=== PATIENT | male | born 1970 | race Caucasian/White ===

== ENCOUNTER 2017-06-13 09:58 | Emergency (ER) | payer SELFPAY ==
[2017-06-13 09:58] VITALS: BP 142/89; PULSE 92; RESP 16; TEMP 37.8; O2SAT 97; BMI 54.6
[2017-06-13 10:26] VITALS: O2SAT 98
--- NOTE | 2017-06-13 10:27 | EKG12_ITS ---
Test Reason : SOB Blood Pressure : / mmHG Vent. Rate : 086 BPM Atrial Rate : 086 BPM P-R Int : 146 ms QRS Dur : 082 ms QT Int : 364 ms P-R-T Axes : 061 039 047 degrees QTc Int : 435 ms Normal sinus rhythm Normal ECG Confirmed by BOLA SERNA MD ([id number]), content editor HAILE AZAR ([id number]) on 06/15/2017 12:55:18 PM Referred By: SUGEY Confirmed By:BOLA SERNA MD
--- NOTE | 2017-06-13 10:27 | RAD_ITS ---
STUDY: X-RAY CHEST REASON FOR EXAM: Male, 46 years old. Fever and cough. TECHNIQUE: PA and lateral views. COMPARISON: 11/01/2014. FINDINGS: Ill-defined nodular infiltrates in the right upper lobe are worrisome for pneumonia. There is no demonstrated pleural abnormality. Cardiac size may be enlarged but unchanged. Normal mediastinum and nathan. Normal visualized pulmonary arteries. Normal visualized aortic arch and descending thoracic aorta. Normal visualized thoracic spine. Normal visualized ribs, clavicles, and shoulders. There is no demonstrated abnormality of the visualized soft tissue structures of the upper abdomen. RAD/Chest PA and Lateral IMPRESSION: Ill-defined nodular infiltrates in the right upper lobe are suspicious for pneumonia. Electronically Signed: Rufus Malave MD at 12:00 EST , Service support ,
[2017-06-13 11:00] VITALS: BP 136/67; BP 143/66; BP 153/93; PULSE 87; PULSE 92; PULSE 99
--- NOTE | 2017-06-13 12:04 | ED.VISSUMM ---
- ER Visit Summary Date of Service: 06/13/17 Chief Complaint: Shortness of breath History of Present Illness: The patient is a 46 M who has been ill for about 3 days. On the initial day he had a fever of 104. He complains of congestion rhinorrhea shortness of breath and cough. He vomited yesterday morning but not since that time he had diarrhea multiple times yesterday. He has had sick contacts with similar symptoms. He is also complained of some intermittent dizziness. Initially he just attributed this to a cold. However given that he has not improved over the past few days he was concerned and presented here. He is concerned he may need antibiotics. He denies chest pain muscle aches joint aches. Physical Examination: Temperature 100.0 vitals unremarkable sex 97% on room air heart rate 92 Patient resting comfortably in no distress Moist mucous membranes Heart regular rate and rhythm Lungs are clear to auscultation I do not appreciate rales rhonchi or wheezes Abdomen soft nontender Extremities nontender Alert Test Results: EKG shows normal sinus rhythm at a rate of 86. Orthostatic vital signs are negative. Influenza A positive. Two-view chest x-ray shows possible right-sided infiltrate. Emergency Department Course and Treatment: Patient clinically appears well and he has normal vital signs. I do believe he is a good candidate for outpatient treatment. His outside of the timeframe for starting Tamiflu but he will be placed on azithromycin for pneumonia. He was instructed on specific signs and symptoms to monitor for, conditions under which to return to the emergency department. All questions answered at bedside patient agreeable to plan. He was discharged. Treatment Plan: [] Disposition: Discharge Impression: Influenza Community-acquired pneumonia This note was generated with [employer] dictation software. It may contain incorrect words, spelling, and punctuation that were not noted in review of the chart prior to signing ED Disposition - Plan for ED Patient: Chief Complaint: Shortness of Breath Referrals: Care Physician,No Primary [Primary Care Provider] -
--- NOTE | 2017-06-13 12:06 | ED.DEP ---
ED Disposition - Plan for ED Patient: Chief Complaint: Shortness of Breath Instructions: ED Pneumonia Adult, ED Flu Prescriptions: Azithromycin [Zithromax Z-Louis] 250 mg PO UD #1 box Referrals: Care Physician,No Primary [Primary Care Provider] - Amilcar Wilson MD [STAFF PHYSICIAN] -
[2017-06-13 12:15] VITALS: BP 157/82; PULSE 96; RESP 16; O2SAT 97
== END 2017-06-13 12:16 | disposition home or self-care (01) ==
PROVIDERS: Emergency Provider Emergency Medicine
DX: J11.1 Influenza due to unidentified influenza virus with other respiratory manifestations (principal); J18.9 Pneumonia, unspecified organism; G47.33 Obstructive sleep apnea (adult) (pediatric)
CPT/HCPCS: 71046; 87804; 93005; 99283

== ENCOUNTER 2018-04-09 22:45 | Emergency (ER) | payer SELFPAY ==
[2018-04-09 22:46] VITALS: BP 155/80; PULSE 89; RESP 14; TEMP 36.9; O2SAT 97; BMI 49.8
--- NOTE | 2018-04-09 23:01 | ED.DEP ---
ED Disposition - Plan for ED Patient: Chief Complaint: Abscess Instructions: ED Abscess IandD Prescriptions: Clindamycin [Cleocin] 300 mg PO 4X/DAY #80 capsule Referrals: Francisco J Verduzco III, MD [STAFF PHYSICIAN] - Adam Szymanski MD [STAFF PHYSICIAN] -
--- NOTE | 2018-04-09 23:05 | ED.DCSUM_ITS ---
- ER Visit Summary Date of Service: 04/09/18 Chief Complaint: Abscess History of Present Illness: The patient is a 47 M presenting with abscess to groin since . He states his tried to squeeze the abscess and it drained brown pus. He denies fever. He has not had these symptoms in the past. Denies other complaints. Physical Examination: Vitals are stable. Patient is afebrile. Alert no acute distress. HEENT exam is unremarkable. Neck is supple. Lungs are clear and equal bilaterally. Heart is regular rate and rhythm. Abdomen is soft nontender nondistended. : 2 cm fluctuant abscess to the superior left groin, does not tract to the scrotum. Extremities are unremarkable. Skin is warm and dry. Remainder of exam is unremarkable. Emergency Department Course and Treatment: I&D was performed. Anesthetized with lidocaine. Incised with 11 blade. Moderate amount of pus was drained. Probed to break up loculations. Irrigated with saline. Patient tolerated this well. He was given a prescription for clindamycin. Advised signs and symptoms for which to return to ED. He is advised to follow-up with primary care physician. Advised return to ED if worsening complaints. Disposition: Discharge home Impression: Left groin abscess, I&D This note was generated with [employer] dictation software. It may contain incorrect words, spelling, and punctuation that were not noted in review of the chart prior to signing ED Disposition - Plan for ED Patient: Disposition: Home or Assisted Living Chief Complaint: Abscess Instructions: ED Abscess IandD Prescriptions: RX: Clindamycin [Cleocin] 300 mg PO 4X/DAY #80 capsule Referrals: Francisco J Verduzco III, MD [STAFF PHYSICIAN] - Adam Szymanski MD [STAFF PHYSICIAN] -
[2018-04-09] MEDS: Clindamycin HCl 150 MG Capsule 300 MG PO (23:09)
[2018-04-09 23:45] VITALS: RESP 16; O2SAT 98
== END 2018-04-09 23:49 | disposition home or self-care (01) ==
LOC: ED 23:06
PROVIDERS: Emergency Provider Emergency Medicine
DX: L02.214 Cutaneous abscess of groin (principal)
CPT/HCPCS: 10060; 99283

== ENCOUNTER 2019-08-14 18:40 | Emergency (ER) | payer SELFPAY ==
[2019-08-14 18:41] VITALS: BP 159/81; PULSE 68; RESP 18; TEMP 36.6; O2SAT 99
[2019-08-14 18:42] VITALS: BP 159/81; PULSE 68; RESP 18; TEMP 36.6; O2SAT 99; BMI 44.0
--- NOTE | 2019-08-14 19:04 | ED.VISSUMM ---
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 Patient since Wednesday has had a fever of 101+. Runny nose and cough. He states he had a lot of body aches. No chest pain. No hemoptysis. No leg swelling. Physical Examination: Middle-aged male no acute distress. Vital signs stable and afebrile. Pulse ox 99% room air no signs hypoxia. H EENT exam unremarkable. Moist with membranes. Neck nontender. No mid lymphadenopathy. Lungs coarse breath sounds bilaterally. But no rales, rhonchi or wheezing. Equal symmetrical. Heart regular rhythm no murmur. Rate about 70. Abdomen soft nontender normal bowel sounds no peritoneal signs. Patient is moving all 4 extremities. Calves are nontender without edema or cords. Neurologically is awake alert with no focal motor deficits. Test Results: This x-ray portable 1 view read by myself shows no acute abnormality. Normal cardiac silhouette and lung reid. Also read by the radiologist. Influenza test negative. Emergency Department Course and Treatment: History and exam are consistent with a respiratory tract infection viral versus pneumonia. Treatment Plan: Repeat exam at 8:30 PM patient doing well. I went over his test results with him. He will be discharged to home. Fluids and rest. Tylenol Motrin. Follow-up if not improving. Disposition: discharge Impression: Viral URI Rule out coronavirus This note was generated with [employer] dictation software. It may contain incorrect words, spelling, and punctuation that were not noted in review of the chart prior to signing ED Disposition - Plan for ED Patient: Referrals: Care Physician,No Primary [NON-STAFF] -
--- NOTE | 2019-08-14 19:07 | RAD_ITS ---
STUDY: X-RAY CHEST REASON FOR EXAM: Male, 48 years old. sob with fever and body aches TECHNIQUE: Frontal view COMPARISON: November 01, 2014 FINDINGS: The lungs are expanded. Right costophrenic angle blunting may be due to trace effusion. Normal size heart. Normal mediastinum and nathan. Normal visualized pulmonary arteries. Normal visualized aortic arch and descending thoracic aorta. Degenerative changes at thoracic spine. Normal visualized ribs, clavicles, and shoulders. There is no demonstrated abnormality of the visualized soft tissue structures of the upper abdomen. RAD/Chest 1 View (Portable) IMPRESSION: Possible trace right pleural effusion. Electronically Signed: Satish Sarah DO at 19:21 EDT Tel [phone], Service support ,
--- NOTE | 2019-08-14 20:32 | ED.DEP ---
ED Disposition - Plan for ED Patient: Disposition: Home or Assisted Living Instructions: ED Viral Syndrome Referrals: Ric Montoya MD [STAFF PHYSICIAN] - 1 Week if not improving Additional Instructions: Plenty of fluids and rest. Alternate Tylenol and Motrin for fever Follow-up if not improving.
[2019-08-14 20:36] VITALS: BP 148/82; PULSE 70; RESP 15; TEMP 36.9; O2SAT 98; O2SAT 99
== END 2019-08-14 20:55 | disposition home or self-care (01) ==
PROVIDERS: Emergency Provider Emergency Medicine; PCP Family Medicine
DX: J06.9 Acute upper respiratory infection, unspecified (principal); J90 Pleural effusion, not elsewhere classified; E11.9 Type 2 diabetes mellitus without complications; Z79.84 Long term (current) use of oral hypoglycemic drugs
CPT/HCPCS: 71045; 87804; 99282

== ENCOUNTER 2020-01-29 16:04 | Emergency (ER) | payer SELFPAY ==
[2020-01-29 16:05] VITALS: BP 152/81; PULSE 71; RESP 16; TEMP 36.5; O2SAT 97; BMI 45.1
--- NOTE | 2020-01-29 16:30 | RAD_ITS ---
STUDY: X-RAY - LEFT KNEE REASON FOR EXAM: Male, 49 years old. PAIN AND LROM S/P INJURY x3 DAYS AGO TECHNIQUE: 4 view(s) of the knee. COMPARISON: None. FINDINGS: Normal visualized distal femur. Normal visualized proximal tibia. There is a bony lesion at the proximal shaft of the fibula, possibly a osteochondroma. Normal proximal tibiofibular articulation. Normal medial femorotibial compartment. Normal lateral femorotibial compartment. Normal patellofemoral articulation. Degenerative patella spurring. The soft tissue structures are unremarkable. RAD/Knee 4 or More Views IMPRESSION: Proximal fibular bony lesion is noted. No acute bony injury. Degenerative changes with spurring of the patella. Electronically Signed: Satish Sarah DO at 17:28 EDT Tel [phone], Service support ,
--- NOTE | 2020-01-29 16:39 | ED.DCSUM_ITS ---
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 He reports that 3 days ago he lost his footing when he stepped off of the cat walk on his trunk. States that he twisted his left knee awkwardly. He denies any other injuries. No blow to the head or loss of consciousness. Patient reports that he is a sharp, throbbing pain to his knee that is 10 on 10 at worst 9-10 currently. Is worsened by walking or straightening his leg out. Is relieved by ibuprofen. Denies any numbness or weakness. Review of systems: General: No fever, chills, cold sweats. Cardiovascular: No chest pain, palpitations. Respiratory: No cough, shortness of breath, dyspnea on exertion. Gastrointestinal: No abdominal pain, nausea, vomiting, diarrhea, melena, or hematochezia. Genitourinary: No dysuria, frequency, hematuria. Skin: No rash. Neuro: No headache, numbness, weakness. Physical Examination: Vitals: Stable. Afebrile. Neck: No vertebral tenderness. Full ROM without difficulty. Cleared by NEXUS criteria. Back: No vertebral tenderness. General: A&O x 3. NAD. Cardiovascular exam: Regular rate and rhythm, no murmur, rub or gallop. Respiratory exam: Chest nontender. No crepitus. Clear to auscultation bilaterally. No wheezes or stridor. Abdominal exam: Soft, nontender, nondistended, normal bowel sounds. No pain in RUQ or LUQ specifically. No peritoneal signs. Extremity: Moderate tenderness palpation over the medial side of his left knee. Good range of motion with minimal pain. However he does have pain with trying to extend completely. No pain or ligamentous instability with anterior/posterior drawer or medial/lateral stress. Test Results: Clinical Impression(s) from Imaging Studies Knee X-Ray 01/29/20 16:30 IMPRESSION: Proximal fibular bony lesion is noted. No acute bony injury. Degenerative changes with spurring of the patella. Electronically Signed: Satish Sarah DO at 17:28 EDT Tel [phone], Service support , Emergency Department Course and Treatment: Patient was treated with Tylenol. He refused crutches. Treatment Plan: Patient will be discharged instructions follow-up Dr. Ralph Rinaldi in 1 week if not improving. Return to the emergency department for any worsening symptoms. Disposition: To home in improved and stable condition. Impression: 1 1. Left knee pain, acute. This note was generated with [employer] dictation software. It may contain incorrect words, spelling, and punctuation that were not noted in review of the chart prior to signing ED Disposition - Plan for ED Patient: Disposition: Home or Assisted Living Instructions: ED Knee Pain [facility]O Prescriptions: Naproxen [Naprosyn] 500 mg PO BID #14 tab Prescription Printed Referrals: Ralph Rinaldi MD [STAFF PHYSICIAN] - 1 Week if not improving
[2020-01-29] MEDS: Acetaminophen 500 MG Tablet 1000 MG PO (16:43)
--- NOTE | 2020-01-29 16:44 | ED.RN ---
DISCHARGE INSTRUCTIONS GIVEN TO AND REVIEWED WITH PATIENT, PATIENT DENIES QUESTIONS OR CONCERNS AND VOICES UNDERSTANDING OF DISCHARGE INSTRUCTIONS. PT AMBULATES OUT OF ROOM WITHOUT DIFFICULTY.
== END 2020-01-29 16:45 | disposition home or self-care (01) ==
LOC: ED 16:42
PROVIDERS: Emergency Provider Emergency Medicine; PCP Family Medicine
DX: M25.562 Pain in left knee (principal); X50.1XXA Overexertion from prolonged static or awkward postures, initial encounter; Y93.9 Activity, unspecified; Y92.9 Unspecified place or not applicable
CPT/HCPCS: 73564; 99283

== ENCOUNTER 2022-09-23 11:14 | Emergency (ER) | payer MEDICAID, SELFPAY ==
[2022-09-23 11:16] VITALS: BP 156/84; PULSE 81; RESP 16; TEMP 36.6; O2SAT 98; BMI 47.1
--- NOTE | 2022-09-23 11:57 | CT_ITS ---
HISTORY: hematuria. TECHNIQUE: Helically acquired images were obtained of the abdomen and pelvis without oral or IV contrast. A radiation dose optimization technique was used for this scan. 534 images. COMPARISON: None.. FINDINGS: LOWER CHEST: Mild scarring in the right lung base. BOWEL: Bowel including appendix nondilated. Moderate stool in the colon. PERITONEUM: No significant free fluid. LIVER: Fatty infiltration. 22 cm in length. GALLBLADDER/BILIARY TREE: Gallbladder contracted. SPLEEN: 17 cm in length. KIDNEYS AND URETERS: No nephrolithiasis or hydronephrosis. PANCREAS/ADRENAL GLANDS: Nonenlarged. VESSELS: No abdominal aortic aneurysm. PELVIC ORGANS: Unremarkable. 1.5 x 2.4 cm right external iliac lymph node. ABDOMINAL WALL: Fat-containing umbilical and inguinal hernias. BONES: Mild degenerative change. CT/Abdomen/Pelvis without Cont IMPRESSION: Negative examination for renal stone. Hepatosplenomegaly. Hepatic steatosis. Mildly enlarged right external iliac lymph node, nonspecific. Consider follow-up. Electronically Signed: Katina Shaw MD at 12:40 EDT ,
--- NOTE | 2022-09-23 12:09 | ED.RN ---
Addendum entered by Chacha Hobson 09/23/22 12:45: PT STATED THE IV NEED TO GO IN HIS HAND. Original Note: YOUREGOING TO NEED TO PUT THE IV IN MY, THEY USE 18 ON ME.
[2022-09-23 12:11] LABS: Absolute Lymphocyte Count 0.93 X10^3/uL (0.83-4.51); Absolute Neutrophil Count 4.8 X10^3/uL (2.0-7.7); Basophil# 0.05 X10^3/uL; Basophil% 0.7 % (0-1); Eosinophil# 0.01 X10^3/uL; Eosinophils% 0.1 % (0-5); Hematocrit 42.1 % (40-54); Lymphocyte # 0.93 X10^3/ul (0.83-4.51); Lymphocyte % 13.8 % (19-41); Mean Corp Hgb Conc 33.3 g/dL (32-36); Mean Platelet Vol. 8.9 fl (6.2-12.0); Monocyte# 0.73 X10^3/uL; Monocyte% 10.8 % (0-10); NRBC Flagged by Analyzer 0 % (0-5); Neutrophil % 71.2 % (47-70); Platelet Count 196 K/mm3 (150-450); RBC Distribution Width CV 14.3 % (11.6-14.6); RBC Distribution Width SD 38.3 fl (35.1-43.9); Red Blood Count 5.61 M/mm3 (4.6-6.2); White Blood Count 6.8 K/mm3 (4.4-11.0)
[2022-09-23 12:22] LABS: Anion Gap 6 (5-15); BUN 13 mg/dL (7-18); BUN/Creat Ratio 8.8 RATIO (10-20); Calcium,Total 8.9 mg/dL (8.5-10.1); Chloride 99 mmol/L (98-107); Creatinine, Serum 1.48 mg/dL (0.70-1.30); EST Glomerular Filtration Rate 53 mL/min (>60); Est Glom Filt Rate - Afr Amer 65 mL/min (>60); Estimated Creatinine Clearance 59.71 ml/min; Glucose 195 mg/dL (74-106); Potassium 3.5 mmol/L (3.5-5.1); Sodium Level 132 mmol/L (136-145)
--- NOTE | 2022-09-23 12:23 | EDS_ITS ---
HPI History of Present Illness Chief Complaint: Male Pain/Injury Informant: patient Narrative Narrative: Patient states 2 days ago he was at work, he was trying to open the cheung on a his truck trailer, but cement had dried on the cheung and rinsing it off with a h ose did not remove it so he physically bent over to pull the cheung open with force, and ended up doing this on multiple other latches, he states fairly suddenly after the initial 1 he had pain across his lower abdomen and flanks bilaterally that felt like he pulled something. No pain in his low back, but his testicles both do feel sore. No neurologic symptoms in his legs. No bowel or bladder dysfunction. 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 He states since then, he has been urinating mild amount of blood but not as much as that initial time. He still has the pain. No nausea, vomiting, but last night he felt like he subjectively had a fever and felt sweaty, he did not check his temperature, that has not occurred again today. He does still have the pain. [facility] Medical History (Updated 09/23/22 @ 15:[address] Logan Ryan MD) Bronchitis Obesity Pleural effusion Type 2 diabetes mellitus Medical History no medical history Home Medications clindamycin HCl 150 mg capsule 300 mg PO 4X/DAY ##80 04/09/18 [Rx Last Taken Unknown] metformin 500 mg tablet,extended release 24 hr 1,000 mg PO BID 08/14/19 [History Last Taken Unknown] testosterone cypionate 200 mg/mL intramuscular oil 1 injectable IM QWEEK 08/14/19 [History Last Taken Unknown] anastrozole 1 mg tablet 01/29/20 [History Last Taken Unknown] naproxen 500 mg tablet 500 mg PO BID #14 tabs 01/29/20 [Rx Last Taken Unknown] sulfamethoxazole 800 mg-trimethoprim 160 mg tablet 1 tab PO BID #6 TABLETS 09/23/22 [Rx Last Taken Unknown] Allergy/AdvReac Type Severity Reaction Status Date / Time hydrocodone Allergy Other Verified 09/23/22 11:19 Penicillins Allergy Rash Verified 09/23/22 11:19 Social History Smoking Status: Never smoker ROS ROS ED Constitutional Constitutional ED: Reports fever(s), subjective and sweats; Denies chills Eyes Eyes: Denies change in vision or diplopia ENT ENT ED: Denies rhinorrhea or sore throat Cardiovascular Cardiovascular: Denies chest pain or palpitations Respiratory/Chest Respiratory/Chest: Denies cough or dyspnea Gastrointestinal Gastrointestinal: Reports abdominal pain; Denies diarrhea, nausea or vomiting Genitourinary Genitourinary ED: Reports as per HPI, hematuria and scrotal pain; Denies dysuria, scrotal swelling or testicular mass Musculoskeletal Musculoskeletal: Denies back pain or neck pain Integumentary Denies abscess or rash Neurologic Neurologic: Denies headache(s), paresthesias or weakness Psychiatric Psychiatric: Denies anxiety or suicidal thoughts EXAM Physical Exam Const Vital Signs: 09/23/22 11:16 09/23/22 14:53 Temperature 98 F Temperature Source Temporal Pulse Rate 81 81 Respiratory Rate 16 16 Blood Pressure 156/84 H 137/79 H Blood Pressure Mean 108 98 Pulse Ox 98 99 Oxygen Delivery Method Room Air Room Air Positive well nourished, well developed and obese General Appearance ED: well developed and NAD Nutritional Appearance: obese HEENT Reports moist mucous membranes normocephalic and atraumatic Eyes PERRL and EOMs intact bilaterally Neck full ROM and supple Resp normal respiratory effort and clear to auscultation bilaterally Cardio regular rate, regular rhythm and no murmurs Rate: tachycardic GI non-distended GI Narrative: Mild diffuse lower abdominal tenderness or suprapubic no guarding or rebound otherwise benign. Auscultation: normoactive bowel sounds Palpation: soft no CVA tenderness Narrative: Testicles very mildly diffusely tender, normal cremasterics, normal color, no swelling, no rash/skin lesion there. No perineal tenderness, subcutaneous emphysema, erythema, or necrotic tissue. Testes: Negative for testicular mass Back/Spine no CVA tenderness General Back: other FROM Extremity normal to inspection General Extremety ED: Negative for edema, pulses abnormal or tenderness General Extremity: Negative for edema or pulses abnormal Neuro oriented x3, CN's II-XII intact bilaterally and no sensory deficits noted Sensorium / Orientation: awake and alert Motor Exam: strength 5/5 throughout Psych mental status grossly normal Skin no rashes or lesions noted and no wounds MDM MDM MDM Narrative Medical decision making narrative: Patient with what sounds like a muscle strain followed by hematuria. No obvious link to this, so I obtained a CT of his abdomen/pelvis as well as of blood work, his renal function is down a little but not enough to require admission, his urinalysis does not show significant signs of infection, he does have glucose, his serum glucose was 195, and he has protein and blood, however there are no white or red blood cells. His CT is basically unremarkable, I reviewed the imaging and the report which I agree with. Given that, I considered rhabdomyolysis or major muscle injury in the differential and sent a CPK. It returned normal. Given this, and the fact that he had sweats and fevers subjectively last night, I am going to treat him with 3 days of Bactrim, send a urine culture, and have him follow-up. Unknown if this could have been some type of minor muscle injury, he definitely does not have a rectus sheath hematoma or other muscle finding on CT imaging in the area where he is having pain. We will have the patient follow-up as an outpatient. If the hematuria persists he should see urology. Our lab does offer a urine myoglobin test, but it is a send out and will not be performed today. I am adding that on, and he should follow-up for the results. History & Record Review Additional record(s) reviewed:: Prior labs Lab Data Attestation: I reviewed the patient's lab results. Labs: Laboratory Results - last 24 hr 09/23/22 09/23/22 09/23/22 12:03 12:03 12:03 WBC 6.8 RBC 5.61 Hgb 14.0 Hct 42.1 MCV 75.0 L MCH 25.0 L MCHC 33.3 RDW Std Deviation 38.3 RDW Coeff of Elicia 14.3 Plt Count 196 MPV 8.9 Immature Gran % (Auto) 3.400 H Neut % (Auto) 71.2 H Lymph % (Auto) 13.8 L Clayton % (Auto) 10.8 H Eos % (Auto) 0.1 Baso % (Auto) 0.7 Absolute Neuts (auto) 4.8 Absolute Lymphs (auto) 0.93 Nucleated RBC % 0 Sodium 132 L Potassium 3.5 Chloride 99 Carbon Dioxide 27.0 Anion Gap 6 BUN 13 Creatinine 1.48 H Estim Creat Clear Calc 59.71 Est GFR (MDRD) Af Amer 65 Est GFR (MDRD) Non-Af 53 L BUN/Creatinine Ratio 8.8 L Glucose 195 H Calcium 8.9 Total Creatine Kinase 144 Urine Color Urine Clarity Urine pH Ur Specific [place] Urine Protein Urine Glucose (UA) Urine Ketones Urine Occult Blood Urine Nitrite Urine Bilirubin Urine Urobilinogen Ur Leukocyte Esterase Urine RBC Urine WBC Ur Squamous Epith Cells Urine Bacteria Urine Mucus 09/23/22 12:35 WBC RBC Hgb Hct MCV MCH MCHC RDW Std Deviation RDW Coeff of Elicia Plt Count MPV Immature Gran % (Auto) Neut % (Auto) Lymph % (Auto) Clayton % (Auto) Eos % (Auto) Baso % (Auto) Absolute Neuts (auto) Absolute Lymphs (auto) Nucleated RBC % Sodium Potassium Chloride Carbon Dioxide Anion Gap BUN Creatinine Estim Creat Clear Calc Est GFR (MDRD) Af Amer Est GFR (MDRD) Non-Af BUN/Creatinine Ratio Glucose Calcium Total Creatine Kinase Urine Color Yellow Urine Clarity Sl. Cloudy Urine pH 5.0 Ur Specific [place] 1.020 Urine Protein 30 H Urine Glucose (UA) 250 H Urine Ketones 5 H Urine Occult Blood 50 H Urine Nitrite Negative Urine Bilirubin Negative Urine Urobilinogen 4 H Ur Leukocyte Esterase 25 H Urine RBC 0-5 SEEN Urine WBC 0-5 SEEN Ur Squamous Epith Cells 0-5 SEEN Urine Bacteria 1+ Urine Mucus 0 SEEN Radiography Diagnostic Testing: Clinical Impression(s) from Imaging Studies Abdomen/Pelvis CT 09/23/22 11:57 IMPRESSION: Negative examination for renal stone. Hepatosplenomegaly. Hepatic steatosis. Mildly enlarged right external iliac lymph node, nonspecific. Consider follow-up. Electronically Signed: Katina Shaw MD at 12:40 EDT , Discharge Plan Triage Chief Complaint: Male Pain/Injury ED Provider: Logan Ryan Dx/Rx/DC Orders Clinical Impression: Abdominal muscle strain, Hematuria Instructions: Myoglobin (Urine), ED Hematuria, ED Muscle Strain, Abdomen Prescriptions: New sulfamethoxazole-trimethoprim [sulfamethoxazole-trimethoprim] 800-160 mg tablet 1 tab PO BID Qty: 6 0RF No Action clindamycin HCl 150 MG capsule 300 mg PO 4X/DAY Qty: 80 0RF testosterone cypionate 200 MG/ML oil 1 injectable IM QWEEK metformin 500 MG tablet 1,000 mg PO BID naproxen 500 MG tablet 500 mg PO BID Qty: 14 0RF anastrozole 1 mg tablet Label Comments: Take 1 tablet by mouth one time a week. Stand Alone Forms: Work Status Form Primary Care Provider: Keron Ramos Referrals: [facility] [Group of Physicians] - As soon as possible Adam Szymanski MD [Med Staff - Active Staff] - 1 Week if not improving (with regards to urinating blood) Keron Ramos MD [Primary Care Provider] - Activity Restrictions/Additional Instructions: drink plenty of fluids Disposition Disposition: Home, Self Care
[2022-09-23 12:48] LABS: Mucous, Urine 0 SEEN /hpf (<or=2+)
[2022-09-23 13:06] LABS: Color, Urine Yellow (Yellow); Glucose, Dipstick 250 mg/dl (Normal); Ketone-Dipstick 5 mg/dl (Negative); Leukocyte Esterase-Dipstick 25 /ul (Negative); Nitrite-Dipstick Negative (Negative); Occult Blood-Urine 50 /ul (Negative); Protein-Dipstick 30 mg/dl (Negative); Urine Bilirubin Dipstick Negative (Negative); Urine Clarity Sl. Cloudy (Clear); Urine Urobilinogen 4 mg/dl (Normal)
[2022-09-23 13:14] LABS: Bacteria 1+ /hpf (None Seen); Red Blood Cells-Urine 0-5 SEEN /hpf (0-5); Squamous Epithelial Cells - UA 0-5 SEEN /hpf (0-5); White Blood Cells 0-5 SEEN /hpf (0-5)
[2022-09-23 14:50] LABS: CPK Total, Creatine Kinase 144 U/L (39-308)
[2022-09-23 14:53] VITALS: BP 137/79; PULSE 81; RESP 16; O2SAT 99
[2022-09-23] MEDS: Smz/Tmp Ds Tablet 1 TABLET PO (15:05)
[2022-09-23 15:27] VITALS: BP 144/71; PULSE 63; RESP 14; O2SAT 97
[2022-09-29 16:09] LABS: Myoglobin, Urine 5 ng/mL (0-13)
== END 2022-09-23 15:28 | disposition home or self-care (01) ==
PROVIDERS: Emergency Provider Emergency Medicine; PCP Family Medicine; Visit Provider Emergency Medicine
DX: R31.9 Hematuria, unspecified (principal); E11.9 Type 2 diabetes mellitus without complications; S39.011A Strain of muscle, fascia and tendon of abdomen, initial encounter; X50.9XXA Other and unspecified overexertion or strenuous movements or postures, initial encounter; Y99.0 Civilian activity done for income or pay; Y92.69 Other specified industrial and construction area as the place of occurrence of the external cause; Z79.84 Long term (current) use of oral hypoglycemic drugs
CPT/HCPCS: 74176; 80048; 81001; 82550; 83874; 85025; 87086; 87088; 99283; A4216

== ENCOUNTER 2024-09-07 21:17 | Emergency (ER) | payer MEDICAID, SELFPAY ==
[2024-09-07 21:18] VITALS: BP 171/94; PULSE 85; RESP 18; TEMP 36.6; O2SAT 97; BMI 50.6
[2024-09-07] MEDS: Morphine 4 MG/ML Syringe IV (22:38)
[2024-09-07] MEDS: Lidocaine 2% /Epi 1:100 (20ml) 20 ML VIAL INFILT (22:38)
[2024-09-07] MEDS: Ondansetron 4 MG/2 ML Vial IV (22:38)
[2024-09-07 22:53] LABS: Absolute Lymphocyte Count 1.72 X10^3/uL (0.83-4.51); Absolute Neutrophil Count 4.9 X10^3/uL (2.0-7.7); Basophil# 0.09 X10^3/uL; Basophil% 1.2 % (0-1); Eosinophil# 0.19 X10^3/uL; Eosinophils% 2.5 % (0-5); Hematocrit 39.6 % (40-54); Hemoglobin 13.6 g/dL (13.0-16.5); Lymphocyte # 1.72 X10^3/ul (0.83-4.51); Lymphocyte % 22.3 % (19-41); Mean Corp Hgb Conc 34.3 g/dL (32-36); Mean Corpuscular Hgb 26.4 pg (27.0-32.0); Mean Corpuscular Volume 76.7 fL (80-94); Mean Platelet Vol. 9.1 fl (6.2-12.0); Monocyte# 0.52 X10^3/uL; Monocyte% 6.8 % (0-10); NRBC Flagged by Analyzer 0 % (0-5); Neutrophil # 4.91 X10^3/uL (2.7-7.7); Neutrophil % 63.7 % (47-70); Platelet Count 269 K/mm3 (150-450); RBC Distribution Width CV 14.3 % (11.6-14.6); RBC Distribution Width SD 38.5 fl (35.1-43.9); Red Blood Count 5.16 M/mm3 (4.6-6.2); White Blood Count 7.7 K/mm3 (4.4-11.0)
[2024-09-07] MEDS: Clindamycin 900 MG/50 ML BAG 75 MG IV (22:53)
[2024-09-07 23:00] VITALS: BP 144/90; PULSE 88; RESP 15; TEMP 36.6; O2SAT 98
[2024-09-08] VITALS: BP 144/90; PULSE 81; RESP 20; TEMP 37.1; O2SAT 96
[2024-09-08] LABS: Lactic Acid 1.4 mmol/L (0.0-2.0)
[2024-09-08 00:04] LABS: Anion Gap 13 (5-15); BUN 18 mg/dL (4-19); BUN/Creat Ratio 14.8 RATIO (10-20); Calcium,Total 9.1 mg/dL (7.6-11.0); Carbon Dioxide 21.8 mmol/L (21.0-32.0); Chloride 96 mmol/L (98-108); Creatinine, Serum 1.22 mg/dL (0.70-1.20); EST Glomerular Filtration Rate 71 (>60); Estimated Creatinine Clearance 104.84 ml/min (50-250); Glucose 528 mg/dL (70-99); Potassium 4.7 mmol/L (3.3-5.1); Sodium Level 131 mmol/L (133-145)
--- NOTE | 2024-09-08 00:50 | EX.ED.DYSGE1 ---
HPI History of Present Illness Chief Complaint: Abscess Informant: patient Narrative Narrative: Patient is a 53-year-old male with past medical history of anxiety and diabetes. He states over the past week he noticed a small bump along the right upper posterior thigh. He states it felt like a zit. However as the week progressed the area became more red swollen and painful. He states his popped it and it drained a large amount of pus. He states that there was concern there was persistent infection and that he may require antibiotics and therefore comes in for evaluation. [facility] Medical History (Updated 09/08/24 @ 05:[address] Ky Carrillo, DO) Anxiety Type 2 diabetes mellitus Pleural effusion Obesity Bronchitis Home Medications ?Medication ?Instructions ?Recorded ?Last Taken ?Type metformin 500 mg tablet,extended 1,000 mg PO BID 08/14/19 Unknown History release 24 hr glipizide 10 mg tablet, extended 10 mg PO DAILY 09/07/24 Unknown History release 24 hr paroxetine HCl 30 mg tablet 30 mg PO DAILY 09/07/24 Unknown History clindamycin HCl 300 mg capsule 300 mg PO 4X/DAY 10 days #40 caps 09/08/24 Unknown Rx oxycodone-acetaminophen 5 mg-325 1 tab PO Q6H PRN pain 3 days #12 09/08/24 Unknown Rx mg tablet (Percocet) tabs Allergy/AdvReac Type Severity Reaction Status Date / Time hydrocodone Allergy Other Verified 09/07/24 21:20 Penicillins Allergy Rash Verified 09/07/24 21:20 Social History (Updated 09/07/24 @ 21:48 by Adilene Sage) current occupational status: employed Smoking Status: Never smoker ROS ROS ED Constitutional Constitutional ED: Denies chills or fever(s) Eyes Eyes: Denies change in vision ENT ENT ED: Denies sore throat Cardiovascular Cardiovascular: Denies chest pain Respiratory/Chest Respiratory/Chest: Reports cough; Denies dyspnea Gastrointestinal Gastrointestinal: Denies abdominal pain, diarrhea, nausea or vomiting Genitourinary Genitourinary ED: Denies dysuria Musculoskeletal Musculoskeletal: Reports other Details: Positive right leg pain Integumentary Reports abscess; Denies rash Neurologic Neurologic: Denies headache(s) Psychiatric Psychiatric: Reports anxiety Hematologic/Lymphatic Hematologic/Lymphatic: Denies easy bleeding or easy bruising EXAM Physical Exam Const Vital Signs: 09/07/24 21:18 09/07/24 23:00 09/08/24 00:00 Temperature 97.8 F 98 F 98.8 F Temperature Source Oral Oral Oral Pulse Rate 85 88 81 Respiratory Rate 18 15 20 H Blood Pressure 171/94 H 144/90 H 144/90 H Blood Pressure Mean 119 108 108 Pulse Ox 97 98 96 Oxygen Delivery Method Room Air Room Air Room Air 09/08/24 01:00 09/08/24 01:00 09/08/24 01:00 Temperature 98.2 F 98.2 F Temperature Source Oral Pulse Rate 83 83 83 Respiratory Rate 16 16 16 Blood Pressure 138/87 H 138/87 H 138/87 H Blood Pressure Mean 104 104 104 Pulse Ox 97 97 97 Oxygen Delivery Method Positive well nourished, well developed and obese General Appearance ED: well developed Nutritional Appearance: obese HEENT Reports moist mucous membranes HEENT Narrative: No tongue or lip swelling no oral lesions no airway edema or compromise There is cobblestoning in the posterior pharynx consistent with sinus drainage; no secondary findings to suggest infection Eyes PERRL and EOMs intact bilaterally General Eye ED: Negative for pale conjunctiva or scleral icterus Neck supple Neck Narrative: No nuchal rigidity or meningeal signs Resp normal respiratory effort and clear to auscultation bilaterally Cardio regular rate and regular rhythm GI normal to inspection, nondistended, normoactive bowel sounds, non-tender, non-distended and no masses Auscultation: normoactive bowel sounds Palpation: soft Extremity Extremity Narrative: Along the upper midportion of the right thigh there is a 2 x 3 cm area of induration and erythema. There is a 1 cm opening in the center of the area of induration. There is no active drainage noted. No crepitance or free air noted. There is mild surrounding erythema and warmth concerning for developing cellulitis Neuro oriented x3, CN's II-XII intact bilaterally and no sensory deficits noted Sensorium / Orientation: alert Motor Exam: strength 5/5 throughout Psych mental status grossly normal Skin Skin Narrative: Soft tissue changes to the right posterior thigh consistent with abscess and cellulitis as documented above MDM MDM MDM Narrative Medical decision making narrative: Patient arrived to the ER hypertensive otherwise with stable vitals. He reported swelling and pain over the past week and history and exam is consistent with abscess with cellulitis. As he is a diabetic and technically immunosuppressed there is concern for systemic infection/sepsis. Therefore basic labs were obtained. Patient's white count is normal his absolute neutrophil count is normal and lactic acid is normal going against a stomach infection. The patient's blood sugar is elevated at 528 but he states he is not taking his medication today and he ate a candy bar earlier. His serum bicarb is normal as well and therefore my concern for DKA is low. Patient was given IV clindamycin and the abscess was incised and drained as documented below. He was given 15 is a subcu insulin secondary to his hyperglycemia. However as he does not have signs of systemic infection/sepsis and physical exam does not suggest necrotizing fasciitis and I have low concern for DKA based on the normal bicarb and anion gap he is otherwise safe for discharge with outpatient treatment Patient had the right posterior thigh cleaned with chlorhexidine. It was anesthetized with 10 mL of 2% lidocaine with epinephrine in local fashion. A #11 blade was used to make a 1.5 cm incision over top the area of induration. There was expression of blood and purulent material. Loculations were dissected with a needle aguilar. The wound was copiously irrigated with normal saline. The wound was then packed with 1 inch iodoform gauze. Patient tolerated the procedure well without complication. History & Record Review Discussion w/independent historian: Patient and Family Lab Data Attestation: I reviewed the patient's lab results. Labs: Laboratory Results - last 24 hr 09/07/24 22:40 WBC 7.7 RBC 5.16 Hgb 13.6 Hct 39.6 L MCV 76.7 L MCH 26.4 L MCHC 34.3 RDW Std Deviation 38.5 RDW Coeff of Elicia 14.3 Plt Count 269 MPV 9.1 Immature Gran % (Auto) 3.500 H Neut % (Auto) 63.7 Lymph % (Auto) 22.3 [place] % (Auto) 6.8 Eos % (Auto) 2.5 Baso % (Auto) 1.2 H Absolute Neuts (auto) 4.9 Absolute Lymphs (auto) 1.72 Nucleated RBC % 0 Sodium 131 L Potassium 4.7 Chloride 96 L Carbon Dioxide 21.8 Anion Gap 13 BUN 18 Creatinine 1.22 H Estim Creat Clear Calc 104.84 Est GFR (MDRD) Non-Af 71 BUN/Creatinine Ratio 14.8 Glucose 528 H* Lactic Acid 1.4 Calcium 9.1 Discharge Plan Triage Chief Complaint: Abscess ED Provider: Ky Carrillo Dx/Rx/DC Orders Clinical Impression: Abscess, Non-insulin dependent diabetes mellitus, Hyperglycemia, Anxiety Instructions: ED Abscess Incision And Drainage Prescriptions: New oxycodone-acetaminophen [Percocet] 5-325 mg tablet 1 tab PO Q6H PRN (Reason: pain) 3 Days Qty: 12 0RF clindamycin HCl 300 mg capsule 300 mg PO 4X/DAY 10 Days Qty: 40 0RF No Action metformin 500 MG tablet 1,000 mg PO BID glipizide 10 mg tablet extended release 24hr 10 mg PO DAILY paroxetine HCl 30 mg tablet 30 mg PO DAILY Primary Care Provider: Keron Ramos Referrals: Keron Ramos MD [Primary Care Provider] - Activity Restrictions/Additional Instructions: Please take your antibiotic as directed to help resolve any remaining infection. Remove the packing in 2 to 3 days. Return to the ER should you have any further concerns or worsening of symptoms Print Language: Polish Disposition Disposition: Home, Self Care Discharge Date/Time: 09/08/24 01:25
[2024-09-08 01:00] VITALS: BP 138/87; PULSE 83; RESP 16; TEMP 36.8; O2SAT 97
[2024-09-08] MEDS: Insulin Lispro 100 UNIT/ML INSULN.PEN 15 UNIT SC (01:10)
[2024-09-08] MEDS: oxyCODONE 5 MG Tablet 10 MG PO (01:23)
== END 2024-09-08 01:25 | disposition home or self-care (01) ==
PROVIDERS: Emergency Provider Emergency Medicine; PCP Family Medicine; Visit Provider Emergency Medicine
DX: L02.91 Cutaneous abscess, unspecified (principal); E11.65 Type 2 diabetes mellitus with hyperglycemia; F41.9 Anxiety disorder, unspecified; Z79.84 Long term (current) use of oral hypoglycemic drugs; Z79.899 Other long term (current) drug therapy
CPT/HCPCS: 10060; 80048; 83605; 85025; 96365; 96366; 96372; 96375; 99282; A4216; J2405

== ENCOUNTER 2025-02-15 19:45 | Inpatient (IN) | payer SELFPAY ==
[2025-02-15] VITALS (8 sets, daily range): BP systolic 121–156; BP diastolic 61–73; PULSE 85–98; RESP 13–20; TEMP 36.9–37.5; O2SAT 95–98; BMI 46.7
--- NOTE | 2025-02-15 20:22 | CT_ITS ---
PROCEDURE: PELVIS WITH IV CONTRAST 02/15/2025 REASON FOR EXAM: SCROTAL CELLULITIS ? ABSCESS ON PT'S RIGHT SIDE TECHNIQUE: Procedure Code: CTPELW Modality: CT Procedure: PELVIS WITH IV CONTRAST CONTRAST: OMNIPAQUE 350 VOLUME: 100 mL RADIATION DOSE SUMMARY: CTDlvol: 28.21 mGy DLP: 1286 mGycm COMPARISON: None. FINDINGS: Bilateral prominent superficial subcutaneous scrotal edema, more on the right side, probably scrotal cellulitis. No fluid collection or drainable abscess formation. No CT evidence of gas-forming infection. Surgical changes of the anterior abdominal wall. Mildly distended bladder. Mild diffuse spondylosis. Normal small intestine. Normal colon. There is no demonstrated peritoneal fluid. There is no pelvic mass lesion or lymphadenopathy. There is no pelvic fluid. Mild degenerative joint disease. CT/Pelvis WITH IV Contrast IMPRESSION: Bilateral prominent superficial subcutaneous scrotal edema, more on the right s cristal, probably scrotal cellulitis. No fluid collection or drainable abscess formation. No CT evidence of gas-forming infection. Surgical changes of the anterior abdominal wall. Mildly distended bladder. Mild diffuse spondylosis. Reading [facility]
--- NOTE | 2025-02-15 20:23 | EKG12_ITS ---
Test Reason : DYSRHYTHMIA Blood Pressure : */* mmHG Vent. Rate : 91 BPM Atrial Rate : 91 BPM P-R Int : 150 ms QRS Dur : 74 ms QT Int : 342 ms P-R-T Axes : 65 50 51 degrees QTcB Int : 420 ms Normal sinus rhythm Nonspecific T wave abnormality Abnormal ECG Confirmed by BOLA SERNA MD ([id number]), editor map DANAY SCHOFIELD ([id number]) on 02/16/2025 8:33:48 AM Referred By: Confirmed By: BOLA SERNA MD
--- NOTE | 2025-02-15 20:25 | EX.ED.DYSGE1 ---
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 History of noncemented diabetes and chronic kidney disease. He is concerned he either has scrotal cellulitis or scrotal abscess. He had an abscess on the left side which he squeezed and drained. He had now has more swelling and redness on the right side. Recently had infection of his right index finger which a friend of his gave him amoxicillin which improved it. He has not seen a physician for this at all yet. He says been going on for 2+ weeks. Also complaining of diffuse body aches. Prior similar symptoms: No Recent Illness/Hospitalization: No [facility] Medical History Anxiety Type 2 diabetes mellitus Pleural effusion Obesity Bronchitis Home Medications ?Medication ?Instructions ?Recorded ?Last Taken ?Type glipizide 10 mg tablet, extended 10 mg PO DAILY 09/07/24 Unknown History release 24 hr paroxetine HCl 30 mg tablet 30 mg PO DAILY 09/07/24 Unknown History metformin 500 mg tablet 500 mg PO BID 02/15/25 Unknown History Allergy/AdvReac Type Severity Reaction Status Date / Time hydrocodone Allergy Other Verified 02/15/25 19:49 Penicillins Allergy Rash Verified 02/15/25 19:49 Social History current occupational status: employed Smoking Status: Never smoker ROS ROS ED ROS Narrative Body aches. Fever. scrotal cellulitis. Constitutional Constitutional ED: Reports chills and fever(s) Eyes Eyes: Denies blurry vision ENT ENT ED: Denies ear pain Cardiovascular Cardiovascular: Denies chest pain Respiratory/Chest Respiratory/Chest: Denies cough or dyspnea Gastrointestinal Gastrointestinal: Denies abdominal pain, constipation, diarrhea, melena, nausea or vomiting Genitourinary Genitourinary ED: Denies dysuria or hematuria Musculoskeletal Musculoskeletal: Reports myalgias; Denies arthralgias or back pain Integumentary Reports abscess and rash; Denies Abrasions Neurologic Neurologic: Denies headache(s) Psychiatric Psychiatric: Denies anxiety or depression Endocrine Endocrinology: Denies cold intolerance Hematologic/Lymphatic Hematologic/Lymphatic: Reports none Allergic/Immunologic Allergic/Immunologic ED: Denies mouth swelling, tongue swelling or urticaria EXAM Physical Exam Narrative Exam Narrative: 54-year-old male sitting upright in bed. Vital signs are stable with a low-grade temperature nine 9.5. H EENT exam pupils round react light. Moist with membranes. No trauma. Neck nontender no lymphadenopathy. No meningismus. Back nontender. Lungs clear to auscultation bilaterally. Heart regular rhythm rate about 100 no murmur. Chest wall ribs nontender. Abdomen soft nontender nondistended normal bowel sounds without peritoneal signs. External area. Circumcised male. Right hemiscrotum red laterally edematous scrotum with thickened skin consistent with cellulitis. No obvious abscess. No crepitance. No necrotic skin. No obvious foreign years gangrene. Tender to palpation. The left side there is a prior abscess left lateral has been drained. Patient is circumcised. Moving all 4 extremities. Nontender no edema normal strength. Neurologically he is awake alert. Const Vital Signs: 02/15/25 19:45 02/15/25 19:49 02/15/25 21:24 Temperature 99.5 F H 99.5 F H Temperature Source Oral Oral Pulse Rate 98 98 Respiratory Rate 20 H 20 H Blood Pressure 156/73 H 156/73 H Blood Pressure Mean 100 100 Pulse Ox 95 95 98 Oxygen Delivery Method Room Air Room Air 02/15/25 21:25 02/15/25 21:45 02/15/25 22:00 Temperature 99.5 F H 98.5 F Temperature Source Oral Oral Pulse Rate 86 89 85 Respiratory Rate 17 13 20 H Blood Pressure 132/65 H 127/61 H 123/66 H Blood Pressure Mean 87 83 85 Pulse Ox 97 96 97 Oxygen Delivery Method Room Air Room Air Room Air 02/15/25 23:00 02/15/25 23:00 02/15/25 23:16 Temperature 99.5 F H 99.5 F H Temperature Source Oral Pulse Rate 85 85 85 Respiratory Rate 18 16 18 Blood Pressure 121/65 H 121/65 H 121/65 H Blood Pressure Mean 83 83 83 Pulse Ox 97 97 97 Oxygen Delivery Method Room Air Room Air MDM MDM MDM Narrative Medical decision making narrative: 54-year-old male diabetic with scrotal abscess and right sided scrotal cellulitis. Will be treated as possible sepsis. Started on IV clindamycin because he is a true penicillin allergy with a rash. Septic workup. IV fluids. CAT scan of his pelvis and scrotum to determine if this is just cellulitis versus an abscess versus possibly Eduard's gangrene which he does not look like on exam. Repeat exam around 10:10 PM patient is doing better with the pain medication. Awaiting CAT scan. Repeat exam at 11:15 PM no significant change in his pain much improved after the IV pain medication. Scrotum is still erythematous with soft tissue swelling but again no signs of Eduard's gangrene. Awaiting CAT scan report. Plan admit the patient for IV antibiotics for scrotal cellulitis and due to his history of diabetes. History & Record Review Discussion w/independent historian: Patient and Family Additional record(s) reviewed:: Prior inpatient record, Prior outpatient record, Prior ED visit and Prior labs Lab Data Attestation: I reviewed the patient's lab results. Lab results narrative: CBC shows a white count 8.5. H&H 14 and 42. Platelets 251. PT, INR PTT are normal at 14, 1 and 31. Chemistry shows sodium 129. Gap 10. BUN and creatinine of 14 and 1. Glucose elevated 425. Lactic acid less than 1. Liver enzymes unremarkable except total bilirubin 1.4. Labs: Laboratory Results - last 24 hr 02/15/25 02/15/25 21:08 22:55 WBC 8.5 RBC 5.65 Hgb 14.4 Hct 42.7 MCV 75.6 L MCH 25.5 L MCHC 33.7 RDW Std Deviation 37.2 RDW Coeff of Elicia 13.9 Plt Count 251 MPV 9.3 Immature Gran % (Auto) 1.200 H Neut % (Auto) 74.1 H Lymph % (Auto) 14.4 L Power % (Auto) 8.5 Eos % (Auto) 1.2 Baso % (Auto) 0.6 Absolute Neuts (auto) 6.3 Absolute Lymphs (auto) 1.22 Nucleated RBC % 0 PT 14.5 INR 1.1 APTT 31.3 Sodium 129 L Potassium 4.2 Chloride 95 L Carbon Dioxide 24.0 Anion Gap 10 BUN 14 Creatinine 1.07 Estim Creat Clear Calc 112.86 Est GFR (MDRD) Non-Af 83 BUN/Creatinine Ratio 12.6 Glucose 425 H Lactic Acid < 1.0 Calcium 9.0 Total Bilirubin 1.42 H AST 16 ALT 14 Alkaline Phosphatase 112 Total Protein 7.4 Albumin 3.8 Globulin 3.7 Albumin/Globulin Ratio 1.0 Urine Color Yellow Urine Clarity Clear Urine pH 6.0 Ur Specific [place] 1.010 Urine Protein Negative Urine Glucose (UA) 1000 H Urine Ketones 5 H Urine Occult Blood Negative Urine Nitrite Negative Urine Bilirubin Negative Urine Urobilinogen 4 H Ur Leukocyte Esterase Negative Rhythm Strip Rhythm Strip: Sinus Rhythm Rate: 91 Ectopy: None EKG Initial EKG: Attestation: I personally reviewed and interpreted this EKG as follows: Interpretation: Sinus Rhythm and No Acute Injury Pattern Comments: Normal sinus rhythm rate of 91 no acute signs of KS or ischemia. No dysrhythmia. Discharge Plan Dx/Rx/DC Orders Clinical Impression: Cellulitis of scrotum, History of diabetes mellitus, Hyperglycemia due to diabetes mellitus, Acute hyponatremia Disposition Disposition: Acute Care [facility]
--- OUTSIDE RECORDS SUMMARY | 2025-02-15 20:37 | XMS RPT_ITS | CCD ---
Author Organization [facility] Care Team Providers Care Principle Industrial Hygienist Name Role Phone Dale Ramos MD Primary Care Provider PAMELA BLOOM Attending Unavailable HENRRY ROMO Referring Unavailable DALE RAMOS Primary Care Unavailable Dale Ramos MD Primary Care Provider DALE RAMOS Primary Care Unavailable JHON MAYBERRY Attending Unavailable JHON MAYBERRY Admitting Unavailable Dale Ramos MD Primary Care Provider Chase PRIMER POWDER BLENDER WET.Tereza BARKER Unavailable Adebayo PRIMER POWDER BLENDER WET.VENUE ATTENDANT, Jakob Unavailable Dr. Dale Ramos MD Primary Care Provider [phone] Dr. Ky Carrillo DO Emergency Provider [phone] Ky Carrillo Attending Unavailable Dale Ramos Primary Care Unavailable DALE RAMOS Referring Unavailable DALE RAMOS Primary Care Unavailable DALE RAMOS Primary Care Unavailable TEREZA STONE Referring UnavailDALE Xiao Primary Care Unavailable TEREZA STONE Attending Unavailxochitl gorman SELF Referring Unavailable DALE RAMOS Primary Care Unavailable TEREZA STONE Attending UnavailDALE Xiao Referring Unavailable DALE RAMOS Primary Care Unavailable Allergies Allergy Classification Reported Allergen(s) Allergy Type Date of Onset Reaction(s) Facility (20 sources) Acetaminophen / HYDROcodone; Translations: [HYDROCODONE-ACET AMINOPHEN] Drug Allergy 9 Mental Status Change [facility] (20 sources) Penicillin; Translations: [PENICILLIN] Drug Allergy 9 Anaphylaxis [facility] (1 source) HYDROcodone Drug Allergy 5 Other [facility] (1 source) Penicillins Allergy to substance 5 Rash [facility] (1 source) HYDROcodone Drug Allergy 5 [facility] (1 source) Penicillins Drug allergy (disorder) 5 [facility] Medications Current Medications Medication Drug Class(es) Dates Sig (Normalized) Sig (Original) acetaminophen 325 mg / oxyCODONE hydrochloride 5 mg oral tablet (1 source) Opioid Agonist Start: 09-08-2024 take 1 tablet by mouth every six hours as needed for pain Oxycodone-Acetami nophen (Percocet) 5-325 mg tablet Active 1 {tbl} PO EVERY 6 HOURS as needed for pain 12 September 08, 2024 Start: 09-08-2024 take 1 tablet by sherif th every six hours as needed for pain Oxycodone-Acetaminophen (Percocet) 5-325 mg tablet Active 1 {tbl} PO EVERY 6 HOURS as needed for pain 12 September 08, 2024 anastrozole 1 mg oral tablet (20 sources) Aromatase Inhibitor Start: 03-03-2023 End: 03-08-2024 take 1 tablet by mouth two times weekly anastrozole (ARIMIDEX) 1 mg tablet Indications: Hypogonadism in male Take 1 tablet by mouth two times a week. 24 tablet 3 03/08/2024 Active Start: 03-03-2023 take 1 tablet by sherif th two times weekly anastrozole (ARIMIDEX) 1 mg tablet Indications: Hypogonadism in male Take 1 tablet by mouth two times a week. 24 tablet 3 03/03/2023 Active Start: 01-27-2021 End: 02-16-2022 take 1 tablet by mouth every week anastrozole (ARIMIDEX) 1 mg tablet Indications: Hypogonadism in male Take 1 tablet by mouth one time a week. 14 tablet 1 09/19/2021 02/16/2022 Discontinued Start: 01-29-2020 End: 09-07-2024 take 1 tablet by mouth two times weekly anastrozole (ARIMIDEX) 1 mg tablet Indications: Hypogonadism in male Take 1 tablet by mouth two times a week. 24 tablet 3 02/16/2022 02/04/2023 Discontinued Comment on above: Take 1 tablet by sherif th one time a week. Take 1 tablet by sherif th two times a week. azithromycin 250 mg oral tablet (2 sources) Macrolide Antimicrobial Start: 08-09-19 End: 08-14-19 azithromycin (ZITHROMAX Z-MENDEZ) 250 mg tablet Indications: Ear pain, right Take 2 tablets day one, then, 1 tablet daily until gone. 6 tablet 0 08/09/2023 08/14/2023 Active Comment on above: Take 2 tablets day o ne, then, 1 tablet daily until gone. busPIRone hydrochloride 5 mg oral tablet (3 sources) Start: 06-14-19 End: 09-13-19 take 1 tablet by mouth three times daily busPIRone (BUSPAR) 5 mg tablet Indications: Anxiety with depression Take 1 tablet by mouth three times a day. 90 tablet 2 06/14/2024 09/12/2024 Active clindamycin 300 mg oral capsule (2 sources) Lincosamide Antibacterial Start: 09-09-19 take 1 capsule by mouth four times daily Clindamycin Hcl 300 mg capsule Active 300 mg PO 4 TIMES DAILY 40 September 08, 2024 12:00am Start: 04-09-2018 End: 09-07-2024 take 2 capsules by mouth four times daily Clindamycin Hcl 150 MG capsule Discontinued 300 mg PO 4 TIMES DAILY 80 April 09, 2018 1:00am September 07, 2024 9:56pm docosahexaenoic acid/epa (FI SH OIL CONCENTRATE ORAL) (20 sources) docosahexaenoic acid/epa (FISH OIL CONCENTRATE ORAL) Take by mouth. Active docosahexaenoic acid/epa (FISH OIL CONCENTRATE ORAL) Take by mouth. 0 Active Comment on above: Take by mouth. glipiZIDE er 10 mg 24 hr extended release oral tablet (9 sources) Sulfonylurea Start: 06-14-2024 End: 06-14-2025 take 1 tablet by mouth once daily Glipizide 10 mg tablet extended release 24hr Active 10 mg PO DAILY September 07, 2024 12:00am Start: 03-08-2024 End: 06-14-2024 take 1 tablet by mouth once daily glipiZIDE (GLUCOTROL XL) 5 mg 24 hr tablet Indications: Type 2 diabetes mellitus without complication, without long-term current use of insulin (HCC) Take 1 tablet by mouth once daily. 30 tablet 11 03/08/2024 06/14/2024 Discontinued ibuprofen 200 mg oral tablet (20 sources) Nonsteroidal Anti-inflammatory Drug take 2 tablets by mouth every six hours as needed ibuprofen (MOTRIN) 200 mg tablet Take 400 mg by mouth every 6 hours as needed for pain or fever (specify). Active Comment on above: Take 400 mg by mouth every 6 hours as needed for pain or fever (specify). iv contrast (will be provided with radiology test) (20 sources) Start: 10-14-19 iv contrast (will be provided with radiology test) CT Urogram WO/W Inject, intravenously, once for 1 dose.No IV access, insert saline lock prior to the beginning of sedation, infusion, injection of imaging exam. Discontinue saline lock post exam. If Pt. has a central line or IVAD, may access for administration according to line specific nursing protocol. Once exam is complete flush line and de-access according to line specific nursing protocol in the CT contrast administration guidelines link. 1 Each 10/13/2022 Active Start: 10-13-2022 iv contrast (w ill be provided with radiology test) CT Urogram WO/W Inject, intravenously, once for 1 dose.No IV access, insert saline lock prior to the beginning of sedation, infusion, injection of imaging exam. Discontinue saline lock post exam. If Pt. has a central line or IVAD, may access for administration according to line specific nursing protocol. Once exam is complete flush line and de-access according to line specific nursing protocol in the CT contrast administration guidelines link. 1 Each 0 10/13/2022 Active Comment on above: CT Urogram WO/W Inje ct, intravenously, once for 1 dose.No IV access, insert saline lock prior to the beginning of sedation, infusion, injection of imaging exam. Discontinue saline lock post exam. If Pt. has a central line or IVAD, may access for administration according to line specific nursing protocol. Once exam is complete flush line and de-access according to line specific nursing protocol in the CT contrast administration guidelines link. metFORMIN hydrochloride 500 mg oral tablet (20 sources) Biguanide Start: 2 End: 4 take 1 tablet by mouth twice daily metFORMIN (GLUCOPHAGE) 500 mg tablet Indications: Type 2 diabetes mellitus without complication, without long-term current use of insulin (HCC) Take 1 tablet by mouth two times a day. . 180 tablet 3 01/24/2024 Active Start: 08-14-2019 take 2 tablets by mo [facility] twice daily Metformin 500 MG tablet Active 1000 mg PO TWICE A DAY August 14, 2019 12:00am Comment on above: Take 1 tablet by sherif twice daily. . Take 1 tablet by sherif th two times a day. . methocarbamol 500 mg oral tablet (2 sources) Muscle Relaxant Start: 3 End: 3 take 1 tablet by mouth three times daily methocarbamol (ROBAXIN) 500 mg tablet Take 1 tablet by mouth three times daily for 5 days. 15 tablet 0 01/12/2023 01/17/2023 Active Comment on above: Take 1 tablet by sherif three times daily for 5 days. oxyCODONE hydrochloride 5 mg oral tablet (3 sources) Opioid Agonist Start: 3 End: 3 take 1 tablet by mouth every eight hours as needed for pain oxyCODONE IR (ROXICODONE) 5 mg immediate release tablet Indications: Postoperative pain Take 1 tablet by mouth every 8 hours as needed for pain for up to 5 days. 10 tablet 0 01/12/2023 01/17/2023 Active Comment on above: Take 1 tablet by sherif every 8 hours as needed for pain for up to 5 days. PARoxetine hydrochloride 30 mg oral tablet (17 sources) Serotonin Reuptake Inhibitor Start: 5 End: 5 take 1 tablet by mouth once daily Paroxetine Hcl 30 mg tablet Active 30 mg PO DAILY September 07, 2024 12:00am Start: 09-22-2023 End: 06-14-2024 take 1 tablet by mouth once daily PARoxetine (PAXIL) 20 mg tablet Indications: Anxiety with depression Take 1 tablet by mouth once daily. 90 tablet 1 11/03/2023 06/14/2024 Discontinued Start: 09-08-2023 End: 12-07-2023 take 1 tablet by mouth once daily PARoxetine (PAXIL) 10 mg tablet Indications: Anxiety with depression Take 1 tablet by mouth once daily. 30 tablet 2 09/08/2023 09/22/2023 Discontinued 1 ml testosterone cypionate 200 mg/ml injection (20 sources) Androgen Start: 03-03-2023 End: 09-04-2024 inject 1 mL by intramuscular injection two times weekly testosterone cypionate (DEPO-TESTOSTERONE) 200 mg/mL injection Indications: Hypogonadism in male Inject 1 mL intramuscularly two times a week for 180 days. 24 mL 1 03/08/2024 09/04/2024 Active Start: 05-11-2022 End: 02-13-2023 inject 1 mL by intramuscular injection two times weekly testosterone cypionate (DEPO-TESTOSTERONE) 200 mg/mL injection Indications: Hypogonadism in male Inject 1 mL intramuscularly two times a week for 180 days. 24 mL 1 08/17/2022 02/04/2023 Discontinued Start: 04-30-2021 End: 04-15-2022 inject 1 mL by intramuscular injection two times weekly testosterone cypionate (DEPO-TESTOSTERONE) 200 mg/mL injection Indications: Hypogonadism in male Inject 1 mL intramuscularly two times a week for 180 days. 24 mL 1 10/17/2021 04/15/2022 Active Start: 08-14-2019 End: 09-07-2024 Testosterone Cypionate 200 M G/ML oil Discontinued 1 INJECTABLE IM EVERY WEEK August 14, 2019 12:00am September 07, 2024 9:56pm Comment on above: Inject 1 mL intramus cularly two times a week for 180 days. Inject 1 mL intramus cularly two times a week for 180 days. Do not start before March 03, 2023. Completed/Discontinued Medications Medication Drug Class(es) Dates Sig (Normalized) Sig (Original) acetaminophen 500 mg oral tablet (13 sources) Start: 01-06-2023 End: 11-03-2023 take 2 tablets by mouth every six hours as needed acetaminophen (TYLENOL EXTRA STRENGTH) 500 mg tablet Take 2 tablets by mouth every 6 hours as needed for pain. 0 01/06/2023 11/03/2023 Discontinued (Course of therapy completed) Comment on above: Take 2 tablets by [facility] every 6 hours as needed for pain. carbamide peroxide 65 mg/ml otic solution (3 sources) Start: 08-09-2023 End: 09-08-2023 carbamide peroxide (DEBROX) 6.5 % otic solution Indications: Bilateral impacted cerumen Use 5 Drops in both ears two times a day. 15 mL 0 08/09/2023 09/08/2023 Comment on above: Use 5 Drops in both ears two times a day. cyclobenzaprine hydrochloride 10 mg oral tablet (20 sources) Muscle Relaxant Start: 10-02-2022 End: 11-03-2023 take 1 tablet by mouth three times daily cyclobenzaprine (FLEXERIL) 10 mg tablet Indications: Bilateral flank pain , Musculoskeletal pain Take 1 tablet by mouth three times daily. 30 tablet 2 10/02/2022 11/03/2023 Discontinued (Course of therapy completed) Comment on above: Take 1 tablet by [facility] three times daily. 0.5 ml dulaglutide 3 mg/ml auto-injector (9 sources) GLP-1 Receptor Agonist Start: 2020 End: 08-17-2022 dulaglutide (TRULICITY) 1.5 mg/0.5 mL pen injector Indications: Type 2 diabetes mellitus without complication, without long-term current use of insulin ([facility]) Inject 1.5 mg subcutaneously one time a week. Inject once per week. Discard Pen After 4 Each 11 11/18/2021 08/17/2022 Discontinued Comment on above: Inject 1.5 mg subcut aneously one time a week. Inject once per week. Discard Pen After dulaglutide (TRULICITY) 3 mg/0.5 mL pen injector (18 sources) Start: 08-17-2022 End: 08-09-2023 dulaglutide (TRULICITY) 3 mg/0.5 mL pen injector Indications: Type 2 diabetes mellitus without complication, without long-term current use of insulin ([facility]) , Obesity, Class III, BMI 40-49.9 (morbid obesity) (HCC) Inject 3 mg subcutaneously one time a week. 2 mL 3 08/17/2022 08/09/2023 Discontinued Start: 08-17-2022 dulaglutide (T RULICITY) 3 mg/0.5 mL pen injector Indications: Type 2 diabetes mellitus without complication, without long-term current use of insulin ([facility]) , Obesity, Class III, BMI 40-49.9 (morbid obesity) ([facility]) Inject 3 mg subcutaneously one time a week. 2 mL 3 08/17/2022 Active Start: 08-17-2022 End: 09-16-2022 dulaglutide (TRULICITY) 3 mg /0.5 mL pen injector Indications: Type 2 diabetes mellitus without complication, without long-term current use of insulin ([facility]) , Obesity, Class III, BMI 40-49.9 (morbid obesity) ([facility]) Inject 3 mg subcutaneously one time a week. 2 mL 3 08/17/2022 09/16/2022 Active Comment on above: Inject 3 mg subcutan eously one time a week. FLUoxetine 10 mg oral capsule (3 sources) Serotonin Reuptake Inhibitor Start: 08-09-19 End: 11-07-19 take 1 capsule by mouth once daily FLUoxetine (PROZAC) 10 mg capsule Indications: Anxiety with depression Take 1 capsule by mouth once daily. 30 capsule 2 08/09/2023 09/08/2023 Discontinued Comment on above: Take 1 capsule by [facility] once daily. lidocaine hydrochloride 0.02 mg/mg topical gel (1 source) Antiarrhythmic, Amide Local Anesthetic Start: 11-05-19 End: 11-05-19 lidocaine urojet 2 % 6 mL topical gel (GLYDO) Start: 11-04-2022 End: 11-04-2022 lidocaine urojet 2 % 6 mL to pical gel (GLYDO) naproxen 500 mg oral tablet (1 source) Nonsteroidal Anti-inflammatory Drug Start: 01-29-2020 End: 09-07-2024 take 1 tablet by mouth twice daily Naproxen 500 MG tablet Discontinued 500 mg PO TWICE A DAY January 29, 2020 12:00am September 07, 2024 9:56pm semaglutide (OZEMPIC) 0.25 mg or 0.5 mg (2 mg/3 mL) pen (6 sources) Start: 08-09-2023 End: 11-03-2023 semaglutide (OZEMPIC) 0.25 mg or 0.5 mg (2 mg/3 mL) pen Indications: Type 2 diabetes mellitus without complication, without long-term current use of insulin ([facility]) Inject 0.25 mg subcutaneously one time a week. 3 mL 2 08/09/2023 11/03/2023 Discontinued (Cost of medication) Start: 08-09-2023 End: 11-07-2023 semaglutide (OZEMPIC) 0.25 m g or 0.5 mg (2 mg/3 mL) pen Indications: Type 2 diabetes mellitus without complication, without long-term current use of insulin (HCC) Inject 0.25 mg subcutaneously one time a week. 3 mL 2 08/09/2023 11/07/2023 Active Comment on above: Inject 0.25 mg subcu taneously one time a week. 1000 ml sodium chloride 9 mg/ml injection (1 source) Start: 2022 End: 2022 inject 1 dose intravenously once 0.9 % sodium chloride (NACL 0.9%) infusion Inject 150 mL/hr intravenously one time only for 1 dose. Administer at rate defined per CT contrast administration specifications. To be provided with radiology test. 1 Each 0 10/13/2022 10/13/2022 Comment on above: Inject 150 mL/hr int ravenously one time only for 1 dose. Administer at rate defined per CT contrast administration specifications. To be provided with radiology test. sulfamethoxazole 800 mg / trimethoprim 160 mg oral tablet (1 source) Dihydrofolate Reductase Inhibitor Antibacterial, Sulfonamide Antimicrobial Start: 2022 End: 2024 Sulfamethoxazole-Tr imethoprim 800-160 mg tablet Discontinued 1 {tbl} PO TWICE A DAY September 23, 2022 12:00am September 07, 2024 9:56pm Problems Active Problems Problem Classification Problem Date Documented Date Episodic/Chronic Abdominal pain (3 sources) Flank pain; Translations: [Unspecified abdominal pain] Episodic Anxiety disorders (5 sources) Mixed anxiety and depressive disorder; Translations: [Other specified anxiety disorders] 08-09-2023 Chronic Chronic kidney disease (20 sources) Chronic kidney disease; Translations: [Chronic kidney disease, unspecified] Onset: 12-29-2022 12-29-2022 Chronic Chronic obstructive pulmonary disease and bronchiectasis (1 source) Bronchitis; Translations: [Bronchitis, not specified as acute or chronic] 09-23-2022 Episodic Diabetes mellitus without complication (20 sources) Type 2 diabetes mellitus without complication; Translations: [Type 2 diabetes mellitus without complications] Onset: 06-21-2018 06-21-2018 Chronic Disorders of lipid metabolism (3 sources) Hyperlipidemia; Translations: [Hyperlipidemia, unspecified] Onset: 03-06-2024 03-02-2024 Chronic Esophageal disorders (20 sources) Gastroesophageal reflux disease; Translations: [Gastro-esophageal reflux disease without esophagitis] Onset: 12-29-2022 12-29-2022 Chronic Essential hypertension (2 sources) Hypertensive disorder; Translations: [Essential (primary) hypertension] Onset: 03-06-2024 03-02-2024 Chronic Genitourinary symptoms and ill-defined conditions (4 sources) Blood in urine; Translations: [Hematuria, unspecified] Onset: 11-04-2022 Episodic Other aftercare (1 source) Post-discharge follow-up; Translations: [Encounter for follow-up examination after completed treatment for conditions other than malignant neoplasm] Episodic Other connective tissue disease (1 source) Musculoskeletal pain; Translations: [Myalgia, other site] Episodic Other ear and sense organ disorders (1 source) Impacted cerumen of bilateral ears; Translations: [Impacted cerumen, bilateral] 08-09-2023 Episodic Other ear and sense organ disorders (1 source) Otalgia, right ear; Translations: [Otalgia, unspecified] 08-09-2023 Episodic Other endocrine disorders (20 sources) Male hypogonadism; Translations: [Testicular hypofunction] Onset: 03-27-2019 03-27-2019 Chronic Other endocrine disorders (1 source) Testicular hypofunction; Translations: [Hypogonadism in male] Onset: 03-27-2019 Chronic Other nervous system disorders (1 source) Postoperative pain ; Translations: [Other acute postprocedural pain] 01-12-2023 Episodic Other nervous system disorders (1 source) Other acute postprocedural pain; Translations: [Postoperative pain] Onset: 01-06-2023 Episodic Other nutritional; endocrine; and metabolic disorders (20 sources) Body mass index 40+ - severely obese; Translations: [Morbid (severe) obesity due to excess calories] Onset: 06-20-2018 06-20-2018 Chronic Other nutritional; endocrine; and metabolic disorders (1 source) Obesity; Translations: [Obesity, unspecified] 09-23-2022 Chronic Other screening for suspected conditions (not mental disorders or infectious disease) (2 sources) Serum creatinine raised; Translations: [Other specified abnormal findings of blood chemistry] Episodic Pleurisy; pneumothorax; pulmonary collapse (1 source) Pleural effusion; Translations: [Pleural effusion, not elsewhere classified] 09-23-2022 Episodic Residual codes; unclassified (20 sources) Obstructive sleep apnea syndrome; Translations: [Obstructive sleep apnea (adult) (pediatric)] Onset: 06-20-2018 06-20-2018 Chronic Skin and subcutaneous tissue infections (2 sources) Abscess; Translations: [Cutaneous abscess, unspecified] Onset: 10-02-2024 09-08-2024 Episodic Sprains and strains (1 source) Strain of abdominal muscle; Translations: [Strain of muscle, fascia and tendon of abdomen, initial encounter] 10-01-2022 Episodic Past or Other Problems Problem Classification Problem Date Documented Da te Episodic/Chronic Abdominal hernia (20 sources) Irreducible umbilical hernia; Translations: [Umbilical hernia with obstruction, without gangrene] Onset: 01-06-2023 01-06-2023 Episodic Results Test Name Value Interpretation Reference Range Facility Basic Metabolic Profile (BMP )on 09-08-2024 BUN/CRE 14.8 RATIO Normal 10-20 [facility] Comment on above: Performed By: #### L 503.6005, L100.0100, L500.2500 #### [facility] [address] [place], [address] Calcium [Mass/Vol] 9.1 mg/dL Normal 7.6-11.0 [facility] Comment on above: Performed By: #### L 503.6005, L100.0100, L500.2500 #### [facility] [address] [place], [address] Chloride [Moles/Vol] 96 mmol/L Low 98-108 [facility] Comment on above: Performed By: #### L 503.6005, L100.0100, L500.2500 #### [facility] [address] [place], [address] CO2 [Moles/Vol] 21.8 mmol/L Normal 21.0-32.0 [facility] Comment on above: Performed By: #### L 503.6005, L100.0100, L500.2500 #### [facility] [address] [place], [address] Creatinine [Mass/Vol] 1.22 mg/dL High 0.70-1.20 [facility] Comment on above: Performed By: #### L 503.6005, L100.0100, L500.2500 #### [facility] [address] [place], [address] ECRCL 104.84 ml/min Normal 50-250 [facility] Comment on above: Performed By: #### L 503.6005, L100.0100, L500.2500 #### [facility] [address] [place], [address] GAP 13 Normal 5-15 [facility] Comment on above: Performed By: #### L 503.6005, L100.0100, L500.2500 #### [facility] [address] [place], [address] GFR/1.73 sq M.predicted among non-blacks MDRD (S/P/Bld) [Vol rate/Area] 71 mL/min/{1.73_m2} Normal >60 [facility] Comment on above: Result Comment: mL/m in/1.73m2 CKD-EPI Creatinine Equation (2020) Performed By: #### L 503.6005, L100.0100, L500.2500 #### [facility] [address] [place], [address] Glucose [Mass/Vol] 528 mg/dL Invalid Interpretation Code 70-99 [facility] Comment on above: Result Comment: Crit ical Result(s) Called at: 09/08/2024-12:01 by: Gerry Santso to Kary Sparr>??Results read back by same. Performed By: #### L 503.6005, L100.0100, L500.2500 #### [facility] [address] [place], [address] Potassium [Moles/Vol] 4.7 mmol/L Normal 3.3-5.1 [facility] Comment on above: Performed By: #### L 503.6005, L100.0100, L500.2500 #### [facility] [address] [place], [address] Sodium [Moles/Vol] 131 mmol/L Low 133-145 [facility] Comment on above: Performed By: #### L 503.6005, L100.0100, L500.2500 #### [facility] [address] [place], [address] Urea nitrogen [Mass/Vol] 18 mg/dL Normal 4-19 [facility] Comment on above: Performed By: #### L 503.6005, L100.0100, L500.2500 #### [facility] [address] [place], [address] Emergency Department Summary on 09-08-2024 Emergency Department Summary [facility] Medical Records Department [address] [place] [address] Emergency Department Summary 09/08/24 MR#: [id number] Acct: [id number] Name: KUSH SAMAYOA Rep #: [id number] : 1970 53 From: Ky Carrillo DO PCP: Dr. Dale Ramos MD Status:DEP ER Location: ED HPI History of Present Illness Chief Complaint: Abscess Informant: patient Narrative Narrative: Patient is a 53-year-old male with past medical history of anxiety and diabetes. He states over the past week he noticed a small bump along the right upper posterior thigh. He states it felt like a zit. However as the week progressed the area became more red swollen and painful. He states his popped it and it drained a large amount of pus. He states that there was concern there was persistent infection and that he may require antibiotics and therefore comes in for evaluation. [facility] Medical History (Updated 09/08/24 @ 05:[address] Ky Carrillo DO) Anxiety Type 2 diabetes mellitus Pleural effusion Obesity Bronchitis Home Medications ???Medication ???Instructions ???Recorded ???Last Taken ???Type metformin 500 mg tablet,extended 1,000 mg PO BID 04/13/20 Unknown H istory release 24 hr glipizide 10 mg tablet, extended 10 mg PO DAILY 09/07/24 Unknown Hi story release 24 hr paroxetine HCl 30 mg tablet 30 mg PO DAILY 09/07/24 Unknown Hi story clindamycin HCl 300 mg capsule 300 mg PO 4X/DAY 10 days #40 caps 09/08/24 Unknown Rx oxycodone-acetaminop hen 5 mg-325 1 tab PO Q6H PRN pain 3 days #12 0 09/08/24 Unknown Rx mg tablet (Percocet) tabs Allergy/AdvReac Type Severity Reaction Status Date / Time hydrocodone Allergy Other Verified 09/07/24 21:20 Penicillins Allergy Rash Verified 09/07/24 21:20 Social History (Updated 09/07/24 @ 21:48 by Adilene Sage) current occupational status: employed Smoking Status: Never smoker ROS ROS ED Constitutional Constitutional ED: Denies chills or fever(s) Eyes Eyes: Denies change in vision ENT ENT ED: Denies sore throat Cardiovascular Cardiovascular: Denies chest pain Respiratory/Chest Respiratory/Chest: Reports cough; Denies dyspnea Gastrointestinal Gastrointestinal: Denies abdominal pain, diarrhea, nausea or vomiting Genitourinary Genitourinary ED: Denies dysuria Musculoskeletal Musculoskeletal: Reports other Details: Positive right leg pain Integumentary Reports abscess; Denies rash Neurologic Neurologic: Denies headache(s) Psychiatric Psychiatric: Reports anxiety Hematologic/Lymphati c Hematologic/Lymphati c: Denies easy bleeding or easy bruising EXAM Physical Exam Const Vital Signs: 09/07/24 21:18 09/07/24 23:00 09/08/24 00:00 Temperature 97.8 F 98 F 98.8 F Temperature Source Oral Oral Oral Pulse Rate 85 88 81 Respiratory Rate 18 15 20 H Blood Pressure 171/94 H 144/90 H 144/90 H Blood Pressure Mean 119 108 108 Pulse Ox 97 98 96 Oxygen Delivery Method Room Air Room Air Room Air 09/08/24 01:00 09/08/24 01:00 09/08/24 01:00 Temperature 98.2 F 98.2 F Temperature Source Oral Pulse Rate 83 83 83 Respiratory Rate 16 16 16 Blood Pressure 138/87 H 138/87 H 138/87 H Blood Pressure Mean 104 104 104 Pulse Ox 97 97 97 Oxygen Delivery Method Positive well nourished, well developed and obese General Appearance ED: well developed Nutritional Appearance: obese HEENT Reports moist mucous membranes HEENT Narrative: No tongue or lip swelling no oral lesions no airway edema or compromise There is cobblestoning in the posterior pharynx consistent with sinus drainage; no secondary findings to suggest infection Eyes PERRL and EOMs intact bilaterally General Eye ED: Negative for pale conjunctiva or scleral icterus Neck supple Neck Narrative: No nuchal rigidity or meningeal signs Resp normal respiratory effort and clear to auscultation bilaterally Cardio regular rate and regular rhythm GI normal to inspection, nondistended, normoactive bowel sounds, non-tender, non-distended and no masses Auscultation: normoactive bowel sounds Palpation: soft Extremity Extremity Narrative: Along the upper midportion of the right thigh there is a 2 x 3 cm area of induration and erythema. There is a 1 cm opening in the center of the area of induration. There is no active drainage noted. No crepitance or free air noted. There is mild surrounding erythema and warmth concerning for developing cellulitis Neuro oriented x3, CN's II-XII intact bilaterally and no sensory deficits noted Sensorium / Orientation: alert Motor Exam: strength 5/5 throughout Psych mental status grossly normal Skin Skin Narrative: Soft tissue changes to the right posterior thigh consistent with abscess and cellulitis as doc (more content not included)... Normal [facility] Absolute lymphocyte countOrd ered By: Ky Carrillo on 09-07-2024 Lymphocytes Auto (Unsp spec) [#/Vol] 1.72 10*3/uL 0.83-4.51 [facility] Absolute neutrophil countOrd ered By: Ky Carrillo on 09-07-2024 Neutrophils (Bld) [#/Vol] 4.9 10*3/uL 2.0-7.7 [facility] Anion gap in Serum or Plasma Ordered By: Ky Carrillo on 09-07-2024 Anion gap [Moles/Vol] 13 mmol/L 5-15 [facility] Automated lymphocyte count a s percentage of total leukocytesOrdered By: Ky Carrillo on 09-07-2024 Lymphocytes/100 WBC Auto (Unsp spec) 22.3 % 19-41 [facility] BUN/creatinine ratioOrdered By: Ky Carrillo on 09-07-2024 Urea nitrogen/Creatinine [Mass ratio] 14.8 mg/mg 10-20 [facility] Basophil percentageOrdered B y: Ky Carrillo on 09-07-2024 Basophils/100 WBC (Bld) 1.2 % High 0-1 [facility] CBC W/Diff, Automatedon Absolute Lymph 1.72 X10 3/uL Normal 0.83-4.51 [facility] Comment on above: Performed By: #### L 503.6005, L100.0100, L500.2500 #### [facility] [address] [place], [address] Absolute Neut 4.9 X10 3/uL Normal 2.0-7.7 [facility] Comment on above: Performed By: #### L 503.6005, L100.0100, L500.2500 #### [facility] [address] [place], [address] Basophils/100 WBC (Bld) 1.2 % High 0-1 [facility] Comment on above: Performed By: #### L 503.6005, L100.0100, L500.2500 #### [facility] [address] [place], [address] Eosinophils/100 WBC (Bld) 2.5 % Normal 0-5 [facility] Comment on above: Performed By: #### L 503.6005, L100.0100, L500.2500 #### [facility] [address] [place], [address] Erythrocyte distribution width (RBC) [Ratio] 14.3 % Normal 11.6-14.6 [facility] Comment on above: Performed By: #### L 503.6005, L100.0100, L500.2500 #### [facility] [address] [place], [address] Hematocrit (Bld) [Volume fraction] 39.6 % Low 40-54 [facility] Comment on above: Performed By: #### L 503.6005, L100.0100, L500.2500 #### [facility] [address] [place], [address] Hemoglobin (Bld) [Mass/Vol] 13.6 g/dL Normal 13.0-16.5 [facility] Comment on above: Performed By: #### L 503.6005, L100.0100, L500.2500 #### [facility] [address] [place], [address] IG% 3.500 High 0.0-0.9 [facility] Comment on above: Result Comment: IG% - Immature Granulocytes (promyelocytes, myelocytes and metamyelocytes) > 1% indicates that a LEFT SHIFT is Present. Performed By: #### L 503.6005, L100.0100, L500.2500 #### [facility] [address] [place], [address] Lymphocytes/100 WBC (Bld) 22.3 % Normal 19-41 [facility] Comment on above: Performed By: #### L 503.6005, L100.0100, L500.2500 #### [facility] [address] [place], [address] MCH (RBC) [Entitic mass] 26.4 pg Low 27.0-32.0 [facility] Comment on above: Performed By: #### L 503.6005, L100.0100, L500.2500 #### [facility] [address] [place], [address] MCHC (RBC) [Mass/Vol] 34.3 g/dL Normal 32-36 [facility] Comment on above: Performed By: #### L 503.6005, L100.0100, L500.2500 #### [facility] [address] [place], [address] MCV (RBC) [Entitic vol] 76.7 fL Low 80-94 [facility] Comment on above: Performed By: #### L 503.6005, L100.0100, L500.2500 #### [facility] [address] [place], [address] Monocytes/100 WBC (Bld) 6.8 % Normal 0-10 [facility] Comment on above: Performed By: #### L 503.6005, L100.0100, L500.2500 #### [facility] [address] [place], [address] Neutrophils/100 WBC (Bld) 63.7 % Normal 47-70 [facility] Comment on above: Performed By: #### L 503.6005, L100.0100, L500.2500 #### [facility] [address] [place], [address] Nucleated RBC (Bld) [#/Vol] 0 10*3/uL Normal 0-5 [facility] Comment on above: Performed By: #### L 503.6005, L100.0100, L500.2500 #### [facility] [address] [place], [address] Platelet mean volume (Bld) [Entitic vol] 9.1 fL Normal 6.2-12.0 [facility] Comment on above: Performed By: #### L 503.6005, L100.0100, L500.2500 #### [facility] [address] [place], [address] Platelets (Bld) [#/Vol] 269 10*3/uL Normal 150-450 [facility] Comment on above: Performed By: #### L 503.6005, L100.0100, L500.2500 #### [facility] [address] [place], [address] RBC (Bld) [#/Vol] 5.16 10*6/uL Normal 4.6-6.2 [facility] Comment on above: Performed By: #### L 503.6005, L100.0100, L500.2500 #### [facility] [address] [place], [address] RDW SD 38.5 fl Normal 35.1-43.9 [facility] Comment on above: Performed By: #### L 503.6005, L100.0100, L500.2500 #### [facility] [address] [place], [address] WBC (Bld) [#/Vol] 7.7 10*3/uL Normal 4.4-11.0 [facility] Comment on above: Performed By: #### L 503.6005, L100.0100, L500.2500 #### [facility] [address] [place], [address] Carbon dioxide, total [Moles /volume] in Central venous bloodOrdered By: Ky Carrillo on 09-07-2024 CO2 [Moles/Vol] 21.8 mmol/L 21.0-32.0 [facility] Chloride assayOrdered By: Maddie Carrillo on 09-07-2024 Chloride [Moles/Vol] 96 mmol/L Low 98-108 [facility] Eosinophil percentageOrdered By: Ky Carrillo on 09-07-2024 Eosinophils/100 WBC (Bld) 2.5 % 0-5 [facility] Erythrocyte distribution wid th ratioOrdered By: Ky Carrillo on 09-07-2024 Erythrocyte distribution width (RBC) [Ratio] 14.3 % 11.6-14.6 [facility] Erythrocyte distribution wid th standard deviationOrdered By: Ky Carrillo on 09-07-2024 Erythrocyte distribution width (RBC) [Ratio] 38.5 fl 35.1-43.9 [facility] Glomerular filtration rate ( GFR) estimation/1.73 sq m using serum, plasma, or whole bOrdered By: Ky Carrillo on 09-07-2024 GFR/1.73 sq M.predicted among non-blacks MDRD (S/P/Bld) [Vol rate/Area] 71 mL/min/{1.73_m2} >60 [facility] Comment on above: mL/min/1.73m2 CKD-EP I Creatinine Equation (2020) Hematocrit Auto (Bld) [Volum e fraction]Ordered By: Ky Carrillo on 09-07-2024 Hematocrit (Bld) [Volume fraction] 39.6 % Low 40-54 [facility] Hemoglobin measurementOrdere d By: Ky Carrillo on 09-07-2024 Hemoglobin (Bld) [Mass/Vol] 13.6 g/dL 13.0-16.5 [facility] Immature granulocytes/100 WB C Auto (Bld)Ordered By: Ky Carrillo on 09-07-2024 Immature granulocytes/100 WBC (Bld) 3.500 % High 0.0-0.9 [facility] Comment on above: IG% - Immature Granu locytes (promyelocytes, myelocytes and metamyelocytes) > 1% indicates that a LEFT SHIFT is Present. Lactic acid measurementOrder ed By: Ky Carrillo on 09-07-2024 Lactate [Moles/Vol] 1.4 mmol/L Normal 0.0-2.0 [facility] Comment on above: Order Comment: Y Performed By: #### L 503.6005, L100.0100, L500.2500 #### [facility] [address] [place], [address] MCV (mean corpuscular volume ) determinationOrdered By: Ky Carrillo on 09-07-2024 MCV (RBC) [Entitic vol] 76.7 fL Low 80-94 [facility] Mean corpuscular hemoglobin (MCH) determinationOrdered By: Ky Carrillo on 09-07-2024 MCH (RBC) [Entitic mass] 26.4 pg Low 27.0-32.0 [facility] Mean corpuscular hemoglobin concentration (MCHC) determinationOrdered By: Ky Carrillo on 09-07-2024 MCHC (RBC) [Mass/Vol] 34.3 g/dL 32-36 [facility] Mean platelet volume determi nationOrdered By: Ky Carrillo on 09-07-2024 Platelet mean volume (Bld) [Entitic vol] 9.1 fL 6.2-12.0 [facility] Monocyte percentageOrdered B y: Ky Carrillo on 09-07-2024 Monocytes/100 WBC (Bld) 6.8 % 0-10 [facility] Neutrophil percentageOrdered By: Ky Carrillo on 09-07-2024 Neutrophils/100 WBC (Bld) 63.7 % 47-70 [facility] Nucleated red blood cell per centageOrdered By: Ky Carrillo on 09-07-2024 Nucleated RBC/100 WBC (Bld) [Ratio] 0 % 0-5 [facility] Platelet countOrdered By: Maddie Carrillo on 09-07-2024 Platelets (Bld) [#/Vol] 269 10*3/uL 150-450 [facility] Potassium measurement (mass/ volume)Ordered By: Ky Carrillo on 09-07-2024 Potassium (Unsp spec) [Mass/Vol] 4.7 mmol/L 3.3-5.1 [facility] RBC Auto (Bld) [#/Vol]Ordere d By: Ky Carrillo on 09-07-2024 RBC (Bld) [#/Vol] 5.16 10*6/uL 4.6-6.2 [facility] Serum creatinine measurement (mass/volume)Ordered By: Ky Carrillo on 09-07-2024 Creatinine [Mass/Vol] 1.22 mg/dL High 0.70-1.20 [facility] Serum glucose measurement (m ass/volume)Ordered By: Ky Carrillo on 09-07-2024 Glucose [Mass/Vol] 528 mg/dL High 70-99 [facility] Comment on above: Critical Result(s) C alled at: 09/08/2024-12:01 by: Gerry Santos to Kary Rivera> Results read back by same. Serum or plasma calcium clem urement (mass/volume)Ordered By: Ky Carrillo on 09-07-2024 Calcium [Mass/Vol] 9.1 mg/dL 7.6-11.0 [facility] Serum or plasma urea nitroge n measurement (mass/volume)Ordered By: Ky Carrillo on 09-07-2024 Urea nitrogen [Mass/Vol] 18 mg/dL 4-19 [facility] Sodium levelOrdered By: Hermes Carrillo on 09-07-2024 Sodium [Moles/Vol] 131 mmol/L Low 133-145 [facility] White blood cell (WBC) count Ordered By: Ky Carrillo on 09-07-2024 WBC (Bld) [#/Vol] 7.7 10*3/uL 4.4-11.0 [facility] Comprehensive metabolic 2000 panelon 06-28-2024 Albumin [Mass/Vol] 4.2 g/dL Normal 3.9-4.9 [facility] Comment on above: Order Comment: Speci men Type: BLOOD SPECIMEN [facility] Facility[facility] Address: [address] [place] [address] Performed By: #### 2 4323-8 #### [facility] CLIA [id number] [address] [place] [address] [place] ALP [Catalytic activity/Vol] 96 U/L Normal 38-113 [facility] Comment on above: Order Comment: Speci men Type: BLOOD SPECIMEN [facility] Facility[facility] Address: [address] [place] [address] Performed By: #### 2 4323-8 #### [facility] CLIA [id number] [address] [place] [address] [place] ALT [Catalytic activity/Vol] 30 U/L Normal 10-54 [facility] Comment on above: Order Comment: Speci men Type: BLOOD SPECIMEN [facility]ing Facility: [facility] Address: [address] [place] [address] Performed By: #### 2 4323-8 #### [facility] CLIA [id number] [address] [place] [address] [place] Anion gap [Moles/Vol] 11 mmol/L Normal 8-15 [facility] Comment on above: Order Comment: Speci men Type: BLOOD SPECIMEN [facility] Address: [address] [place], [place] [address] Performed By: #### 2 4323-8 #### [facility] CLIA [id number] [address] [place] [address] [place] AST [Catalytic activity/Vol] 18 U/L Normal 14-40 [facility] Comment on above: Order Comment: Speci men Type: BLOOD SPECIMEN [facility] Address: [address] [place] [address] Performed By: #### 2 4323-8 #### [facility] CLIA [id number] [address] [place] [address] [place] Bilirubin [Mass/Vol] 1.3 mg/dL Normal 0.2-1.3 [facility] Comment on above: Order Comment: Speci men Type: BLOOD SPECIMEN [facility] Address: [address] [place] [address] Performed By: #### 2 4323-8 #### [facility] CLIA [id number] [address] [place] [address] [place] Calcium [Mass/Vol] 9.7 mg/dL Normal 8.5-10.2 [facility] Comment on above: Order Comment: Speci men Type: BLOOD SPECIMEN [facility] Address: [address] [place] [address] Performed By: #### 2 4323-8 #### [facility] CLIA [id number] [address] [place] [address] [place] Chloride [Moles/Vol] 100 mmol/L Normal 98-107 [facility] Comment on above: Order Comment: Speci men Type: BLOOD SPECIMEN [facility] Address: [address] [place], [place] [address] Performed By: #### 2 4323-8 #### [facility] CLIA [id number] [address] [place] [address] [place] CO2 [Moles/Vol] 25 mmol/L Normal 22-30 [facility] Comment on above: Order Comment: Ryan puga Type: BLOOD SPECIMEN [facility] Address: [address] [place] [address] Performed By: #### 2 4323-8 #### [facility] CLIA [id number] [address] [place] [address] [place] Creatinine [Mass/Vol] 0.98 mg/dL Normal 0.73-1.22 [facility] Comment on above: Order Comment: Laylai men Type: BLOOD SPECIMEN [facility] Address: [address] [place] [address] Performed By: #### 2 4323-8 #### [id number] [address] [place] [address] [place] Creatinine and Glomerular filtration rate.predicted panel (S/P/Bld) 93 mL/min/1.73m??? Normal >=60 [facility] Comment on above: Order Comment: Ryan puga Type: BLOOD SPECIMEN [facility] Address: [address] [place] [address] Result Comment: Kandis mated Glomerular Filtration Rate (eGFR) is calculated using the 2020 CKD-EPI creatinine equation. This equation utilizes serum creatinine, sex, and age as parameters. The creatinine assay has traceable calibration to isotope dilution-mass spectrometry. Refer to KDIGO guidelines for clinical interpretation. In patients with unstable renal function, e.g. those with acute kidney injury, the eGFR may not accurately reflect actual GFR. Performed By: #### 2 4323-8 #### [facility] [id number] [address] [place] [address] [place] Glucose [Mass/Vol] 198 mg/dL High 74-99 [facility] Comment on above: Order Comment: Laylai edd Type: BLOOD SPECIMEN [facility] Address: [address] [place] [address] Result Comment: The [place] Diabetes Association (ADA) provides guidance for cutoff values for fasting glucose and random glucose. The ADA defines fasting as no caloric intake for at least 8 hours. Fasting plasma glucose results between 100 to 125 mg/dL indicate increased risk for diabetes (prediabetes). Fasting plasma glucose results greater than or equal to 126 mg/dL meet the criteria for diagnosis of diabetes. In the absence of unequivocal hyperglycemia, results should be confirmed by repeat testing. In a patient with classic symptoms of hyperglycemia or hyperglycemic crisis, random plasma glucose results greater than or equal to 200 mg/dL meet the criteria for diagnosis of diabetes. Reference: Standards of Medical Care in Diabetes 2016, [place] Diabetes Association. Diabetes Care. 2016.39(Suppl 1). Performed By: #### 2 4323-8 #### [facility] [id number] [address] [place] [address] [place] Potassium [Moles/Vol] 4.2 mmol/L Normal 3.7-5.1 [facility] Comment on above: Order Comment: Speci men Type: BLOOD SPECIMEN [facility] Address: [address] [place] [address] Performed By: #### 2 4323-8 #### [facility] [id number] [address] [place] [address] [place] Protein [Mass/Vol] 7.4 g/dL Normal 6.3-8.0 [facility] Comment on above: Order Comment: Speci men Type: BLOOD SPECIMEN [facility] Address: [address] [id number] Performed By: #### 2 4323-8 #### [facility] CLIA [id number] [address] [place] [address] [place] Sodium [Moles/Vol] 136 mmol/L Normal 136-144 [facility] Comment on above: Order Comment: Speci men Type: BLOOD SPECIMEN [facility] Address: [address] [place] [address] Performed By: #### 2 4323-8 #### [facility] CLIA [id number] [address] [place] [address] [place] Urea nitrogen [Mass/Vol] 11 mg/dL Normal 9-24 [facility] Comment on above: Order Comment: Speci men Type: BLOOD SPECIMEN [facility] Address: [address] [place] [address] Performed By: #### 2 4323-8 #### [facility] CLIA [id number] [address] [place] [address] [place] HbA1c (Bld)on 06-28-2024 Average glucose Estimated from glycated hemoglobin (Bld) [Mass/Vol] 226 mg/dL Normal [facility] Comment on above: Order Comment: Speci men Type: BLOOD SPECIMEN [facility] Address: [address] [place] [address] Result Comment: eAG: (Estimated average glucose) is a calculated value from HgbA1c and is sales representative [employer] of the average blood glucose level in the last 2-3 month period. Performed By: #### 5 5454-3 #### [facility] CLIA [id number] [address] [place] [address] [place] HbA1c (Bld) [Mass fraction] 9.5 % High 4.3-5.6 [facility] Comment on above: Order Comment: Speci men Type: BLOOD SPECIMEN [facility] Address: [address] [place] [address] Result Comment: [place] Diabetes Association guidelines indicate that patients with HgbA1c in the range 5.7-6.4% are at increased risk for development of diabetes, and intervention by lifestyle modification may be beneficial. HgbA1c greater or equal to 6.5% is considered diagnostic of diabetes. Performed By: #### 5 5454-3 #### [facility] CLIA [id number] [address] [place] [address] [place] TESTOSTERONE, FREE AND TOTAL , BY EQUILIBRIUM ULTRAFILTRATION MASS SPECTROMETRYon 06-28-2024 Testosterone [Mass/Vol] 705.3 ng/dL Normal 264.0-916.0 [facility] Comment on above: Order Comment: Speci men Type: BLOOD SPECIMEN [facility] Address: [address] [place] [address] Result Comment: This [facility] LC/MS-MS method is currently certified by the CDC Hormone Standardization Program (HoSt). Adult male reference interval is based on a population of healthy nonobese males (BMI <30) between 19 and 39 years old. Wei et.al. JCEM 2017,102;3969-1345. PMID: [id number]. Performed By: #### T FTEST #### [facility] CLIA [id number] [address] [place] [address] Testosterone Free [Mass/Vol] 34.35 ng/dL High 5.00-21.00 [facility] Comment on above: Order Comment: Speci men Type: BLOOD SPECIMEN [facility] Address: [address] [place] [address] Performed By: #### T FTEST #### [facility] CLIA [id number] [address] [place] [address] Testosterone Free/Testosterone.total [Mass fraction] 4.87 % High 1.50-4.20 [facility] Comment on above: Order Comment: Speci men Type: BLOOD SPECIMEN [facility] Address: [address] [place] [address] Performed By: #### T FTEST #### [facility] CLIA [id number] [address] [place] [address] CNPJanice 06-26-2024 MJN Telephone (FAMPWS) KUSH SAMAYOA V ([id number]) 1970 M Date Time Provider Department 06/26/24 DALE RAMOS During your visit today, we recorded the following information about you: Carmen Dave LPN 06/26/2024 10:34 AM Signed TC to pt. LM to call office, ask for triage nurse to schedule May follow up appt. and also need to get outstanding labs. NITA Sragent Stephanie 07/06/2024 9:15 AM Signed 1st attempt - left message. When patient calls, please schedule patient for 3 month follow up in August. Cece Cowan 07/06/2024 6:22 PM Addendum 2nd attempt, LVM to schedule 3 mo follow up Labs not due until 10-05 Cece Stout Allergies As of Date: 06/26/2024 Noted Allergy Reaction PENICILLIN 06/20/2018 10 - Anaphylaxis VICODIN (HYDROCODONE-ACETAMI NOPHE*06/20/2018 1 - Mental Status Change Comments: Aggressiveness Date Reviewed: 03/08/2024 Reviewed by: Carmen Dave LPN - Fully Assessed Prescriptions as of 07/06/2024 - busPIRone (BUSPAR) 5 mg tablet Take 1 tablet by mouth three times a day. - glipiZIDE (GLUCOTROL XL) 10mg 24 hr tablet Take 1 tablet by mouth once daily. - PARoxetine (PAXIL) 30 mg tablet Take 1 tablet by mouth once daily. - anastrozole (ARIMIDEX) 1 mg tablet Take 1 tablet by mouth two times a week. - testosterone cypionate (DEPO-TESTOSTERONE) 200 mg/mL injection Inject 1 mL intramuscularly two times a week for 180 days. - metFORMIN (GLUCOPHAGE) 500 mg tablet Take 1 tablet by mouth two times a day. . - docosahexaenoic acid/epa (FISH OIL CONCENTRATE ORAL) Take by mouth. - ibuprofen (MOTRIN) 200 mg tablet Take 400 mg by mouth every 6 hours as needed for pain or fever (specify). - iv contrast (will be provided with radiology test) CT Urogram WO/W Inject, intravenously, once for 1 dose.No IV access, insert saline lock prior to the beginning of sedation, infusion, injection of imaging exam. Discontinue saline lock post exam. If Pt. has a central line or IVAD, may access for administration according to line specific nursing protocol. Once exam is complete flush line and de-access according to line specific nursing protocol in the CT contrast administration guidelines link. Problem List As Of Date 06/26/2024 Noted Resolved CUCO (obstructive sleep apnea) [G47.33] 06/20/2018 Obesity, Class III, BMI 40-49.9 (morbid obesity*06/20/2018 Type 2 diabetes mellitus without complication, *06/21/2018 Hypogonadism in male [E29.1] 03/27/2019 CKD (chronic kidney disease) [N18.9] 12/29/2022 GERD (gastroesophageal reflux disease) [K21.9] 12/29/2022 Irreducible umbilical hernia [K42.0] 01/06/2023 Encounter Status:Closed by CARMEN DAVE on 07/06/24 [facility] 03-29-2024 [facility] Telephone ([facility]) KUSH SAMAYOA V ([id number]) 1970 M Date Time Provider Department 03/29/24 JHON MAYBERRY [facility] During your visit today, we recorded the following information about you: Isis Chamberlain OCCA 03/29/2024 9:55 AM Signed Employer Forms for Patient/Caregiver Time Off of Work Received [employer] [facility] paperwork on 03/29/24. Completed, signed by provider, and returned to below contact. Completed copy scanned in [facility] Date of Surgery: 01/06/23 Estimated RTW date:02/17/23 Employer: [employer] Date sent to employer: 03/29/24 Received fax confirmation: YES Allergies As of Date: 03/29/2024 Noted Allergy Reaction PENICILLIN 06/20/2018 10 - Anaphylaxis VICODIN (HYDROCODONE-ACETAMI NOPHE*06/20/2018 1 - Mental Status Change Comments: Aggressiveness Date Reviewed: 03/08/2024 Reviewed by: Carmen Dave LPN - Fully Assessed Reason for Visit: FMLA Paperwork [8075] Prescriptions as of 03/29/2024 - anastrozole (ARIMIDEX) 1 mg tablet Take 1 tablet by mouth two times a week. - testosterone cypionate (DEPO-TESTOSTERONE) 200 mg/mL injection Inject 1 mL intramuscularly two times a week for 180 days. - glipiZIDE (GLUCOTROL XL) 5 mg 24 hr tablet Take 1 tablet by mouth once daily. - metFORMIN (GLUCOPHAGE) 500 mg tablet Take 1 tablet by mouth two times a day. . - PARoxetine (PAXIL) 20 mg tablet Take 1 tablet by mouth once daily. - docosahexaenoic acid/epa (FISH OIL CONCENTRATE ORAL) Take by mouth. - ibuprofen (MOTRIN) 200 mg tablet Take 400 mg by mouth every 6 hours as needed for pain or fever (specify). - iv contrast (will be provided with radiology test) CT Urogram WO/W Inject, intravenously, once for 1 dose.No IV access, insert saline lock prior to the beginning of sedation, infusion, injection of imaging exam. Discontinue saline lock post exam. If Pt. has a central line or IVAD, may access for administration according to line specific nursing protocol. Once exam is complete flush line and de-access according to line specific nursing protocol in the CT contrast administration guidelines link. Problem List As Of Date 03/29/2024 Noted Resolved CUCO (obstructive sleep apnea) [G47.33] 06/20/2018 Obesity, Class III, BMI 40-49.9 (morbid obesity*06/20/2018 Type 2 diabetes mellitus without complication, *06/21/2018 Hypogonadism in male [E29.1] 03/27/2019 CKD (chronic kidney disease) [N18.9] 12/29/2022 GERD (gastroesophageal reflux disease) [K21.9] 12/29/2022 Irreducible umbilical hernia [K42.0] 01/06/2023 Encounter Status:Closed by ISIS CHAMBERLAIN on 03[facility]29/[facility] KUSH SAMAYOA V ([id number]) 1970 M Date Time Provider Department 03/29/24 JHON MAYBERRY [facility] During your visit today, we recorded the following information about you: Mariam Ruano 03/29/2024 10:01 AM Signed Received FMLA/STD paperwork on 03/28/2024 Pending physician signature and completion. Surgeon: Dr. Mayberry Date of Surgery (if known): 01/06/2023 Allergies As of Date: 03/29/2024 Noted Allergy Reaction PENICILLIN 06/20/2018 10 - Anaphylaxis VICODIN (HYDROCODONE-ACETAMI NOPHE*06/20/2018 1 - Mental Status Change Comments: Aggressiveness Date Reviewed: 03/08/2024 Reviewed by: Carmen Dave LPN - Fully Assessed Reason for Visit: [place] Paperwork [[id number]] Prescriptions as of 04/24/2024 - anastrozole (ARIMIDEX) 1 mg tablet Take 1 tablet by mouth two times a week. - testosterone cypionate (DEPO-TESTOSTERONE) 200 mg/mL injection Inject 1 mL intramuscularly two times a week for 180 days. - glipiZIDE (GLUCOTROL XL) 5 mg 24 hr tablet Take 1 tablet by mouth once daily. - metFORMIN (GLUCOPHAGE) 500 mg tablet Take 1 tablet by mouth two times a day. . - PARoxetine (PAXIL) 20 mg tablet Take 1 tablet by mouth once daily. - docosahexaenoic acid/epa (FISH OIL CONCENTRATE ORAL) Take by mouth. - ibuprofen (MOTRIN) 200 mg tablet Take 400 mg by mouth every 6 hours as needed for pain or fever (specify). - iv contrast (will be provided with radiology test) CT Urogram WO/W Inject, intravenously, once for 1 dose.No IV access, insert saline lock prior to the beginning of sedation, infusion, injection of imaging exam. Discontinue saline lock post exam. If Pt. has a central line or IVAD, may access for administration according to line specific nursing protocol. Once exam is complete flush line and de-access according to line specific nursing protocol in the CT contrast administration guidelines link. Problem List As Of Date 03/29/2024 Noted Resolved CUCO (obstructive sleep apnea) [G47.33] 06/20/2018 Obesity, Class III, BMI 40-49.9 (morbid obesity*06/20/2018 Type 2 diabetes mellitus without complication, *06/21/2018 Hypogonadism in male [E29.1] 03/27/2019 CKD (chronic kidney disease) [N18.9] 12/29/2022 GERD (gastroesophageal reflux disease) [K21.9] 12/29/2022 Irreducible umbilical hernia [K42.0] 01/06/2023 Encounter Status:Closed by MARIAM RUANO on 04/24/24 [facility] 03-08-2024 [facility]OV Office Visit ([facility]) DANITAAVEKUSH V ([id number]) 1970 M Date Time Provider Department 03/08/24 11:20 AM TEREZA STONE During your visit today, we recorded the following information about you: Pulse Respiration Blood pressure Weight 92/minute 16/minute 136/68 144.7 kg Tereza Stone APRN.CNP 03/08/2024 12:59 PM Signed This is a 53 year old male who presents today with: Patient presents with: Follow Up: follow up for labs HISTORY OF PRESENT ILLNESS: Kush Mckeon Danita is a 53 year old male. Patient presents with: Follow Up: follow up for labs Here in the office for follow up Anxiety/Depression: Taking Paxil 20 mg daily. DM: Reports overall feeling well. Medication side effects: No. Home sugar checks: Not checking Hypoglycemic spells: No. Watching diet: No. Unexpected weight loss: No. Polyuria, polydipsia: Yes. Vision Changes: No. Foot lesions or numbness or pain: No. Taking Metformin 500 mg BID. A1C went from 9.9 to 11.6. Traveling for work which makes it difficulty to watch diet at times. Low T: Taking Testosterone 200mg/ml, 1 ML twice weekly. Taking Arimidex 1 mg twice weekly. Lab results pending PAST MEDICAL HISTORY: PAST MEDICAL HISTORY Diagnosis Date Obesity Pleural effusion Type 2 diabetes mellitus (HCC) PAST SURGICAL HISTORY Procedure Laterality Date PAST SURGICAL HISTORY OF 2012 10 lbs tumor removed from back of neck-Dr. Carson REPAIR INCISIONAL HERNIA,REDUCIBLE 01/06/2023 laparoscopic repair w/ mesh ALLERGIES Penicillin and Vicodin [Hydrocodone-Acetami nophen] MEDICATIONS Current Outpatient Medications Medication Sig metFORMIN (GLUCOPHAGE) 500 mg tablet Take 1 tablet by mouth two times a day. . PARoxetine (PAXIL) 20 mg tablet Take 1 tablet by mouth once daily. testosterone cypionate (DEPO-TESTOSTERONE) 200 mg/mL injection Inject 1 mL intramuscularly two times a week for 180 days. anastrozole (ARIMIDEX) 1 mg tablet Take 1 tablet by mouth two times a week. docosahexaenoic acid/epa (FISH OIL CONCENTRATE ORAL) Take by mouth. ibuprofen (MOTRIN) 200 mg tablet Take 400 mg by mouth every 6 hours as needed for pain or fever (specify). iv contrast (will be provided with radiology test) CT Urogram WO/W Inject, intravenously, once for 1 dose.No IV access, insert saline lock prior to the beginning of sedation, infusion, injection of imaging exam. Discontinue saline lock post exam. If Pt. has a central line or IVAD, may access for administration according to line specific nursing protocol. Once exam is complete flush line and de-access according to line specific nursing protocol in the CT contrast administration guidelines link. No current facility-administere d medications for this visit. FAMILY HISTORY Problem Relation Age of Onset No Known Problems Mother Diabetes Father Hypertension Father other (dystonia) Sister Social History Tobacco Use Smoking status: Never Smokeless tobacco: Former Types: Snuff Tobacco comments: Pt states he stopped two weeks ago Vaping Use Vaping status: Never Used Substance Use Topics Alcohol use: Not Currently Drug use: No REVIEW OF SYSTEMS GENERAL: No weight loss, malaise or fevers/chills HEENT: Negative for frequent or significant headaches, No changes in hearing or vision. NECK: Negative for lumps, goiter, pain and significant neck swelling RESPIRATORY: Negative for cough, hemoptysis, wheezing, dyspnea or shortness of breath CARDIOVASCULAR: Negative for chest pain, leg swelling, orthopnea, or palpitations GI: No nausea, vomiting, or diarrhea/constipatio n. No hematochezia/melena. No heartburn or reflux symptoms. : No history of dysuria, frequency or incontinence MUSCULOSKELETAL: Negative for joint pain or swelling. SKIN: Negative for lesions, rash, and itching ENDOCRINE: Negative for cold or heat intolerance, polyuria, polydipsia and goiter NEURO: No history of headaches, syncope, paralysis, seizures or tremors MOOD: Negative for depression, anxiety, or suicidal ideation. EXAM: BP 136/68 Pulse 92 Resp 16 Wt (!) 144.7 kg (319 lb) SpO2 95% BMI 47.11 kg/m? PHYSICAL EXAM: General Appearance: Well appearing, alert, in no acute distress, well-hydrated, well nourished. Skin: Skin color, texture, turgor normal, no suspicious rashes or lesions. Head: Normocephalic, no masses, lesions, tenderness or abnormalities. Eyes: Anicteric sclera. Extraocular movements are intact. Lungs: Lungs clear to auscultation. No wheezing, rhonchi, rales. Heart: RRR without murmur, gallop, or rubs. No ectopy. Extremities: No deformities, edema, skin discoloration, clubbing or cyanosis. Good capillary refill. Peripheral Pulses: Normal, Capillary refill <2secs, strong peripheral pulses, Pulses palpable. Neurologic: Gait normal. Sensation grossly intact. Latest Ref Rng 03/06/2024 Protein, Tot (more content not included)... Normal [facility] Comprehensive metabolic 2000 panelon 03-06-2024 Albumin [Mass/Vol] 4.2 g/dL Normal 3.9-4.9 [facility] Comment on above: Order Comment: Speci men Type: BLOOD SPECIMEN [facility] Facility[facility] Address: [address] [place] [address] Performed By: #### T FTEST #### [facility] CLIA [id number] [address] [place] [address] ALP [Catalytic activity/Vol] 95 U/L Normal 38-113 [facility] Comment on above: Order Comment: Speci men Type: BLOOD SPECIMEN [facility]ing Facility: [facility] Address: [address] [place] [address] Performed By: #### T FTEST #### [facility] CLIA [id number] [address] [place] [address] ALT [Catalytic activity/Vol] 25 U/L Normal 10-54 [facility] Comment on above: Order Comment: Speci men Type: BLOOD SPECIMEN [facility] Facility: [facility] Address: [address] [place] [address] Performed By: #### T FTEST #### [facility] CLIA [id number] [address] [place] [address] Anion gap [Moles/Vol] 12 mmol/L Normal 8-15 [facility] Comment on above: Order Comment: Speci men Type: BLOOD SPECIMEN [facility]: [facility] Address: [address] [place] [address] Performed By: #### T FTEST #### [facility] CLIA [id number] [address] [place] [address] AST [Catalytic activity/Vol] 18 U/L Normal 14-40 [facility] Comment on above: Order Comment: Speci men Type: BLOOD SPECIMEN [facility] Facility[facility] Address: [address] [place] [address] Performed By: #### T FTEST #### [facility] CLIA [id number] [address] [place] [address] Bilirubin [Mass/Vol] 0.9 mg/dL Normal 0.2-1.3 [facility] Comment on above: Order Comment: Speci men Type: BLOOD SPECIMEN [facility] Address: [address] [place] [address] Performed By: #### T FTEST #### [facility] CLIA [id number] [address] [place] [address] Calcium [Mass/Vol] 9.2 mg/dL Normal 8.5-10.2 [facility] Comment on above: Order Comment: Speci men Type: BLOOD SPECIMEN [facility] Address: [address] [place] [address] Performed By: #### T FTEST #### [facility] CLIA [id number] [address] [place] [address] Chloride [Moles/Vol] 99 mmol/L Normal 98-107 [facility] Comment on above: Order Comment: Speci men Type: BLOOD SPECIMEN [facility] Address: [address] [place] [address] Performed By: #### T FTEST #### [facility] CLIA [id number] [address] [place] [address] CO2 [Moles/Vol] 23 mmol/L Normal 22-30 [facility] Comment on above: Order Comment: Speci men Type: BLOOD SPECIMEN [facility] Address: [address] [place] [address] Performed By: #### T FTEST #### [facility] CLIA [id number] [address] [place] [address] Creatinine [Mass/Vol] 0.98 mg/dL Normal 0.73-1.22 [facility] Comment on above: Order Comment: Speci men Type: BLOOD SPECIMEN [facility] Address: [address] [place] [address] Performed By: #### T FTEST #### [facility] CLIA [id number] [address] [place] [address] Creatinine and Glomerular filtration rate.predicted panel (S/P/Bld) 93 mL/min/1.73m??? Normal >=60 [facility] Comment on above: Order Comment: Speci men Type: BLOOD SPECIMEN [facility] Address: [address] [place] [address] Result Comment: Kandis mated Glomerular Filtration Rate (eGFR) is calculated using the 2020 CKD-EPI creatinine equation. This equation utilizes serum creatinine, sex, and age as parameters. The creatinine assay has traceable calibration to isotope dilution-mass spectrometry. Refer to KDIGO guidelines for clinical interpretation. In patients with unstable renal function, e.g. those with acute kidney injury, the eGFR may not accurately reflect actual GFR. Performed By: #### T FTEST #### [facility] CLIA [id number] [address] [place] [address] Glucose [Mass/Vol] 356 mg/dL High 74-99 [facility] Comment on above: Order Comment: Ryan puga Type: BLOOD SPECIMEN [facility] Address: [address] [place] [address] Result Comment: The [place] Diabetes Association (ADA) provides guidance for cutoff values for fasting glucose and random glucose. The ADA defines fasting as no caloric intake for at least 8 hours. Fasting plasma glucose results between 100 to 125 mg/dL indicate increased risk for diabetes (prediabetes). Fasting plasma glucose results greater than or equal to 126 mg/dL meet the criteria for diagnosis of diabetes. In the absence of unequivocal hyperglycemia, results should be confirmed by repeat testing. In a patient with classic symptoms of hyperglycemia or hyperglycemic crisis, random plasma glucose results greater than or equal to 200 mg/dL meet the criteria for diagnosis of diabetes. Reference: Standards of Medical Care in Diabetes 2016, [place] Diabetes Association. Diabetes Care. 2016.39(Suppl 1). Performed By: #### T FTEST #### [facility] CLIA [id number] [address] [place] [address] Potassium [Moles/Vol] 4.3 mmol/L Normal 3.7-5.1 [facility] Comment on above: Order Comment: Ryan puga Type: BLOOD SPECIMEN [facility] Address: [address] [place] [address] Performed By: #### T FTEST #### [facility] CLIA [id number] [address] [place] [address] Protein [Mass/Vol] 7.7 g/dL Normal 6.3-8.0 [facility] Comment on above: Order Comment: Ryan puga Type: BLOOD SPECIMEN [facility] Address: [address] [place] [address] Performed By: #### T FTEST #### [facility] CLIA [id number] [address] [place] [address] Sodium [Moles/Vol] 134 mmol/L Low 136-144 [facility] Comment on above: Order Comment: Ryan puga Type: BLOOD SPECIMEN [facility] Address: [address] [place] [address] Performed By: #### T FTEST #### [facility] CLIA [id number] [address] [place] [address] Urea nitrogen [Mass/Vol] 10 mg/dL Normal 9-24 [facility] Comment on above: Order Comment: Ryan puga Type: BLOOD SPECIMEN [facility] Address: [address] [place] [address] Performed By: #### T FTEST #### [facility] CLIA [id number] [address] [place] [address] HbA1c (Bld)on 03-06-2024 Average glucose Estimated from glycated hemoglobin (Bld) [Mass/Vol] 286 mg/dL Normal [facility] Comment on above: Order Comment: Ryan puga Type: BLOOD SPECIMEN [facility] Address: [address] [place] [address] Result Comment: eAG: (Estimated average glucose) is a calculated value from HgbA1c and is sales representative [employer] of the average blood glucose level in the last 2-3 month period. Performed By: #### T FTEST #### [facility] CLIA [id number] [address] [place] [address] HbA1c (Bld) [Mass fraction] 11.6 % High 4.3-5.6 [facility] Comment on above: Order Comment: Ryan puga Type: BLOOD SPECIMEN [facility] Address: [address] [place] [address] Result Comment: [place] Diabetes Association guidelines indicate that patients with HgbA1c in the range 5.7-6.4% are at increased risk for development of diabetes, and intervention by lifestyle modification may be beneficial. HgbA1c greater or equal to 6.5% is considered diagnostic of diabetes. Performed By: #### T FTEST #### [facility] CLIA [id number] [address] [place] [address] Lipid 1996 panelon 4 Cholesterol [Mass/Vol] 157 mg/dL Normal <200 [facility] Comment on above: Order Comment: Speci men Type: BLOOD SPECIMEN [facility] Address: [address] [place] [address] Result Comment: <200 mg/dL, Desirable 200-239 mg/dL, Borderline high >239 mg/dL, High Performed By: #### T FTEST #### [facility] CLIA [id number] [address] [place] [address] Cholesterol in HDL [Mass/Vol] 27 mg/dL Low >39 [facility] Comment on above: Order Comment: Laylai [facility] Type: BLOOD SPECIMEN [facility] Address: [address] [place] [address] Result Comment: 40-5 9 mg/dL, Acceptable >59 mg/dL, High: Negative risk factor for coronary heart disease <40 mg/dL, Low: Positive risk factor for coronary heart disease Performed By: #### T FTEST #### [facility] CLIA [id number] [address] [place] [address] Cholesterol in LDL [Mass/Vol] 83 mg/dL Normal <100 [facility] Comment on above: Order Comment: Laylai [facility] Type: BLOOD SPECIMEN [facility] Address: [address] [place] [address] Result Comment: <100 mg/dL, Optimal 100-129 mg/dL, Near optimal/above optimal 130-159 mg/dL, Borderline high 160-189 mg/dL, High >189 mg/dL, Very high Secondary prevention optimal LDL Cholesterol levels are recommended to be < 70 mg/dL Performed By: #### T FTEST #### [facility] CLIA [id number] [address] [place] [address] Cholesterol in LDL/Cholesterol in HDL [Mass ratio] 3.07 {ratio} High <2.54 [facility] Comment on above: Order Comment: Ryan puga Type: BLOOD SPECIMEN [facility] Address: [address] [place] [address] Result Comment: Mariana rosen: 1. National Cholesterol Education Program ATP III Guideline At-A-Glance Quick Desk Reference: National Heart, Lung, and Blood [place]. National Institutes of Health. 2001: NIH Publication No. 01-3305. 2. An International Atherosclerosis Society position paper: global recommendations for the management of dyslipidemia: executive summary, Atherosclerosis. 2014: 232(2):410-413. Performed By: #### T FTEST #### [facility] CLIA [id number] [address] [place] [address] Cholesterol in VLDL [Mass/Vol] 47 mg/dL High <30 [facility] Comment on above: Order Comment: Ryan puga Type: BLOOD SPECIMEN [facility] Address: [address] [place] [address] Performed By: #### T FTEST #### [facility] CLIA [id number] [address] [place] [address] Cholesterol non HDL [Mass/Vol] 130 mg/dL High <130 [facility] Comment on above: Order Comment: Ryan puga Type: BLOOD SPECIMEN [facility] Address: [address] [place] [address] Result Comment: <130 mg/dL, Optimal 130-159 mg/dL, Near optimal/above optimal 160-189 mg/dL, Borderline high 190-219 mg/dL, High >219 mg/dL, Very high Secondary prevention optimal non HDL Cholesterol levels are recommended to be <100 mg/dL Performed By: #### T FTEST #### [facility] CLIA [id number] [address] [place] [address] Cholesterol.total/Choles terol in HDL [Mass ratio] 5.81 {ratio} High <5.10 [facility] Comment on above: Order Comment: Ryan puga Type: BLOOD SPECIMEN [facility] Address: [address] [place] [address] Performed By: #### T FTEST #### [facility] CLIA [id number] [address] [place] [address] FASTING TIME 12 hrs Normal [facility] Comment on above: Order Comment: Speci men Type: BLOOD SPECIMEN [facility] Address: [address] [place] [address] Performed By: #### T FTEST #### [facility] CLIA [id number] [address] [place] [address] Triglyceride [Mass/Vol] 233 mg/dL High <150 [facility] Comment on above: Order Comment: Speci men Type: BLOOD SPECIMEN [facility] Address: [address] [place] [address] Result Comment: <150 mg/dL, Normal 150-199 mg/dL, Borderline high 200-499 mg/dL, High >499 mg/dL, Very high Performed By: #### T FTEST #### [facility] CLIA [id number] [address] [place] [address] TESTOSTERONE, FREE AND TOTAL , BY EQUILIBRIUM ULTRAFILTRATION MASS SPECTROMETRYon 03-06-2024 Testosterone [Mass/Vol] 989.3 ng/dL High 264.0-916.0 [facility] Comment on above: Order Comment: Speci men Type: BLOOD SPECIMEN [facility] Address: [address] [place] [address] Result Comment: This [facility] LC/MS-MS method is currently certified by the CDC Hormone Standardization Program (HoSt). Adult male reference interval is based on a population of healthy nonobese males (BMI <30) between 19 and 39 years old. Wei et.al. JCEM 2017,102;4511-4697. PMID: [id number]. Performed By: #### T FTEST #### [facility] CLIA [id number] [address] [place] [address] Testosterone Free [Mass/Vol] 36.60 ng/dL High 5.00-21.00 [facility] Comment on above: Order Comment: Speci men Type: BLOOD SPECIMEN [facility] Address: [address] [place] [address] Performed By: #### T FTEST #### [facility] CLIA [id number] [address] [place] [address] Testosterone Free/Testosterone.total [Mass fraction] 3.70 % Normal 1.50-4.20 [facility] Comment on above: Order Comment: Speci men Type: BLOOD SPECIMEN [facility] Address: [address] [place] [address] Performed By: #### T FTEST #### [facility] CLIA [id number] [address] [place] [address] CNPNon 03-02-2024 CNPN Telephone (4CQ) KUSH SAMAYOA V ([id number]) 1970 M Date Time Provider Department 03/02/24 DALE RAMSO 4CQ During your visit today, we recorded the following information about you: Olga Encarnacion 03/02/2024 12:47 PM Signed Patient asking for blood work prior to appt 03/08 Please advise and call patient if ordered. Thank you Kristen Serna MA 03/02/2024 1:46 PM Signed Pt's labs that were entered have been cancelled due to expiring. Pended labs, please review and file. Update pt once ordered. REJI Cabrera Mark D, MD 03/02/2024 2:13 PM Signed Labs filed MD Jolie Nielsen Barbara, LPN 03/02/2024 2:51 PM Signed Patient notified of lab orders, verbalizes understanding of instructions. Carmen Dave LPN Allergies As of Date: 03/02/2024 Noted Allergy Reaction PENICILLIN 06/20/2018 10 - Anaphylaxis VICODIN (HYDROCODONE-ACETAMI NOPHE*06/20/2018 1 - Mental Status Change Comments: Aggressiveness Date Reviewed: 09/08/2023 Reviewed by: Jill Dang OCCA - Fully Assessed Reason for Visit: Orders [681] Primary Visit Diagnosis:Hyperlipid emia, unspecified hyperlipidemia type [E78.5] Other Visit Diagnoses:Hypertensi on, unspecified type [I10] Type 2 diabetes mellitus without complication, without long-term current use of insulin (HCC) [E11.9] Chronic kidney disease, unspecified CKD stage [N18.9] Hypogonadism in male [E29.1] Order(s):COMPREHENSI VE METABOLIC PANEL [SQCMP] Order #: [id number] FUTURE HEMOGLOBIN A1C [EYLOB1X] Order #: [id number] FUTURE LIPID PANEL BASIC [SQLIPB] Order #: [id number] FUTURE TESTOSTERONE, FREE AND TOTAL, BY EQUILIBRIUM ULTRAFILTRATION MASS SPECTROMETRY [SQTFTEST] Order #: [id number] FUTURE Prescriptions as of 03/02/2024 - metFORMIN (GLUCOPHAGE) 500 mg tablet Take 1 tablet by mouth two times a day. . - PARoxetine (PAXIL) 20 mg tablet Take 1 tablet by mouth once daily. - testosterone cypionate (DEPO-TESTOSTERONE) 200 mg/mL injection Inject 1 mL intramuscularly two times a week for 180 days. - anastrozole (ARIMIDEX) 1 mg tablet Take 1 tablet by mouth two times a week. - docosahexaenoic acid/epa (FISH OIL CONCENTRATE ORAL) Take by mouth. - ibuprofen (MOTRIN) 200 mg tablet Take 400 mg by mouth every 6 hours as needed for pain or fever (specify). - iv contrast (will be provided with radiology test) CT Urogram WO/W Inject, intravenously, once for 1 dose.No IV access, insert saline lock prior to the beginning of sedation, infusion, injection of imaging exam. Discontinue saline lock post exam. If Pt. has a central line or IVAD, may access for administration according to line specific nursing protocol. Once exam is complete flush line and de-access according to line specific nursing protocol in the CT contrast administration guidelines link. Problem List As Of Date 03/02/2024 Noted Resolved CUCO (obstructive sleep apnea) [G47.33] 06/20/2018 Obesity, Class III, BMI 40-49.9 (morbid obesity*06/20/2018 Type 2 diabetes mellitus without complication, *06/21/2018 Hypogonadism in male [E29.1] 03/27/2019 CKD (chronic kidney disease) [N18.9] 12/29/2022 GERD (gastroesophageal reflux disease) [K21.9] 12/29/2022 Irreducible umbilical hernia [K42.0] 01/06/2023 Encounter Status:Closed by CARMEN DAVE on 03/02/24 Normal [facility] Basic metabolic 2000 panelon 01-07-2023 Anion gap [Moles/Vol] 14 mmol/L Normal 9-18 [facility] Comment on above: Order Comment: Speci men Type: BLOOD SPECIMEN [facility] Address: [address] [place] [address] Performed By: #### 2 4321-2 #### [facility] CLIA [id number] [address] [place] [address] [place] Calcium [Mass/Vol] 9.2 mg/dL Normal 8.5-10.2 [facility] Comment on above: Order Comment: Speci men Type: BLOOD SPECIMEN [facility] Address: [address] [address] Performed By: #### 2 4321-2 #### [facility] CLIA [id number] [address] [place] [address] [place] Chloride [Moles/Vol] 104 mmol/L Normal 97-105 [facility] Comment on above: Order Comment: Speci men Type: BLOOD SPECIMEN [facility] Address: [address] [address] Performed By: #### 2 4321-2 #### [facility] CLIA [id number] [address] [place] [address] [place] CO2 [Moles/Vol] 21 mmol/L Low 22-30 [facility] Comment on above: Order Comment: Speci men Type: BLOOD SPECIMEN [facility] Address: [address] [address] Performed By: #### 2 4321-2 #### [facility] CLIA [id number] [address] [place] [address] [place] Creatinine [Mass/Vol] 1.23 mg/dL High 0.73-1.22 [facility] Comment on above: Order Comment: Ryan puga Type: BLOOD SPECIMEN [facility] Address: [address] [place] [address] Performed By: #### 2 4321-2 #### [facility] CLIA [id number] [place] [address] [place] Creatinine and Glomerular filtration rate.predicted panel (S/P/Bld) 71 mL/min/1.73m??? Normal >=60 [facility] Comment on above: Order Comment: Ryan puga Type: BLOOD SPECIMEN [facility] Address: [address] [place] [address] Result Comment: Kandis mated Glomerular Filtration Rate (eGFR) is calculated using the 2020 CKD-EPI creatinine equation. This equation utilizes serum creatinine, sex, and age as parameters. The creatinine assay has traceable calibration to isotope dilution-mass spectrometry. Refer to KDIGO guidelines for clinical interpretation. In patients with unstable renal function, e.g. those with acute kidney injury, the eGFR may not accurately reflect actual GFR. Performed By: #### 2 4321-2 #### [facility] CLIA [id number] [place] [address] [place] Glucose [Mass/Vol] 151 mg/dL High 74-99 [facility] Comment on above: Order Comment: Ryan puga Type: BLOOD SPECIMEN [facility] Address: [address] [place] [address] Result Comment: The [place] Diabetes Association (ADA) provides guidance for cutoff values for fasting glucose and random glucose. The ADA defines fasting as no caloric intake for at least 8 hours. Fasting plasma glucose results between 100 to 125 mg/dL indicate increased risk for diabetes (prediabetes). Fasting plasma glucose results greater than or equal to 126 mg/dL meet the criteria for diagnosis of diabetes. In the absence of unequivocal hyperglycemia, results should be confirmed by repeat testing. In a patient with classic symptoms of hyperglycemia or hyperglycemic crisis, random plasma glucose results greater than or equal to 200 mg/dL meet the criteria for diagnosis of diabetes. Reference: Standards of Medical Care in Diabetes 2016, [place] Diabetes Association. Diabetes Care. 2016.39(Suppl 1). Performed By: #### 2 4321-2 #### [facility] CLIA [id number] [place] [address] [place] Potassium [Moles/Vol] 4.5 mmol/L Normal 3.7-5.1 [facility] Comment on above: Order Comment: Speci men Type: BLOOD SPECIMEN [facility] Address: [address] [address] Performed By: #### 2 4321-2 #### [facility] CLIA [id number] [address] [place] [address] [place] Sodium [Moles/Vol] 139 mmol/L Normal 136-144 [facility] Comment on above: Order Comment: Speci men Type: BLOOD SPECIMEN [facility] Address: [address] [address] Performed By: #### 2 4321-2 #### [facility] CLIA [id number] [address] [place] [address] [place] Urea nitrogen [Mass/Vol] 16 mg/dL Normal 9-24 [facility] Comment on above: Order Comment: Speci men Type: BLOOD SPECIMEN [facility] Address: [address] [address] Performed By: #### 2 4321-2 #### [facility] CLIA [id number] [address] [place] [address] [place] CBC panel Auto (Bld)on 01-07 Erythrocyte distribution width (RBC) [Ratio] 14.4 % Normal 11.5-15.0 [facility] Comment on above: Order Comment: Speci men Type: BLOOD SPECIMENOrdering Facility: [facility] Address: [address] [address] Performed By: #### 5 8410-2 ####[facility] [id number] [address] [place] Hematocrit (Bld) [Volume fraction] 38.9 % Low 39.0-51.0 [facility] Comment on above: Order Comment: Speci men Type: BLOOD SPECIMENOrdering Facility: [facility] Address: [address] [place] [address] Performed By: #### 5 8410-2 ####[facility] [id number] [place] [address] [place] Hemoglobin (Bld) [Mass/Vol] 13.1 g/dL Normal 13.0-17.0 [facility] Comment on above: Order Comment: Speci men Type: BLOOD SPECIMENOrdering Facility: [facility] Address: [address] [place] [address] Performed By: #### 5 8410-2 ####[facility] [id number] [place] [address] [place] MCH (RBC) [Entitic mass] 26.6 pg Normal 26.0-34.0 [facility] Comment on above: Order Comment: Speci men Type: BLOOD SPECIMENOrdering Facility: [facility] Address: [address] [place] [address] Performed By: #### 5 8410-2 ####[facility] [id number] [place] [address] [place] MCHC (RBC) [Mass/Vol] 33.7 g/dL Normal 30.5-36.0 [facility] Comment on above: Order Comment: Speci men Type: BLOOD SPECIMENOrdering Facility: [facility] Address: [address] [place] [address] Performed By: #### 5 8410-2 ####[facility] [id number] [address] [place] MCV (RBC) [Entitic vol] 79.1 fL Low 80.0-100.0 [facility] Comment on above: Order Comment: Speci men Type: BLOOD SPECIMENOrdering Facility: [facility] Address: [address] [place] [address] Performed By: #### 5 8410-2 ####[facility] [id number] [place] [id number] [place] Nucleated RBC (Bld) [#/Vol] 10*3/uL Normal <0.01 [facility] Comment on above: Order Comment: Speci men Type: BLOOD SPECIMENOrdering Facility: [facility] Address: [address] [place] [address] Performed By: #### 5 8410-2 ####[facility] [id number] [place] [address] [place] Platelet mean volume (Bld) [Entitic vol] 9.2 fL Normal 9.0-12.7 [facility] Comment on above: Order Comment: Speci men Type: BLOOD SPECIMENOrdering Facility: [facility] Address: [address] [place] [address] Performed By: #### 5 8410-2 ####[facility] [id number] [place] [address] [place] Platelets (Bld) [#/Vol] 256 10*3/uL Normal 150-400 [facility] Comment on above: Order Comment: Speci men Type: BLOOD SPECIMENOrdering Facility: [facility] Address: [address] [place] [address] Performed By: #### 5 8410-2 ####[facility] [id number] [place] [address] [place] RBC (Bld) [#/Vol] 4.92 10*6/uL Normal 4.20-6.00 [facility] Comment on above: Order Comment: Speci men Type: BLOOD SPECIMENOrdering Facility: [facility] Address: [address] [place] [address] Performed By: #### 5 8410-2 ####[facility] [id number] [place] [address] [place] WBC (Bld) [#/Vol] 11.09 10*3/uL High 3.70-11.00 [facility] Comment on above: Order Comment: Rayn puga Type: BLOOD SPECIMENOrdering Facility: [facility] Address: [place] [address] Performed By: #### 5 8410-2 ####[facility] [id number] [address] CNDSon 01-07-2023 CNDS HNO ID: [id number] Author: Elisabeth Grossman MD Service: General Surgery Author Type: Resident Type: Discharge Summary Filed: 01/07/2023 10:22 AM Note Text: Attestation signed by Jhon Mayberry MD at 01/07/2023 10:36 AM (Updated) Attending Note I evaluated the patient and personally participated in the eisenberg components. I agree with the resident's findings and plan as documented and have discussed the case and management of the patient's care with the resident. Kush is postoperative day 1 from an IPOM plus repair of an incarcerated umbilical hernia. He stayed overnight for pain control. This is improved this morning and he is tolerating a diet and ambulating. He is appropriate for discharge and outpatient follow-up in 2 to 3 weeks. I personally spent 10 minutes evaluating the patient and coordinating his discharge this morning. Signature: Jhon Mayberry MD Date: 01/07/2023 Time: 10:34 AM GENERAL SURGERY DISCHARGE SUMMARY PATIENT NAME: Kush Samayoa ADMISSION DATE: 01/06/2023 DISCHARGE DATE: 01/07/2023 ATTENDING PHYSICIAN: Jhon Mayberry MD Code Status: Not on file Highest Readmission Risk Score: 7 The 30 day readmissions risk score is derived from an internally validated risk model which evaluates patient level characteristics, utilization history, medication orders and lab results up until the day of discharge. Patients with a score of 40 or above are considered highest risk for readmission. Specific patient level drivers will be listed at the bottom of the summary. REASON FOR HOSPITALIZATION: Principal Problem: Irreducible umbilical hernia (POA: Yes) Resolved Problems: * No resolved hospital problems. * Labs and Procedures Pending at Discharge: No pending results. Patient Condition at Discharge: Stable Discharge Disposition: Home with Self Care OPERATIONS DURING HOSPITALIZATION: Procedure(s) (LRB): LAPAROSCOPIC HERNIORRHAPHY FOR REDUCIBLE UMBILICAL HERNIA 3cm-10cm (N/A) PROCEDURES DURING HOSPITALIZATION: Intubation HOSPITAL COURSE: The patient was admitted to the hospital with a previous known diagnosis of umbilical hernia. The patient was transferred to the OR and the above listed surgery was performed. Patient tolerated the procedure well and was admitted to the regular nursing floor for pain control. During the post op course no complications were encountered. Daily labs were ordered and reviewed to follow up progress of patients medical condition. Heparin was ordered for prophylaxis of deep vein thrombosis. Diet was gradually advanced. After toleration of a full diet and adequate pain control, patient was discharged in a stable condition. Active Hospital Problems Diagnosis Date Noted Irreducible umbilical hernia 01/06/2023 Resolved Hospital Problems No resolved problems to display. Transitions of Care Critical Issues: SPECIALIST FOLLOW-UP: Surgery follow within 2 weeks of procedure LABS AND PROCEDURES PENDING AT DISCHARGE: No pending results. CONSULTING TEAMS DURING HOSPITALIZATION: None Treatment Team: Attending Provider: Jhon Mayberry MD PATIENT CONDITION AT DISCHARGE: Stable Discharge Physical Exam: VITAL SIGNS: BP 143/63 Pulse 82 Temp 37 ?C (98.6 ?F) (Axillary) Resp 17 Ht 175.3 cm (5' 9) Wt (!) 154.9 kg (341 lb 7.9 oz) SpO2 95% BMI 50.43 kg/m? GENERAL: Alert, no distress, cooperative LUNGS: Breathing comfortably on room air, chest wall movement symmetrical, no respiratory distress appreciated CARDIAC: Normal S1 and S2; no rubs, murmurs, or gallops ABDOMEN: Abdomen soft, distended appropriately for body habitus, incision clear, dry, and intact, no erythema around surgical site, appropriately tender to palpation around wound DISCHARGE DISPOSITION: Home with Self Care INFORMATION PROVIDED TO PATIENT: Patient given copy of discharge instructions DIET: Resume pre-hospital diet Low carb diet: 3-5 carbs/meal, <200 mg cholesterol, low saturated fat ACTIVITY: Resume pre-hospital activity Lifting is restricted to: 10 lbs for 6 weeks No driving while on narcotics May use stairs May shower No bathing or swimming for 4 weeks WOUND/SURGICAL SITE CARE: - Keep the surgical site clean and dry. - You may shower tomorrow. Use soap and warm water. Allow the water to run over the incisions. Gently pat the area dry. Do not rub the area. - Do not submerge the surgical site in water for 1-2 weeks. (No bathtubs or swimming). - Your incision is closed with sterile medical glue that will fall off on its own. - Watch for any signs of excessive bleeding or infection including increased swelling, pain, redness, thick drainage, or fever. If you notice any of these symptoms, please call and speak with a doctor or nurse. - Your wound will examined at you (more content not included)... Normal [facility] ANES POSTPROC EVALon 023 ANES POSTPROC EVAL HNO ID: [id number] Author: Cruz Eduardo MD Service: Anesthesiology Author Type: Anesthesiologist Type: Anesthesia Postprocedure Evaluation Filed: 01/06/2023 6:51 PM Note Text: POST ANESTHESIA EVALUATION NOTE : 1970 Procedure Summary Date: 01/06/23 Room / Location: OR12 / OR Anesthesia Start: 1152 Anesthesia Stop: 1529 Procedure: LAPAROSCOPIC HERNIORRHAPHY FOR REDUCIBLE UMBILICAL HERNIA 3cm-10cm (Abdomen) Diagnosis: Umbilical hernia without obstruction and without gangrene (Umbilical hernia without obstruction and without gangrene [K42.9]) Surgeons: Jhon Mayberry MD Responsible Provider: Pamela Aranda DO Anesthesia Type: general ASA Status: 3 Anesthesia Type: general Airway Type: ETT Last Vitals Vitals Value Taken Time BP 117/82 01/06/23 1800 Temp 36.7 ?C (98.1 ?F) 01/06/23 1530 Pulse 78 01/06/23 1851 Resp 12 01/06/23 1851 SpO2 97 % 01/06/23 1851 Vitals shown include unvalidated device data. Post Anesthesia Patient Status Patient Evaluation: PACU. PACU/ICU Patient Condition: stable. Anticipated Disposition: inpatient floor planned admission. Neurological Status: aware and responsive. Pulmonary Status: breathing comfortably on room air Airway Control: returned to baseline unsupported. Cardiovascular Status: stable. Pain Management: clinically adequate Postoperative Hydration: acceptable. Intraoperative Events: no significant anesthesia events Recommendation: continue current plan of care. Anesthesia Observations No Documentation SIGNATURE: Cruz Eduardo MD PATIENT NAME: Kush Samayoa DATE: January 06, 2023 TIME: 6:51 PM CSN: [id number] [facility] ANES PRE-OPon 01-06-2023 ANES PRE-OP HNO ID: [id number] Author: Dex Roa MD Service: Anesthesiology Author Type: Anesthesiologist Type: Anesthesia Preprocedure Evaluation Filed: 01/06/2023 11:28 AM Note Text: ANESTHESIOLOGY DAY OF SURGERY NOTE : 1970 Procedure Information Date/Time: 01/06/23 1045 Procedure: LAPAROSCOPIC HERNIORRHAPHY FOR REDUCIBLE UMBILICAL HERNIA 3cm-10cm (Abdomen) - with mesh Location: [facility]12 / [facility] Surgeons: Jhon Mayberry MD Estimated body mass index is 49.03 kg/m? as calculated from the following: Height as of 12/23/22: 175.3 cm (5' 9). Weight as of 12/23/22: 150.6 kg (332 lb). Most recent hematocrit and potassium results: Hematocrit 39.7 12/23/2022 Potassium 3.9 12/23/2022 Relevant Problems ANESTHESIA (+) CUCO (obstructive sleep apnea) ENDO (+) Type 2 diabetes mellitus without complication, without long-term current use of insulin (HCC) GI (+) GERD (gastroesophageal reflux disease) -RENAL (+) CKD (chronic kidney disease) PULMONARY (+) CUCO (obstructive sleep apnea) I - PHYSICAL EVALUATION AIRWAY Patient intubated: No. Tracheostomy tube not present Mallampati: III. TM distance: >3 FB. Neck ROM: full ROM without neurological symptoms. Mouth opening: adequate. Short neck: yes. Thick neck: yes DENTAL Dental findings: teeth intact. II - ANESTHESIA PLAN ASA Score: 3 Anesthetic Plan: general Airway type: ETT The patient is not a current smoker. NPO Status: adequate Beta Saturnino Monitoring Plan Monitoring plan: standard ASA. Post Procedure Analgesic Plan Postoperative analgesic plan: multimodal analgesia. Informed Consent Anesthetic risks, benefits, alternatives, personnel and consent discussed: yes. Patient / Responsible [employer] agrees to proceed: yes Patient / Surrogate agrees to blood products: Yes DNR status not reviewed with patient and/or family prior to surgery. Significant changes in the patient condition since the History and Physical, not otherwise documented in primary service progress note: no. Potential Anesthesia issues that may suggest increased risk of complications or contraindication to planned procedure: none. Vitals Value Taken Time BP 141/75 01/06/23950 Pulse 64 01/06/23950 Resp 13 01/06/23950 Temp 36.2 ?C (97.2 ?F) 01/06/23950 SpO2 97 % 01/06/23950 Facility-Administere d Medications as of 01/06/2023 Medication Dose Route Frequency - lidocaine (PF) 10 mg/mL (1 %) 1-2 mg injection (XYLOCAINE) 0.1-0.2 mL INTRADERMAL PRN - lactated ringers iv infusion 5-30 mL/hr INTRAVENOUS CONTINUOUS - NaCl 0.9% iv flush bag 20 mL INTRAVENOUS PRN - heparin 5,000 Units injection 5,000 Units SUBCUTANEOUS ONCE - vancomycin 1.5 g in NaCl 0.9% 250 mL (VANCOCIN) 1.5 g INTRAVENOUS Pre-Op Once Outpatient Medications as of 01/06/2023 Medication Sig - metFORMIN (GLUCOPHAGE) 500 mg tablet Take 1 tablet by mouth twice daily. . - ibuprofen (MOTRIN) 200 mg tablet Take 400 mg by mouth every 6 hours as needed for pain or fever (specify). - iv contrast (will be provided with radiology test) CT Urogram WO/W Inject, intravenously, once for 1 dose.No IV access, insert saline lock prior to the beginning of sedation, infusion, injection of imaging exam. Discontinue saline lock post exam. If Pt. has a central line or IVAD, may access for administration according to line specific nursing protocol. Once exam is complete flush line and de-access according to line specific nursing protocol in the CT contrast administration guidelines link. - cyclobenzaprine (FLEXERIL) 10 mg tablet Take 1 tablet by mouth three times daily. - dulaglutide (TRULICITY) 3 mg/0.5 mL pen injector Inject 3 mg subcutaneously one time a week. - testosterone cypionate (DEPO-TESTOSTERONE) 200 mg/mL injection Inject 1 mL intramuscularly two times a week for 180 days. - anastrozole (ARIMIDEX) 1 mg tablet Take 1 tablet by mouth two times a week. - syringe with needle, safety 3 mL 23 gauge x 1 1/2 syrg 1 Each every 2 weeks. I have interviewed and examined the patient. I have reviewed the medical record and/or the pre-anesthesia evaluation, pertinent labs, and test results. This contains updated information obtained within 48 hours of Surgery/Procedure. SIGNATURE: Dex Roa MD PATIENT NAME: Kush Samayoa DATE: January 06, 2023 TIME: 11:27 AM CSN: [id number] [facility] BRIEF OP NOTon 01-06-2023 BRIEF OP NOT HNO ID: [id number] Author: Matilde Razo MD Service: General Surgery Author Type: Resident Type: Brief Op Note Filed: 01/06/2023 3:20 PM Note Text: GENERAL SURGERY BRIEF OP NOTE Patient Name: Kush Samayoa Log ID: [id number] Surgery/Procedure Date: 01/06/2023 Incision/Procedure Start Time: 12:26 PM Incision Close/Procedure End Time: 2:53 PM Surgeon(s) and Operations Research Analyst(s): Surgeon(s) and Role: * Jhon Mayberry MD - Primary * Matilde Razo MD - Resident - Assisting No Additional Staff Anesthesia: general Procedures: 1. Laparoscopic umbilical hernia repair with IntraPeritoneal Onlay Mesh 2. Bilateral TAP blocks (APMS) Findings: 3.5 cm x 3 cm umbilical defect with omentum incarceration. 15 cm round Parietene mesh placed against the abdominal wall and secured with tacks Complications: no immediate complications Fluids IVF: 1.2 L EBL: minimal UOP: n/a Wound Classification: Clean Counts: Correct Specimens: none Drains/Devices/Prost hetics: none * No implants in log * Preoperative Diagnosis: incarcerated umbilical hernia Postop Diagnosis: same Postop Plan of Care: PACU then Home [facility] NURSING PROGon 01-06-2023 NURSING PROG HNO ID: [id number] Author: Zohra Camejo RN Service: Pain Management Author Type: Registered Nurse Type: Nursing Progress Note Filed: 01/06/2023 3:20 PM Note Text: BILATERAL rectus sheath single shot nerve blocks in OR setting. Dr. Stevens and Dr. Rodríguez [facility] NURSING PROG HNO ID: [id number] Author: Linda Paul, RN Service: Nursing Author Type: Registered Nurse Type: Nursing Progress Note Filed: 01/06/2023 9:04 AM Note Text: PATIENT EDUCATION TOPIC: PROCEDURE / SURGERY: Pre-op Teaching: Surgical Safety Principles READINESS TO LEARN COGNITIVE ABILITY: Alert and oriented MOTIVATION TO LEARN: Interested FAMILY SUPPORT: Unable to assess - Family not present INSTRUCTION PROVIDED TO: Patient PATIENT LEARNS BEST BY: Individual Instruction FACTORS AFFECTING LEARNING: None PHYSICAL LIMITATIONS AFFECTING LEARNING: None LEARNING RESPONSE DIAGNOSIS: ADULT: Well Adult PATIENT/FAMILY RESPONSE: Information received as demonstrated by interest and questions METHOD OF INSTRUCTION: Individual instruction FOLLOW-UP PLAN: Complete - No need for follow-up INSTRUCTIONAL AIDS USED: NA SUPPLEMENTAL MATERIAL PROVIDED TO PATIENT: None REFERRAL (RECOMMENDATION): None Electronically Signed By: Linda Paul [facility] OPERATIVE NOon 01-06-2023 OPERATIVE NO HNO ID: [id number] Author: Jhon Mayberry MD Service: General Surgery Author Type: Physician Type: Operative Report Filed: 01/06/2023 3:04 PM Note Text: LOG ID: [id number] Surgery/Procedure Date: 01/06/2023 Incision/Procedure Start Time: 12:26 PM Incision Close/Procedure End Time: 2:53 PM Surgeon(s)/Procedura list(s) and Operations Research Analyst(s): Surgeon(s) and Role: * Jhon Mayberry MD - Primary * Matilde Razo MD - Resident - Assisting No Additional Staff Procedure(s): Laparoscopic ventral incisional hernia repair with mesh Anesthesia: General Procedure Details: A preoperative huddle was performed with the patient, surgeon, anesthesia, and OR teams present and in agreement about the operation. Following induction of general endotracheal anesthesia, the patient was placed in supine position, flexed at the hip, and their arms were appropriately padded and tucked at their side. All pressure points were padded appropriately. The patient was prepped with chloraprep and draped in a sterile fashion. An audible time out was performed including confirmation of the planned procedure, preoperative antibiotic administration, preoperative heparin administration, and placement of SCDs. A left subcostal stab incision was made using an 11-blade. Access to the abdomen was achieved using an optical trocar and 5mm, 0 degree scope. Once the abdomen was entered, the abdomen was insufflated with carbon dioxide to 12 mmHg. The LUQ was inspected to insure no inadvertent injury on entry. Next, a left lateral mid abdominal 12 mm trocar was placed under direct visualization after infiltration of local into the skin and muscle. After placement, this was removed and a 0-Vicryl figure of eight transfascial closure was performed with a Avi Francis suture passer. The 12 mm trocar was then replaced. Finally, a LLQ 5 mm trocar was placed under direct visualization after infiltration of local into the skin and muscle. The defect had incarcerated omentum. We worked the circumferential attachments with sharp scissors and limited electrocautery. With a combination of internal pulling and external pushing, the omentum was reduced. The omentum appeared hemostatic. The groins were inspected and no hernia defects were identified. There were some adhesions to the anterior abdominal wall between a sigmoid epiploic appendage that were taken down and then a single band between the sigmoid and anterior abdominal wall. This was divided with monopolar scissors. Unfortunately, there was rapid thermal spread along the band that came close to the sigmoid colon. While it didn't appear to have reached the sigmoid, in order to be safe, this area was imbricated with two 3-0 Vicryl Lembert sutures and an adjacent epiploic appendage was tacked down over the area to bolster it. Satisfied, we turned our attention to the hernia defect. The defect measured 3 cm wide by 3.5 cm long. In order to repair this, we decided to proceed with an IPOM+ repair. I began by mobilizing the fat and peritoneal folds below the umbilicus off of the anterior abdominal wall so that the mesh would be in direct contact with the posterior sheath. Next, I mobilized the falciform and preperitoneal fat off of the anterior abdominal wall cephalad to the defect, again to clear off the fascia. Next, I closed the midline defect with a running slowly absorbable #1 Stratafix suture. I then selected a 15 cm round Parietene DS mesh, removed the attached prolene sutures, and placed a single Vicryl sutures through the middle of the mesh. I scrolled the mesh and then introduced it through our 12 mm trocar. The mesh was unfurled with the barrier coating against the bowel and exposed polypropylene towards the anterior abdominal wall. A [employer] suture passer was used to grasp the Vicryl suture through the center of the defect and the Vicryl suture was pulled taught to suspend the mesh. Next, the mesh was secured circumferentially with permanent tacks in a double crown fashion. In order to facilitate tack placement along the left abdominal wall, a single 5 mm port was placed in the right lateral abdomen. Once secured, the mesh lay flat against the anterior wall and centered over the hernia defect. Satisfied, the 5 mm trocars were removed under direct visualization without any evidence of bleeding from the anterior abdominal wall. The scope was removed and the abdomen was desufflated. Once desufflated, the 12 mm trocar was removed and the fascia was closed with the previously placed 0-Vicryl figure of eight suture. The skin was closed with interrupted 4-0 Monocryl subcuticular sutures and skin glue was applied to all four incisions as well as the stab incision. All sponge and needle counts were correct at the conclusion of the case. I was present and scrubbed for the entirety of the case and was involved in all of the critical aspects of the case. Pre-Op (more content not included)... Normal [facility] CBC W Auto Differential pane l (Bld)on 12-23-2022 Basophils (Bld) [#/Vol] 0.06 10*3/uL <0.11 k/uL [facility] Basophils/100 WBC (Bld) 0.8 % C [facility] Differential cell count method Nom (Bld) Auto [facility] Eosinophils (Bld) [#/Vol] 0.16 10*3/uL <0.46 k/uL [facility] Eosinophils/100 WBC (Bld) 2.2 % [facility] Erythrocyte distribution width (RBC) [Ratio] 14.9 % 11.5 - 15.0 % [facility] Hematocrit (Bld) [Volume fraction] 39.7 % 39.0 - 51.0 % [facility] Hemoglobin (Bld) [Mass/Vol] 13.7 g/dL 13.0 - 17.0 g/dL [facility] Immature granulocytes (Bld) [#/Vol] 0.14 10*3/uL High <0.10 k/uL [facility] Immature granulocytes/100 WBC (Bld) 1.9 % [facility] Lymphocytes (Bld) [#/Vol] 2.13 10*3/uL 1.00 - 4.00 k/uL [facility] Lymphocytes/100 WBC (Bld) 29.1 % [facility] MCH (RBC) [Entitic mass] 26.0 pg 26. 0 - 34.0 pg [facility] MCHC (RBC) [Mass/Vol] 34.5 g/dL 30.5 - 36.0 g/dL [facility] MCV (RBC) [Entitic vol] 75.5 fL Low 80.0 - 100.0 fL [facility] Monocytes (Bld) [#/Vol] 0.57 10*3/uL <0.87 k/uL [facility] Monocytes/100 WBC (Bld) 7.8 % C [facility] Neutrophils (Bld) [#/Vol] 4.26 10*3/uL 1.45 - 7.50 k/uL [facility] Neutrophils/100 WBC (Bld) 58.2 % [facility] Nucleated RBC (Bld) [#/Vol] <0.01 k/uL [facility] Nucleated RBC/100 WBC (Bld) [Ratio] 0.0 /100 WBC [facility] Platelet mean volume (Bld) [Entitic vol] 8.6 fL Low 9.0 - 12.7 fL [facility] Platelets (Bld) [#/Vol] 226 10*3/uL 150 - 400 k/uL [facility] RBC (Bld) [#/Vol] 5.26 10*6/uL 4.20 - 6.0 0 m/uL [facility] WBC (Bld) [#/Vol] 7.32 10*3/uL 3.70 - 11. 00 k/uL [facility] Comprehensive metabolic 2000 panelon 12-23-2022 Albumin [Mass/Vol] 4.3 g/dL 3.9 - 4.9 g/dL [facility] ALP [Catalytic activity/Vol] 87 U/L 38 - 113 U/L [facility] ALT [Catalytic activity/Vol] 28 U/L 10 - 54 U/L [facility] Anion gap [Moles/Vol] 11 mmol/L 9 - 18 mmol/L [facility] AST [Catalytic activity/Vol] 17 U/L 14 - 40 U/L [facility] Bilirubin [Mass/Vol] 1.1 mg/dL 0.2 - 1 .3 mg/dL [facility] Calcium [Mass/Vol] 10.1 mg/dL 8.5 - 10. 2 mg/dL [facility] Chloride [Moles/Vol] 101 mmol/L 97 - 10 5 mmol/L [facility] CO2 [Moles/Vol] 24 mmol/L 22 - 30 mmol/L [facility] Creatinine [Mass/Vol] 1.24 mg/dL High 0.73 - 1.22 mg/dL [facility] Estimated Glomerular Filtration Rate 70 mL/min/1.73m >=60 mL/min/1.73m [facility] Glucose [Mass/Vol] 177 mg/dL High 74 - 99 mg/dL [facility] Potassium [Moles/Vol] 3.9 mmol/L 3.7 - 5.1 mmol/L [facility] Protein [Mass/Vol] 7.7 g/dL 6.3 - 8.0 g/dL [facility] Sodium [Moles/Vol] 136 mmol/L 136 - 144 mmol/L [facility] Urea nitrogen [Mass/Vol] 14 mg/dL 9 - 24 mg/d L [facility] HbA1c (Bld)on 12-23-2022 Average glucose Estimated from glycated hemoglobin (Bld) [Mass/Vol] 140 mg/dL [facility] HbA1c (Bld) [Mass fraction] 6.5 % High 4.3 - 5.6 % [facility] CNOVon 11-04-2022 CNOV Office Visit (UROLAE) KUSH SAMAYOA V ([id number]) 1970 M Date Time Provider Department 11/04/22 10:30 AM PAMELA BLOOM During your visit today, we recorded the following information about you: Pulse Blood pressure 70/minute 134/86 Pamela Bloom MD 11/04/2022 10:54 AM Signed CYSTOSCOPY PROCEDURE NOTE : Kush Samayoa is a 52 year old male who presents with Hematuria gross for cystoscopy. PRE-OP/PRE-PROCEDURE DIAGNOSIS: Gross hematuria POST-OP/POST-PROCEDU RE DIAGNOSIS: Gross hematuria SURGERY/PROCEDURE(S) : Cystoscopy Pt ID verified with patient: Yes Procedure verified with patient: Yes Procedure confirmed with physician and geophysical support specialist: Yes UNIVERSAL PROTOCOL / SAFETY CHECKLIST Procedure to be Performed: Cystoscopy Sign In: A Moment of CARE was completed. Personnel directly involved with the procedure wore the appropriate PPE (Personal Protective Equipment). Patient/Surrogate Stated/Verified: PATIENT VERIFIED(optional for EMERGENT procedures): Patient name, Date of , Relevant allergies, and The intended procedure Time Out Communication: Intended patient and procedure match the source documents. Consent documented and matches the intended procedure. Sign Out: SIGN OUT (optional for EMERGENT procedures): No specimen collected. Pamela Bloom MD A urinalysis was performed revealing no evidence of infection. The benefits, risks, alternatives of the cystoscopy procedure and personnel were discussed with the patient. The verbal consent was obtained and the patient agrees to proceed. Procedure: The patient was placed on the procedure table in the supine position and prepped and draped in the usual sterile fashion. 2% Lidocaine Jelly was placed per urethra as an anesthetic in the standard fashion. Once adequate local anesthesia was achieved, the tip of the flexible cystoscope was carefully placed into the urethra under direct visual guidance. The scope was negotiated through the pendulous urethra to the level of the bulbar urethra with no evidence of stricture. 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 The bladder was entered and careful moreland endoscopy was carried out. The posterior, superior and lateral doyle and dome of the bladder were all well visualized and the scope was retroflexed upon itself. The findings were consistent with no evidence of bladder mucosal pathology. The findings were consistent with smooth, not trabeculated bladder. At the conclusion of the procedure, the flexible cystoscope was removed atraumatically. The patient tolerated the procedure without complications. Patient was given standard post-procedure instructions, and was directed to complete the course of oral antibiotics and increase oral fluid intake as directed. IMPRESSION: PLAN: Gross hematuria Complete work-up is negative Follow-up with me as needed Pamela Bloom MD Electronically Signed: Pamela Bloom MD November 04, 2022 10:51 AM This note was partially created using voice recognition software and is inherently subject to errors including those of syntax and sound-alike substitutions which may escape proofreading. In such instances, original meaning may be extrapolated by contextual derivation. Referring Provider: HENRRY ROMO [[id number]] Allergies As of Date: 11/04/2022 Noted Allergy Reaction PENICILLIN 06/20/2018 10 - Anaphylaxis VICODIN (HYDROCODONE-ACETAMI NOPHE*06/20/2018 1 - Mental Status Change Comments: Aggressiveness Date Reviewed: 11/04/2022 Reviewed by: Shirley Person Radio Repair Teacher - Fully Assessed Reason for Visit: Cystoscopy-1 [303] Primary Visit Diagnosis:Gross hematuria [R31.0] Order(s):[] lidocaine urojet 2 % 6 mL topical gel (GLYDO)Disp: Rfl: UA DIP, URINE (POC) [[id number]] Order #: [id number] #:[id number] Prescriptions as of 11/04/2022 - iv contrast (will be provided with radiology test) CT Urogram WO/W Inject, intravenously, once for 1 dose.No IV access, insert saline lock prior to the beginning of sedation, infusion, injection of imaging exam. Discontinue saline lock post exam. If Pt. has a central line or IVAD, may access for administration according to line specific nursing protocol. Once exam is complete flush line and de-access according to line specific nursing protocol in the CT contrast administration guidelines link. - cyclobenzaprine (FLEXERIL) 10 mg tablet Take 1 tablet by mouth three times daily. - dulaglutide (TRULICITY) 3 mg/0.5 mL pen injector Inject 3 mg subcutaneously one time a week. - testosterone cypionate (DEPO-TESTOSTERONE) 200 mg/mL injection Inject 1 mL intramuscularly two times a week for 180 days. - metFORMIN (GLUCOPHAGE) 500 mg tablet Take 1 tablet by mouth twice daily. . - anastrozole (A (more content not included)... Normal [facility] UA DIP, URINE (POC)on 2022 BILIRUBIN UA (POCT) Negative Negative [facility] CLARITY UA (POCT) Clear [facility] COLOR UA (POCT) Yellow [facility] GLUCOSE UA (POCT) Negative Negative mg/dL [facility] HEMOGLOBIN/BLOOD UA (POCT) Negative Negative [facility] KETONE UA (POCT) Negative Negative mg/dL [facility] LEUKOCYTES UA (POCT) Negative Negative [facility] NITRITE UA (POCT) Negative Negative [facility] PH UA (POCT) 7.0 4.5 - 8.0 [facility] Protein Ql (U) Negative Negative mg/dL [facility] SPECIFIC GRAVITY UA (POCT) 1.020 1.005 - 1.030 [facility] UROBILINOGEN UA (POCT) 1.0 E.U./dL Lindsay l E.U./dL [facility] CNPJanice 10-13-2022 MJN Telephone (AKURFL) KUSH SAMAYOA V ([id number]) 1970 M Date Time Provider Department 10/13/22 HENRRY ROMO During your visit today, we recorded the following information about you: La Nena Laureano Phillips 10/13/2022 2:48 PM Signed Left vm pt needs scheduled for cysto with any provider. He has gross hematuria and being ref by Fiordaliza Romo. His CT scheduled for 10/26/22. Aubree Phillips 10/13/2022 3:03 PM Signed Pt confirmed cysto with Dr. Bloom @ [facility] 11/04/22 @ 10:15am. Aubree Allergies As of Date: 10/13/2022 Noted Allergy Reaction PENICILLIN 06/20/2018 10 - Anaphylaxis VICODIN (HYDROCODONE-ACETAMI NOPHE*06/20/2018 1 - Mental Status Change Comments: Aggressiveness Date Reviewed: 10/13/2022 Reviewed by: Melania Prince - Fully Assessed Reason for Visit: Appointment [186] Prescriptions as of 10/13/2022 - iv contrast (will be provided with radiology test) CT Urogram WO/W Inject, intravenously, once for 1 dose.No IV access, insert saline lock prior to the beginning of sedation, infusion, injection of imaging exam. Discontinue saline lock post exam. If Pt. has a central line or IVAD, may access for administration according to line specific nursing protocol. Once exam is complete flush line and de-access according to line specific nursing protocol in the CT contrast administration guidelines link. - 0.9 % sodium chloride (NACL 0.9%) infusion Inject 150 mL/hr intravenously one time only for 1 dose. Administer at rate defined per CT contrast administration specifications. To be provided with radiology test. - cyclobenzaprine (FLEXERIL) 10 mg tablet Take 1 tablet by mouth three times daily. - dulaglutide (TRULICITY) 3 mg/0.5 mL pen injector Inject 3 mg subcutaneously one time a week. - testosterone cypionate (DEPO-TESTOSTERONE) 200 mg/mL injection Inject 1 mL intramuscularly two times a week for 180 days. - metFORMIN (GLUCOPHAGE) 500 mg tablet Take 1 tablet by mouth twice daily. . - anastrozole (ARIMIDEX) 1 mg tablet Take 1 tablet by mouth two times a week. - syringe with needle, safety 3 mL 23 gauge x 1 1/2 syrg 1 Each every 2 weeks. Problem List As Of Date 10/13/2022 Noted Resolved CUCO (obstructive sleep apnea) [G47.33] 06/20/2018 Obesity, Class III, BMI 40-49.9 (morbid obesity*06/20/2018 Type 2 diabetes mellitus without complication, *06/21/2018 Hypogonadism in male [E29.1] 03/27/2019 Encounter Status:Closed by LA NENA DELGADO on 10/13/22 [facility] Vital Signs Date Time Vital Sign Value Performing Clinician Faci lity 09-08-2024 01:00-0400 Body temperature 98.2 [degF] Dr. Dale Ramos MD Work Phone: [phone] [place] [address] 09-08-2024 01:00-0400 Diastolic blood pressure 87 mm[Hg] Dr. Dale Ramos MD Work Phone: 7(868)226-863072 [place] [address] 09-08-2024 01:00-0400 Heart rate 83 /min Dr. Dale Ramos MD Work Phone: 9(138)087-124472 [place] [address] 09-08-2024 01:00-0400 Respiratory rate 16 /min Dr. Dale Ramos MD Work Phone: 5(991)964-379372 [place] [address] 09-08-2024 01:00-0400 SaO2% (BldA) [Mass fraction] 97 % Dr. Dale Ramos MD Work Phone: [phone])561-854072 [place] [address] 09-08-2024 01:00-0400 Systolic blood pressure 138 mm[Hg] Dr. Dale Ramos MD Work Phone: 0(053)214-399772 [place] [address] 09-07-2024 21:18-0400 Body height 175.[address] Dale Ramos MD Work Phone: 7(244)810-151372 [place] [address] 09-07-2024 21:18-0400 Body mass index (BMI) [Ratio] 50.6 kg/m2 Dr. Dale Ramos MD Work Phone: 7(635)715-475472 [place] [address] 09-07-2024 21:18-0400 Body weight 155.[address] Dale Ramos MD Work Phone: 9([phone])491-548772 [place] [address] 03-08-2024 11:18-0500 Body mass index (BMI) [Ratio] 47.11 kg/m2 Tereza Stone APRN.VENUE ATTENDANT Work Phone: [facility] 03-08-2024 11:18-0500 Body weight 144.7 kg Tereza Stone APRN.VENUE ATTENDANT Work Phone: [facility] 03-08-2024 11:18-0500 Diastolic blood pressure 68 mm[Hg] Tereza Stone APRN.VENUE ATTENDANT Work Phone: [facility] 03-08-2024 11:18-0500 Heart rate 92 /min Tereza Tannhof PRIMER POWDER BLENDER WET.VENUE ATTENDANT Work Phone: [facility] 03-08-2024 11:18-0500 Respiratory rate 16 /min Tereza Tannhof PRIMER POWDER BLENDER WET.VENUE ATTENDANT Work Phone: [facility] 03-08-2024 11:18-0500 SaO2% (BldA) [Mass fraction] 95 % Tereza Tannhof PRIMER POWDER BLENDER WET.VENUE ATTENDANT Work Phone: [facility] 03-08-2024 11:18-0500 Systolic blood pressure 136 mm[Hg] Tereza Tannhof PRIMER POWDER BLENDER WET.VENUE ATTENDANT Work Phone: [facility] 08-09-2023 08:56-0400 Body weight 150.59 kg Tereza Tannhof PRIMER POWDER BL[employer]ER WET.VENUE ATTENDANT Work Phone: [facility] 08-09-2023 08:56-0400 Diastolic blood pressure 80 mm[Hg] Tereza Tannhof PRIMER POWDER BL[employer]ER WET.VENUE ATTENDANT Work Phone: [facility] 08-09-2023 08:56-0400 Heart rate 71 /min Tereza Tannhof [employer]IMER POWDER [employer] W[employer].VENUE ATTENDANT Work Phone: [facility] 08-09-2023 08:56-0400 Respiratory rate 16 /min Tereza Tannhof [employer]IMER POWDER [employer] WET.VENUE ATTENDANT Work Phone: [facility] 08-09-2023 08:56-0400 SaO2% (BldA) [Mass fraction] 96 % Tereza Tannhof [employer]IM[employer] POWDER [employer] WET.VENUE ATTENDANT Work Phone: [facility] 08-09-2023 08:56-0400 Systolic blood pressure 130 mm[Hg] Tereza Tannhof PRIMER POWDER BL[employer]ER WET.VENUE ATTENDANT Work Phone: [facility] 02-04-2023 09:44-0400 Body weight 151.5 kg Tereza Tannhof PRIMER POWDER [employer]ER W[employer].VENUE ATTENDANT Work Phone: [facility] 02-04-2023 09:44-0400 Diastolic blood pressure 80 mm[Hg] Tereza Tannhof PRIMER POWDER BL[employer]ER WET.VENUE ATTENDANT Work Phone: [facility] 02-04-2023 09:44-0400 Heart rate 81 /min Tereza Márquezhof PRIMER POWDER BL[employer]ER WET.VENUE ATTENDANT Work Phone: [facility] 02-04-2023 09:44-0400 Respiratory rate 16 /min Tereza Márquezhof PRIMER POWDER BLENDER WET.VENUE ATTENDANT Work Phone: [facility] 02-04-2023 09:44-0400 SaO2% (BldA) [Mass fraction] 98 % Tereza Márquezhof PRIMER POWDER BLENDER WET.VENUE ATTENDANT Work Phone: [facility] 02-04-2023 09:44-0400 Systolic blood pressure 128 mm[Hg] Tereza Márquezhof PRIMER POWDER BL[employer]ER WET.VENUE ATTENDANT Work Phone: [facility] 01-28-2023 11:43-0400 Body height 175.3 cm Jhon Mayberry MD Work Phone: [facility] 01-28-2023 11:43-0400 Body temperature 97.7 [degF] Jhon Mayberry MD Work Phone: [facility] 01-28-2023 11:43-0400 Body weight 154.68 kg Jhon Mayberry MD Work Phone: [facility] 01-28-2023 11:43-0400 Diastolic blood pressure 64 mm[Hg] Jhon Mayberry MD Work Phone: [facility] 01-28-2023 11:43-0400 Heart rate 72 /min Jhon Mayberry MD Work Phone: [facility] 01-28-2023 11:43-0400 SaO2% (BldA) [Mass fraction] 98 % Jhon Mayberry MD Work Phone: [facility] 01-28-2023 11:43-0400 Systolic blood pressure 140 mm[Hg] Jhon Mayberry MD Work Phone: [facility] 12-23-2022 09:21-0400 Body height 175.3 cm [facility] 1 Work Phone: [facility] 12-23-2022 09:21-0400 Body temperature 98.2 [degF] Pacc 1 Work Phone: [facility] 12-23-2022 09:21-0400 Body weight 150.59 kg Pacc 1 Work Phone: [facility] 12-23-2022 09:21-0400 Diastolic blood pressure 76 mm[Hg] Pacc 1 Work Phone: [facility] 12-23-2022 09:21-0400 Heart rate 75 /min Pacc 1 Work Phone: [facility] 12-23-2022 09:21-0400 Respiratory rate 18 /min Pacc 1 Work Phone: [facility] 12-23-2022 09:21-0400 SaO2% (BldA) [Mass fraction] 97 % Pacc 1 Work Phone: [facility] 12-23-2022 09:21-0400 Systolic blood pressure 144 mm[Hg] Pacc 1 Work Phone: [facility] 11-04-2022 10:39-0400 Diastolic blood pressure 86 mm[Hg] Pamela Bloom MD Work Phone: [facility] 11-04-2022 10:39-0400 Heart rate 70 /min Pamela Bloom MD Work Phone: [facility] 11-04-2022 10:39-0400 SaO2% (BldA) [Mass fraction] 96 % Pamela Bloom MD Work Phone: [facility] 11-04-2022 10:39-0400 Systolic blood pressure 134 mm[Hg] Pamela Bloom MD Work Phone: [facility] 10-02-2022 14:35-0400 Body weight 145.97 kg Dale Ramos MD Work Phone: [facility] 10-02-2022 14:35-0400 Diastolic blood pressure 70 mm[Hg] Dale Ramos MD Work Phone: [facility] 10-02-2022 14:35-0400 Heart rate 80 /min Dale Ramos MD Work Phone: [facility] 10-02-2022 14:35-0400 Respiratory rate 16 /min Dale Ramos MD Work Phone: [facility] 10-02-2022 14:35-0400 Systolic blood pressure 134 mm[Hg] Dale Ramos MD Work Phone: [facility] 08-17-2022 10:00-0400 Body weight 148.33 kg Tereza Stone PRIMER POWDER BLENDER WET.VENUE ATTENDANT Work Phone: [facility] 08-17-2022 10:00-0400 Diastolic blood pressure 78 mm[Hg] Tereza Stone PRIMER POWDER BLENDER WET.VENUE ATTENDANT Work Phone: [facility] 08-17-2022 10:00-0400 Heart rate 73 /min Tereza Stone PRIMER POWDER BLENDER WET.VENUE ATTENDANT Work Phone: [facility] 08-17-2022 10:00-0400 Respiratory rate 16 /min Tereza Stone PRIMER POWDER BLENDER WET.VENUE ATTENDANT Work Phone: [facility] 08-17-2022 10:00-0400 SaO2% (BldA) [Mass fraction] 95 % Tereza Stone PRIMER POWDER BLENDER WET.VENUE ATTENDANT Work Phone: [facility] 08-17-2022 10:00-0400 Systolic blood pressure 126 mm[Hg] Tereza Stone PRIMER POWDER BLENDER WET.VENUE ATTENDANT Work Phone: [facility] Encounters Encounter Date Encounter Type Care Provider Facility Start: 01-25-2025 End: 01-25-2025 ambulatory DALE RAMOS Facility:[facility] [place] Start: 09-07-2024 End: 09-08-2024 Emergency department patient visit Dr. Dale Ramos MD Work Phone: -Emergency Department Work Phone: Start: 07-05-2024 End: 07-10-2024 Follow-up encounter Tereza Stone APRN.VENUE ATTENDANT Work Phone: [facility] [place] Comment on above: Type 2 diabetes milady itus without complication, without long- term current use of insulin ([facility]) (Primary Dx); Hyperlipidemia, mixed Start: 06-28-2024 End: 06-28-2024 ambulatory [facility] Facility:[facility] [place] Start: 06-26-2024 End: 07-06-2024 Telephone encounter Dale Ramos MD Work Phone: [facility] [place] Start: 06-14-2024 End: 06-14-2024 ambulatory [facility] Facility:[facility] [place] Start: 06-14-2024 End: 06-14-2024 Office outpatient visit 25 minutes Tereza Stone PRIMER POWDER BLENDER WET.VENUE ATTENDANT Work Phone: [facility] [place] Comment on above: Type 2 diabetes milady itus without complication, without long- term current use of insulin (HCC) (Primary Dx); Anxiety with depression; Hypogonadism in male Start: 06-13-2024 End: 06-14-2024 Refill Tereza Stone PRIMER POWDER BLENDER WET.VENUE ATTENDANT Work Phone: [facility] Comment on above: Refill Request Start: 03-29-2024 End: 04-24-2024 Telephone encounter Jhon Mayberry MD Work Phone: General Surgery Comment on above: FMLA Paperwork Start: 03-08-2024 End: 03-08-2024 Patient encounter procedure Tereza Stone PRIMER POWDER BLENDER WET.VENUE ATTENDANT Work Phone: [facility] [place] Comment on above: Type 2 diabetes milady itus without complication, without long- term current use of insulin (HCC) (Primary Dx); Hypogonadism in male Start: 03-08-2024 End: 03-08-2024 ambulatory [facility] Facility:[facility] Start: 03-06-2024 End: 03-06-2024 ambulatory DALE RAMOS Facility:[facility] Start: 03-02-2024 End: 03-02-2024 Telephone encounter Dale Ramos MD Work Phone: [address] [place] [address] Comment on above: Orders Start: 01-24-2024 End: 01-24-2024 Refill Dale Ramos MD Work Phone: [facility] Comment on above: Refill Request Start: 11-03-2023 End: 11-03-2023 ambulatory Tereza Willihof PRIMER POWDER BLENDER WET.VENUE ATTENDANT Work Phone: [facility] Comment on above: Anxiety with depress ion (Primary Dx) Start: 11-03-2023 End: 11-03-2023 Telemedicine consultation with patient Tereza Márquezhof PRIMER POWDER BLENDER WET.VENUE ATTENDANT Work Phone: [facility] [place] Start: 10-06-2023 Telephone encounter Tereza Salgado nhof PRIMER POWDER BLENDER WET.VENUE ATTENDANT Work Phone: [facility] [place] Start: 09-21-2023 Telephone encounter Tereza Salgado nhof PRIMER POWDER BLENDER WET.VENUE ATTENDANT Work Phone: [facility] Comment on above: Medication Problem Start: 09-08-2023 End: 09-08-2023 ambulatory Tereza Willihof PRIMER POWDER BLENDER WET.VENUE ATTENDANT Work Phone: [facility] Comment on above: Anxiety with depress ion (Primary Dx) Start: 09-08-2023 End: 09-08-2023 Telemedicine consultation with patient Tereza Stone PRIMER POWDER BLENDER WET.VENUE ATTENDANT Work Phone: [facility] [place] Start: 08-09-2023 Telephone encounter Dale shetty MD Work Phone: Internal Medicine [place] Comment on above: Insurance Authorizat ion Start: 08-09-2023 End: 08-09-2023 Patient encounter procedure Tereza Márquezhof PRIMER POWDER BLENDER WET.VENUE ATTENDANT Work Phone: [facility] Comment on above: Type 2 diabetes milady itus without complication, without long- term current use of insulin (HCC) (Primary Dx); Hypogonadism in male; Anxiety with depression; Bilateral impacted cerumen; Ear pain, right Start: 03-06-2023 Orders Only Tereza Tannhof PRIMER POWDER BLENDER WET.VENUE ATTENDANT Work Phone: [facility] [place] Start: 03-03-2023 Orders Only Tereza Tannhof PRIMER POWDER BLENDER WET.VENUE ATTENDANT Work Phone: [facility] [place] Start: 02-04-2023 End: 02-04-2023 Patient encounter procedure Tereza Tannhof PRIMER POWDER BLENDER WET.VENUE ATTENDANT Work Phone: [facility] [place] Comment on above: Type 2 diabetes milady itus without complication, without long- term current use of insulin (HCC) (Primary Dx); Hypogonadism in male; Screening cholesterol level Start: 01-28-2023 Telephone encounter Jhon sahu MD Work Phone: General Surgery Comment on above: FMLA Paperwork Start: 01-28-2023 End: 01-28-2023 Patient encounter procedure Jhon Mayberry MD Work Phone: General Surgery Comment on above: Incarcerated umbilic al hernia (Primary Dx) Start: 01-14-2023 Telephone encounter Jhon sahu MD Work Phone: General Surgery Comment on above: Post Op Start: 01-12-2023 Telephone encounter Jhon sahu MD Work Phone: General Surgery Comment on above: Post Op Start: 01-06-2023 End: 01-07-2023 ambulatory [facility] Facility:[facility] Start: 12-23-2022 End: 12-23-2022 Admission to establishment Pacc [place] 1 Work Phone: [facility] [place] Start: 12-23-2022 End: 12-23-2022 ambulatory Pac [place] 1 Work Phone: Pre Anesthesia Comment on above: Pre-operative examin ation (Primary Dx); CUCO (obstructive sleep apnea); Type 2 diabetes mellitus without complication, without long-term current use of insulin (HCC); Chronic kidney disease, unspecified CKD stage; Gastroesophageal reflux disease, unspecified whether esophagitis present Start: 12-23-2022 End: 12-23-2022 Preprocedural examination done Pac [place] 1 Work Phone: [facility] Work Phone: Start: 12-07-2022 Telephone encounter Jhon sahu MD Work Phone: General Surgery Comment on above: FMLA Paperwork Opened In Error Start: 12-04-2022 Telephone encounter Jhon sahu MD Work Phone: General Surgery Comment on above: Schedule Surgery Start: 11-11-2022 Telephone encounter Henrry jones PA-C Work Phone: Urology Comment on above: Results Start: 11-05-2022 ambulatory Dale barrera MD Work Phone: [facility] [place] Comment on above: Test results Start: 11-04-2022 End: 11-04-2022 ambulatory PAMELA BLOOM Facility:[facility] Start: 11-04-2022 End: 11-04-2022 Patient encounter procedure aPmela Bloom MD Work Phone: Urology Comment on above: Gross hematuria (Annalee alexx Dx) Start: 10-15-2022 Telephone encounter Henrry jones PA-C Work Phone: Urology Comment on above: Results Start: 10-13-2022 Telephone encounter Henrry jones PA-C Work Phone: [facility] Comment on above: Appointment Start: 10-02-2022 End: 10-02-2022 Patient encounter procedure Dale Ramos MD Work Phone: [facility] [place] Comment on above: Hematuria, unspecifi ed type (Primary Dx); Hospital discharge follow-up; Bilateral flank pain; Musculoskeletal pain; Lower abdominal pain; Elevated serum creatinine Start: 08-17-2022 End: 08-17-2022 Patient encounter procedure Tereza Stone APRN.CNP Work Phone: [facility] [place] Comment on above: Type 2 diabetes milady itus without complication, without long- term current use of insulin (HCC) (Primary Dx); Hypogonadism in male; Obesity, Class III, BMI 40-49.9 (morbid obesity) (HCC) Start: 02-16-2022 End: 02-16-2022 ambulatory Dale Ramos MD Work Phone: [facility] [place] Comment on above: Type 2 diabetes milady itus without complication, without long- term current use of insulin (HCC); Hypogonadism in male Start: 02-16-2022 End: 02-16-2022 Telemedicine consultation with patient Dale Ramos MD Work Phone: [facility] [place] Start: 02-05-2022 Telephone encounter Dale shetty MD Work Phone: [facility] [place] Comment on above: requesting apt type change (Changing office apt to phone apt/) Start: 11-18-2021 Refill Dale barrera MD Work Phone: [facility] [place] Comment on above: Refill Request Start: 2021 Refill Dale barrera MD Work Phone: [facility] [place] Comment on above: Refill Request Start: 09-19-2021 Refill Dale barrera MD Work Phone: [facility] [place] Comment on above: Refill Request Start: 08-04-2021 Telephone encounter Dale shetty MD Work Phone: [facility] [place] Comment on above: Insurance Authorizat ion Start: 07-29-2021 Telephone encounter Dale shetty MD Work Phone: [facility] [place] Comment on above: Results Start: 10-15-2020 Telephone encounter Dale shetty MD Work Phone: [facility] [place] Comment on above: Patient Update Procedures Date Procedure Procedure Detail Performing Clinician Start: 09-07-[address] Dale Ramos MD Work Phone: Start: 11-03-2023 Adult depression screening assessment Tereza Stone APRN.VENUE ATTENDANT Work Phone: Start: 12-23-2022 Ecg routine ecg w/le ast 12 lds i&r only [facility] Provider Start: 11-04-2022 Urnls dip stick/tabl et rgnt auto w/o microscopy Pamela Bloom MD Work Phone: Start: 2020 Adult depression screening assessment Dale Ramos MD Work Phone: Plan of Treatment Date Care Activity Detail Author Start: 06-28-2025 Creatinine measurement Serum Creatin ine [facility] Start: 06-20-2025 Urine microalbumin profile [facility] Start: 06-14-2025 Annual PCP Team [employer] radha Disease Visit Annual PCP Team Chronic Disease Visit [facility] Start: 03-08-2025 Annual PCP Team [employer] radha Disease Visit Annual PCP Team Chronic Disease Visit [facility] Start: 03-06-2025 Creatinine measurement Serum Creatin ine [facility] Start: 03-06-2025 Hepatitis B surface antibody level LDL Cholesterol [facility] Start: 11-02-2024 Annual PCP Team [employer] radha Disease Visit Annual PCP Team Chronic Disease Visit [facility] Start: 11-02-2024 Anxiety Screening Anxiety Screening [facility] Start: 11-02-2024 Depression Screening Depression Scre ening [facility] Start: 10-06-2024 End: 10-06-2024 ambulatory 10/06/2024 7:40 AM EDT [facility] [place] [address] [place], [place] [id number] Jakob Fiore APRN.VENUE ATTENDANT [address] [place], [place] [id number] 3 month f/u [facility] [place] Comment on above: 3 month f/u Start: 10-05-2024 End: 01-04-2025 Comprehensive metabolic 2000 panel - Serum or Plasma COMPREHENSIVE METABOLIC PANEL Lab Routine Hyperlipidemia, mixed Expected: 10/05/2024, Expires: 01/04/[address] [facility] Work Phone: Comment on above: Expected: 10/05/2024 , Expires: 01/04/2025 Start: 10-05-2024 End: 01-04-2025 Hemoglobin A1c in Blood HEMOGLOBIN A1C Lab Routine Type 2 diabetes mellitus without complication, without long-term current use of insulin (HCC) Expected: 10/05/2024, Expires: 01/04/2025 [facility] Comment on above: Expected: 10/05/2024 , Expires: 01/04/2025 Start: 10-05-2024 End: 01-04-2025 Lipid 1996 panel - Serum or Plasma LIPID PANEL BASIC Lab Routine Hyperlipidemia, mixed Expected: 10/05/2024, Expires: 01/04/2025 [facility] Comment on above: Expected: 10/05/2024 , Expires: 01/04/2025 Start: 09-25-2024 Hemoglobin A1c measurement HbA1C [facility] Start: 09-08-2024 [facility] Start: 09-07-2024 Annual PCP Team [employer] radha Disease Visit Annual PCP Team Chronic Disease Visit [facility] Start: 08-08-2024 Annual PCP Team [employer] radha Disease Visit Annual PCP Team Chronic Disease Visit [facility] Start: 08-06-2024 Creatinine measurement Serum Creatin ine [facility] Start: 08-06-2024 Hepatitis B surface antibody level LDL Cholesterol [facility] Start: 06-14-2024 End: 06-14-2024 Follow-up encounter 06/14/2024 6:00 PM [facility] [place] [address] [place], [place] [id number] Tereza Stone APRN.VENUE ATTENDANT [address] [facility] [place] [address] 3 month follow up Family [facility] [place] Comment on above: 3 month follow up Start: 06-14-2024 End: 09-13-2024 TESTOSTERONE, FREE AND TOTAL, BY EQUILIBRIUM ULTRAFILTRATION MASS SPECTROMETRY TESTOSTERONE, FREE AND TOTAL, BY EQUILIBRIUM ULTRAFILTRATION MASS SPECTROMETRY Lab Routine Hypogonadism in male Expected: 06/14/2024, Expires: 09/13/[address] [facility] Work Phone: Comment on above: Expected: 06/14/2024 , Expires: 09/13/2024 Start: 06-08-2024 End: 09-07-2024 Comprehensive metabolic 2000 panel - Serum or Plasma COMPREHENSIVE METABOLIC PANEL Lab Routine Type 2 diabetes mellitus without complication, without long-term current use of insulin (HCC) Expected: 06/08/2024, Expires: 09/07/2024 [facility] Comment on above: Expected: 06/08/2024 , Expires: 09/07/2024 Start: 06-08-2024 End: 09-07-2024 Hemoglobin A1c in Blood HEMOGLOBIN A1C Lab Routine Type 2 diabetes mellitus without complication, without long-term current use of insulin (HCC) Expected: 06/08/2024, Expires: 09/07/[address] [facility] Work Phone: Comment on above: Expected: 06/08/2024 , Expires: 09/07/2024 Start: 06-06-2024 Hemoglobin A1c measurement HbA1C [facility] Start: 03-08-2024 End: 03-08-2024 Patient encounter procedure 03/08/2024 11:20 AM EST Office Visit [facility] [address] [place] [address] Tereza Stone APRN.VENUE ATTENDANT [address] [place] [address] follow up with labs [facility] [place] Comment on above: follow up with labs Start: 03-02-2024 End: 06-01-2024 Comprehensive metabolic 2000 panel - Serum or Plasma COMPREHENSIVE METABOLIC PANEL Lab Routine Hyperlipidemia, unspecified hyperlipidemia type Hypertension, unspecified type Type 2 diabetes mellitus without complication, without long-term current use of insulin (HCC) Chronic kidney disease, unspecified CKD stage Expected: 03/02/2024, Expires: 06/01/[address] [facility] Work Phone: Comment on above: Expected: 03/02/2024 , Expires: 06/01/2024 Start: 03-02-2024 End: 06-01-2024 Hemoglobin A1c in Blood HEMOGLOBIN A1C Lab Routine Type 2 diabetes mellitus without complication, without long-term current use of insulin (HCC) Expected: 03/02/2024, Expires: 06/01/2024 [facility] Comment on above: Expected: 03/02/2024 , Expires: 06/01/2024 Start: 03-02-2024 End: 06-01-2024 Lipid 1996 panel - Serum or Plasma LIPID PANEL BASIC Lab Routine Hyperlipidemia, unspecified hyperlipidemia type Hypertension, unspecified type Type 2 diabetes mellitus without complication, without long-term current use of insulin (HCC) Expected: 03/02/2024, Expires: 06/01/2024 [facility] Comment on above: Expected: 03/02/2024 , Expires: 06/01/2024 Start: 03-02-2024 End: 06-01-2024 TESTOSTERONE, FREE AND TOTAL, BY EQUILIBRIUM ULTRAFILTRATION MASS SPECTROMETRY TESTOSTERONE, FREE AND TOTAL, BY EQUILIBRIUM ULTRAFILTRATION MASS SPECTROMETRY Lab Routine Hypogonadism in male Expected: 03/02/2024, Expires: 06/01/2024 [facility] Comment on above: Expected: 03/02/2024 , Expires: 06/01/2024 Start: 02-05-2024 Annual PCP Team [employer] radha Disease Visit Annual PCP Team Chronic Disease Visit [facility] Start: 01-08-2024 Serum Creatinine Serum Creatinine Cl [facility] Start: 01-02-2024 Covid-19 Vaccine ( season) Covid-19 Vaccine () [facility] Start: 01-02-2024 Influenza vaccination [facility] Start: 12-24-2023 SERUM CREATININE SERUM CREATININE Cl [facility] Start: 11-22-2023 End: 11-22-2023 Patient encounter procedure 11/22/2023 9:00 AM EDT Office Visit Family [facility] [place] [address] [facility] [place] [address] Tereza Stone APRN.VENUE ATTENDANT [address] [place] [address] 3 month follow up with labs [facility] [place] Comment on above: 3 month follow up [facility] Start: 11-09-2023 End: 11-09-2023 Patient encounter procedure 11/09/2023 11:20 AM EDT Office [place] [address] Cost [employer] [facility] Comment on above: Cost Start: 11-08-2023 End: 02-07-2024 Comprehensive metabolic 2000 panel - Serum or Plasma COMP METABOLIC PANEL Lab Routine Type 2 diabetes mellitus without complication, without long-term current use of insulin (HCC) Expected: 11/08/2023, Expires: 02/07/[address] [facility] Work Phone: Comment on above: Expected: 11/08/2023 , Expires: 02/07/2024 Start: 11-08-2023 End: 02-07-2024 Hemoglobin A1c in Blood HGB A1C Lab Routine Type 2 diabetes mellitus without complication, without long-term current use of insulin (HCC) Expected: 11/08/2023, Expires: 02/07/[address] [facility] Work Phone: Comment on above: Expected: 11/08/2023 , Expires: 02/07/2024 Start: 11-06-2023 Hemoglobin A1c measurement HbA1C [facility] Start: 10-13-2023 End: 10-13-2023 Follow-up encounter 10/13/2023 5:20 PM EDT [facility] [place] [address] [place] [address] Tereza Stone APRN.VENUE ATTENDANT [address] [place] [address] follow up [facility] [place] Comment on above: follow up Start: 10-03-2023 ANNUAL PCP TEAM VISUAL MERCHANDISING SPECIALIST RADHA DISEASE VISIT ANNUAL PCP TEAM CHRONIC DISEASE VISIT [facility] Start: 08-18-2023 ANNUAL PCP TEAM VISUAL MERCHANDISING SPECIALIST RADHA DISEASE VISIT ANNUAL PCP TEAM CHRONIC DISEASE VISIT [facility] Start: 08-18-2023 COLORECTAL CANCER SCREENING COLORECTAL CANCER SCREENING [facility] Comment on above: Postponed from 10/27 (Declined at this time) Start: 08-18-2023 COVID-19 VACCINE (#1) COVID-19 VACCI NE (#1) [facility] Comment on above: Postponed from 04/28 (Declined at this time) Start: 08-18-2023 HEPATITIS B (1 of 3 - 3-dose series) HEPATITIS B (1 of 3 - 3-dose series) [facility] Comment on above: Postponed from 10/27 (Declined at this time) Start: 08-18-2023 Hepatitis B Vaccine (1 of 3 - 19+ 3-dose series) Hepatitis B Vaccine (1 of 3 - 19+ 3-dose series) [facility] Comment on above: Postponed from 10/27 (Declined at this time) Start: 08-18-2023 Hepatitis B Vaccine (1 of 3 - 3-dose series) Hepatitis B Vaccine (1 of 3 - 3-dose series) [facility] Comment on above: Postponed from 10/27 (Declined at this time) Start: 08-18-2023 HEPATITIS C SCREENING HEPATITIS C [facility] Comment on above: Postponed from 10/27 (Declined at this time) Start: 08-18-2023 Hepatitis C screening Hepatitis C [facility] Comment on above: Postponed from 10/27 (Declined at this time) Start: 08-18-[address] HIV [address] HIV [address] [facility] Comment on above: Postponed from 10/27 (Declined at this time) Start: 08-18-2023 HIV screening HIV Screening [facility] Comment on above: Postponed from 10/27 (Declined at this time) Start: 08-18-2023 PNEUMOCOCCAL (1 - PCV) PNEUMOCOCCAL (1 - PCV) [facility] Comment on above: Postponed from 10/27 (Declined at this time) Start: 08-18-2023 Pneumococcal vaccination [facility] Comment on above: Postponed from 10/27 (Declined at this time) Start: 08-18-2023 Screening for malign ant neoplasm of colon Colorectal Cancer Screening [facility] Comment on above: Postponed from 10/27 (Declined at this time) Start: 08-18-2023 SHINGRIX VACCINE (1 of 2) LITTLEJOHN GRIX VACCINE (1 of 2) [facility] Comment on above: Postponed from 10/27 (Declined at this time) Start: 08-09-2023 Hepatitis B surface antibody level LDL CHOLESTEROL [facility] Start: 08-06-2023 End: 10-06-2023 Comprehensive metabolic 2000 panel - Serum or Plasma COMP METABOLIC PANEL Lab Routine Type 2 diabetes mellitus without complication, without long-term current use of insulin (HCC) Expected: 08/06/2023, Expires: 10/06/[address] [facility] Work Phone: Comment on above: Expected: 08/06/2023 , Expires: 10/06/2023 Start: 08-06-2023 End: 10-06-2023 ESTROGEN FRACTION BL ESTROGEN FRACTION BL Lab Routine Hypogonadism in male Expected: 08/06/2023, Expires: 10/06/[address] [facility] Work Phone: Comment on above: Expected: 08/06/2023 , Expires: 10/06/2023 Start: 08-06-2023 End: 10-06-2023 Hemoglobin A1c in Blood HGB A1C Lab Routine Type 2 diabetes mellitus without complication, without long-term current use of insulin (HCC) Expected: 08/06/2023, Expires: 10/06/[address] [facility] Work Phone: Comment on above: Expected: 08/06/2023 , Expires: 10/06/2023 Start: 08-06-2023 End: 10-06-2023 Lipid 1996 panel - Serum or Plasma LIPID PANEL BASIC Lab Routine Screening cholesterol level Expected: 08/06/2023, Expires: 10/06/[address] [facility] Work Phone: Comment on above: Expected: 08/06/2023 , Expires: 10/06/2023 Start: 08-06-2023 End: 10-06-2023 TESTOSTERONE, FREE AND TOTAL TESTOSTERONE, FREE AND TOTAL Lab Routine Hypogonadism in male Expected: 08/06/2023, Expires: 10/06/[address] [facility] Work Phone: Comment on above: Expected: 08/06/2023 , Expires: 10/06/2023 Start: 06-25-2023 Hemoglobin A1c/Hemoglobin.total in Blood HBA1C [facility] Start: 05-03-2023 Behavioral Health Screening Behavioral Health Screening [facility] Start: 02-16-2023 ANNUAL PCP TEAM VISUAL MERCHANDISING SPECIALIST RADHA DISEASE VISIT ANNUAL PCP TEAM CHRONIC DISEASE VISIT [facility] Start: 02-09-2023 Hepatitis B screening URINE AL BUMIN:CREATININE RATIO [facility] Start: 02-07-2023 Hemoglobin A1c/Hemoglobin.total in Blood HBA1C [facility] Start: 01-01-2023 Covid-19 Vaccine () Covid-19 Vaccine () [facility] Start: 01-01-2023 Influenza vaccination C [facility] Start: 12-09-2022 Glaucoma screening Dilated Retinal E xam [facility] Start: 12-09-2022 Hepatitis C antibody , confirmatory test DILATED RETINAL EXAM [facility] Start: 08-17-2022 End: 10-17-2022 Comprehensive metabolic 2000 panel - Serum or Plasma COMP METABOLIC PANEL Lab Routine Type 2 diabetes mellitus without complication, without long-term current use of insulin (HCC) Expected: 08/17/2022 (Approximate), Expires: 10/17/[address] [facility] Work Phone: Comment on above: Expected: 08/17/2022 (Approximate), Expires: 10/17/2022 Start: 08-17-2022 End: 10-17-2022 ESTROGEN FRACTION BL ESTROGEN FRACTION BL Lab Routine Hypogonadism in male Expected: 08/17/2022 (Approximate), Expires: 10/17/[address] [facility] Work Phone: Comment on above: Expected: 08/17/2022 (Approximate), Expires: 10/17/2022 Start: 08-17-2022 End: 10-17-2022 Hemoglobin A1c in Blood HGB A1C Lab Routine Type 2 diabetes mellitus without complication, without long-term current use of insulin (HCC) Expected: 08/17/2022 (Approximate), Expires: 10/17/[address] [facility] Work Phone: Comment on above: Expected: 08/17/2022 (Approximate), Expires: 10/17/2022 Start: 08-17-2022 End: 10-17-2022 Lipid 1996 panel - Serum or Plasma LIPID PANEL BASIC Lab Routine Type 2 diabetes mellitus without complication, without long-term current use of insulin (HCC) Expected: 08/17/2022 (Approximate), Expires: 10/17/[address] [facility] Work Phone: Comment on above: Expected: 08/17/2022 (Approximate), Expires: 10/17/2022 Start: 08-17-2022 End: 10-17-2022 TESTOSTERONE, FREE AND TOTAL [facility] Work Phone: Comment on above: Expected: 08/17/2022 (Approximate), Expires: 10/17/2022 Expected: 08/17/2022 , Expires: 10/17/2022 Start: 08-10-2022 Hemoglobin A1c/Hemoglobin.total in Blood HBA1C [facility] Start: 07-28-2022 ANNUAL PCP TEAM VISUAL MERCHANDISING SPECIALIST RADHA DISEASE VISIT ANNUAL PCP TEAM CHRONIC DISEASE VISIT [facility] Start: 07-28-2022 HEPATITIS C SCREENING HEPATITIS C [facility] Comment on above: Postponed from 10/27 (Declined at this time) Start: 07-19-2022 Hepatitis B surface antibody level LDL CHOLESTEROL [facility] Start: 05-03-2022 DEPRESSION ASSESSMENT DEPRESSION ASS ESSMENT [facility] Start: 01-27-2022 COLORECTAL CANCER SCREENING COLORECTAL CANCER SCREENING [facility] Start: 01-27-2022 FECAL OCCULT BLOOD FECAL OCCULT BLOO D [facility] Start: 01-27-2022 ONE PNEUMOVAX PRIOR TO AGE 65 ONE PNEUMOVAX PRIOR TO AGE 66 [facility] Comment on above: Postponed from 10/27 (Declined at this time) Start: 01-27-2022 PNEUMOCOCCAL (1 - PCV) PNEUMOCOCCAL (1 - PCV) [facility] Comment on above: Postponed from 10/27 (Declined at this time) Start: 01-27-2022 Screening for malign ant neoplasm of colon [facility] Start: 01-19-2022 Hemoglobin A1c/Hemoglobin.total in Blood HBA1C [facility] Start: 01-01-2022 Influenza vaccination C [facility] Start: 10-30-2021 Influenza vaccination INFLUENZA (#1) [facility] Comment on above: Postponed from 01/01 (Declined at this time) Start: 2021 Adult depression screening assessment DEPRESSION SCREENING [facility] Start: 2021 COVID-19 VACCINE (#1) COVID-19 VACCI NE (#1) [facility] Comment on above: Postponed from 10/27 (Declined at this time) Start: 2021 COVID-19 VACCINE (1) COVID-19 VACCIN E (1) [facility] Comment on above: Postponed from 10/27 (Declined at this time) Start: 2021 HIV S[address]EN[address] HIV S[address] [facility] Comment on above: Postponed from 10/27 (Declined at this time) Start: 10-27-2021 SHINGRIX VACCINE (1 of 2) LITTLEJOHN GRIX VACCINE (1 of 2) [facility] Start: 05-03-2021 DEPRESSION ASSESSMENT DEPRESSION ASS ESSMENT [facility] Start: 09-27-2020 Hepatitis B screening URINE AL BUMIN:CREATININE RATIO [facility] Start: 09-06-2019 3 comp foot exam completed DIABETIC FOOT EXAM [facility] Start: 09-06-2019 Diabetic foot examination Diabetic F oot Exam [facility] Start: 07-24-2019 Hepatitis C antibody , confirmatory test DILATED RETINAL EXAM [facility] Start: 10-27-2016 COLOGUARD (FIT-DNA) COLOGUARD (FIT-D NA) [facility] Start: 10-27-2016 Colonoscopy COLONOSCOPY [facility] Start: 10-27-[address] COLONOGRAPHY [facility] Start: 10-27-2016 Screening for malign ant neoplasm of colon [facility] Start: 10-27-[address] [facility] Start: 10-27-1990 HEPATITIS B (1 of 3 - Risk 3-dose series) HEPATITIS B (1 of 3 - Risk 3-dose series) [facility] Start: 10-27-1990 Hepatitis B Vaccine (1 of 3 - 19+ 3-dose series) Hepatitis B Vaccine (1 of 3 - 19+ 3-dose series) [facility] Start: 10-27-1990 Pneumococcal Vaccine : 50+ (1 of 2 - PCV) Pneumococcal Vaccine: 50+ (1 of 2 - PCV) [facility] Start: 10-27-1990 SHINGRIX VACCINE (1 of 2) LITTLEJOHN GRIX VACCINE (1 of 2) [facility] Start: 10-27-1989 Anxiety Screening Anxiety Screening [facility] Start: 10-27-1989 Depression Screening Depression Scre ening [facility] Start: 10-27-1989 Hepatitis C screening Hepatitis C Sc reening [facility] Start: 10-27-1989 HIV SCREENING HIV SCRE[address]ING [facility] Start: 10-27-1989 HIV screening HIV Screening [facility] Start: 10-27-1977 PNEUMOCOCCAL (1 - PCV) PNEUMOCOCCAL (1 - PCV) [facility] Start: 10-27-1977 Pneumococcal vaccination Pneum ococcal Vaccine (1 of 2 - PCV) [facility] Start: 10-27-1976 COVID-19 VACCINE (#1) COVID-19 VACCI NE (#1) [facility] Start: 04-28-1972 COVID-19 VACCINE (#1) COVID-19 VACCI NE (#1) [facility] Start: 1971 HEPATITIS B (1 of 3 - 3-dose series) HEPATITIS B (1 of 3 - 3-dose series) [facility] End: 12-24-2023 ECG COMPLETE ECG COMPLETE ECG Routine Pre-operative examination 1 Occurrences starting 12/23/2022 until 12/24/[address] [facility] Work Phone: Comment on above: 1 Occurrences starti ng 12/23/2022 until 12/24/2023 ECG COMPLETE ECG COMPLETE ECG 12/23/2022 10:02 AM EDT [facility] Patient Education ED Abscess Inc ision And Drainage [facility] Work Phone: Patient referral [facility] Immunizations Immunization Date Immunization Notes Care Provider Fa cility 06-20-2018 influenza virus vaccine, unspecified formulation Jhon Mayberry MD Work Phone: [facility] 06-20-2015 tetanus toxoid, redu ramon diphtheria toxoid, and acellular pertussis vaccine, adsorbed Dale Ramos MD Work Phone: [facility] Payers Date Payer Category Payer Self-pay [id number] 2022 Unknown [id number] 2022 Government (not [facility] or Medicaid) [facility] Member Subscriber Plan / Payer (Effective 2022-Present) Name: Kush Samayoa V Relation to Subscriber: Self Name: Kush Samayoa Linda Payer ID: Not on file Group ID: Not on file Type: [facility] Address: [facility] [address] [place] [id number] 2022 Unknown [id number] 2022 Unknown [id number] 2020 Medicaid [facility] MEDICAID [facility] MEDICAID [id number] 2020-Present [phone] [address] [place] [address] Medicaid [id number] 2020 Medicaid [id number] Unknown [facility] COMMUNITY PLAN [id number] Unknown [id number] Social History Date Type Detail Facility Start: 06-20-2018 End: 09-07-2024 Tobacco smoking status NHIS Never smoked tobacco [facility] Start: 06-20-2018 End: 10-02-2022 Tobacco use and exposure User of smokeless tobacco [facility] History of tobacco use Snuff User [facility] Start: 07-28-2021 End: 10-02-2022 Alcohol intake Current non-drinker of alcohol (finding) [facility] Start: 1970 Sex Assigned At Not on file C [facility] Start: 07-18-2021 End: 02-16-2022 Exposure to SARS-CoV-2 (event) Not sure [facility] Start: 10-02-2022 Tobacco Comment Pt states he s topped two weeks ago [facility] Start: 10-13-2022 Tobacco use and exposure Former smokeless tobacco user [facility] Work Phone: Start: 10-13-2022 End: 01-12-2023 Alcohol intake Current drinker of alcohol (finding) [facility] Start: 10-13-2022 Alcohol Comment occasional may be once a year [facility] Start: 10-02-2022 End: 11-10-2022 History of Social function [facility] Work Phone: Start: 10-02-2022 End: 11-10-2022 Tobacco use panel [facility] Work Phone: Adult Depression Screening Assessment 0 [facility] Work Phone: Start: 12-03-2022 Alcohol Comment recently 12 pa ck beer in a week [facility] Start: 12-23-2022 Alcohol Comment 12 pack every couple days [facility] Start: 01-28-2023 End: 08-09-2023 Alcohol intake Ex-drinker (finding) [facility] Has the Rentlord, [employer], or water [employer] threatened to shut off services in your home in past 12Mo Yes [facility] Are you now , , , , never or living with a partner? [facility] How often to you hav e a drink containing alcohol? Monthly or less [facility] How many standard drinks containing alcohol do you have on a typical day? 5 or 6 [facility] How often do you hav e 6 or more drinks on 1 occasion? Monthly [facility] How hard is it for y ou to pay for the very basics like food, housing, medical care, and heating Very hard [facility] Do you feel stress - tense, restless, nervous, or anxious, or unable to sleep at night because your mind is troubled all the time - these days [OSQ] Very much [facility] (I/We) worried cecile er (my/our) food would run out before (I/we) got money to buy more. Sometimes true [facility] The food that (I/we) bought just didn't last, and (I/we) didn't have money to get more. Often true [facility] At any time in the p ast 12 months, were you homeless or living in fci [including now]? No [facility] How often do you hav e 6 or more drinks on 1 occasion? Less than monthly [facility] How hard is it for y ou to pay for the very basics like food, housing, medical care, and heating Somewhat hard [facility] Do you feel stress - tense, restless, nervous, or anxious, or unable to sleep at night because your mind is troubled all the time - these days [OSQ] Rather much [facility] Start: 11-01-2014 Alcohol Alcohol [facility] Start: 11-01-2014 Drugs Drugs [facility] Start: 11-01-2014 Lives Lives [facility] Start: 01-29-2020 Tobacco Use Tobacco Use [facility] Start: 1970 Sex Assigned At Male W [facility] Medical Equipment Procedure Code Equipment Code Equipment Origin al Text Equipment Identifier Dates 1 Each every 2 weeks. [id number] Start: 06-26-2020 End: 11-03-2023 Comment on above: 1 Each every 2 weeks . Mesh Alena D s Round 15cm X1 - [id number] Start: 01-06-2023 Functional Status Date Assessment Result Facility 01-07-2023 Are you deaf, or do you have serious difficulty hearing No 01/07/2023 2:57 PM EDT Torrie Mccormick RN No [facility] 01-07-2023 Are you blind, or do you have serious difficulty seeing, even when wearing glasses No 01/07/2023 2:57 PM EDT Torrie Mccormick RN No [facility] 01-07-2023 Do you have serious difficulty walking or climbing stairs No 01/07/2023 2:57 PM EDT Torrie Mccormick RN No [facility] 01-07-2023 Do you have difficul ty dressing or bathing No 01/07/2023 2:57 PM EDT Torrie Mccormick RN No [facility] 01-07-2023 Because of a physica l, mental, or emotional condition, do you have difficulty doing errands alone such as visiting a physician's office or shopping No 01/07/2023 2:57 PM EDT Torrie Mccormick RN No [facility] Mental Status Date Assessment Result Facility 01-07-2023 Because of a physica l, mental, or emotional condition, do you have serious difficulty concentrating, remembering, or making decisions No 01/07/2023 2:57 PM EDT Torrie Mccormick RN No [facility] Clinical Notes 07-30-2021 to 09-07-2024 Telephone Encounter - Shirley Weaver RN - 07/10/2024 12:48 PM EDTTelephone Encounter - Shirley Weaver RN - 07/10/2024 12:48 PM EDTTelephone Encounter - Shirley Kellogg - 07/06/2024 9:14 AM EST Note Date & Type Note Facility 09-07-2024 Hospital Discharg e instructions Additional Instructions Please take your antibiotic as directed to help resolve any remaining infection. Remove the packing in 2 to 3 days. Return to the ER should you have any further concerns or worsening of symptoms [facility] Work Phone: 07-10-2024 Telephone encounter Note Patient notified of results and provider's instructions. Patient verbalizes understanding. Shirley Weaver RN [facility] 07-10-2024 Miscellaneous Notes Patient notified of results and provider's instructions. Patient verbalizes understanding. Shirley Weaver RN Called and left message on patients voicemail to return call to the office and ask to speak with a FM triage nurse. Kristen Serna MA TC to pt. LM to call office, ask for triage nurse to get results. Carmen Dave LPN Can you please call the patient and let him know I reviewed his lab results. Testosterone was normal. A1c went from 11.6 to 9.5. I would like him to continue with current medication. Continue to work on eating a low-carb diet. I would like to get repeat fasting labs in 3 months with office visit. This can also be a virtual visit due to his traveling for work. Please let me know if he has any additional questions. Thank you. Tereza Stone APRN.VENUE ATTENDANT documented in this encounter [facility] 07-10-2024 Progress note Formatting of t his note might be different from the original. Called and left message on patients voicemail to return call to the office and ask to speak with a FM triage nurse. Kristen Serna MA [facility] 07-06-2024 Telephone encounter Note TC to pt. LM to call office, ask for triage nurse to get results. Carmen Dave LPN [facility] 07-06-2024 Telephone encounter Note 1st attempt - left message. When patient calls, please schedule patient for 3 month follow up in August. Shirley Kellogg [facility] 07-06-2024 Miscellaneous Notes 1st attempt - left message. When patient calls, please schedule patient for 3 month follow up in August. Shirley Kellogg TC to pt. LM to call office, ask for triage nurse to schedule May follow up appt. and also need to get outstanding labs. Carmen Dave LPN documented in this encounter [facility] 07-05-2024 Telephone encounter Note Can you please call the patient and let him know I reviewed his lab results. Testosterone was normal. A1c went from 11.6 to 9.5. I would like him to continue with current medication. Continue to work on eating a low-carb diet. I would like to get repeat fasting labs in 3 months with office visit. This can also be a virtual visit due to his traveling for work. Please let me know if he has any additional questions. Thank you. Tereza Stone APRN.VENUE ATTENDANT [facility] 06-26-2024 Telephone encounter Note TC to pt. LM to call office, ask for triage nurse to schedule May follow up appt. and also need to get outstanding labs. Carmen Dave LPN [facility] 06-14-2024 Instructions Tereza Stone APRN.MJ - 06/14/2024 6:31 PM EST Increase Paxil 30 mg daily. BuSpar 5 mg 3 times daily for increased anxiety. Increase glipizide 10 mg daily for diabetes. Continue to work on eating a low-carb diet. Increase lean protein, vegetables, get some form of exercise. Get labs completed once or Follow-up in 3 months or sooner pending test results. documented in this encounter [facility] 06-14-2024 History of Presen t illness Narrative Chief Complaint Patient presents with: F/U 3 Month This Team Access Model encounter involved medical decision making outside of a scheduled office visit. Patient was offered a virtual/telemedicine appointment in lieu of an office visit due to recommendations to reduce patient exposure to COVID-19. Video was used for evaluation of this patient. Patient agrees to the visit: Yes Patient Location: [place] I have communicated my name and active licensure. The patient's identity and physical location were verified at the time of this visit. 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 HPI Kush Samayoa is a 53 year old male who is contacted today for a virtual visit This is an established patient of Dr. Dale Ramos MD Reports: 3 month follow up, due for labs, currently out of town. Anxiety/Depression: Taking Paxil 20 mg daily. Ran out of medication, 1/2 tablet left. Increased anxiety and sadness. Going through Marital issues. No panic attacks. No SI/HI. DM: Reports overall feeling well. Medication side effects: No. Home sugar checks: Fasting 160-170's Hypoglycemic spells: No. Watching diet: No. Unexpected weight loss: No. Polyuria, polydipsia: Yes. Vision Changes: No. Foot lesions or numbness or pain: No. Taking Metformin 500 mg BID. Last A1C was 11.6. Due for labs. At last OV added on glipizide 5 mg daily. Traveling for work which makes it difficulty to watch diet at times. Has to eat out most of his meals. 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 No access to a kitchen. Working midnights. Low T: Taking Testosterone 200mg/ml, 1 ML twice weekly. Taking Arimidex 1 mg twice weekly. Lab results normal. Worried that medication may be too high, no symptoms but would like labs repeated. Past medical history, appointments, medications, allergies reviewed 06/12/2024 Previous Medical History PAST MEDICAL HISTORY Diagnosis Date Obesity Pleural effusion Type 2 diabetes mellitus (HCC) Previous Surgical History PAST SURGICAL HISTORY Procedure Laterality Date PAST SURGICAL HISTORY OF 2012 10 lbs tumor removed from back of neck-Dr. Carson REPAIR INCISIONAL HERNIA,REDUCIBLE 01/06/2023 laparoscopic repair w/ mesh Family History FAMILY HISTORY Problem Relation Age of Onset No Known Problems Mother Diabetes Father Hypertension Father other (dystonia) Sister Patient Allergies ALLERGIES Allergen Reactions Penicillin Anaphylaxis Vicodin [Hydrocodon* Mental Status Change Aggressiveness Current Medications Current Outpatient Medications on File Prior to Visit Medication Sig anastrozole (ARIMIDEX) 1 mg tablet Take 1 tablet by mouth two times a week. testosterone cypionate (DEPO-TESTOSTERONE) 200 mg/mL injection Inject 1 mL intramuscularly two times a week for 180 days. glipiZIDE (GLUCOTROL XL) 5 mg 24 hr tablet Take 1 tablet by mouth once daily. metFORMIN (GLUCOPHAGE) 500 mg tablet Take 1 tablet by mouth two times a day. . PARoxetine (PAXIL) 20 mg tablet Take 1 tablet by mouth once daily. docosahexaenoic acid/epa (FISH OIL CONCENTRATE ORAL) Take by mouth. ibuprofen (MOTRIN) 200 mg tablet Take 400 mg by mouth every 6 hours as needed for pain or fever (specify). iv contrast (will be provided with radiology test) CT Urogram WO/W Inject, intravenously, once for 1 dose.No IV access, insert saline lock prior to the beginning of sedation, infusion, injection of imaging exam. Discontinue saline lock post exam. If Pt. has a central line or IVAD, may access for administration according to line specific nursing protocol. Once exam is complete flush line and de-access according to line specific nursing protocol in the CT contrast administration guidelines link. No current facility-administered medications on file prior to visit. Social History Social History Tobacco Use Smoking status: Never Smokeless tobacco: Former Types: Snuff Tobacco comments: Pt states he stopped two weeks ago Vaping Use Vaping status: Never Used Substance Use Topics Alcohol use: Not Currently Drug use: No Review of Symptoms GENERAL: No malaise or fatigue. No fevers. HEENT: Negative for headaches No eye discharge or redness No earaches No sore throat Nose POS/NEG for congestion and nasal discharge NECK: Negative for pain or swelling. No lumps RESPIRATORY: No wheezing, SOB, Difficulty breathing. No cough CARDIOVASCULAR: Negative for chest pain GI: No nausea, vomiting, or diarrhea MUSCULOSKELETAL: Negative for bodyaches SKIN: Negative for rash or itching Neuro: No lightheadedness or dizziness Mood: + Sadness, anxiety EXAM: There were no vitals taken for this visit. Limited exam as visit was completed over the virtual platform. Virtual visit completed using video, limited exam completed. Patient sounds or appears ill: No General Appearance: Well appearing, alert, in no acute distress, well-hydrated, well nourished. Skin: Skin color normal Head: Normocephalic. No facial swelling or redness. EENT: Eyes nonreddened. No discharge. External ears nonreddened and no swelling. Neck: No mass or lesions. No swelling. FROM Patient is not able to speak in complete sentences: N/A Patient has labored breathing: No. Patient is audibly coughing: No Psych: Attitude - cooperative, easily engaged in conversation Affect - Euthymic, normal mood Mental status: Alert. Speech is clear and fluent with good repetition, comprehension Appearance - Normal hygiene and grooming appropriate Coordination: No abnormal or extraneous movements. Gait/Stance: Posture is normal. Health Maintenance List Hepatitis C Screening Never done HIV Screening Never done Hepatitis B Vaccine(1 of 3 - 19+ 3-dose series) Never done Pneumococcal Vaccine: 50+(1 of 2 - PCV) Never done Diabetic Foot Exam due on 09/06/2019 Shingrix Vaccine(1 of 2) Never done Colorectal Cancer Screening due on 01/27/2022 Dilated Retinal Exam due on 12/09/2022 Urine Albumin:Creatinine Ratio due on 02/09/2023 Influenza Vaccine(1) due on 01/02/2024 Covid-19 Vaccine( - season) Never done HbA1C due on 06/06/2024 Depression Screening due on 11/02/2024 Anxiety Screening due on 11/02/2024 LDL Cholesterol due on 03/06/2025 Serum Creatinine due on 03/06/2025 Annual PCP Team Chronic Disease Visit due on 03/08/2025 DTaP,Tdap,Td Vaccine(2 - Td or Tdap) due on 06/20/2025 Data reviewed Last 5 Encounter BP Readings: Date: BP: 03/08/2024 136/68 08/09/2023 130/80 02/04/2023 128/80 01/28/2023 140/64 01/06/2023 154/94 BMI Readings from Last 5 Encounters: 03/08/24 : 47.11 kg/m 08/09/23 : 49.03 kg/m 02/04/23 : 49.32 kg/m 01/28/23 : 50.36 kg/m 01/06/23 : 50.43 kg/m Last 5 Encounter Wt Readings: Date: Wt: 03/08/2024 144.7 kg (319 lb) 08/09/2023 150.6 kg (332 lb) 02/04/2023 151.5 kg (334 lb) 01/28/2023 154.7 kg (341 lb) 12/23/2022 150.6 kg (332 lb) Medication and allergy list reviewed, reconciled and updated 06/12/2024 ASSESSMENT/PLAN: 1. Type 2 diabetes mellitus without complication, without long-term current use of insulin (HCC) - ICD9: 250.00, ICD10: E11.9 (primary diagnosis) - Control undetermined, due for labs - Continue current medications - Increase glipizide 10 mg daily - Counseled on healthy diet and regular exercise - Discussed need for and benefit of weight loss. No weight on file for this encounter. - Get labs completed - GLIPIZIDE ER 10 MG TABLET, EXTENDED RELEASE 24 HR 2. Anxiety with depression - ICD9: 300.4, ICD10: F41.8 - Increase Paxil 30 mg daily - Add on Buspar 5 mg TID - Follow up in 1 month if no improvement - PAROXETINE 30 MG TABLET - BUSPIRONE 5 MG TABLET 3. Hypogonadism in male - ICD9: 257.2, ICD10: E29.1 - TESTOSTERONE, FREE AND TOTAL, BY EQUILIBRIUM ULTRAFILTRATION MASS SPECTROMETRY Follow up in 3 months or sooner pending test results. Discussed treatment plan and patient voices understanding. Patient's questions answered appropriately. Medications and potential side effects were discussed and patient voices understanding. Tereza Stone APRN.CNP Total appointment time on virtual with patient = 30 minutes This note was partially generated using [employer] voice recognition system. Note was reviewed for accuracy. There may be minor misspellings or grammar miscues with [employer] voice recognition. documented in this encounter [facility] 06-14-2024 Note HNO ID: [id number] Author: TEREZA STONE APRN.CNP Service: ? Author Type: Nurse Practitioner Type: Progress Notes Filed: 06/14/2024 18:32 Note Text: Chief Complaint Patient presents with: F/U 3 Month This Team Access Model encounter involved medical decision making outside of a scheduled office visit. Patient was offered a virtual/telemedicine appointment in lieu of an office visit due to recommendations to reduce patient exposure to COVID-19. Video was used for evaluation of this patient. Patient agrees to the visit: Yes Patient Location: [place] I have communicated my name and active licensure. The patient's identity and physical location were verified at the time of this visit. 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 MAGDA Samayoa is a 53 year old male who is contacted today for a virtual visit This is an established patient of Dr. Dale Ramos MD Reports: 3 month follow up, due for labs, currently out of town. Anxiety/Depression: Taking Paxil 20 mg daily. Ran out of medication, 1/2 tablet left. Increased anxiety and sadness. Going through Marital issues. No panic attacks. No SI/HI. DM: Reports overall feeling well. Medication side effects: No. Home sugar checks: Fasting 160-170's Hypoglycemic spells: No. Watching diet: No. Unexpected weight loss: No. Polyuria, polydipsia: Yes. Vision Changes: No. Foot lesions or numbness or pain: No. Taking Metformin 500 mg BID. Last A1C was 11.6. Due for labs. At last OV added on glipizide 5 mg daily. Traveling for work which makes it difficulty to watch diet at times. Has to eat out most of his meals. 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 No access to a kitchen. Working midnights. Low T: Taking Testosterone 200mg/ml, 1 ML twice weekly. Taking Arimidex 1 mg twice weekly. Lab results normal. Worried that medication may be too high, no symptoms but would like labs repeated. Past medical history, appointments, medications, allergies reviewed 06/12/2024 Previous Medical History PAST MEDICAL HISTORY Diagnosis Date Obesity Pleural effusion Type 2 diabetes mellitus (HCC) Previous Surgical History PAST SURGICAL HISTORY Procedure Laterality Date PAST SURGICAL HISTORY OF 2012 10 lbs tumor removed from back of neck-Dr. Carson REPAIR INCISIONAL HERNIA,REDUCIBLE 01/06/2023 laparoscopic repair w/ mesh Family History FAMILY HISTORY Problem Relation Age of Onset No Known Problems Mother Diabetes Father Hypertension Father other (dystonia) Sister Patient Allergies ALLERGIES Allergen Reactions Penicillin Anaphylaxis Vicodin [Hydrocodon* Mental Status Change Aggressiveness Current Medications Current Outpatient Medications on File Prior to Visit Medication Sig anastrozole (ARIMIDEX) 1 mg tablet Take 1 tablet by mouth two times a week. testosterone cypionate (DEPO-TESTOSTERONE) 200 mg/mL injection Inject 1 mL intramuscularly two times a week for 180 days. glipiZIDE (GLUCOTROL XL) 5 mg 24 hr tablet Take 1 tablet by mouth once daily. metFORMIN (GLUCOPHAGE) 500 mg tablet Take 1 tablet by mouth two times a day. . PARoxetine (PAXIL) 20 mg tablet Take 1 tablet by mouth once daily. docosahexaenoic acid/epa (FISH OIL CONCENTRATE ORAL) Take by mouth. ibuprofen (MOTRIN) 200 mg tablet Take 400 mg by mouth every 6 hours as needed for pain or fever (specify). iv contrast (will be provided with radiology test) CT Urogram WO/W Inject, intravenously, once for 1 dose.No IV access, insert saline lock prior to the beginning of sedation, infusion, injection of imaging exam. Discontinue saline lock post exam. If Pt. has a central line or IVAD, may access for administration according to line specific nursing protocol. Once exam is complete flush line and de-access according to line specific nursing protocol in the CT contrast administration guidelines link. No current facility-administered medications on file prior to visit. Social History Social History Tobacco Use Smoking status: Never Smokeless tobacco: Former Types: Snuff Tobacco comments: Pt states he stopped two weeks ago Vaping Use Vaping status: Never Used Substance Use Topics Alcohol use: Not Currently Drug use: No Review of Symptoms GENERAL: No malaise or fatigue. No fevers. HEENT: Negative for headaches No eye discharge or redness No earaches No sore throat Nose POS/NEG for congestion and nasal discharge NECK: Negative for pain or swelling. No lumps RESPIRATORY: No wheezing, SOB, Difficulty breathing. No cough CARDIOVASCULAR: Negative for chest pain GI: No nausea, vomiting, or diarrhea MUSCULOSKELETAL: Negative for bodyaches SKIN: Negative for rash or itching Neuro: No lightheadedness or dizziness Mood: + Sadness, anxiety EXAM: Ther (more content not included)... [facility] 06-14-2024 Telephone encounter Note Prescription Refill Information The patient has been identified by name and date of : Yes Caregiver verified no other encounters exist for this prescription request: Yes Caregiver confirmed with patient/requestor that no other refills are due, in the near future, with this provider at this time: Yes The last office visit in the department: 03/08/24 Does the patient have a future office visit with this provider/department: Yes 06/14/24 Requested Prescriptions Pending Prescriptions Disp Refills PARoxetine (PAXIL) 20 mg tablet 90 tablet 1 Sig: Take 1 tablet by mouth once daily. Patient comment: I think i need to raise it to 25 plz Carmen Dave LPN June 14, 2024 3:16 PM [facility] 06-14-2024 Miscellaneous Notes Prescription Refill Information The patient has been identified by name and date of : Yes Caregiver verified no other encounters exist for this prescription request: Yes Caregiver confirmed with patient/requestor that no other refills are due, in the near future, with this provider at this time: Yes The last office visit in the department: 03/08/24 Does the patient have a future office visit with this provider/department: Yes 06/14/24 Requested Prescriptions Pending Prescriptions Disp Refills PARoxetine (PAXIL) 20 mg tablet 90 tablet 1 Sig: Take 1 tablet by mouth once daily. Patient comment: I think i need to raise it to 25 plz Carmen Dave LPN June 14, 2024 3:16 PM documented in this encounter [facility] 03-29-2024 Telephone encounter Note Received FMLA/STD paperwork on 03/28/2024 Pending physician signature and completion. Surgeon: Dr. Mayberry Date of Surgery (if known): 01/06/2023 [facility] 03-29-2024 Miscellaneous Notes Received FMLA/STD paperwork on 03/28/2024 Pending physician signature and completion. Surgeon: Dr. Mayberry Date of Surgery (if known): 01/06/2023 documented in this encounter [facility] 03-29-2024 Telephone encounter Note Employer Forms for Patient/Caregiver Time Off of Work Received [employer] paperwork on 03/29/24. Completed, signed by provider, and returned to below contact. Completed copy scanned in [facility] Date of Surgery: 01/06/23 Estimated RTW date:02/17/23 Employer: [employer] Date sent to employer: 03/29/24 Received fax confirmation: YES [facility] 03-29-2024 Miscellaneous Notes Employer Forms for Patient/Caregiver Time Off of Work Received [employer] paperwork on 03/29/24. Completed, signed by provider, and returned to below contact. Completed copy scanned in Epic Date of Surgery: 01/06/23 Estimated RTW date:02/17/23 Employer: [employer] Date sent to employer: 03/29/24 Received fax confirmation: YES documented in this encounter [facility] 03-08-2024 Instructions Tereza Stone APRN.MJ - 03/08/2024 11:32 AM EST Start Glipizide XL 5 mg daily ( may use the [employer] coupon[facility]) Continue with Metformin Check fasting sugars and message the office in 2 weeks with readings. Work on eating a low carb diet, increase lean protein, veggies, and get some form of exercise. Get repeat labs in 3 months prior to next visit Quest Bars: Protein Bars documented in this encounter [facility] 03-08-2024 History of Presen t illness Narrative This is a 53 year old male who presents today with: Patient presents with: Follow Up: follow up for labs HISTORY OF PRESENT ILLNESS: Kush Samayoa is a 53 year old male. Patient presents with: Follow Up: follow up for labs Here in the office for follow up Anxiety/Depression: Taking Paxil 20 mg daily. DM: Reports overall feeling well. Medication side effects: No. Home sugar checks: Not checking Hypoglycemic spells: No. Watching diet: No. Unexpected weight loss: No. Polyuria, polydipsia: Yes. Vision Changes: No. Foot lesions or numbness or pain: No. Taking Metformin 500 mg BID. A1C went from 9.9 to 11.6. Traveling for work which makes it difficulty to watch diet at times. Low T: Taking Testosterone 200mg/ml, 1 ML twice weekly. Taking Arimidex 1 mg twice weekly. Lab results pending PAST MEDICAL HISTORY: PAST MEDICAL HISTORY Diagnosis Date Obesity Pleural effusion Type 2 diabetes mellitus (HCC) PAST SURGICAL HISTORY Procedure Laterality Date PAST SURGICAL HISTORY OF 2012 10 lbs tumor removed from back of neck-Dr. Carson REPAIR INCISIONAL HERNIA,REDUCIBLE 01/06/2023 laparoscopic repair w/ mesh ALLERGIES Penicillin and Vicodin [Hydrocodone-Acetaminophen] MEDICATIONS Current Outpatient Medications Medication Sig metFORMIN (GLUCOPHAGE) 500 mg tablet Take 1 tablet by mouth two times a day. . PARoxetine (PAXIL) 20 mg tablet Take 1 tablet by mouth once daily. testosterone cypionate (DEPO-TESTOSTERONE) 200 mg/mL injection Inject 1 mL intramuscularly two times a week for 180 days. anastrozole (ARIMIDEX) 1 mg tablet Take 1 tablet by mouth two times a week. docosahexaenoic acid/epa (FISH OIL CONCENTRATE ORAL) Take by mouth. ibuprofen (MOTRIN) 200 mg tablet Take 400 mg by mouth every 6 hours as needed for pain or fever (specify). iv contrast (will be provided with radiology test) CT Urogram WO/W Inject, intravenously, once for 1 dose.No IV access, insert saline lock prior to the beginning of sedation, infusion, injection of imaging exam. Discontinue saline lock post exam. If Pt. has a central line or IVAD, may access for administration according to line specific nursing protocol. Once exam is complete flush line and de-access according to line specific nursing protocol in the CT contrast administration guidelines link. No current facility-administered medications for this visit. FAMILY HISTORY Problem Relation Age of Onset No Known Problems Mother Diabetes Father Hypertension Father other (dystonia) Sister Social History Tobacco Use Smoking status: Never Smokeless tobacco: Former Types: Snuff Tobacco comments: Pt states he stopped two weeks ago Vaping Use Vaping status: Never Used Substance Use Topics Alcohol use: Not Currently Drug use: No REVIEW OF SYSTEMS GENERAL: No weight loss, malaise or fevers/chills HEENT: Negative for frequent or significant headaches, No changes in hearing or vision. NECK: Negative for lumps, goiter, pain and significant neck swelling RESPIRATORY: Negative for cough, hemoptysis, wheezing, dyspnea or shortness of breath CARDIOVASCULAR: Negative for chest pain, leg swelling, orthopnea, or palpitations GI: No nausea, vomiting, or diarrhea/constipation. No hematochezia/melena. No heartburn or reflux symptoms. : No history of dysuria, frequency or incontinence MUSCULOSKELETAL: Negative for joint pain or swelling. SKIN: Negative for lesions, rash, and itching ENDOCRINE: Negative for cold or heat intolerance, polyuria, polydipsia and goiter NEURO: No history of headaches, syncope, paralysis, seizures or tremors MOOD: Negative for depression, anxiety, or suicidal ideation. EXAM: BP 136/68 Pulse 92 Resp 16 Wt (!) 144.7 kg (319 lb) SpO2 95% BMI 47.11 kg/m PHYSICAL EXAM: General Appearance: Well appearing, alert, in no acute distress, well-hydrated, well nourished. Skin: Skin color, texture, turgor normal, no suspicious rashes or lesions. Head: Normocephalic, no masses, lesions, tenderness or abnormalities. Eyes: Anicteric sclera. Extraocular movements are intact. Lungs: Lungs clear to auscultation. No wheezing, rhonchi, rales. Heart: RRR without murmur, gallop, or rubs. No ectopy. Extremities: No deformities, edema, skin discoloration, clubbing or cyanosis. Good capillary refill. Peripheral Pulses: Normal, Capillary refill <2secs, strong peripheral pulses, Pulses palpable. Neurologic: Gait normal. Sensation grossly intact. Latest Ref Rng 03/06/2024 Protein, Total 6.3 - 8.0 g/dL 7.7 Albumin 3.9 - 4.9 g/dL 4.2 Calcium 8.5 - 10.2 mg/dL 9.2 Bilirubin, Total 0.2 - 1.3 mg/dL 0.9 Alkaline Phosphatase 38 - 113 U/L 95 AST 14 - 40 U/L 18 ALT 10 - 54 U/L 25 Glucose 74 - 99 mg/dL 356 (H) BUN 9 - 24 mg/dL 10 Creatinine 0.73 - 1.22 mg/dL 0.98 Sodium 136 - 144 mmol/L 134 (L) Potassium 3.7 - 5.1 mmol/L 4.3 Chloride 98 - 107 mmol/L 99 CO2 22 - 30 mmol/L 23 Anion Gap 8 - 15 mmol/L 12 eGFR >=60 mL/min/1.73m 93 Cholesterol, Total <200 mg/dL 157 Triglyceride <150 mg/dL 233 (H) HDL Cholesterol >39 mg/dL 27 (L) Non HDL Cholesterol <130 mg/dL 130 (H) Fasting Time hrs 12 VLDL Cholesterol <30 mg/dL 47 (H) TC:HDL Ratio <5.10 5.81 (H) LDL Cholesterol <100 mg/dL 83 LDL:HDL Ratio <2.54 3.07 (H) Hemoglobin A1C 4.3 - 5.6 % 11.6 (H) Estimated Average Glucose mg/dL 286 Legend: (H) High (L) Low ASSESSMENT/PLAN: 1. Type 2 diabetes mellitus without complication, without long-term current use of insulin (HCC) - ICD9: 250.00, ICD10: E11.9 (primary diagnosis) - Worsening control - Continue current medications - Start glipizide - Counseled on healthy diet and regular exercise - Discussed need for and benefit of weight loss. BMI 47.11 kg/(m^2) - Instructed to keep track of fasting sugars at home, message the office with readings in the next 2 weeks. Discussed adding on a GLP-1 in the future - Get repeat labs in 3 months prior to next office visit. - HEMOGLOBIN A1C - COMPREHENSIVE METABOLIC PANEL - GLIPIZIDE ER 5 MG TABLET, EXTENDED RELEASE 24 HR 2. Hypogonadism in male - ICD9: 257.2, ICD10: E29.1 - Stable, refill provided. - ANASTROZOLE 1 MG TABLET - TESTOSTERONE CYPIONATE 200 MG/ML INTRAMUSCULAR OIL Follow-up in 3 months or sooner as needed. Discussed treatment plan and patient voices understanding. Patient's questions answered appropriately. Medications and potential side effects were discussed and patient voices understanding. Tereza Stone APRN.MJ This note was partially generated using [employer] voice recognition system. Note was reviewed for accuracy. There may be minor misspellings or grammar miscues with [employer] voice recognition. PDMP website checked and validated. All prescriptions have been APPROPRIATELY filled. No suspicious activity was identified. 03/08/2024 by Tereza Stone APRN.MJ documented in this encounter [facility] 03-08-2024 Note HNO ID: [id number] Author: TEREZA STONE APRN.CNP Service: ? Author Type: Nurse Practitioner Type: Progress Notes Filed: 03/08/2024 12:59 Note Text: This is a 53 year old male who presents today with: Patient presents with: Follow Up: follow up for labs HISTORY OF PRESENT ILLNESS: Kush Samayoa is a 53 year old male. Patient presents with: Follow Up: follow up for labs Here in the office for follow up Anxiety/Depression: Taking Paxil 20 mg daily. DM: Reports overall feeling well. Medication side effects: No. Home sugar checks: Not checking Hypoglycemic spells: No. Watching diet: No. Unexpected weight loss: No. Polyuria, polydipsia: Yes. Vision Changes: No. Foot lesions or numbness or pain: No. Taking Metformin 500 mg BID. A1C went from 9.9 to 11.6. Traveling for work which makes it difficulty to watch diet at times. Low T: Taking Testosterone 200mg/ml, 1 ML twice weekly. Taking Arimidex 1 mg twice weekly. Lab results pending PAST MEDICAL HISTORY: PAST MEDICAL HISTORY Diagnosis Date Obesity Pleural effusion Type 2 diabetes mellitus (HCC) PAST SURGICAL HISTORY Procedure Laterality Date PAST SURGICAL HISTORY OF 2012 10 lbs tumor removed from back of neck-Dr. Carson REPAIR INCISIONAL HERNIA,REDUCIBLE 01/06/2023 laparoscopic repair w/ mesh ALLERGIES Penicillin and Vicodin [Hydrocodone-Acetaminophen] MEDICATIONS Current Outpatient Medications Medication Sig metFORMIN (GLUCOPHAGE) 500 mg tablet Take 1 tablet by mouth two times a day. . PARoxetine (PAXIL) 20 mg tablet Take 1 tablet by mouth once daily. testosterone cypionate (DEPO-TESTOSTERONE) 200 mg/mL injection Inject 1 mL intramuscularly two times a week for 180 days. anastrozole (ARIMIDEX) 1 mg tablet Take 1 tablet by mouth two times a week. docosahexaenoic acid/epa (FISH OIL CONCENTRATE ORAL) Take by mouth. ibuprofen (MOTRIN) 200 mg tablet Take 400 mg by mouth every 6 hours as needed for pain or fever (specify). iv contrast (will be provided with radiology test) CT Urogram WO/W Inject, intravenously, once for 1 dose.No IV access, insert saline lock prior to the beginning of sedation, infusion, injection of imaging exam. Discontinue saline lock post exam. If Pt. has a central line or IVAD, may access for administration according to line specific nursing protocol. Once exam is complete flush line and de-access according to line specific nursing protocol in the CT contrast administration guidelines link. No current facility-administered medications for this visit. FAMILY HISTORY Problem Relation Age of Onset No Known Problems Mother Diabetes Father Hypertension Father other (dystonia) Sister Social History Tobacco Use Smoking status: Never Smokeless tobacco: Former Types: Snuff Tobacco comments: Pt states he stopped two weeks ago Vaping Use Vaping status: Never Used Substance Use Topics Alcohol use: Not Currently Drug use: No REVIEW OF SYSTEMS GENERAL: No weight loss, malaise or fevers/chills HEENT: Negative for frequent or significant headaches, No changes in hearing or vision. NECK: Negative for lumps, goiter, pain and significant neck swelling RESPIRATORY: Negative for cough, hemoptysis, wheezing, dyspnea or shortness of breath CARDIOVASCULAR: Negative for chest pain, leg swelling, orthopnea, or palpitations GI: No nausea, vomiting, or diarrhea/constipation. No hematochezia/melena. No heartburn or reflux symptoms. : No history of dysuria, frequency or incontinence MUSCULOSKELETAL: Negative for joint pain or swelling. SKIN: Negative for lesions, rash, and itching ENDOCRINE: Negative for cold or heat intolerance, polyuria, polydipsia and goiter NEURO: No history of headaches, syncope, paralysis, seizures or tremors MOOD: Negative for depression, anxiety, or suicidal ideation. EXAM: BP 136/68 Pulse 92 Resp 16 Wt (!) 144.7 kg (319 lb) SpO2 95% BMI 47.11 kg/m? PHYSICAL EXAM: General Appearance: Well appearing, alert, in no acute distress, well-hydrated, well nourished. Skin: Skin color, texture, turgor normal, no suspicious rashes or lesions. Head: Normocephalic, no masses, lesions, tenderness or abnormalities. Eyes: Anicteric sclera. Extraocular movements are intact. Lungs: Lungs clear to auscultation. No wheezing, rhonchi, rales. Heart: RRR without murmur, gallop, or rubs. No ectopy. Extremities: No deformities, edema, skin discoloration, clubbing or cyanosis. Good capillary refill. Peripheral Pulses: Normal, Capillary refill <2secs, strong peripheral pulses, Pulses palpable. Neurologic: Gait normal. Sensation grossly intact. Latest Ref Rng 03/06/2024 Protein, Total 6.3 - 8.0 g/dL 7.7 Albumin 3.9 - 4.9 g/dL 4.2 Calcium 8.5 - 10.2 mg/dL 9.2 Bilirubin, Total 0.2 - 1.3 mg/dL 0.9 Alkaline Phosphatase 38 - 113 U/L 95 AST 14 - 40 U/L 18 ALT 10 - 54 U/L 25 Glucose 74 - 99 mg/dL 356 (H) BUN 9 - 24 mg/dL 10 Creatini (more content not included)... [facility] 03-02-2024 Telephone encounter Note Patient notified of lab orders, verbalizes understanding of instructions. Carmen Dave LPN [facility] 03-02-2024 Miscellaneous Notes Patient notified of lab orders, verbalizes understanding of instructions. Carmen Dave LPN Labs filed Dale Ramos MD Pt's labs that were entered have been cancelled due to expiring. Pended labs, please review and file. Update pt once ordered. Kristen Serna MA Patient asking for blood work prior to appt 03/08 Please advise and call patient if ordered. Thank you documented in this encounter [facility] 03-02-2024 Telephone encounter Note Labs filed Dale Ramos MD [facility] 03-02-2024 Telephone encounter Note Pt's labs that were entered have been cancelled due to expiring. Pended labs, please review and file. Update pt once ordered. Kristen Serna MA [facility] 03-02-2024 Telephone encounter Note Patient asking for blood work prior to appt 03/08 Please advise and call patient if ordered. Thank you [facility] 01-24-2024 Telephone encounter Note The following approved medication requests have been transmitted electronically. Requested Prescriptions Pending Prescriptions Disp Refills metFORMIN (GLUCOPHAGE) 500 mg tablet 180 tablet 3 Sig: Take 1 tablet by mouth two times a day. . Tereza Stone APRN.CNP [facility] 01-24-2024 Miscellaneous Notes The following approved medication requests have been transmitted electronically. Requested Prescriptions Pending Prescriptions Disp Refills metFORMIN (GLUCOPHAGE) 500 mg tablet 180 tablet 3 Sig: Take 1 tablet by mouth two times a day. . Tereza Stone APRN.CNP Patient will be leaving for work in [facility] within the months and needs his script sent it now. Prescription Refill Information The patient has been identified by name and date of : Yes Caregiver verified no other encounters exist for this prescription request: Yes Caregiver confirmed with patient/requestor that no other refills are due, in the near future, with this provider at this time: Yes The last office visit in the department: 11-03-23 Does the patient have a future office visit with this provider/department: No Requested Prescriptions Pending Prescriptions Disp Refills metFORMIN (GLUCOPHAGE) 500 mg tablet 180 tablet 3 Sig: Take 1 tablet by mouth two times a day. . Amina Zimmerman January 24, 2024 2:28 PM documented in this encounter [facility] 01-24-2024 Telephone encounter Note Patient will be leaving for work in [facility] within the months and needs his script sent it now. [facility] 01-24-2024 Telephone encounter Note Prescription Refill Information The patient has been identified by name and date of : Yes Caregiver verified no other encounters exist for this prescription request: Yes Caregiver confirmed with patient/requestor that no other refills are due, in the near future, with this provider at this time: Yes The last office visit in the department: 11-03-23 Does the patient have a future office visit with this provider/department: No Requested Prescriptions Pending Prescriptions Disp Refills metFORMIN (GLUCOPHAGE) 500 mg tablet 180 tablet 3 Sig: Take 1 tablet by mouth two times a day. . Amina Zimmerman January 24, 2024 2:28 PM [facility] 11-03-2023 History of Presen t illness Narrative Chief Complaint Patient presents with: Medication Follow-up This Team Access Model encounter involved medical decision making outside of a scheduled office visit. Patient was offered a virtual/telemedicine appointment in lieu of an office visit due to recommendations to reduce patient exposure to COVID-19. Video was used for evaluation of this patient. Patient agrees to the visit: Yes Patient Location: [place] I have communicated my name and active licensure. The patient's identity and physical location were verified at the time of this visit. 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 MAGDA Samayoa is a 53 year old male who is contacted today for a virtual visit This is an established patient of Dr. Dale Ramos MD Reports: Medication follow up. Was started on Paxil 10 mg daily, increased to 20 mg which has been effective. Medication has been helpful with anxiety. Sleeping well. No SI/HI. Past medical history, appointments, medications, allergies reviewed 11/02/2023 Previous Medical History PAST MEDICAL HISTORY Diagnosis Date Obesity Pleural effusion Type 2 diabetes mellitus (HCC) Previous Surgical History PAST SURGICAL HISTORY Procedure Laterality Date PAST SURGICAL HISTORY OF 2012 10 lbs tumor removed from back of neck-Dr. Carson REPAIR INCISIONAL HERNIA,REDUCIBLE 01/06/2023 laparoscopic repair w/ mesh Family History FAMILY HISTORY Problem Relation Age of Onset No Known Problems Mother Diabetes Father Hypertension Father other (dystonia) Sister Patient Allergies ALLERGIES Allergen Reactions Penicillin Anaphylaxis Vicodin [Hydrocodon* Mental Status Change Aggressiveness Current Medications Current Outpatient Medications on File Prior to Visit Medication Sig PARoxetine (PAXIL) 20 mg tablet Take 1 tablet by mouth once daily. testosterone cypionate (DEPO-TESTOSTERONE) 200 mg/mL injection Inject 1 mL intramuscularly two times a week for 180 days. semaglutide (OZEMPIC) 0.25 mg or 0.5 mg (2 mg/3 mL) pen Inject 0.25 mg subcutaneously one time a week. (Patient not taking: Reported on 09/08/2023) metFORMIN (GLUCOPHAGE) 500 mg tablet Take 1 tablet by mouth two times a day. . anastrozole (ARIMIDEX) 1 mg tablet Take 1 tablet by mouth two times a week. docosahexaenoic acid/epa (FISH OIL CONCENTRATE ORAL) Take by mouth. acetaminophen (TYLENOL EXTRA STRENGTH) 500 mg tablet Take 2 tablets by mouth every 6 hours as needed for pain. (Patient not taking: Reported on 09/08/2023) ibuprofen (MOTRIN) 200 mg tablet Take 400 mg by mouth every 6 hours as needed for pain or fever (specify). iv contrast (will be provided with radiology test) CT Urogram WO/W Inject, intravenously, once for 1 dose.No IV access, insert saline lock prior to the beginning of sedation, infusion, injection of imaging exam. Discontinue saline lock post exam. If Pt. has a central line or IVAD, may access for administration according to line specific nursing protocol. Once exam is complete flush line and de-access according to line specific nursing protocol in the CT contrast administration guidelines link. cyclobenzaprine (FLEXERIL) 10 mg tablet Take 1 tablet by mouth three times daily. (Patient not taking: Reported on 02/04/2023) syringe with needle, safety 3 mL 23 gauge x 1 1/2 syrg 1 Each every 2 weeks. (Patient not taking: Reported on 09/08/2023) No current facility-administered medications on file prior to visit. Social History Social History Tobacco Use Smoking status: Never Smokeless tobacco: Former Types: Snuff Tobacco comments: Pt states he stopped two weeks ago Vaping Use Vaping Use: Never used Substance Use Topics Alcohol use: Not Currently Drug use: No Review of Symptoms GENERAL: No malaise or fatigue. No fevers. HEENT: Negative for headaches No eye discharge or redness No earaches No sore throat Nose POS/NEG for congestion and nasal discharge NECK: Negative for pain or swelling. No lumps RESPIRATORY: No wheezing, SOB, Difficulty breathing. No cough CARDIOVASCULAR: Negative for chest pain GI: No nausea, vomiting, or diarrhea MUSCULOSKELETAL: Negative for bodyaches SKIN: Negative for rash or itching Neuro: No lightheadedness or dizziness EXAM: There were no vitals taken for this visit. Limited exam as visit was completed over the virtual platform. Virtual visit completed using video, limited exam completed. Patient sounds or appears ill: No General Appearance: Well appearing, alert, in no acute distress, well-hydrated, well nourished. Skin: Skin color normal Head: Normocephalic. No facial swelling or redness. EENT: Eyes nonreddened. No discharge. External ears nonreddened and no swelling. Neck: No mass or lesions. No swelling. FROM Patient is not able to speak in complete sentences: N/A Patient has labored breathing: No. Patient is audibly coughing: No Psych: Attitude - cooperative, easily engaged in conversation Affect - Euthymic, normal mood Mental status: Alert. Speech is clear and fluent with good repetition, comprehension Appearance - Normal hygiene and grooming appropriate Coordination: No abnormal or extraneous movements. Gait/Stance: Posture is normal. Behavioral Health Screening ALANNA-7 Score: 0. Recommendation: continuing current treatment plan Health Maintenance List Pneumococcal Vaccine(1 of 2 - PCV) Never done Hepatitis C Screening Never done HIV Screening Never done Hepatitis B Vaccine(1 of 3 - 19+ 3-dose series) Never done Diabetic Foot Exam due on 09/06/2019 Shingrix Vaccine(1 of 2) Never done Colorectal Cancer Screening due on 01/27/2022 Dilated Retinal Exam due on 12/09/2022 Covid-19 Vaccine( - season) Never done Urine Albumin:Creatinine Ratio due on 02/09/2023 Behavioral Health Screening Never done HbA1C due on 11/06/2023 Influenza Vaccine(1) due on 01/02/2024 LDL Cholesterol due on 08/06/2024 Serum Creatinine due on 08/06/2024 Annual PCP Team Chronic Disease Visit due on 09/07/2024 DTaP,Tdap,Td Vaccine(2 - Td or Tdap) due on 06/20/2025 Data reviewed Last 5 Encounter BP Readings: Date: BP: 08/09/2023 130/80 02/04/2023 128/80 01/28/2023 140/64 01/06/2023 154/94 12/23/2022 144/76 BMI Readings from Last 5 Encounters: 08/09/23 : 49.03 kg/m 02/04/23 : 49.32 kg/m 01/28/23 : 50.36 kg/m 01/06/23 : 50.43 kg/m 12/23/22 : 49.03 kg/m Last 5 Encounter Wt Readings: Date: Wt: 08/09/2023 150.6 kg (332 lb) 02/04/2023 151.5 kg (334 lb) 01/28/2023 154.7 kg (341 lb) 12/23/2022 150.6 kg (332 lb) 12/07/2022 154.9 kg (341 lb 7.9 oz) Medication and allergy list reviewed, reconciled and updated 11/02/2023 ASSESSMENT/PLAN: 1. Anxiety with depression - ICD9: 300.4, ICD10: F41.8 - Stable, refill provided. - PAROXETINE 20 MG TABLET Follow-up as scheduled or sooner as needed. Discussed treatment plan and patient voices understanding. Patient's questions answered appropriately. Medications and potential side effects were discussed and patient voices understanding. Tereza Stone APRN.CNP Total appointment time on virtual with patient = 21-30 minutes This note was partially generated using [employer] voice recognition system. Note was reviewed for accuracy. There may be minor misspellings or grammar miscues with [employer] voice recognition. documented in this encounter [facility] 11-03-2023 Instructions Tereza Stone APRN.CNP - 11/03/2023 5:40 PM EDT Continue to take medication as prescribed. Follow up as scheduled documented in this encounter [facility] 09-22-2023 Telephone encounter Note The following approved medication requests have been transmitted electronically. Requested Prescriptions Signed Prescriptions Disp Refills PARoxetine (PAXIL) 20 mg tablet 30 tablet 2 Sig: Take 1 tablet by mouth once daily. Authorizing Provider: TEREZA STONE APRN.CNP [facility] 09-22-2023 Miscellaneous Notes The following approved medication requests have been transmitted electronically. Requested Prescriptions Signed Prescriptions Disp Refills PARoxetine (PAXIL) 20 mg tablet 30 tablet 2 Sig: Take 1 tablet by mouth once daily. Authorizing Provider: TEREZA STONE APRN.CNP Last appt: 09/08/23 Pt reports he was prescribed Paxil 10 mg daily. Pt reports he was advised to call provider and give update on how he is doing on medication. Pt reports he feels medication needs to be increased and that the provider advised this could happen. Pt reports he is leaving Wednesday for work and will be gone for 28 days. Pt is asking this be sent before then. Call pt when rx has been sent to pharmacy. Requested Prescriptions Pending Prescriptions Disp Refills PARoxetine (PAXIL) 20 mg tablet 30 tablet 2 Sig: Take 1 tablet by mouth once daily. Sivan Munoz LPN documented in this encounter [facility] 09-21-2023 Telephone encounter Note Last appt: 09/08/23 Pt reports he was prescribed Paxil 10 mg daily. Pt reports he was advised to call provider and give update on how he is doing on medication. Pt reports he feels medication needs to be increased and that the provider advised this could happen. Pt reports he is leaving Wednesday for work and will be gone for 28 days. Pt is asking this be sent before then. Call pt when rx has been sent to pharmacy. Requested Prescriptions Pending Prescriptions Disp Refills PARoxetine (PAXIL) 20 mg tablet 30 tablet 2 Sig: Take 1 tablet by mouth once daily. Sivan Munoz LPN [facility] 09-08-2023 Instructions Tereza Stone APRN.VENUE ATTENDANT - 09/08/2023 5:19 PM EDT Stop Prozac, start Paxil 10 mg daily. Monitor symptoms at home, any worsening symptoms contact the office. Follow-up in 1 month or sooner as needed. May be virtual or telephone. documented in this encounter [facility] 09-08-2023 History of Presen t illness Narrative Chief Complaint Patient presents with: Follow Up: 1 month follow up This Team Access Model encounter involved medical decision making outside of a scheduled office visit. Patient was offered a virtual/telemedicine appointment in lieu of an office visit due to recommendations to reduce patient exposure to COVID-19. Telephone was used for evaluation of this patient. Patient agrees to the visit: Yes Patient Location: [place] I have communicated my name and active licensure. The patient's identity and physical location were verified at the time of this visit. 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 HPI Kush Samayoa is a 52 year old male who is contacted today for a phone visit This is an established patient of Dr. Dale Ramos MD Reports: 1 month medication follow up. Last month started on Prozac 10 mg daily for anxiety/depression. Has noticed increased anxiety since starting medication. Refers he was taking during the day and switched to night. Increased anger but refers he has noticed some episodes of calmness. No Si.Hi. Past medical history, appointments, medications, allergies reviewed 09/08/2023 Previous Medical History PAST MEDICAL HISTORY Diagnosis Date Obesity Pleural effusion Type 2 diabetes mellitus (HCC) Previous Surgical History PAST SURGICAL HISTORY Procedure Laterality Date PAST SURGICAL HISTORY OF 2012 10 lbs tumor removed from back of neck-Dr. Carson REPAIR INCISIONAL HERNIA,REDUCIBLE 01/06/2023 laparoscopic repair w/ mesh Family History FAMILY HISTORY Problem Relation Age of Onset No Known Problems Mother Diabetes Father Hypertension Father other (dystonia) Sister Patient Allergies ALLERGIES Allergen Reactions Penicillin Anaphylaxis Vicodin [Hydrocodon* Mental Status Change Aggressiveness Current Medications Current Outpatient Medications on File Prior to Visit Medication Sig testosterone cypionate (DEPO-TESTOSTERONE) 200 mg/mL injection Inject 1 mL intramuscularly two times a week for 180 days. FLUoxetine (PROZAC) 10 mg capsule Take 1 capsule by mouth once daily. metFORMIN (GLUCOPHAGE) 500 mg tablet Take 1 tablet by mouth two times a day. . anastrozole (ARIMIDEX) 1 mg tablet Take 1 tablet by mouth two times a week. docosahexaenoic acid/epa (FISH OIL CONCENTRATE ORAL) Take by mouth. ibuprofen (MOTRIN) 200 mg tablet Take 400 mg by mouth every 6 hours as needed for pain or fever (specify). semaglutide (OZEMPIC) 0.25 mg or 0.5 mg (2 mg/3 mL) pen Inject 0.25 mg subcutaneously one time a week. (Patient not taking: Reported on 09/08/2023) carbamide peroxide (DEBROX) 6.5 % otic solution Use 5 Drops in both ears two times a day. (Patient not taking: Reported on 09/08/2023) acetaminophen (TYLENOL EXTRA STRENGTH) 500 mg tablet Take 2 tablets by mouth every 6 hours as needed for pain. (Patient not taking: Reported on 09/08/2023) iv contrast (will be provided with radiology test) CT Urogram WO/W Inject, intravenously, once for 1 dose.No IV access, insert saline lock prior to the beginning of sedation, infusion, injection of imaging exam. Discontinue saline lock post exam. If Pt. has a central line or IVAD, may access for administration according to line specific nursing protocol. Once exam is complete flush line and de-access according to line specific nursing protocol in the CT contrast administration guidelines link. cyclobenzaprine (FLEXERIL) 10 mg tablet Take 1 tablet by mouth three times daily. (Patient not taking: Reported on 02/04/2023) syringe with needle, safety 3 mL 23 gauge x 1 1/2 syrg 1 Each every 2 weeks. (Patient not taking: Reported on 09/08/2023) No current facility-administered medications on file prior to visit. Social History Social History Tobacco Use Smoking status: Never Smokeless tobacco: Former Types: Snuff Tobacco comments: Pt states he stopped two weeks ago Vaping Use Vaping Use: Never used Substance Use Topics Alcohol use: Not Currently Drug use: No Review of Symptoms GENERAL: No malaise or fatigue. No fevers. HEENT: Negative for headaches No eye discharge or redness No earaches No sore throat Nose POS/NEG for congestion and nasal discharge NECK: Negative for pain or swelling. No lumps RESPIRATORY: No wheezing, SOB, Difficulty breathing. No cough CARDIOVASCULAR: Negative for chest pain GI: No nausea, vomiting, or diarrhea MUSCULOSKELETAL: Negative for bodyaches SKIN: Negative for rash or itching Neuro: No lightheadedness or dizziness Mood: Anxiety/Anger EXAM: There were no vitals taken for this visit. Limited exam as visit was completed over the phone platform. Virtual visit completed using video, limited exam completed. Patient sounds or appears ill: No General Appearance: Well appearing, alert, in no acute distress, well-hydrated, well nourished. Skin: Skin color normal Head: Normocephalic. No facial swelling or redness. EENT: Eyes nonreddened. No discharge. External ears nonreddened and no swelling. Neck: No mass or lesions. No swelling. FROM Patient is not able to speak in complete sentences: N/A Patient has labored breathing: No. Patient is audibly coughing: No Psych: Attitude - cooperative, easily engaged in conversation Affect - Euthymic, normal mood Mental status: Alert. Speech is clear and fluent with good repetition, comprehension Appearance - Normal hygiene and grooming appropriate Coordination: No abnormal or extraneous movements. Gait/Stance: Posture is normal. Health Maintenance List Pneumococcal Vaccine(1 of 2 - PCV) Never done Hepatitis C Screening Never done HIV Screening Never done Hepatitis B Vaccine(1 of 3 - 19+ 3-dose series) Never done Diabetic Foot Exam due on 09/06/2019 Shingrix Vaccine(1 of 2) Never done Colorectal Cancer Screening due on 01/27/2022 Dilated Retinal Exam due on 12/09/2022 Covid-19 Vaccine( season) Never done Urine Albumin:Creatinine Ratio due on 02/09/2023 Behavioral Health Screening Never done HbA1C due on 11/06/2023 Influenza Vaccine(Season Ended) due on 01/02/2024 LDL Cholesterol due on 08/06/2024 Serum Creatinine due on 08/06/2024 Annual PCP Team Chronic Disease Visit due on 08/08/2024 DTaP,Tdap,Td Vaccine(2 - Td or Tdap) due on 06/20/2025 Data reviewed Last 5 Encounter BP Readings: Date: BP: 08/09/2023 130/80 02/04/2023 128/80 01/28/2023 140/64 01/06/2023 154/94 12/23/2022 144/76 BMI Readings from Last 5 Encounters: 08/09/23 : 49.03 kg/m 02/04/23 : 49.32 kg/m 01/28/23 : 50.36 kg/m 01/06/23 : 50.43 kg/m 12/23/22 : 49.03 kg/m Last 5 Encounter Wt Readings: Date: Wt: 08/09/2023 150.6 kg (332 lb) 02/04/2023 151.5 kg (334 lb) 01/28/2023 154.7 kg (341 lb) 12/23/2022 150.6 kg (332 lb) 12/07/2022 154.9 kg (341 lb 7.9 oz) Medication and allergy list reviewed, reconciled and updated 09/08/2023 ASSESSMENT/PLAN: 1. Anxiety with depression - ICD9: 300.4, ICD10: F41.8 - Stop Prozac and switch to Paxil 10 mg daily. - Follow-up in 1 month. - PAROXETINE 10 MG TABLET Follow-up in 1 month or sooner as needed. Discussed treatment plan and patient voices understanding. Patient's questions answered appropriately. Medications and potential side effects were discussed and patient voices understanding. Tereza Stone APRN.CNP Total appointment time on phone with patient = 21-30 minutes This note was partially generated using [employer] voice recognition system. Note was reviewed for accuracy. There may be minor misspellings or grammar miscues with [employer] voice recognition. documented in this encounter [facility] 08-09-2023 Miscellaneous Notes Images from the original note were not included. Prior authorization approved Payer: [employer] [phone] CaseId:[id number];Status:Approved; Review Type:Prior Auth;Coverage Start Date:08/02/2023;Coverage End Date:08/08/2024; Approval Details Authorized from August 02, 2023 to August 08, 2024 Electronic appeal: Not supported Prior auth initiated by: [id number] [place] [address] - 1954 [id number] View History Notes Time User Attachment [employer] (BIN# [id number] PCN# COPAY) - 75: Prior Authorization Required. See Third Green Party Information. 08/09/2023 11:30 AM , [facility] Incoming [facility] From [facility] Medication Being Authorized testosterone cypionate (DEPO-TESTOSTERONE) 200 mg/mL injection Inject 1 mL intramuscularly two times a week for 180 days. Dispense: 24 mL Refills: 1 Start: 08/09/2023 End: 02/05/2024 Class: Normal Diagnoses: Hypogonadism in male Images from the original note were not included. Both approved. Prior authorization approved Payer: [employer] [phone] CaseId:[id number];Status:Approved; Review Type:Prior Auth;Coverage Start Date:08/02/2023;Coverage End Date:08/08/2024; Approval Details Authorized from August 02, 2023 to August 08, 2024 Electronic appeal: Not supported Prior auth initiated by: [facility] [id number] [place] [address] - 1954 [facility] [phone] [id number] View History Medication Being Authorized semaglutide (OZEMPIC) 0.25 mg or 0.5 mg (2 mg/3 mL) pen Inject 0.25 mg subcutaneously one time a week. Dispense: 3 mL Refills: 2 Start: 08/09/2023 End: 11/07/2023 Class: Normal Diagnoses: Type 2 diabetes mellitus without complication, without long-term current use of insulin (HCC) This order has been released to its destination. To be filled at: [id number] - [place] [address] - 1954 [facility] [phone] [id number] Electronic PA rec'd and completed for testosterone cypionate and ozempic. documented in this encounter [facility] 08-09-2023 Instructions Tereza Stone APRN.VENUE ATTENDANT - 08/09/2023 9:18 AM EDT Start Prozac 10 mg daily. Start Ozempic 0.25 mg weekly. Start Zpack for ear pain, recommend follow up with ENT. May use Debrox ear drops, twice daily for 5-7 days to soften ear wax. Continue to take all medication as prescribed. Work on eating a low carb diet, increase lean protein, veggies, and get some form of exercise. Recommend tracking food, [facility] phone [place]. Get repeat labs in 3 months with office visit. Follow up in 1 month, may be a telephone or virtual visit. (PROZAC) SSRI: We discussed starting medication during today s visit for your anxiety and/or depression. This medication will take 4-6 weeks to start feeling better. The most common side effects of this medication are nausea and dry mouth. If you experience any side effects from this medication (mood changes, insomnia, etc), please contact your healthcare provider for further instructions. Do not stop taking this medication abruptly. documented in this encounter [facility] 08-09-2023 History of Presen t illness Narrative This is a 52 year old male who presents today with: Patient presents with: 6 Month Exam HISTORY OF PRESENT ILLNESS: Kush Samayoa is a 52 year old male. Patient presents with: 6 Month Exam Here in the office for 6 month follow up DM: Reports overall feeling well. Medication side effects: No. Home sugar checks: Not checking currently Hypoglycemic spells: No. Watching diet: No with stress. Unexpected weight loss: No. Polyuria, polydipsia: No. Vision Changes: No. Foot lesions or numbness or pain: No. Taking metformin 500 mg twice daily and Trulicity 3 mg weekly. Stopped the trulicity due to costs. A1c went up from 6.5 to 9.9. Due to increased stress and surgery in the fall has not been working on lifestyle changes. Right Ear pain and fullness. Started Last Wednesday. No Fever or chills. Increased sadness, refers he is having difficulty getting back into gym routine. has Stage 4 ovarian/cervical cancer. Increased stress at home and work. Lack of motivation. Difficulty sleeping, brain is racing. Increased worry. No Si/Hi. Hypergonadism: Taking testosterone 200 mg per mill, injecting 1 mL 2 times weekly as well as taking Arimidex. Labs pending. Had Umbilical Repair Surgery in January. PAST MEDICAL HISTORY: PAST MEDICAL HISTORY Diagnosis Date Obesity Pleural effusion Type 2 diabetes mellitus (HCC) PAST SURGICAL HISTORY Procedure Laterality Date PAST SURGICAL HISTORY OF 2012 10 lbs tumor removed from back of neck-Dr. Carson REPAIR INCISIONAL HERNIA,REDUCIBLE 01/06/2023 laparoscopic repair w/ mesh ALLERGIES Penicillin and Vicodin [Hydrocodone-Acetaminophen] MEDICATIONS Current Outpatient Medications Medication Sig metFORMIN (GLUCOPHAGE) 500 mg tablet Take 1 tablet by mouth two times a day. . anastrozole (ARIMIDEX) 1 mg tablet Take 1 tablet by mouth two times a week. testosterone cypionate (DEPO-TESTOSTERONE) 200 mg/mL injection Inject 1 mL intramuscularly two times a week for 180 days. Do not start before March 03, 2023. docosahexaenoic acid/epa (FISH OIL CONCENTRATE ORAL) Take by mouth. acetaminophen (TYLENOL EXTRA STRENGTH) 500 mg tablet Take 2 tablets by mouth every 6 hours as needed for pain. ibuprofen (MOTRIN) 200 mg tablet Take 400 mg by mouth every 6 hours as needed for pain or fever (specify). iv contrast (will be provided with radiology test) CT Urogram WO/W Inject, intravenously, once for 1 dose.No IV access, insert saline lock prior to the beginning of sedation, infusion, injection of imaging exam. Discontinue saline lock post exam. If Pt. has a central line or IVAD, may access for administration according to line specific nursing protocol. Once exam is complete flush line and de-access according to line specific nursing protocol in the CT contrast administration guidelines link. cyclobenzaprine (FLEXERIL) 10 mg tablet Take 1 tablet by mouth three times daily. (Patient not taking: Reported on 02/04/2023) dulaglutide (TRULICITY) 3 mg/0.5 mL pen injector Inject 3 mg subcutaneously one time a week. syringe with needle, safety 3 mL 23 gauge x 1 1/2 syrg 1 Each every 2 weeks. No current facility-administered medications for this visit. FAMILY HISTORY Problem Relation Age of Onset No Known Problems Mother Diabetes Father Hypertension Father other (dystonia) Sister Social History Tobacco Use Smoking status: Never Smokeless tobacco: Former Types: Snuff Tobacco comments: Pt states he stopped two weeks ago Vaping Use Vaping Use: Never used Substance Use Topics Alcohol use: Not Currently Drug use: No REVIEW OF SYSTEMS GENERAL: No weight loss, malaise or fevers/chills HEENT: + Right ear pain NECK: Negative for lumps, goiter, pain and significant neck swelling RESPIRATORY: Negative for cough, hemoptysis, wheezing, dyspnea or shortness of breath CARDIOVASCULAR: Negative for chest pain, leg swelling, orthopnea, or palpitations GI: No nausea, vomiting, or diarrhea/constipation. No hematochezia/melena. No heartburn or reflux symptoms. : No history of dysuria, frequency or incontinence MUSCULOSKELETAL: Negative for joint pain or swelling. SKIN: Negative for lesions, rash, and itching ENDOCRINE: Negative for cold or heat intolerance, polyuria, polydipsia and goiter NEURO: No history of headaches, syncope, paralysis, seizures or tremors MOOD: + Sadness, lack of motivation EXAM: BP 130/80 Pulse 71 Resp 16 Wt (!) 150.6 kg (332 lb) SpO2 96% BMI 49.03 kg/m PHYSICAL EXAM: General Appearance: Well appearing, alert, in no acute distress, well-hydrated, well nourished. Skin: Skin color, texture, turgor normal, no suspicious rashes or lesions. Head: Normocephalic, no masses, lesions, tenderness or abnormalities. Eyes: Anicteric sclera. Pupils are equally round and reactive to light. Extraocular movements are intact. Ears: External ears normal, canals clear, + bilateral cerumen impaction, attempted removal with curette and lavage without success. Right ear very tender. Neck: Supple, no adenopathy; thyroid symmetric, normal size, no bruits. Lungs: Lungs clear to auscultation. No wheezing, rhonchi, rales.. Heart: RRR without murmur, gallop, or rubs. No ectopy. Extremities: No deformities, edema, skin discoloration, clubbing or cyanosis. Good capillary refill. . Peripheral Pulses: Normal, Capillary refill <2secs, strong peripheral pulses, Pulses palpable. Neurologic: Gait normal. Sensation grossly intact. Mood: Pleasant, engaged, good eye contact. Latest Ref [facility] 08/07/2023 Protein, Total 6.3 - 8.0 g/dL 7.4 Albumin 3.9 - 4.9 g/dL 4.1 Calcium 8.5 - 10.2 mg/dL 9.4 Bilirubin, Total 0.2 - 1.3 mg/dL 0.9 Alkaline Phosphatase 38 - 113 U/L 87 AST 14 - 40 U/L 16 ALT 10 - 54 U/L 17 Glucose 74 - 99 mg/dL 263 (H) BUN 9 - 24 mg/dL 11 Creatinine 0.73 - 1.22 mg/dL 1.04 Sodium 136 - 144 mmol/L 137 Potassium 3.7 - 5.1 mmol/L 4.5 Chloride 97 - 105 mmol/L 102 CO2 22 - 30 mmol/L 21 (L) Anion Gap 9 - 18 mmol/L 14 eGFR >=60 mL/min/1.73m 87 Cholesterol, Total <200 mg/dL 149 Triglyceride <150 mg/dL 182 (H) HDL Cholesterol >39 mg/dL 27 (L) Non HDL Cholesterol <130 mg/dL 122 Fasting Time hrs 12 VLDL Cholesterol <30 mg/dL 36 (H) TC:HDL Ratio <5.10 5.52 (H) LDL Cholesterol <100 mg/dL 86 LDL:HDL Ratio <2.54 3.19 (H) Hemoglobin A1C 4.3 - 5.6 % 9.9 (H) Estimated Average Glucose mg/dL 237 Legend: (H) High (L) Low ASSESSMENT/PLAN: 1. Type 2 diabetes mellitus without complication, without long-term current use of insulin (HCC) - ICD9: 250.00, ICD10: E11.9 (primary diagnosis) - Worsening control - Continue current medications - Start semaglutide (Ozempic) - Counseled on healthy diet and regular exercise - Discussed need for and benefit of weight loss. BMI 49.03 kg/(m^2) - Get repeat labs in 3 months with OV. - SEMAGLUTIDE 0.25 MG OR 0.5 MG (2 MG/3 ML) SUBCUTANEOUS PEN INJECTOR - HGB A1C - COMP METABOLIC PANEL 2. Hypogonadism in male - ICD9: 257.2, ICD10: E29.1 - Labs pending - Refill provided. - TESTOSTERONE CYPIONATE 200 MG/ML INTRAMUSCULAR OIL 3. Anxiety with depression - ICD9: 300.4, ICD10: F41.8 - Start Prozac 10 mg - Follow up in 1 month - FLUOXETINE 10 MG CAPSULE 4. Bilateral impacted cerumen - ICD9: 380.4, ICD10: H61.23 - Recommend using debrox ear drops and follow up with ENT. - CARBAMIDE PEROXIDE 6.5 % EAR DROPS - CONSULT TO ENT 5. Ear pain, right - ICD9: 388.70, ICD10: H92.01 - Cannot rule out otitis media, will treat with azithromycin. - AZITHROMYCIN 250 MG TABLET Follow-up in 1 month or sooner as needed. Discussed treatment plan and patient voices understanding. Patient's questions answered appropriately. Medications and potential side effects were discussed and patient voices understanding. Tereza Stone APRN.VENUE ATTENDANT This note was partially generated using [employer] recognition system. Note was reviewed for accuracy. There may be minor misspellings or grammar miscues with [employer] voice recognition. documented in this encounter [facility] 02-13-2023 Note HNO ID: [id number] Author: Note, Interface Service: ? Author Type: ? Type: Progress Notes Filed: 02/13/2023 3:31 AM Note Text: Epic Scheduled Downtime: 02/13/2023 1:00:00 AM to 02/13/2023 1:28:00 AM [facility] 02-04-2023 Instructions Tereza Stone APRN.CNP - 02/04/2023 10:00 AM EDT Repeat fasting labs in 6 months prior to next office visit. Continue to take all medication as prescribed. Work on eating low carb diet, slowly increase exercise per surgeon's guidance. Monitor glucose at home. Follow up in 6 months or sooner as needed. documented in this encounter [facility] 02-04-2023 History of Presen t illness Narrative This is a 52 year old male who presents today with: Patient presents with: Follow Up HISTORY OF PRESENT ILLNESS: Kush Samayoa is a 52 year old male. Patient presents with: Follow Up DM: Reports overall feeling well. Medication side effects: No. Home sugar checks: Not checking currently Hypoglycemic spells: No. Watching diet: Yes. Unexpected weight loss: No. Polyuria, polydipsia: No. Vision Changes: No. Foot lesions or numbness or pain: No. Taking metformin 500 mg twice daily and Trulicity 3 mg weekly. Refers that he stopped the trulicity last month due to costs. A1c 6.5. Refers he has been off work and unable exercise due to hernia repair. Will be starting to work on diet and slowly get more active. Hypergonadism: Taking testosterone 200 mg per mill, injecting 1 mL 2 times weekly as well as taking Arimidex. Had Umbilical Repair Surgery in January. Healing well. PAST MEDICAL HISTORY: PAST MEDICAL HISTORY Diagnosis Date Obesity Pleural effusion Type 2 diabetes mellitus (HCC) PAST SURGICAL HISTORY Procedure Laterality Date PAST SURGICAL HISTORY OF 2012 10 lbs tumor removed from back of neck-Dr. Carson REPAIR INCISIONAL HERNIA,REDUCIBLE 01/06/2023 laparoscopic repair w/ mesh ALLERGIES Penicillin and Vicodin [Hydrocodone-Acetaminophen] MEDICATIONS Current Outpatient Medications Medication Sig docosahexaenoic acid/epa (FISH OIL CONCENTRATE ORAL) Take by mouth. acetaminophen (TYLENOL EXTRA STRENGTH) 500 mg tablet Take 2 tablets by mouth every 6 hours as needed for pain. ibuprofen (MOTRIN) 200 mg tablet Take 400 mg by mouth every 6 hours as needed for pain or fever (specify). iv contrast (will be provided with radiology test) CT Urogram WO/W Inject, intravenously, once for 1 dose.No IV access, insert saline lock prior to the beginning of sedation, infusion, injection of imaging exam. Discontinue saline lock post exam. If Pt. has a central line or IVAD, may access for administration according to line specific nursing protocol. Once exam is complete flush line and de-access according to line specific nursing protocol in the CT contrast administration guidelines link. cyclobenzaprine (FLEXERIL) 10 mg tablet Take 1 tablet by mouth three times daily. dulaglutide (TRULICITY) 3 mg/0.5 mL pen injector Inject 3 mg subcutaneously one time a week. testosterone cypionate (DEPO-TESTOSTERONE) 200 mg/mL injection Inject 1 mL intramuscularly two times a week for 180 days. metFORMIN (GLUCOPHAGE) 500 mg tablet Take 1 tablet by mouth twice daily. . anastrozole (ARIMIDEX) 1 mg tablet Take 1 tablet by mouth two times a week. syringe with needle, safety 3 mL 23 gauge x 1 1/2 syrg 1 Each every 2 weeks. No current facility-administered medications for this visit. FAMILY HISTORY Problem Relation Age of Onset No Known Problems Mother Diabetes Father Hypertension Father other (dystonia) Sister Social History Tobacco Use Smoking status: Never Smokeless tobacco: Former Types: Snuff Tobacco comments: Pt states he stopped two weeks ago Vaping Use Vaping Use: Never used Substance Use Topics Alcohol use: Not Currently Drug use: No REVIEW OF SYSTEMS GENERAL: No weight loss, malaise or fevers/chills HEENT: Negative for frequent or significant headaches, No changes in hearing or vision. NECK: Negative for lumps, goiter, pain and significant neck swelling RESPIRATORY: Negative for cough, hemoptysis, wheezing, dyspnea or shortness of breath CARDIOVASCULAR: Negative for chest pain, leg swelling, orthopnea, or palpitations GI: No nausea, vomiting, or diarrhea/constipation. No hematochezia/melena. No heartburn or reflux symptoms. : No history of dysuria, frequency or incontinence MUSCULOSKELETAL: Negative for joint pain or swelling. SKIN: Negative for lesions, rash, and itching ENDOCRINE: Negative for cold or heat intolerance, polyuria, polydipsia and goiter NEURO: No history of headaches, syncope, paralysis, seizures or tremors MOOD: Negative for depression, anxiety, or suicidal ideation. EXAM: BP 128/80 Pulse 81 Resp 16 Wt (!) 151.5 kg (334 lb) SpO2 98% BMI 49.32 kg/m PHYSICAL EXAM: General Appearance: Well appearing, alert, in no acute distress, well-hydrated, well nourished. Skin: Skin color, texture, turgor normal, no suspicious rashes or lesions. Head: Normocephalic, no masses, lesions, tenderness or abnormalities. Eyes: Anicteric sclera.Extraocular movements are intact. Lungs: Lungs clear to auscultation. No wheezing, rhonchi, rales. Heart: RRR without murmur, gallop, or rubs. No ectopy. Extremities: No deformities, edema, skin discoloration, clubbing or cyanosis. Good capillary refill. Peripheral Pulses: Normal, Capillary refill <2secs, strong peripheral pulses, Pulses palpable. Neurologic: Gait normal.Sensation grossly intact. Component Latest Ref Rng & Units 12/23/2022 WBC 3.70 - 11.00 k/uL 7.32 RBC 4.20 - 6.00 m/uL 5.26 Hemoglobin 13.0 - 17.0 g/dL 13.7 Hematocrit 39.0 - 51.0 % 39.7 MCV 80.0 - 100.0 fL 75.5 (L) MCH 26.0 - 34.0 pg 26.0 MCHC 30.5 - 36.0 g/dL 34.5 RDW-CV 11.5 - 15.0 % 14.9 Platelet Count 150 - 400 k/uL 226 MPV 9.0 - 12.7 fL 8.6 (L) Neut% % 58.2 Abs Neut (ANC) 1.45 - 7.50 k/uL 4.26 Lymph% % 29.1 Abs Lymph 1.00 - 4.00 k/uL 2.13 [place]% % 7.8 Abs [place] <0.87 k/uL 0.57 Eosin% % 2.2 Abs Eosin <0.46 k/uL 0.16 Baso% % 0.8 Abs Baso <0.11 k/uL 0.06 Immature Gran % % 1.9 IMMATURE GRANS (ABS) <0.10 k/uL 0.14 (H) NRBC /100 WBC 0.0 Absolute nRBC <0.01 k/uL <0.01 DTYPE Auto Protein, Total 6.3 - 8.0 g/dL 7.7 Albumin 3.9 - 4.9 g/dL 4.3 Calcium 8.5 - 10.2 mg/dL 10.1 Bilirubin, Total 0.2 - 1.3 mg/dL 1.1 Alkaline Phosphatase 38 - 113 U/L 87 AST 14 - 40 U/L 17 ALT 10 - 54 U/L 28 Glucose 74 - 99 mg/dL 177 (H) BUN 9 - 24 mg/dL 14 Creatinine 0.73 - 1.22 mg/dL 1.24 (H) Sodium 136 - 144 mmol/L 136 Potassium 3.7 - 5.1 mmol/L 3.9 Chloride 97 - 105 mmol/L 101 CO2 22 - 30 mmol/L 24 Anion Gap 9 - 18 mmol/L 11 eGFR >=60 mL/min/1.73m 70 Testosterone Free 4.06 - 15.6 ng/dL 3.29 (L) Testosterone 240 - 950 ng/dL 84 (L) Hemoglobin A1C 4.3 - 5.6 % 6.5 (H) Estimated Average Glucose mg/dL 140 Glucose, Point of Care 74 - 99 mg/dL ASSESSMENT/PLAN: 1. Type 2 diabetes mellitus without complication, without long-term current use of insulin (HCC) - ICD9: 250.00, ICD10: E11.9 (primary diagnosis) - Worsening control - Continue current medications - Counseled on healthy diet and regular exercise - Discussed need for and benefit of weight loss. BMI 49.32 kg/(m^2) - Get repeat labs in 6 months prior to next OV. - METFORMIN 500 MG TABLET - HGB A1C - COMP METABOLIC PANEL 2. Hypogonadism in male - ICD9: 257.2, ICD10: E29.1 - Continue current medication. - ANASTROZOLE 1 MG TABLET - TESTOSTERONE CYPIONATE 200 MG/ML INTRAMUSCULAR OIL - TESTOSTERONE, FREE AND TOTAL - ESTROGEN FRACTION BL 3. Screening cholesterol level - ICD9: V77.91, ICD10: Z13.220 - LIPID PANEL BASIC Follow up in 6 months or sooner as needed. Discussed treatment plan and patient voices understanding. Patient's questions answered appropriately. Medications and potential side effects were discussed and patient voices understanding. Tereza Stone APRN.MJ This note was partially generated using [employer] voice recognition system. Note was reviewed for accuracy. There may be minor misspellings or grammar miscues with [employer] voice recognition. documented in this encounter [facility] 01-28-2023 Miscellaneous Notes Employer Forms for Patient/Caregiver Time Off of Work FMLA completed, signed by provider, and returned to below contact. Completed copy scanned in [facility] Date of Surgery: 01/06/23 Return to work date: 02/17/23 Employer: [employer] Phone Number: Date sent to employer: 01/28/23 Received fax confirmation: YES Isis Chamberlain M.A. documented in this encounter [facility] 01-28-2023 Nurse Note What is the reason for your visit today? Post op f/u Who is your referring physician? Are you having poor oral intake? NO Have you had unintentional weight loss of 15 lbs/7 Kg in the last 3-6 months? NO Bowels: regular Wound: no issues Temperature: No Drains: No documented in this encounter [facility] 01-28-2023 History of Presen t illness Narrative [facility] - Follow Up Visit Assessment/Plan: Kush Samayoa is a 52 year old male s/p laparoscopic ventral incisional hernia repair with 15 cm round Parietene DS mesh on 01/06/23 for an incarcerated umbilical hernia. They present today, 20 days postoperatively and are doing well. They have no issues with PO intake, their wounds are healing well, and they are recovering appropriately. Kush still has a moderate amount of pain and did require a refill of his pain meds but this has been slowly improving. - Follow up as needed Subjective: Kush reports that he is feeling well. He still reports moderate amount of pain at his umbilicus as well as in the left lower quadrant. This has been slowly improving since surgery. No concerns about his wounds. No issues with p.o. intake or bowel function. Overall, he is very pleased with his experience. Objective: AAOx3, NAD Non-labored respirations on RA Abdomen soft, non-distended, and mildly tender around the patient's lap sites and umbo. Skin glue flaking off. No erythema or induration. Jhon Mayberry MD 02/11/23, 1:06 PM General Surgery [facility] Medical Decision Making: Problems: Minimal: Self-limited or minor problem Risk: Minimal: Minimal risk from testing/treatment Medical Decision Making Level: 2 - Straightforward documented in this encounter [facility] 01-14-2023 Miscellaneous Notes Returned call and spoke with patient. He called to provide information to fax his short disability paperwork. Claim #:[id number] Fax #: [phone] Attn: Elsie Mcguireostieta Patient reports his pain has improved since our last conversation and he is overall feeling better. Patient called and left message regarding post operative 01/06 laparoscopic umbilical hernia repair return call to [phone] documented in this encounter [facility] 01-12-[address] Mayberry is agreeable with refilling the oxy and Robaxin for the patient one more time. Called and spoke with patient's , Cynthia. Discussed again staggering the motrin and tylenol and using the oxy and robaxin for break through pain. She states her understanding and is agreeable with this plan. Returned call and spoke with patient. S/p laparoscopic ventral incisional hernia repair with mesh 01/06 Cc: pain -pt reports he continues to have a lot of pain to his abdomen -he states he ran out of the oxy and robaxin -took motrin this morning but nothing since -not using an ice pack -tolerating PO intake; denies any nausea or vomiting -reports that he is voiding but states his urine is bloody -had a BM this morning -ambulating to the bathroom and back to the couch Discussed staggering Motrin and Tylenol or better pain control as well as trying an ice pack and support pillow when changing positions. Will update Dr. Mayberry and get back in touch with his recommendations. He states his understanding and is agreeable with this plan. Patient's called and left message regarding post operative 01/06 laparoscopic umbilical hernia repair and concerns of pain and would like a refill on pain medication return call to [phone] documented in this encounter [facility] 01-07-2023 Note HNO ID: [id number] Author: Vinay Hussein MD Service: General Surgery Author Type: Resident Type: Progress Notes Filed: 01/07/2023 6:40 AM Note Text: GENERAL SURGERY SERVICES PROGRESS NOTE Kush Samayoa [id number] Subjective No acute events Pain is well controlled on current regimen. Tolerated regular diet with no n/v Intake/Output Summary (Last 24 hours) at 01/07/2023 0532 Last data filed at 01/06/2023 2352 Gross per 24 hour Intake 3000 ml Output 1035 ml Net 1965 ml Current Facility-Administered Medications Medication Dose Route Frequency heparin 7,500 Units injection 7,500 Units SUBCUTANEOUS q 8 H dextrose 40 % 15 g 15 g ORAL PRN Or glucagon 1 mg injection 1 mg INTRAMUSCULAR PRN Or dextrose 10% iv bolus 12.5 g INTRAVENOUS PRN NaCl 0.9% iv flush bag 20 mL INTRAVENOUS PRN acetaminophen 1,000 mg tab(s) (TYLENOL) 1,000 mg ORAL q 6 H oxyCODONE IR 5-10 mg tab(s) (ROXICODONE) 5-10 mg ORAL q 3 H PRN cyclobenzaprine 10 mg tab(s) (FLEXERIL) 10 mg ORAL TID PRN ondansetron (PF) 4 mg injection (ZOFRAN) 4 mg INTRAVENOUS q 6 H PRN lidocaine 4 % 1 Patch (SALONPAS) 1 Patch TRANSDERMAL DAILY AT 9 PM And lidocaine patch - REMOVE OTHER DAILY And lidocaine - VERIFY PATCH OTHER q 8 H insulin lispro injection (rapid acting) (HumaLOG) SUBCUTANEOUS w MEALS AND HS Objective PHYSICAL EXAM: BP 143/63 Pulse 82 Temp (Src) 98.6 (Axillary) Resp 17 Ht 5' 9 (1.75m) Wt 341 lb 7.9 oz (154.9kg) SpO2 95% BMI 50.41 kg/(m2). O2 Therapy: Room Air Gen: Alert and awake. Lungs: Breathing comfortably on rest Abdomen: incision c/d/i, no surrounding erythema, appropriately TTP around wound, remaining abdomen soft, distended appropriately to habitus DATA: Diagnostic tests reviewed for today's visit: CBC, Coags, BMP, Mg, Phos Recent Labs 01/07/23 0452 WBC 11.09* HB 13.1 HCT 38.9* PLT 256 Liver Function, Amylase, AND Lipase Assessment/Plan This is a 52 year old year old male who is s/p laparoscopic umbilical hernia repair with IntraPeritoneal Onlay Mesh and bilateral TAP blocks on 01/06. - Neuro: Pain control: multimodal analgesia - Cardiac: Hemodinamycally stable, will continue to monitor - Respiratory: Incentive spirometry. Minimize use of supplemental O2. - GI: regular diabetic diet - FEN: Replete lytes as needed - Renal: Appropriate urinary output - ID: afebrile over last 24 hours - Heme: Hb stable. No current need for transfusion - Endo: SSI 2, resume Metformin at home - Wound: c/d/I - MSK: OOB and ambulate as able - Lines/Drains: PIV - Prophylaxis: SQ Heparin Q8H - Dispo: d/c today - Will discuss with the staff Dr. Yony Hussein MD General Surgery Resident, PGY-1 01/07/23 5:32 AM For team paging 6AM-6PM during weekdays: [facility] (Trauma, General Surgery): [facility] (Bariatrics, HPB) : [phone] [facility]: [facility]: [facility]: [id number] For team paging after 6PM or on weekend / holidays: [facility] 01-07-2023 Note HNO ID: [id number] Author: Chante Pyle RN Service: Nursing Author Type: Registered Nurse Type: Nursing Progress Note Filed: 01/07/2023 3:58 AM Note Text: Abdominal binder changed to larger size. [facility] 01-07-2023 Note HNO ID: [id number] Author: Liz Crawford MD Service: General Surgery Author Type: Resident Type: Plan of Care Filed: 01/07/2023 1:35 AM Note Text: GENERAL SURGERY POST OPERATIVE CHECK Patient Name: Kush Samayoa Date: January 07, 2023 Procedure: Laparoscopic umbilical hernia repair with IntraPeritoneal Onlay Mesh, Bilateral TAP blocks (APMS) Findings: 3.5 cm x 3 cm umbilical defect with omentum incarceration. 15 cm round Parietene mesh placed against the abdominal wall and secured with tacks EBL: Minimal Interval: - No acute postoperative events - Arrived to [facility] without complications - Reports mild pain around incisions, well-controlled with medications - Tolerating diet without nausea or vomiting - Adequate postoperative UOP, voiding spontaneously - Denies chest pain, shortness of breath PHYSICAL EXAMINATION: BP 141/99 Pulse 72 Temp (Src) 97.9 (Oral) Resp 17 Ht 5' 9 (1.75m) Wt 341 lb 7.9 oz (154.9kg) SpO2 94% BMI 50.41 kg/(m2). O2 Therapy: Room Air, Liters: 2 General: Resting in bed. No acute distress. HEENT: Normocephalic. Atraumatic. Heart: Regular rate and rhythm. Lungs: Unlabored respirations on room air. Symmetric chest rise. Abdomen: Soft, nondistended, appropriately tender to palpation around incisions. No rebound, guarding, or rigidity. Incisions: Laparoscopic incisions well-approximated with sutures and skin glue. Extremities: Warm and well-perfused. No gross deformity. Neuro: Alert and oriented. Moves all extremities. ASSESSMENT AND PLAN This is a 52 year old year old male who is POD 0 s/p laparoscopic umbilical hernia repair with IntraPeritoneal Onlay Mesh and bilateral TAP blocks (APMS). There were no intraoperative complications, and the patient is found to be afebrile and hemodynamically stable with pain well-controlled. Currently recovering on RNF. Patient is doing well post-operatively Continue multimodal pain control Monitor UOP, IANDOs Carbohydrate controlled diet Encourage IS and pulmonary toilet Liz Crawford MD General Surgery Resident, PGY-1 01/07/2023 1:27 AM [facility] 01-06-2023 Note HNO ID: [id number] Author: Jeramie Stevens DO Service: Anesthesiology Author Type: Anesthesiologist Type: Anesthesia Procedure Notes Filed: 01/06/2023 3:16 PM Note Text: ANESTHESIOLOGY PROCEDURE NOTE Peripheral Nerve Block General Information Procedure Start Time/Medication Administration: 01/06/2023 3:01 PM Procedure End time: 01/06/2023 3:10 PM Patient location during procedure: OR Timeout Performed Pre-procedure: timeout performed Consent Obtained: Yes Patient identity confirmed: arm band, care steam finisher and patient Reason for block: post-op pain management/at surgeon's request Staffing Anesthesiologist: Jeramie Stevens DO Resident: Monique Rodríguez DO Preparation Sterility Preparation: hand hygiene performed prior to procedure, sterile gloves, drapes, and procedure tray, surgical cap used, mask used, sterile drape used during line insertion, skin prep agent completely dried prior to procedure Sterility Technique Not Completely Performed Due to Extreme Emergency: No Site Prep: Chloraprep Pre-Procedure Neuro Exam Location: ABDOMEN Sensory: intact Motor: intact Procedure Details Patient Position: supine Monitoring: Pulse OX, EKG and NIBP Block Type Trunk: rectus sheath block Approach: anterior Laterality: bilateral Injection Technique: single-shot Ultrasound Guided: Yes Image in Chart: yes Local Infiltration: Yes Needle Needle Type: stimulating Needle Gauge: 21 G Needle Length: 100 mm Needle Localization: anatomical landmarks and ultrasound Assessment Injection assessment: negative aspiration and incremental injection Post-Procedure Neuro Exam Expected Regional Anesthesia: Yes Medications Administered Bupivacaine (PF) 0.25 % (2.5 mg/mL) injection (SENSORCAINE MPF), 60 mL bupivacaine liposome (PF) 1.3 % (13.3 mg/mL) injection (EXPAREL), 266 mg SIGNATURE: Jeramie Stevens DO PATIENT NAME: Kush Samayoa DATE: January 06, 2023 TIME: 3:15 PM CSN: [id number] [facility] 01-06-2023 Note HNO ID: [id number] Author: Chadwick Estrada APRN.CRNA Service: Anesthesiology Author Type: Nurse Gas Or Water Meter Installer Type: Anesthesia Procedure Notes Filed: 01/06/2023 12:33 PM Note Text: ANESTHESIOLOGY PROCEDURE NOTE Gastric Tube General Information Procedure Start Time/Medication Administration: 01/06/2023 12:10 PM Patient location during procedure: OR Patient identity confirmed: care steam finisher and arm band Indication: gastric decompression Staffing Anesthesiologist: Dex Roa MD SWEEPER DRIVER: Chadwick Estrada APRN.SWEEPER DRIVER Performed by: JACINTO Procedure Details Type: Orogastric tube Size: 18 Fr cm Distance Advanced: 60 cm Successful Placement: yes Post-Procedure Details Patient tolerated the procedure well with no immediate complications SIGNATURE: Chadwick Estrada APRN.CRNA PATIENT NAME: Kush Samayoa DATE: January 06, 2023 TIME: 12:33 PM CSN: [id number] [facility] 01-06-2023 Note HNO ID: [id number] Author: Chadwick Estrada APRN.CRNA Service: Anesthesiology Author Type: Nurse Gas Or Water Meter Installer Type: Anesthesia Procedure Notes Filed: 01/06/2023 12:31 PM Note Text: ANESTHESIOLOGY PROCEDURE NOTE Airway General Information Procedure Start Time/Medication Administration: 01/06/2023 12:04 PM Patient location during procedure: OR Patient identity confirmed: arm band, care steam finisher and patient Staffing Anesthesiologist: Dex Roa MD SWEEPER DRIVER: Chadwick Estrada APRN.SWEEPER DRIVER Performed by: SWEEPER DRIVER Indications and Patient Condition Indications for airway management: anesthesia Preoxygenated: yes anesthesia circuit Patient position: sniffing and ramp Method: asleep Difficult Mask: No Airway Accessory: oral airway (100 mm) Final Airway Details Final airway type: endotracheal airway Final Endotracheal Airway: ETT Cuffed: yes Successful intubation technique: direct laryngoscopy Devices used: Glidescope and intubating stylet Endotracheal tube insertion site: oral Blade: Dayna Blade size: #4 ETT size (mm): 7.5 Measured from: lips Measurement (cm): 21 Placement verified by: capnometry Cormack-Lehane Classification: grade I - full view of glottis Number of attempts at approach: 1 Airway not difficult Comments Elective two person mask ventilation. Elective Glidescope use. Teeth and lips intact post intubation. SIGNATURE: Chadwick Estrada APRN.SWEEPER DRIVER PATIENT NAME: Kush Samayoa DATE: January 06, 2023 TIME: 12:30 PM CSN: [id number] [facility] 12-23-2022 Instructions Jessica Vidal APRN.VENUE ATTENDANT - 12/23/2022 9:33 AM EDT PATIENT PREOPERATIVE INSTRUCTIONS Jhon Mayberry MD has scheduled you for your procedure at this surgery center: [facility]: [phone] --[phone] [address]. Please check in on the 1st floor at registration desk 6. Please read below carefully for your personalized instructions. Dietary Restrictions: - No solid food after midnight. - You may have 12 ounces of clear liquids (water, clear juices such as apple juice or gatorade, carbonated beverages, clear tea, black coffee, jello) until 2 hours before scheduled arrival at facility. No red/purple coloring and no creamer/sugar Medications: Unless instructed differently below, stay on all of your medications until your surgery. Approved medications to take the morning of surgery with a sip of water: NONE Do not take any diabetic meds or injectables the morning and/or evening prior surgery If you take any medications for erectile dysfunction-Cialis (Tadalafil), Levitra, Staxyn (Vardenafil) Viagra (Sildenenafil please do not take these for 48 hours before surgery. If you start any new medications after today's visit, please contact the surgeon's office. Blood Thinning Medications: - Stop NSAIDS (Ibuprofen, Advil, Aleve, Motrin, Celebrex, Mobic, etc.) 7 days before surgery, as directed by your surgeon. - Stop Aspirin 7 days before surgery, as directed by your surgeon. - Stop Vitamin E, ALL multi-vitamins, herbals and dietary supplements 7 days before surgery. - You may take Tylenol (Acetaminophen) or any of your pain medications that do not contain aspirin or NSAIDS as needed. Important Reminders: - Candy, mints, and tobacco products are NOT permitted the morning of surgery. - Hearing aids, dentures and glasses may be worn the morning of surgery. - NO jewelry, body piercings, makeup, hairpins or contacts are to be worn the day of surgery. If you develop symptoms such as a fever, cold, or flu, or have other changes to your health within TWO DAYS of scheduled surgery or the morning of surgery, please contact the surgery center above. Personal Belongings: -Please have photo ID and insurance cards. -If you do not have a copy of advance directives on file with us, please bring a copy with you on the day of surgery. - Leave ALL valuables and money at home or with family members. For Outpatient Procedures: - YOU MUST HAVE A RESPONSIBLE SEXUAL ABUSE COUNSELLOR TAKE YOU HOME. A TELEPHONE STERILIZER OR GUM SCORING MACHINE OPERATOR CANNOT BE MADE A RESPONSIBLE SEXUAL ABUSE COUNSELLOR. - We recommend that a responsible person stays with you overnight to take care of you. - You cannot stay in a hotel alone after outpatient surgery. You will not be permitted to have your surgery, if you do not have someone to take care of you. Arrival Time for Surgery: - The Surgery Center or hospital where you are having surgery will call the afternoon before surgery (or Wednesday for Wednesday surgery) with a scheduled arrival time. - If you have not heard by 4 pm, please contact the surgery center above. Please be aware that emergency situations arise, which may delay or change your surgical time. If this happens, we will notify you as soon as possible and regret any inconvenience. If you already have an Advance Directive, please fax a copy to [phone] or email to for it to be added to your chart. If you do not have an Advance Directive, you can find the appropriate form and more information at [email or web address]. We recommend that you complete the Advance Directive form found on the website and bring it with you the day of your surgery. It can be witnessed and scanned into your chart that day. Jessica Vidal APRN.CNP documented in this encounter [facility] 12-23-2022 History and physical note HISTORY AND PHYSICAL EXAMINATION SERVICE DATE: 12/23/2022 SERVICE TIME: 8:25 AM PRIMARY CARE PHYSICIAN: Dale Ramos MD This is a virtual visit using FreeAgent video visit. It required patient-provider interaction for the medical decision making as documented below. REASON FOR VISIT: Kush Samayoa is a 52 year old male who is scheduled for Procedure(s) with comments: LAPAROSCOPIC HERNIORRHAPHY FOR REDUCIBLE UMBILICAL HERNIA 3cm-10cm (N/A) - with mesh at the request of Dr. Jhon Mayberry for consultation. My final recommendation will be communicated back to the requesting physician by way of shared medical record or letter. Subjective The patient has the following: ACTIVE PROBLEM LIST Cuco (Obstructive Sleep Apnea) Obesity, Class Iii, Bmi 40-49.9 (Morbid Obesity) (Hcc) Type 2 Diabetes Mellitus Without Complication, Without Long-Term Current Use of Insulin (Hcc) Hypogonadism in Male Ckd (Chronic Kidney Disease) Gerd (Gastroesophageal Reflux Disease) COVID-19 Immunization Status Postponed - COVID-19 VACCINE (1) Postponed until 08/18/2023 08/17/2022 Postponed until 08/18/2023 by Tereza Stone APRN.CNP (Declined at this time) 2020 Postponed until 2021 by Kristen Serna MA (Declined at this time) CHIEF COMPLAINT: Pre-op exam HPI: Kush Samayoa is a 52 year old seen for PAC due to scheduled above surgery because of an umbilical hernia. 12/03/2022, Dr. Samayoa HPI: Kush Samayoa is a 52 year old male with a history of obesity, DM2 who presents for evaluation of an umbilical hernia and bilateral groin pain. He was evaluated by Dr. Read on 11/10 with complaints of abdominal pain at his umbilicus and groin, L>R, and was noted to have an umbilical hernia. Examination of the groin was limited by his habitus. Given his BMI 48, he was referred to me. Has noticed abulge at his umbilicus for a few years. Started to develop pain ~1 month ago. 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 Most pain at umbo, sharp, radiates down. Has pain above bilateral groins as well, only occasional radiates down to testicle. No groin bulge on either side. No change in bowel movements or obstructive symptoms. He has a 3.6 cm umbilical defect containing omentum. Relevant previous operations include: None No history of Psychiatric Disorders or Opioid Use Independent Heavy or very physical labor Unknown Diabetes Mellitus N/A REVIEW OF SYSTEMS: General: No weight loss, malaise or fevers. Neurological: No history of TIA's, stroke, ONCOLOGY PHARMACIST tumor, impaired sensorium, hemiplegia, paraplegia or quadraplegia. No neurological symptoms or problems. Respiratory: No history of current cough or dyspnea, or pneumonia in the past 6 weeks. No history of respiratory/pulmonary symptoms or problems. Cardiovascular: No history of HTN requiring medication, no history of angina, CHF, AR, cardiac surgery or stents. Denies rest pain, gangrene or revascularization/amputation for PVD. No history of cardiovascular symptoms or problems. GI: See HPI. Positive for: GERD and ETOH >2 drinks/day (beer) Negative for: abdominal pain, dysphagia, hepatitis, irritable bowel syndrome, inflammatory bowel disease, liver disease, nausea, pancreatitis and vomiting. : Positive for: renal failure. Patient's renal failure is chronic. Negative for: urinary incontinence, nephrolithiasis and urinary tract infection. Endocrine: Positive for: diabetes mellitus. Patient's diabetes mellitus is controlled by oral agents and weekly injectable. Negative for: hypothyroidism. Hematology: No history of bleeding or clotting disorder. Patient is not taking anti-coagulation or platelet medications. No history of hematological symptoms or problems. Oncology: No history of CA metastasis, chemo within 30 days, or radiotherapy within 90 days. No history of oncological symptoms or problems. Psych: No history of psychiatric symptoms or problems. Musculoskeletal: Negative for joint pain or swelling, back pain or muscle pain. Skin: Negative for lesions, rash and itching. PAST MEDICAL HISTORY Diagnosis Date Obesity Pleural effusion Type 2 diabetes mellitus (HCC) PAST SURGICAL HISTORY Procedure Laterality Date PAST SURGICAL HISTORY OF 2012 10 lbs tumor removed from back of neck-Dr. Carson FAMILY HISTORY Problem Relation Age of Onset No Known Problems Mother Diabetes Father Hypertension Father other (dystonia) Sister Social History Tobacco Use Smoking status: Never Smokeless tobacco: Former Types: Snuff Tobacco comments: Pt states he stopped two weeks ago Vaping Use Vaping Use: Never used Substance Use Topics Alcohol use: Yes Comment: 12 pack every couple days Drug use: No Prior to Admission medications as of 12/23/22 0935 Medication Sig Last Dose Taking ibuprofen (MOTRIN) 200 mg tablet Take 400 mg by mouth every 6 hours as needed for pain or fever (specify). Taking Yes cyclobenzaprine (FLEXERIL) 10 mg tablet Take 1 tablet by mouth three times daily. Taking Yes dulaglutide (TRULICITY) 3 mg/0.5 mL pen injector Inject 3 mg subcutaneously one time a week. Yes testosterone cypionate (DEPO-TESTOSTERONE) 200 mg/mL injection Inject 1 mL intramuscularly two times a week for 180 days. Taking Yes metFORMIN (GLUCOPHAGE) 500 mg tablet Take 1 tablet by mouth twice daily. . Taking Yes anastrozole (ARIMIDEX) 1 mg tablet Take 1 tablet by mouth two times a week. Taking Yes iv contrast (will be provided with radiology test) CT Urogram WO/W Inject, intravenously, once for 1 dose.No IV access, insert saline lock prior to the beginning of sedation, infusion, injection of imaging exam. Discontinue saline lock post exam. If Pt. has a central line or IVAD, may access for administration according to line specific nursing protocol. Once exam is complete flush line and de-access according to line specific nursing protocol in the CT contrast administration guidelines link. syringe with needle, safety 3 mL 23 gauge x 1 1/2 syrg 1 Each every 2 weeks. No medication comments found. ALLERGIES Allergen Reactions Penicillin Anaphylaxis Vicodin [Hydrocodon* Mental Status Change Aggressiveness Objective PHYSICAL EXAM: (if completed, exam performed via video enabled technology) General: alert and oriented (x3), healthy appearance and morbidly obese. Skin: normal color, no rash or lesions. HEENT: EOM intact and pupils equal round. Cardiovascular: Self palpated radial pulse regular. Respiratory: Non-labored breathing. Abdomen: soft. Pertinent negatives noted - not tender. Extremities: no deformity, no edema or tenderness, no joint swelling or clubbing. Neurological: normal cognition and motor skills. Gait normal. No weakness or sensory deficit. PAIN ASSESSMENT: Pain Pain Level: 9 Pain Location: Abdomen Description: Sore Duration Amount of Time: 2 Duration Units: Months Frequency: Continuous Intervention/Comfort measure: Medication VITALS: BP 144/76 Pulse 75 Temp (Src) 98.2 (Temporal) Resp 18 Ht 5' 9 (1.75m) Wt 332 lb (150.6kg) SpO2 97% BMI 49.01 kg/(m^2). Diagnostic tests reviewed for today's visit: Lab Value Units Date High Low HB 13.7 g/dL 12/23/2022 17.0 13.0 HCT 39.7 % 12/23/2022 51.0 39.0 WBC 7.32 k/uL 12/23/2022 11.00 3.70 PLT 226 k/uL 12/23/2022 400 150 NA 136 mmol/L 12/23/2022 144 136 K 3.9 mmol/L 12/23/2022 5.1 3.7 GLUC 177 mg/dL 12/23/2022 99 74 BUN 14 mg/dL 12/23/2022 24 9 CREAT 1.24 mg/dL 12/23/2022 1.22 0.73 PTSEC No results within date range. INR No results within date range. APTT No results within date range. ALT 28 U/L 12/23/2022 54 10 AST 17 U/L 12/23/2022 40 14 TBILI 1.1 mg/dL 12/23/2022 1.3 0.2 TSH No results within date range. Lab Value Units Date High Low HCGQT No results within date range. UHCG No results within date range. HCG, BODY* No results within date range. Lab Value Units Date High Low ABORHD No results within date range. ABSCREEN No results within date range. Hemoglobin A1C (%) Date Value 12/23/2022 6.5 08/08/2022 6.2 02/09/2022 6.1 07/19/2021 6.0 01/23/2021 6.0 10/21/2020 6.2 07/20/2020 6.5 06/22/2020 7.1 03/30/2020 6.7 Recent Results (from the past 8760 hour(s)) ECG COMPLETE Collection Time: 12/23/22 10:02 AM Result Value Ventricular Rate 74 Atrial Rate 74 P-R Interval 148 QRS Duration 80 QT Interval 402 QTC Calculation (Bazett) 446 Calculated P Hedrick 15 Calculated R Hedrick 39 Calculated T Hedrick 36 Impression NORMAL SINUS RHYTHM NORMAL ECG No results found for this or any previous visit (from the past 64697 hour(s)). Assessment Patient has the following medical conditions which may affect edvin-operative course: CUCO (obstructive sleep apnea) Assessment: non-compliant with CPAP Type 2 diabetes mellitus without complication, without long-term current use of insulin (HCC) Assessment: controlled on oral agent and weekly injectable Hemoglobin A1C (%) Date Value 12/23/2022 6.5 01/23/2021 6.0 CKD (chronic kidney disease) Assessment: Creatinine Date Value Ref Range Status 12/23/2022 1.24 (H) 0.73 - 1.22 mg/dL Final 10/13/2022 1.27 (H) 0.73 - 1.22 mg/dL Final 08/08/2022 1.38 (H) 0.73 - 1.22 mg/dL Final 02/09/2022 1.22 0.73 - 1.22 mg/dL Final GERD (gastroesophageal reflux disease) Assessment: controlled on rx Jhaveri Activity Status Index: METS: Climb a flight of stairs or walk up a hill (5.50 METs) DASI Score: 5.5 Patient denies any chest pain or undue shortness of breath with the above physical activity. Clinical Frailty Scale: 3. Well, with treated comorbid disease STOP-Bang Score: Snores loudly Often feels tired, fatigued, or sleepy during the daytime Has been observed to stop breathing or choking/gasping during sleep Has or is being treated for high blood pressure BMI greater than 35 kg/m^2 Patient over 50 years old Has a large neck Male patient STOP-Bang Score: 8 [id number] Score: Age: <65 Sex: male CHF history: No Hypertension history: No Stroke/TIA/thromboembolism history: No Vascular disease history: No Diabetes history: Yes [id number] Score: 1 ARISCAT Score: Age: 51-80 Preoperative SpO2: >=96% Respiratory infection in the last month: No Preoperative anemia: No Surgical incision: peripheral Duration of surgery: 2-3 hrs Emergency procedure: No ARISCAT Score: 19 ANESTHESIA FINDINGS: Intubation History: No history of difficult intubation Significant Anesthesia Considerations: none Airway History: No history of difficult airway I - PHYSICAL EVALUATION AIRWAY Patient intubated: No. Tracheostomy tube not present Mallampati: IV. TM distance: >3 FB. Neck ROM: full ROM without neurological symptoms. Mouth opening: adequate. Short neck: no. Thick neck: yes Herron present: yes Lip Bite Test: II Microretrognathia/Micronagthia/R ecessed Chin: No DENTAL Dental findings: teeth intact. II - ANESTHESIA PLAN Anesthetic Plan: other Anesthetic plan additional comments: *PACC/TCI - anesthesia choice. Beta Saturnino Monitoring Plan Post Procedure Analgesic Plan Informed Consent Anesthetic risks, benefits, alternatives, personnel and consent discussed: yes. Patient / Responsible Green Party agrees to proceed: yes Patient / Surrogate agrees to blood products: blood products not planned Discussed the possibility of lip / dental damage: yes Prepared for Surgery: optimally prepared for surgery, pending [see comment]. Labs, EKG CONSULTS: Patient does not require consults for optimization at this time Planned Anesthetic: other anesthesia choice The Following Tests/Procedures Have Been Initiated: Orders Placed This Encounter >CBC + AUTO DIFF Standing Status: Future Number of Occurrences: 1 Standing Expiration Date: 02/22/2023 >CMP Standing Status: Future Number of Occurrences: 1 Standing Expiration Date: 02/22/2023 >HGB A1c Standing Status: Future Number of Occurrences: 1 Standing Expiration Date: 02/22/2023 ECG COMPLETE Standing Status: Future Number of Occurrences: 1 Standing Expiration Date: 12/24/2023 ECG COMPLETE Order Comments: Ordered by an unspecified provider Instructions Given to Patient: Instructions located in the after visit summary. Patient given verbal and written preop instructions and voices comprehension and compliance. SIGNATURE: Jessica Vidal APRN.CNP PATIENT NAME: Kush Samayoa DATE: December 23, 2022 TIME: 9:31 AM PAGER/CONTACT #: documented in this encounter [facility] 12-07-2022 Miscellaneous Notes Employer Forms for Patient/Caregiver Time Off of Work FMLA/STD completed, signed by provider, and returned to below contact. Completed copy scanned in [employer] Date of Surgery: 01/06/23 Estimated RTW date: 02/17/23 Employer: [employer] Date sent to employer: 12/07/22 Received fax confirmation: YES Liliana Yu MA documented in this encounter [facility] 12-07-2022 Miscellaneous Notes Pt states his surgery got documented in this encounter [facility] 12-04-2022 Miscellaneous Notes Called patient 12/03, 12/04 to schedule Umbilical hernia repair with Dr. Mayberry. No answer and mailbox is full. Could not leave a message. documented in this encounter [facility] 11-11-2022 Miscellaneous Notes Left message on personal VM with results. Advised that he call the office with any further questions or concerns. ----- Message from Henrry Romo PA-C sent at 11/11/2022 1:04 PM EDT ----- CT Urogram - Normal , MILADY Garcia, MT, PA-C documented in this encounter [facility] 11-05-2022 Miscellaneous Notes Patient active MyChart. Patient notified via [employer] message. Taina Lovett MA OK to refer to Surg as requested Dale Ramos MD documented in this encounter [facility] 11-04-2022 Note HNO ID: [id number] Author: Pamela Bloom MD Service: ? Author Type: Physician Type: Procedures Filed: 11/04/2022 10:54 AM Note Text: CYSTOSCOPY PROCEDURE NOTE : Kush Samayoa is a 52 year old male who presents with Hematuria gross for cystoscopy. PRE-OP/PRE-PROCEDURE DIAGNOSIS: Gross hematuria POST-OP/POST-PROCEDURE DIAGNOSIS: Gross hematuria SURGERY/PROCEDURE(S): Cystoscopy Pt ID verified with patient: Yes Procedure verified with patient: Yes Procedure confirmed with physician and geophysical support specialist: Yes UNIVERSAL PROTOCOL / SAFETY CHECKLIST Procedure to be Performed: Cystoscopy Sign In: A Moment of CARE was completed. Personnel directly involved with the procedure wore the appropriate PPE (Personal Protective Equipment). Patient/Surrogate Stated/Verified: PATIENT VERIFIED(optional for EMERGENT procedures): Patient name, Date of , Relevant allergies, and The intended procedure Time Out Communication: Intended patient and procedure match the source documents. Consent documented and matches the intended procedure. Sign Out: SIGN OUT (optional for EMERGENT procedures): No specimen collected. Pamela Bloom MD A urinalysis was performed revealing no evidence of infection. The benefits, risks, alternatives of the cystoscopy procedure and personnel were discussed with the patient. The verbal consent was obtained and the patient agrees to proceed. Procedure: The patient was placed on the procedure table in the supine position and prepped and draped in the usual sterile fashion. 2% Lidocaine Jelly was placed per urethra as an anesthetic in the standard fashion. Once adequate local anesthesia was achieved, the tip of the flexible cystoscope was carefully placed into the urethra under direct visual guidance. The scope was negotiated through the pendulous urethra to the level of the bulbar urethra with no evidence of stricture. 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 The bladder was entered and careful moreland endoscopy was carried out. The posterior, superior and lateral doyle and dome of the bladder were all well visualized and the scope was retroflexed upon itself. The findings were consistent with no evidence of bladder mucosal pathology. The findings were consistent with smooth, not trabeculated bladder. At the conclusion of the procedure, the flexible cystoscope was removed atraumatically. The patient tolerated the procedure without complications. Patient was given standard post-procedure instructions, and was directed to complete the course of oral antibiotics and increase oral fluid intake as directed. IMPRESSION: PLAN: Gross hematuria Complete work-up is negative Follow-up with me as needed Pamela Bloom MD Electronically Signed: Pamela Bloom MD November 04, 2022 10:51 AM This note was partially created using voice recognition software and is inherently subject to errors including those of syntax and sound-alike substitutions which may escape proofreading. In such instances, original meaning may be extrapolated by contextual derivation. [facility] 11-04-2022 Procedure note CYSTOSCOPY PROCEDURE NOTE : Kush Samayoa is a 52 year old male who presents with Hematuria gross for cystoscopy. PRE-OP/PRE-PROCEDURE DIAGNOSIS: Gross hematuria POST-OP/POST-PROCEDURE DIAGNOSIS: Gross hematuria SURGERY/PROCEDURE(S): Cystoscopy Pt ID verified with patient: Yes Procedure verified with patient: Yes Procedure confirmed with physician and geophysical support specialist: Yes UNIVERSAL PROTOCOL / SAFETY CHECKLIST Procedure to be Performed: Cystoscopy Sign In: A Moment of CARE was completed. Personnel directly involved with the procedure wore the appropriate PPE (Personal Protective Equipment). Patient/Surrogate Stated/Verified: PATIENT VERIFIED(optional for EMERGENT procedures): Patient name, Date of , Relevant allergies, and The intended procedure Time Out Communication: Intended patient and procedure match the source documents. Consent documented and matches the intended procedure. Sign Out: SIGN OUT (optional for EMERGENT procedures): No specimen collected. Pamela Bloom MD A urinalysis was performed revealing no evidence of infection. The benefits, risks, alternatives of the cystoscopy procedure and personnel were discussed with the patient. The verbal consent was obtained and the patient agrees to proceed. Procedure: The patient was placed on the procedure table in the supine position and prepped and draped in the usual sterile fashion. 2% Lidocaine Jelly was placed per urethra as an anesthetic in the standard fashion. Once adequate local anesthesia was achieved, the tip of the flexible cystoscope was carefully placed into the urethra under direct visual guidance. The scope was negotiated through the pendulous urethra to the level of the bulbar urethra with no evidence of stricture. 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 The bladder was entered and careful moreland endoscopy was carried out. The posterior, superior and lateral doyle and dome of the bladder were all well visualized and the scope was retroflexed upon itself. The findings were consistent with no evidence of bladder mucosal pathology. The findings were consistent with smooth, not trabeculated bladder. At the conclusion of the procedure, the flexible cystoscope was removed atraumatically. The patient tolerated the procedure without complications. Patient was given standard post-procedure instructions, and was directed to complete the course of oral antibiotics and increase oral fluid intake as directed. IMPRESSION: PLAN: Gross hematuria Complete work-up is negative Follow-up with me as needed Pamela Bloom MD Electronically Signed: Pamela Bloom MD November 04, 2022 10:51 AM This note was partially created using voice recognition software and is inherently subject to errors including those of syntax and sound-alike substitutions which may escape proofreading. In such instances, original meaning may be extrapolated by contextual derivation. documented in this encounter [facility] 10-15-2022 Miscellaneous Notes Left detailed message to inform of normal results. Pt to keep future appts as scheduled. Melania Prince ----- Message from Henrry Romo PA-C sent at 10/14/2022 5:47 PM EDT ----- No infection in the urine No cancer cells in urine, please continue the rest of the testing MILADY Garcia, [place], JOEL documented in this encounter [facility] 10-13-2022 Miscellaneous Notes Pt confirmed cysto with Dr. Bloom @ [facility] 11/04/22 @ 10:15am. Aubree Left vm pt needs scheduled for cysto with any provider. He has gross hematuria and being ref by Fiordaliza Romo. His CT scheduled for 10/26/22. Aubree documented in this encounter [facility] 10-02-2022 History of Presen t illness Narrative Chief Complaint Patient presents with: Hospital Follow Up HPI Kush Samayoa is a 51 year old male who presents here today for ER Follow Up. Pt was in [facility] ER on 09/23/22 for lower abdominal pain and flank pain, felt he pulled something as pain started after he was pulling on a cheung forcefully. A few hours later, he went to the bathroom and had pure blood in his urine. ER evaluation included CT that was unremarkable. He was felt to have possible UTI. He was discharged home with Sulfa 800-160 mg BID for ED hematuria. Went to [facility] for his WC through [facility]; they felt his symptoms were not related to his work injury. Pt at this time has completed the abx, he is no longer peeing blood. He continues to have pain in his b/l sides and mid lower abdomen. Pain in his side is described as a stabbing, jabbing type pain that makes him feel sob. Feels like he's getting punched in the kidneys. Having a really hard time sleeping and doesn't understand what's causing this. Admits to drinking Pepsi/Coke zero, unsure if this could cause this. The ED felt like he needed to get this worked up. Doesn't feel like he's gotten any better pain rodríguez. Pain in his lower abdomen really flared up this morning, wasn't having any issues. Pain rated a 9.5/10. Currently taking 1,000 mg of Ibuprofen but it's hurting his stomach. DM - With the increase of Trulicity to 3 mg weekly he can only take the Metformin 500 mg once daily, generally in the evening. If he takes it twice daily his sugar gets too low. Pt injured himself at work, but has since been cleared of this through [employer]. 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 He's currently off work at present time. Doesn't really feel with the pain he's having he could tolerating bouncing around in a truck. Below copied from Care Everywhere: HPI History of Present Illness Chief Complaint: Male Pain/Injury Informant: patient Narrative Narrative: Patient states 2 days ago he was at work, he was trying to open the cheung on a his truck trailer, but cement had dried on the cheung and rinsing it off with a hose did not remove it so he physically bent over to pull the cheung open with force, and ended up doing this on multiple other latches, he states fairly suddenly after the initial 1 he had pain across his lower abdomen and flanks bilaterally that felt like he pulled something. No pain in his low back, but his testicles both do feel sore. No neurologic symptoms in his legs. No bowel or bladder dysfunction. 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 He states since then, he has been urinating mild amount of blood but not as much as that initialtime. He still has the pain. No nausea, vomiting, but last night he felt like he subjectively had a fever and felt sweaty, he did not check his temperature, that has not occurred again today. He does still have the pain. Medical decision making narrative: Patient with what sounds like a muscle strain followed by hematuria. No obviouslink to this, so I obtained a CT of his abdomen/pelvis as well as of blood work,his renal function is down a little but not enough to require admission, his urinalysis does not show significant signs of infection, he does have glucose, his serum glucose was 195, and he has protein and blood, however there are no white or red blood cells. His CT is basically unremarkable, I reviewed the imaging and the report which I agree with. Given that, I considered rhabdomyolysis or major muscle injury in the differential and sent a CPK. It returned normal. Given this, and the fact that he had sweats and fevers subjectively last night, I am going to treat him with 3 days of Bactrim, send a urine culture, and have him follow-up. Unknown if this could have been some type of minor muscle injury, he definitely does not have a rectus sheath hematoma or other muscle finding on CT imaging in the area where he is having pain. We will have the patient follow-up as an outpatient. If the hematuria persists he should see urology. Our lab does offer a urine myoglobin test, but it is a send out and will not be performed today. I am adding that on, and he should follow-up for the results. CT Abd/pelvis: FINDINGS: LOWER CHEST: Mild scarring in the right lung base. BOWEL: Bowel including appendix nondilated. Moderate stool in the colon. PERITONEUM: No significant free fluid. LIVER: Fatty infiltration. 22 cm in length. GALLBLADDER/BILIARY TREE: Gallbladder contracted. SPLEEN: 17 cm in length. KIDNEYS AND URETERS: No nephrolithiasis or hydronephrosis. PANCREAS/ADRENAL GLANDS: Nonenlarged. VESSELS: No abdominal aortic aneurysm. PELVIC ORGANS: Unremarkable. 1.5 x 2.4 cm right external iliac lymph node. ABDOMINAL WALL: Fat-containing umbilical and inguinal hernias. BONES: Mild degenerative change. CT/Abdomen/Pelvis without Cont IMPRESSION: Negative examination for renal stone. Hepatosplenomegaly. Hepatic steatosis. Mildly enlarged right external iliac lymph node, nonspecific. Consider follow-up. Past medical history, appointments, medications, allergies reviewed. Previous Medical History No past medical history on file. Previous Surgical History PAST SURGICAL HISTORY Procedure Laterality Date PAST SURGICAL HISTORY OF 2012 10 lbs tumor removed from back of neck-Dr. Carson Family History FAMILY HISTORY Problem Relation Age of Onset No Known Problems Mother Diabetes Father Hypertension Father other (dystonia) Sister Patient Allergies ALLERGIES Allergen Reactions Penicillin Anaphylaxis Vicodin [Hydrocodon* Mental Status Change Aggressiveness Current Medications Current Outpatient Medications on File Prior to Visit Medication Sig dulaglutide (TRULICITY) 3 mg/0.5 mL pen injector Inject 3 mg subcutaneously one time a week. testosterone cypionate (DEPO-TESTOSTERONE) 200 mg/mL injection Inject 1 mL intramuscularly two times a week for 180 days. metFORMIN (GLUCOPHAGE) 500 mg tablet Take 1 tablet by mouth twice daily. . anastrozole (ARIMIDEX) 1 mg tablet Take 1 tablet by mouth two times a week. syringe with needle, safety 3 mL 23 gauge x 1 1/2 syrg 1 Each every 2 weeks. No current facility-administered medications on file prior to visit. Social History Social History Tobacco Use Smoking status: Never Smokeless tobacco: Current Types: Snuff Vaping Use Vaping Use: Never used Substance Use Topics Alcohol use: No Drug use: No EXAM: BP 134/70 (BP Site: Left Arm, BP Position: Sitting, BP Cuff Size: Large Adult) Pulse 80 Resp 16 Wt (!) 146 kg (321 lb 12.8 oz) BMI 47.52 kg/m General Appearance: Well appearing, alert, in no acute distress, well-hydrated, well nourished. and Morbidly obese. Back: Tender to palpate sides to back area Lungs: Lungs clear to auscultation. No wheezing, rhonchi, rales.. Heart: RRR without murmur, gallop, or rubs. No ectopy. Abdomen: soft,mild lower tenderness, no masses. Health Maintenance List DIABETIC FOOT EXAM due on 09/06/2019 DEPRESSION ASSESSMENT due on 05/03/2022 HEPATITIS B(1 of 3 - 3-dose series) due on 08/18/2023 COLORECTAL CANCER SCREENING due on 08/18/2023 HEPATITIS C SCREENING due on 08/18/2023 HIV SCREENING due on 08/18/2023 SHINGRIX VACCINE(1 of 2) due on 08/18/2023 COVID-19 VACCINE(1) due on 08/18/2023 PNEUMOCOCCAL(1 - PCV) due on 08/18/2023 DILATED RETINAL EXAM due on 12/09/2022 INFLUENZA(Season Ended) due on 01/01/2023 HBA1C due on 02/07/2023 URINE ALBUMIN:CREATININE RATIO due on 02/09/2023 LDL CHOLESTEROL due on 08/09/2023 ANNUAL PCP TEAM CHRONIC DISEASE VISIT due on 08/18/2023 DTAP,TDAP,TD(2 - Td or Tdap) due on 06/20/2025 Data reviewed [facility] ER report ASSESSMENT/PLAN: 1. Hospital discharge follow-up - ICD9: V67.59, ICD10: Z09 (primary diagnosis) 2. Bilateral flank pain - ICD9: 789.09, ICD10: R10.9 - Use Flexeril and Tylenol 3. Musculoskeletal pain - ICD9: 729.1, ICD10: M79.18 - Start Flexeril - Use Tylenol 4. Lower abdominal pain - ICD9: 789.09, ICD10: R10.30 - Stop Ibuprofen, use Tylenol - Start Flexeril. 5. Hematuria, unspecified type - ICD9: 599.70, ICD10: R31.9 - Consult Urology 6. Elevated serum creatinine - ICD9: 790.99, ICD10: R79.89 - Will follow with routine labs Follow up with Urology I agree with the Chief Complaint, ROS, and Past Histories independently gathered by the clinical geophysical support specialist and the remaining scribed note accurately describes my personal service to the patient. Medical Decision Making: Problems: Moderate: New problem with uncertain prognosis Risk: Moderate: Drug management Medical Decision Making Level: 4 - Moderate Dale Ramos MD The documentation for this note was completed by Kristen Serna Ma acting as scribe for Dale Ramos MD. October 02, 2022 2:54 PM. Kristen Serna Ma documented in this encounter [facility] 08-17-2022 Instructions Tereza Stone APRN.MJ - 08/17/2022 10:21 AM EDT Get Testosterone level checked today Increase Trulicity 3 mg weekly, monitor sugars at home. Recommend tracking food, myfitnesspal phone estevan. Try to inncrease protein, veggie, and get exercise. Watch carbs in the diet. Continue to take medication as prescribed. Follow up in 3 months or sooner as needed. documented in this encounter [facility] 08-17-2022 History of Presen t illness Narrative This is a 51 year old male who presents today with: Patient presents with: Follow Up: follow up on DM, testosterone HISTORY OF PRESENT ILLNESS: Ksuh Samayoa is a 51 year old male. Patient presents with: Follow Up: follow up on DM, testosterone Here in the office for diabetes and testosterone 6 month follow-up DM: Reports overall feeling well. Medication side effects: No. Home sugar checks: Not checking currently Hypoglycemic spells: No. Watching diet: Yes. Unexpected weight loss: No. Polyuria, polydipsia: No. Vision Changes: No. Foot lesions or numbness or pain: No. Taking metformin 500 mg twice daily and Trulicity 1.5 mg weekly. A1c 6.2. Has been working on diet and exercise. Lifting weights 3 times per week. Trying work on diet, tracking macros. Would like to try an increased dose of Trulicity to help with weight loss. Hypergonadism: Taking testosterone 200 mg per mill, injecting 1 mL 2 times weekly as well as taking Arimidex. Due for testosterone labs at this time PAST MEDICAL HISTORY: No past medical history on file. PAST SURGICAL HISTORY Procedure Laterality Date PAST SURGICAL HISTORY OF 2012 10 lbs tumor removed from back of neck-Dr. Carson ALLERGIES Penicillin and Vicodin [Hydrocodone-Acetaminophen] MEDICATIONS Current Outpatient Medications Medication Sig testosterone cypionate (DEPO-TESTOSTERONE) 200 mg/mL injection Inject 1 mL intramuscularly two times a week for 180 days. metFORMIN (GLUCOPHAGE) 500 mg tablet Take 1 tablet by mouth twice daily. . anastrozole (ARIMIDEX) 1 mg tablet Take 1 tablet by mouth two times a week. dulaglutide (TRULICITY) 1.5 mg/0.5 mL pen injector Inject 1.5 mg subcutaneously one time a week. Inject once per week. Discard Pen After syringe with needle, safety 3 mL 23 gauge x 1 1/2 syrg 1 Each every 2 weeks. No current facility-administered medications for this visit. FAMILY HISTORY Problem Relation Age of Onset No Known Problems Mother Diabetes Father Hypertension Father other (dystonia) Sister Social History Tobacco Use Smoking status: Never Smokeless tobacco: Current Types: Snuff Vaping Use Vaping Use: Never used Substance Use Topics Alcohol use: No Drug use: No REVIEW OF SYSTEMS GENERAL: No weight loss, malaise or fevers/chills HEENT: Negative for frequent or significant headaches, No changes in hearing or vision. NECK: Negative for lumps, goiter, pain and significant neck swelling RESPIRATORY: Negative for cough, hemoptysis, wheezing, dyspnea or shortness of breath CARDIOVASCULAR: Negative for chest pain, leg swelling, orthopnea, or palpitations GI: No nausea, vomiting, or diarrhea/constipation. No hematochezia/melena. No heartburn or reflux symptoms. : No history of dysuria, frequency or incontinence MUSCULOSKELETAL: Negative for joint pain or swelling. SKIN: Negative for lesions, rash, and itching ENDOCRINE: Negative for cold or heat intolerance, polyuria, polydipsia and goiter NEURO: No history of headaches, syncope, paralysis, seizures or tremors MOOD: Negative for depression, anxiety, or suicidal ideation. Component Latest Ref Rng & Units 08/08/2022 Protein, Total 6.3 - 8.0 g/dL 7.8 Albumin 3.9 - 4.9 g/dL 4.4 Calcium 8.5 - 10.2 mg/dL 9.4 Bilirubin, Total 0.2 - 1.3 mg/dL 0.8 Alkaline Phosphatase 38 - 113 U/L 68 AST 14 - 40 U/L 21 ALT 10 - 54 U/L 17 Glucose 74 - 99 mg/dL 108 (H) BUN 9 - 24 mg/dL 11 Creatinine 0.73 - 1.22 mg/dL 1.38 (H) Sodium 136 - 144 mmol/L 139 Potassium 3.7 - 5.1 mmol/L 4.5 Chloride 97 - 105 mmol/L 104 CO2 22 - 30 mmol/L 26 Anion Gap 9 - 18 mmol/L 9 eGFR >=60 mL/min/1.73m 62 Cholesterol, Total <200 mg/dL 124 Triglyceride <150 mg/dL 95 HDL Cholesterol >39 mg/dL 33 (L) Non HDL Cholesterol <130 mg/dL 91 Fasting Time hrs 12 VLDL Cholesterol <30 mg/dL 19 TC:HDL Ratio <5.10 3.76 LDL Cholesterol <100 mg/dL 72 LDL:HDL Ratio <2.54 2.18 Estradiol 10.0 - 42.0 pg/mL 26.5 Estrone 9.0 - 36.0 pg/mL 39.1 (H) Estrogens Total 19.0 - 69.0 pg/mL 65.6 Hemoglobin A1C 4.3 - 5.6 % 6.2 (H) Estimated Average Glucose mg/dL 131 EXAM: BP 126/78 Pulse 73 Resp 16 Wt (!) 148.3 kg (327 lb) SpO2 95% BMI 48.29 kg/m PHYSICAL EXAM: General Appearance: Well appearing, alert, in no acute distress, well-hydrated, well nourished. Skin: Skin color, texture, turgor normal, no suspicious rashes or lesions. Head: Normocephalic, no masses, lesions, tenderness or abnormalities. Eyes: Anicteric sclera. Extraocular movements are intact. Lungs: Lungs clear to auscultation. No wheezing, rhonchi, rales. Heart: RRR without murmur, gallop, or rubs. No ectopy. Extremities: No deformities, edema, skin discoloration, clubbing or cyanosis. Good capillary refill. Musculoskeletal: No joint swelling, deformity, or tenderness. Peripheral Pulses: Normal, Capillary refill <2secs, strong peripheral pulses, Pulses palpable. Neurologic: Gait normal. Sensation grossly intact. ASSESSMENT/PLAN: 1. Type 2 diabetes mellitus without complication, without long-term current use of insulin ([facility]) - ICD9: 250.00, ICD10: E11.9 (primary diagnosis) - Controlled - Continue current medications - Increase dulaglutide (Trulicity) 3 mg weekly - Counseled on healthy diet and regular exercise - Recommend tracking food - Discussed need for and benefit of weight loss. BMI 48.29 kg/(m^2) - DULAGLUTIDE 3 MG/0.5 ML SUBCUTANEOUS PEN INJECTOR 2. Hypogonadism in male - ICD9: 257.2, ICD10: E29.1 - Get labs completed, refill provided. - TESTOSTERONE CYPIONATE 200 MG/ML INTRAMUSCULAR OIL - TESTOSTERONE, FREE AND TOTAL 3. Obesity, Class III, BMI 40-49.9 (morbid obesity) ([facility]) - ICD9: 278.01, ICD10: E66.01 Weight increasing - Behavioral intervention - Recommend working on lifestyle changes at home. - DULAGLUTIDE 3 MG/0.5 ML SUBCUTANEOUS PEN INJECTOR Follow-up in 3 months or sooner pending test results. Discussed treatment plan and patient voices understanding. Patient's questions answered appropriately. Medications and potential side effects were discussed and patient voices understanding. Tereza Stone APRN.CNP This note was partially generated using [employer] voice recognition system. Note was reviewed for accuracy. There may be minor misspellings or grammar miscues with Dragon voice recognition. documented in this encounter [facility] 02-16-2022 History of Presen t illness Narrative Chief Complaint Patient presents with: 6 Month Exam HPI:This Team Access Model visit is a phone encounter. It required patient-provider interaction for the medical decision making as documented below. Patient was offered a virtual/telemedicine appointment in lieu of an office visit due to recommendations to reduce patient exposure to COVID-19. Patient is aware of limitations of performing the visit without a face to face visit in the office setting and agrees. Pt completing a tele-health visit today for a 6 month follow up. Pt was unable to make his visit into the office today due to work. Still chewing tobacco. No chest pains, dizziness, or SOB. No bowel, Gi, or urinary issues. DM: Denies checking sugars often, only when he feels they are high. Denies any low blood sugars or neuropathy symptoms. On current regimen of Trulicity 1.5 mg weekly and Metformin 500 mg bid. Tries to watch sugar intake. Eye exams done at [facility]. He states he can tell when the BS is high, he gets headache or vision blurry, dry mouth. Hypogonadism: Receives Testosterone injection 1 mL two times per week in addition to taking Arimidex 1 mg weekly. Feels he's doing well on this dosage. Past medical history, appointments, medications, allergies reviewed. Previous Medical History No past medical history on file. Previous Surgical History PAST SURGICAL HISTORY Procedure Laterality Date PAST SURGICAL HISTORY OF 2012 10 lbs tumor removed from back of neck-Dr. Carson Family History FAMILY HISTORY Problem Relation Age of Onset No Known Problems Mother Diabetes Father Hypertension Father other (dystonia) Sister Patient Allergies ALLERGIES Allergen Reactions Penicillin Anaphylaxis Vicodin [Hydrocodon* Mental Status Change Aggressiveness Current Medications Current Outpatient Medications on File Prior to Visit Medication Sig dulaglutide (TRULICITY) 1.5 mg/0.5 mL pen injector Inject 1.5 mg subcutaneously one time a week. Inject once per week. Discard Pen After metFORMIN (GLUCOPHAGE) 500 mg tablet Take 1 tablet by mouth twice daily. . testosterone cypionate (DEPO-TESTOSTERONE) 200 mg/mL injection Inject 1 mL intramuscularly two times a week for 180 days. anastrozole (ARIMIDEX) 1 mg tablet Take 1 tablet by mouth one time a week. syringe with needle, safety 3 mL 23 gauge x 1 1/2 syrg 1 Each every 2 weeks. No current facility-administered medications on file prior to visit. Social History Social History Tobacco Use Smoking status: Never Smokeless tobacco: Current Types: Snuff Vaping Use Vaping Use: Never used Substance Use Topics Alcohol use: No Drug use: No EXAM: There were no vitals taken for this visit. Phone visit Health Maintenance List HEPATITIS B(1 of 3 - 3-dose series) Never done COVID-19 VACCINE(1) Never done PNEUMOCOCCAL(1 - PCV) Never done HIV SCREENING Never done DILATED RETINAL EXAM due on 07/24/2019 DIABETIC FOOT EXAM due on 09/06/2019 DEPRESSION ASSESSMENT Never done SHINGRIX VACCINE(1 of 2) Never done INFLUENZA(1) due on 01/01/2022 COLORECTAL CANCER SCREENING due on 01/27/2022 HEPATITIS C SCREENING due on 07/28/2022 LDL CHOLESTEROL due on 07/19/2022 ANNUAL PCP TEAM CHRONIC DISEASE VISIT due on 07/28/2022 HBA1C due on 08/10/2022 URINE ALBUMIN:CREATININE RATIO due on 02/09/2023 DTAP,TDAP,TD(2 - Td or Tdap) due on 06/20/2025 Data reviewed Appointment on 02/09/2022 Component Date Value Estradiol 02/09/2022 36.0 Estrone 02/09/2022 44.8 (A) Estrogens Total 02/09/2022 80.8 (A) Hemoglobin A1C 02/09/2022 6.1 (A) Estimated Average Glucose 02/09/2022 128 Protein, Total 02/09/2022 7.4 Albumin 02/09/2022 4.3 Calcium, Total 02/09/2022 9.7 Bilirubin, Total 02/09/2022 0.8 Alkaline Phosphatase 02/09/2022 74 AST 02/09/2022 29 ALT 02/09/2022 35 Glucose 02/09/2022 116 (A) BUN 02/09/2022 15 Creatinine 02/09/2022 1.22 Sodium 02/09/2022 138 Potassium 02/09/2022 4.4 Chloride 02/09/2022 102 CO2 02/09/2022 26 Anion Gap 02/09/2022 10 Estimated Glomerular Deon* 02/09/2022 72 Creatinine, Ur Random (U* 02/09/2022 126.0 Albumin, Urine Random 02/09/2022 <12.0 Albumin/Creat Ratio 02/09/2022 <10 ASSESSMENT/PLAN: 1. Type 2 diabetes mellitus without complication, without long-term current use of insulin ([facility]) - ICD9: 250.00, ICD10: E11.9 Controlled. - Continue current medications - METFORMIN 500 MG TABLET - COMP METABOLIC PANEL - HGB A1C - LIPID PANEL BASIC 2. Hypogonadism in male - ICD9: 257.2, ICD10: E29.1 Increase Arimidex to twice weekly - ANASTROZOLE 1 MG TABLET - TESTOSTERONE, FREE AND TOTAL - ESTROGEN FRACTION BL Follow up in 6 months 11-20 minutes of time spent on phone call Dale Ramos MD documented in this encounter [facility] 02-05-2022 Miscellaneous Notes Pt called and states he has a 6 month follow up in the office. 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 Requesting a phone apt. Checked with nurse and Dr. Ramos and the doctor okayed this. Nurse will change apt in the computer. Pt notified back with above. Melania Corona LPN documented in this encounter [facility] 11-18-2021 Miscellaneous Notes The following approved medication requests have been transmitted electronically. Pending Prescriptions Disp Refills TRULICITY 1.5 MG/0.5 ML SUBCUTANEOUS PEN INJECTOR 4 Each 11 Sig: Inject 1.5 mg subcutaneously one time a week. Inject once per week. Discard Pen After KINA: No Jakob Fiore APRN.VENUE ATTENDANT Last office visit: 07/28/21 F/u scheduled: 02/16/22 Risa Rosales Ma Patient has been identified by name and date of : Yes Pending Prescriptions Disp Refills TRULICITY 1.5 MG/0.5 ML SUBCUTANEOUS PEN INJECTOR 4 Each 11 Sig: Inject 1.5 mg subcutaneously one time a week. Inject once per week. Discard Pen After KINA: No RX INSTRUCTIONS: Patient aware RX will be sent to pharmacy. No need to notify patient. 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 Please re-send met[facility]in to [facility] verified in Epic Patient has been identified by name and date of : Yes Patient aware RX will be sent to pharmacy. No need to notify patient. Patient phones for refill(s): Pending Prescriptions Disp Refills METFORMIN 500 MG TABLET 180 tablet 3 Sig: Take 1 tablet by mouth twice daily. . KINA: No TESTOSTERONE CYPIONATE 200 MG/ML INTRAMUSCULAR OIL 24 mL 1 Sig: Inject 1 mL intramuscularly two times a week for 180 days. MCKAY Class: C-III KINA: No Date of last office visit : 07/28/2021 Date of next office visit : 02/16/2022 Last 2 Encounter Wt Readings: Date: Wt: 07/28/2021 141.3 kg (311 lb 6.4 oz) 01/27/2021 138.5 kg (305 lb 6.4 oz) Please advise. Amina James Pss documented in [facility] [facility] Miscellaneous Notes The following approved medication requests have been transmitted electronically. Pending Prescriptions Disp Refills ANASTROZOLE 1 MG TABLET 14 tablet 1 Sig: Take 1 tablet by mouth one time a week. KINA: No Jakob Fiore APRN.MJ JONATHON 07/28/21 NOV 02/16/22 Patient has been identified by name and date of : Yes Pending Prescriptions Disp Refills ANASTROZOLE 1 MG TABLET 14 tablet 1 Sig: Take 1 tablet by mouth one time a week. KINA: No RX INSTRUCTIONS: Patient aware RX will be sent to pharmacy. No need to notify patient. Carmela Cordon Pss documented in this encounter [facility] 08-07-2021 Miscellaneous Notes Patient calling in to state for provider to disregard the prior message/request. He states he is able to get prescription filled and will pay the amount needed. Ania Dickerson RN Pt called in asking about his medication, let Pt know PA was denied. Waiting on provider to see if medication can be updated. Please call and advise. PA denied- stating that the dose is not within the dosing guidelines. Plan covers 0.15ml per day (0.52 twice a week). Please advise. Roxy Adams LPN Prior Authorization has been completed online at [employer] for Testosterone, will await response. [employer]- [id number] Please keep encounter open until final decision has been received and documented from insurance company. Roxy Adams LPN Patient calling to state his insurance is not approving his current testosterone dosing without additional information from provider. Informed patient that this nurse would contact his pharmacy to get further details. [facility] contacted by this nurse and pharmacist states a PA is needed for the testosterone cypionate and has faxed over the PA request to Dr. Ramos's office today. Will send for a PA request to PA Dept. Ania Dickerson RN documented in this encounter [facility] 07-30-2021 Miscellaneous Notes Patient notified and verbalized understanding Astrid Georges Ma Please notify patient that his testosterone level is normal I would suggest he try changing the Arimedex to taking 1/2 pill twice a week, rather than one pill weekly, and we will check his estrogen level with the next blood work Dale Ramos MD documented in this encounter [facility] Evaluation note Diagnosis Hypogonadism in male [facility] Diagnosis Type 2 diabetes mellitus without complication, without long-term current use of insulin (HCC) [facility]ogonadism in [facility] Type 2 diabetes mellitus without complication, without long-term current use of insulin (HCC) [facility] Diagnosis Type 2 diabetes mellitus without complication, without long-term current use of insulin (HCC) Hypogonadism in male [facility] Diagnosis Type 2 diabetes mellitus without complication, without long-term current use of insulin (HCC)- Primary Hypogonadism in male Obesity, Class III, BMI 40-49.9 (morbid obesity) (HCC) Morbid obesity [facility] Diagnosis Hematuria, unspecified type- Primary Hospital discharge follow-up Other follow-up examination Bilateral flank pain Abdominal pain, unspecified site Musculoskeletal pain Mylagia and myositis, unspecified Lower abdominal pain Abdominal pain, other specified site Elevated serum creatinine Other nonspecific findings on examination of blood [facility] Diagnosis Gross hematuria- Primary [facility] Diagnosis Left lower quadrant abdominal pain- Primary [facility] Diagnosis Pre-operative examination- Primary Preoperative examination, unspecified CUCO (obstructive sleep apnea) Obstructive sleep apnea (adult) (pediatric) Type 2 diabetes mellitus without complication, without long-term current use of insulin (HCC) Chronic kidney disease, unspecified CKD stage Gastroesophageal reflux disease, unspecified whether esophagitis present Umbilical hernia without obstruction and without gangrene [facility] Diagnosis Postoperative pain Other acute postoperative pain [facility] Diagnosis Type 2 diabetes mellitus without complication, without long-term current use of insulin (HCC)- Primary Hypogonadism in male Screening cholesterol level Screening for lipoid disorders [facility] Diagnosis Incarcerated umbilical hernia- Primary Umbilical hernia with obstruction [facility]* Diagnosis Type 2 diabetes mellitus without complication, without long-term current use of insulin (HCC)- Primary Hypogonadism in male Anxiety with depression Bilateral impacted cerumen Impacted cerumen Ear pain, right Otalgia, unspecified [facility] Diagnosis Anxiety with depression- Primary [facility] Diagnosis Anxiety with depression- Primary [facility] Diagnosis Pre-operative examination- Primary Preoperative examination, unspecified CUCO (obstructive sleep apnea) Obstructive sleep apnea (adult) (pediatric) Type 2 diabetes mellitus without complication, without long-term current use of insulin (HCC) Chronic kidney disease, unspecified CKD stage Gastroesophageal reflux disease, unspecified whether esophagitis present Type 2 diabetes mellitus without complication, without long-term current use of insulin ([facility]) documented in this encounter [facility] note* Diagnosis Pre-operative examination- Primary Preoperative examination, unspecified CUCO (obstructive sleep apnea) Obstructive sleep apnea (adult) (pediatric) Type 2 diabetes mellitus without complication, without long-term current use of insulin (HCC) Chronic kidney disease, unspecified CKD stage Gastroesophageal reflux disease, unspecified whether esophagitis present Hyperlipidemia, unspecified hyperlipidemia type- Primary Hypertension, unspecified type Type 2 diabetes mellitus without complication, without long-term current use of insulin ([facility]) Chronic kidney disease, unspecified CKD stage Hypogonadism in male documented in this encounter [facility] note* Diagnosis Pre-operative examination- Primary Preoperative examination, unspecified CUCO (obstructive sleep apnea) Obstructive sleep apnea (adult) (pediatric) Type 2 diabetes mellitus without complication, without long-term current use of insulin ([facility]) Chronic kidney disease, unspecified CKD stage Gastroesophageal reflux disease, unspecified whether esophagitis present Type 2 diabetes mellitus without complication, without long-term current use of insulin ([facility])- Primary Hypogonadism in male documented in this encounter [facility] note* Diagnosis Pre-operative examination- Primary Preoperative examination, unspecified CUCO (obstructive sleep apnea) Obstructive sleep apnea (adult) (pediatric) Type 2 diabetes mellitus without complication, without long-term current use of insulin ([facility]) Chronic kidney disease, unspecified CKD stage Gastroesophageal reflux disease, unspecified whether esophagitis present Anxiety with depression documented in this encounter [facility] note* Diagnosis Pre-operative examination- Primary Preoperative examination, unspecified CUCO (obstructive sleep apnea) Obstructive sleep apnea (adult) (pediatric) Type 2 diabetes mellitus without complication, without long-term current use of insulin ([facility]) Chronic kidney disease, unspecified CKD stage Gastroesophageal reflux disease, unspecified whether esophagitis present Type 2 diabetes mellitus without complication, without long-term current use of insulin ([facility])- Primary Anxiety with depression Hypogonadism in male documented in this encounter [facility] note* Diagnosis Pre-operative examination- Primary Preoperative examination, unspecified CUCO (obstructive sleep apnea) Obstructive sleep apnea (adult) (pediatric) Type 2 diabetes mellitus without complication, without long-term current use of insulin ([facility]) Chronic kidney disease, unspecified CKD stage Gastroesophageal reflux disease, unspecified whether esophagitis present Type 2 diabetes mellitus without complication, without long-term current use of insulin (HCC)- Primary Hyperlipidemia, mixed Mixed hyperlipidemia [facility] noteNo assessment information availableWAultman Alliance [facility] Work Phone: Reason for referral (narrative)* Outpatient Procedure (Routine) - Closed Specialty Diagnoses / Procedures Referred By Contac t Referred To [facility] Diagnoses Pre-operative examination Procedures ECG COMPLETE ECG ROUTINE ECG W/LEAST 12 LDS W/I&R Jessica Vidal APRN.VENUE ATTENDANT [address] [place] [address] [facility] [address] [place] [address] Referral ID Status Reason Start Date Expiration Date V isits Requested Visits Authorized [id number] Closed Auto-Generate d Referral 12/23/2022 12/23/2023 1 1 [facility]No reason for referral information availableWAultman Alliance Community Hospital Work Phone: Reason for Referral Specialty Diagnoses / Procedures Referred By Contac t Referred To Contact Urology Diagnoses Bilateral flank pain Hematuria, unspecified type Elevated serum creatinine Procedures CONSULT TO UROLOGY OFFICE/OUTPATIENT [facility] MDM 60-74 MINUTES Dale Ramos MD [address] [place] [address] Referral ID Status Reason Start Date Expiration Date Visits Requested Visits Authorized [id number] Authorized PCP Requested Referral 10/02/2022 10/02/2023 1 1 Specialty Diagnoses / Procedures Referred By Contac t Referred To Contact General Surgery Diagnoses Left lower quadrant abdominal pain Procedures CONSULT TO GENERAL SURGERY OFFICE/[facility]PAT[facility] MDM 60-74 MINUTES Dale Ramos MD [address] [place] [address] Referral ID Status Reason Start Date Expiration Date Visits Requested Visits Authorized [id number] Authorized PCP Requested Referral 11/05/2022 11/05/2023 1 1 Specialty Diagnoses / Procedures Referred By Contac t Referred To Contact Ent - Otolaryngology Diagnoses Bilateral impacted cerumen Procedures CONSULT TO ENT OFFICE/OUTPATIENT NEW [facility] MDM 60 MINUTES Tereza Stone APRN.VENUE ATTENDANT [address] [place] [address] Referral ID Status Reason Start Date Expiration Date Visits Requested Visits Authorized [id number] Authorized PCP Requested Referral 08/09/2023 08/08/2024 1 1 Specialty Diagnoses / Procedures Referred By Contac t Referred To Contact Diagnoses Type 2 diabetes mellitus without complication, without long-term current use of insulin (HCC) Tereza Stone APRN.VENUE ATTENDANT [address] [place] [address] Referral ID Status Reason Start Date Expiration Date V isits Requested Visits Authorized [id number] Authorized 08/02/2023 08/08/2024 1 1 Specialty Diagnoses / Procedures Referred By Yaz t Referred To Contact Diagnoses Hypogonadism in male Tereza Stone APRN.VENUE ATTENDANT [address] [place] [address] Referral ID Status Reason Start Date Expiration Date V isits Requested Visits Authorized [id number] Authorized 08/02/2023 08/08/2024 1 1 Summary Purpose Family History No Family History Records Found Relationship Condition Age at Onset Recorded Date/T jorge luis Unknown Family History?Diabe van, Heart Disease, - Unknown November 01, 2014 3:26pm Family History?Diabe van, Heart Disease, - Unknown November 01, 2014 3:26pm Advance Directives No Advanced Directives Records Found Advance Directive Response Recorded Date/ Time Do you have a Healthcare Power of Pipe Coverer Helper? No September 07, 2024 9:48pm Advance Directives No October 31 8:02pm Medications Administered Section Inactive Administered Medications - up to 3 most recent administrations Medication Order MAR Action Action Date Dose Rate Site lidocaine urojet 2 % 6 mL topical gel (GLYDO) 6 mL, URETHRAL, ONCE (UP TO 30 DAYS AMB), 1 dose, On Wed11/04/22 at 1100, Prior to Procedure Given by LIP 11/04/2022 10:45 AM EDT 6 mL Chief Complaint and Reason for Visit Chief Complaint Admit Date ABSCESS September 07, 2024 9:17pm Additional Source Comments Source Comments (unrecognize d section and content) In the event this informatio n is protected by the Federal Confidentiality of Alcohol and Drug Abuse Patient Records regulations: The Federal rules restrict any use of the information to criminally investigate or prosecute any alcohol or drug abuse patient.[facility] the event this information is protected by the Federal Confidentiality of Alcohol and Drug Abuse Patient Records regulations: The Federal rules restrict any use of the information to criminally investigate or prosecute any alcohol or drug abuse patient.[facility] HospitalIn the event this information is protected by the Federal Confidentiality of Alcohol and Drug Abuse Patient Records regulations: The Federal rules restrict any use of the information to criminally investigate or prosecute any alcohol or drug abuse patient.[facility] HospitalIn the event this information is protected by the Federal Confidentiality of Alcohol and Drug Abuse Patient Records regulations: The Federal rules restrict any use of the information to criminally investigate or prosecute any alcohol or drug abuse patient.[facility] HospitalIn the event this information is protected by the Federal Confidentiality of Alcohol and Drug Abuse Patient Records regulations: The Federal rules restrict any use of the information to criminally investigate or prosecute any alcohol or drug abuse patient.[facility] HospitalIn the event this information is protected by the Federal Confidentiality of Alcohol and Drug Abuse Patient Records regulations: The Federal rules restrict any use of the information to criminally investigate or prosecute any alcohol or drug abuse patient.[facility] HospitalIn the event this information is protected by the Federal Confidentiality of Alcohol and Drug Abuse Patient Records regulations: The Federal rules restrict any use of the information to criminally investigate or prosecute any alcohol or drug abuse patient.[facility] HospitalIn the event this information is protected by the Federal Confidentiality of Alcohol and Drug Abuse Patient Records regulations: The Federal rules restrict any use of the information to criminally investigate or prosecute any alcohol or drug abuse patient.[facility] HospitalIn the event this information is protected by the Federal Confidentiality of Alcohol and Drug Abuse Patient Records regulations: The Federal rules restrict any use of the information to criminally investigate or prosecute any alcohol or drug abuse patient.[facility] HospitalIn the event this information is protected by the Federal Confidentiality of Alcohol and Drug Abuse Patient Records regulations: The Federal rules restrict any use of the information to criminally investigate or prosecute any alcohol or drug abuse patient.[facility] HospitalIn the event this information is protected by the Federal Confidentiality of Alcohol and Drug Abuse Patient Records regulations: The Federal rules restrict any use of the information to criminally investigate or prosecute any alcohol or drug abuse patient.[facility] HospitalIn the event this information is protected by the Federal Confidentiality of Alcohol and Drug Abuse Patient Records regulations: The Federal rules restrict any use of the information to criminally investigate or prosecute any alcohol or drug abuse patient.[facility] HospitalIn the event this information is protected by the Federal Confidentiality of Alcohol and Drug Abuse Patient Records regulations: The Federal rules restrict any use of the information to criminally investigate or prosecute any alcohol or drug abuse patient.[facility] HospitalIn the event this information is protected by the Federal Confidentiality of Alcohol and Drug Abuse Patient Records regulations: The Federal rules restrict any use of the information to criminally investigate or prosecute any alcohol or drug abuse patient.[facility] HospitalIn the event this information is protected by the Federal Confidentiality of Alcohol and Drug Abuse Patient Records regulations: The Federal rules restrict any use of the information to criminally investigate or prosecute any alcohol or drug abuse patient.[facility] HospitalIn the event this information is protected by the Federal Confidentiality of Alcohol and Drug Abuse Patient Records regulations: The Federal rules restrict any use of the information to criminally investigate or prosecute any alcohol or drug abuse patient.[facility] HospitalIn the event this information is protected by the Federal Confidentiality of Alcohol and Drug Abuse Patient Records regulations: The Federal rules restrict any use of the information to criminally investigate or prosecute any alcohol or drug abuse patient.[facility] HospitalIn the event this information is protected by the Federal Confidentiality of Alcohol and Drug Abuse Patient Records regulations: The Federal rules restrict any use of the information to criminally investigate or prosecute any alcohol or drug abuse patient.[facility] HospitalIn the event this information is protected by the Federal Confidentiality of Alcohol and Drug Abuse Patient Records regulations: The Federal rules restrict any use of the information to criminally investigate or prosecute any alcohol or drug abuse patient.[facility] HospitalIn the event this information is protected by the Federal Confidentiality of Alcohol and Drug Abuse Patient Records regulations: The Federal rules restrict any use of the information to criminally investigate or prosecute any alcohol or drug abuse patient.[facility] HospitalIn the event this information is protected by the Federal Confidentiality of Alcohol and Drug Abuse Patient Records regulations: The Federal rules restrict any use of the information to criminally investigate or prosecute any alcohol or drug abuse patient.[facility] HospitalIn the event this information is protected by the Federal Confidentiality of Alcohol and Drug Abuse Patient Records regulations: The Federal rules restrict any use of the information to criminally investigate or prosecute any alcohol or drug abuse patient.[facility] HospitalIn the event this information is protected by the Federal Confidentiality of Alcohol and Drug Abuse Patient Records regulations: The Federal rules restrict any use of the information to criminally investigate or prosecute any alcohol or drug abuse patient.[facility] HospitalIn the event this information is protected by the Federal Confidentiality of Alcohol and Drug Abuse Patient Records regulations: The Federal rules restrict any use of the information to criminally investigate or prosecute any alcohol or drug abuse patient.[facility] HospitalIn the event this information is protected by the Federal Confidentiality of Alcohol and Drug Abuse Patient Records regulations: The Federal rules restrict any use of the information to criminally investigate or prosecute any alcohol or drug abuse patient.[facility] HospitalIn the event this information is protected by the Federal Confidentiality of Alcohol and Drug Abuse Patient Records regulations: The Federal rules restrict any use of the information to criminally investigate or prosecute any alcohol or drug abuse patient.[facility] HospitalIn the event this information is protected by the Federal Confidentiality of Alcohol and Drug Abuse Patient Records regulations: The Federal rules restrict any use of the information to criminally investigate or prosecute any alcohol or drug abuse patient.[facility] HospitalIn the event this information is protected by the Federal Confidentiality of Alcohol and Drug Abuse Patient Records regulations: The Federal rules restrict any use of the information to criminally investigate or prosecute any alcohol or drug abuse patient.[facility] HospitalIn the event this information is protected by the Federal Confidentiality of Alcohol and Drug Abuse Patient Records regulations: The Federal rules restrict any use of the information to criminally investigate or prosecute any alcohol or drug abuse patient.[facility] HospitalIn the event this information is protected by the Federal Confidentiality of Alcohol and Drug Abuse Patient Records regulations: The Federal rules restrict any use of the information to criminally investigate or prosecute any alcohol or drug abuse patient.[facility] HospitalIn the event this information is protected by the Federal Confidentiality of Alcohol and Drug Abuse Patient Records regulations: The Federal rules restrict any use of the information to criminally investigate or prosecute any alcohol or drug abuse patient.[facility] HospitalIn the event this information is protected by the Federal Confidentiality of Alcohol and Drug Abuse Patient Records regulations: The Federal rules restrict any use of the information to criminally investigate or prosecute any alcohol or drug abuse patient.[facility] HospitalIn the event this information is protected by the Federal Confidentiality of Alcohol and Drug Abuse Patient Records regulations: The Federal rules restrict any use of the information to criminally investigate or prosecute any alcohol or drug abuse patient.[facility] HospitalIn the event this information is protected by the Federal Confidentiality of Alcohol and Drug Abuse Patient Records regulations: The Federal rules restrict any use of the information to criminally investigate or prosecute any alcohol or drug abuse patient.[facility] HospitalIn the event this information is protected by the Federal Confidentiality of Alcohol and Drug Abuse Patient Records regulations: The Federal rules restrict any use of the information to criminally investigate or prosecute any alcohol or drug abuse patient.[facility] HospitalIn the event this information is protected by the Federal Confidentiality of Alcohol and Drug Abuse Patient Records regulations: The Federal rules restrict any use of the information to criminally investigate or prosecute any alcohol or drug abuse patient.[facility] HospitalIn the event this information is protected by the Federal Confidentiality of Alcohol and Drug Abuse Patient Records regulations: The Federal rules restrict any use of the information to criminally investigate or prosecute any alcohol or drug abuse patient.[facility] HospitalIn the event this information is protected by the Federal Confidentiality of Alcohol and Drug Abuse Patient Records regulations: The Federal rules restrict any use of the information to criminally investigate or prosecute any alcohol or drug abuse patient.[facility] HospitalIn the event this information is protected by the Federal Confidentiality of Alcohol and Drug Abuse Patient Records regulations: The Federal rules restrict any use of the information to criminally investigate or prosecute any alcohol or drug abuse patient.[facility] the event this information is protected by the Federal Confidentiality of Alcohol and Drug Abuse Patient Records regulations: The Federal rules restrict any use of the information to criminally investigate or prosecute any alcohol or drug abuse patient.[facility] the event this information is protected by the Federal Confidentiality of Alcohol and Drug Abuse Patient Records regulations: The Federal rules restrict any use of the information to criminally investigate or prosecute any alcohol or drug abuse patient.[facility] Reason for Visit (unrecogniz ed section and content) Reason Comments Results Reason Comments Insurance Authorization Reason Onset Date Comments Refill Request 09/19/2021 Reason Comments Patient Update Reason Onset Date Comments Refill Request 2021 Reason Comments Refill Request Reason Comments requesting apt type change Changing offi ce apt to phone apt Reason Comments 6 Month Exam Reason Comments Follow Up follow up on DM, van tosterone Reason Comments Hospital Follow Up Reason Comments Appointment Reason Comments Cystoscopy-1 Reason Comments Schedule Surgery Reason Comments FMLA Paperwork Reason Comments Opened In Error Reason Comments Consult Reason Comments Post Op Reason Comments Follow Up Reason Comments Established Patient Follow-Up Reason Comments 6 Month Exam Reason Comments Follow Up 1 month follow up Reason Comments Medication Problem Reason Comments Medication Follow-up Specialty Diagnoses / Procedures [facility] Family Medicine / FAMILY MEDICINE Diagnoses follow up Procedures PROVIDER PHONE CALL Tereza Stone APRN.VENUE ATTENDANT [address] [place] [address] Tereza Stone APRN.VENUE ATTENDANT [address] [place] [address] Referral ID Status Reason Start Date Expiration Date V isits Requested Visits Authorized [id number] Denied Clearance Not Met - Admin/Chairm an/Director Advise to Postpone/Res chedule or Not Proceed 10/13/2023 01/11/2024 1 0 Reason Onset Date Comments Refill Request 01/24/2024 Reason Comments Orders Reason Comments Follow Up follow up for labs Specialty Diagnoses / Procedures [facility] To [facility] FAMILY MEDICINE Diagnoses office Procedures OFFICE VISIT, NEW PT., LEVEL 5 TC Dale Ramos MD [address] [place] [address] [facility] [address] [place] [address] Referral ID Status Reason Start Date Expiration Date Visits Requested Visits Authorized [id number] Authorized Financial Clearance Required - Self Pay Patient Cleared - Qualified HCAP/501/FA 01/27/2024 04/26/2024 99 99 Reason Onset Date Comments Refill Request 06/13/2024 Reason Comments F/U 3 Month Specialty Diagnoses / Procedures Referred By [facility] Referred To Contact Family Medicine / FAMILY MEDICINE Diagnoses 3 month follow up Procedures VIDEO PRIMARY EST Self Tereza Stone APRN.VENUE ATTENDANT [address] [place] [address] Phone: tel: fax: Referral ID Status Reason Start Date Expiration Date V isits Requested Visits Authorized [id number] Denied Financial Clearance Required - Self Pay Clearance Not Met - Admin/Histology Technologist /Director Advise to Postpone/Alexander edule or Not Proceed 06/12/2024 09/10/2024 1 0 Reason Onset Date Comments Results 07/05/2024 Care Teams (unrecognized sec tion and content) Principle Industrial Hygienist Relationship Specialty Start Date End Date Dale Ramos MD [address] [facility] [place] [address] PCP - General Family Practice 09/05/18 Principle Industrial Hygienist Relationship Specialty Start Date End Date Dale Ramos MD [address] [place] [address] PCP - General Family Practice 09/05/18 Principle Industrial Hygienist Relationship Specialty Start Date End Date Dale Ramos MD [address] [place] [address] PCP - General Family Practice 09/05/18 Principle Industrial Hygienist Relationship Specialty Start Date End Date Dale Ramos MD [address] [place] [address] PCP - General Family Practice 09/05/18 Principle Industrial Hygienist Relationship Specialty Start Date End Date Dale Ramos MD [address] [place] [address] PCP - General Family Medicine 09/05/18 Principle Industrial Hygienist Relationship Specialty Start Date End Date Dlae Ramos MD [address] [place] [address] PCP - General Family Medicine 09/05/18 Principle Industrial Hygienist Relationship Specialty Start Date End Date Dale Ramos MD [address] [place] [address] PCP - General Family Medicine 09/05/18 Principle Industrial Hygienist Relationship Specialty Start Date End Date Dale Ramos MD [address] [place] [address] PCP - General Family Medicine 09/05/18 Principle Industrial Hygienist Relationship Specialty Start Date End Date Dale Ramos MD [address] [place] [address] PCP - General Family Medicine 09/05/18 Principle Industrial Hygienist Relationship Specialty Start Date End Date Dale Ramos MD [address] [place] [address] PCP - General Family Medicine 09/05/18 Principle Industrial Hygienist Relationship Specialty Start Date End Date Dale Ramos MD [address] [place] [address] PCP - General Family Medicine 09/05/18 Principle Industrial Hygienist Relationship Specialty Start Date End Date Dale Ramos MD [address] [place] [address] PCP - General Family Medicine 09/05/18 Principle Industrial Hygienist Relationship Specialty Start Date End Date Dale Ramos MD [address] [place] [address] PCP - General Family Medicine 09/05/18 Principle Industrial Hygienist Relationship Specialty Start Date End Date Dale Ramos MD [address] [place] [address] PCP - General Family Medicine 09/05/18 Principle Industrial Hygienist Relationship Specialty Start Date End Date Dale Ramos MD [address] [place] [address] PCP - General Family Medicine 09/05/18 Principle Industrial Hygienist Relationship Specialty Start Date End Date Dale Ramos MD [address] [place] [address] PCP - General Family Medicine 09/05/18 Principle Industrial Hygienist Relationship Specialty Start Date End Date Dale Ramos MD [address] [place] [address] PCP - General Family Medicine 09/05/18 Principle Industrial Hygienist Relationship Specialty Start Date End Date Dale Ramos MD [address] [place] [address] PCP - General Family Medicine 09/05/18 Principle Industrial Hygienist Relationship Specialty Start Date End Date Dale Ramos MD [address] [place] [address] PCP - General Family Medicine 09/05/18 Principle Industrial Hygienist Relationship Specialty Start Date End Date Dale Ramos MD [address] [place] [address] PCP - General Family Medicine 09/05/18 Principle Industrial Hygienist Relationship Specialty Start Date End Date Dale Ramos MD [address] [place] [address] PCP - General Family Medicine 09/05/18 Principle Industrial Hygienist Relationship Specialty Start Date End Date Dale Ramos MD [address] [place] [address] PCP - General Family Medicine 09/05/18 Principle Industrial Hygienist Relationship Specialty Start Date End Date Dale Ramos MD [address] [place] [address] PCP - General Family Medicine 09/05/18 Principle Industrial Hygienist Relationship Specialty Start Date End Date Dale Ramos MD [address] [place] [address] PCP - General Family Medicine 09/05/18 Principle Industrial Hygienist Relationship Specialty Start Date End Date Dale Ramos MD [address] [place] [address] PCP - General Family Medicine 09/05/18 Principle Industrial Hygienist Relationship Specialty Start Date End Date Dale Ramos MD [address] [place] [address] PCP - General Family Medicine 09/05/18 Principle Industrial Hygienist Relationship Specialty Start Date End Date Dale Ramos MD [address] [place] [address] PCP - General Family Medicine 09/05/18 Principle Industrial Hygienist Relationship Specialty Start Date End Date Dale Ramos MD [address] [place] [address] PCP - General Family Medicine 09/05/18 Principle Industrial Hygienist Relationship Specialty Start Date End Date Dale Ramos MD [address] [place] [address] PCP - General Family Medicine 09/05/18 Tereza Stone, PRIMER POWDER BLENDER WET.VENUE ATTENDANT [address] [place] [address] Hot Roll Inspector Family Medicine 04/09/24 Jakob Fiore, PRIMER POWDER BLENDER WET.VENUE ATTENDANT [address] [facility] [place] [address] Hot Roll Inspector Family Medicine 04/18/24 Principle Industrial Hygienist Relationship Specialty Start Date End Date Dale Ramos MD [address] [place] [address] PCP - General Family Medicine 09/05/18 Tereza Stone, PRIMER POWDER BLENDER WET.VENUE ATTENDANT [address] [place] [address] Hot Roll Inspector Family Medicine 04/09/24 Jakob Fiore APRN.VENUE ATTENDANT [address] [place] [address] Hot Roll Inspector Family Medicine 04/18/24 Principle Industrial Hygienist Relationship Specialty Start Date End Date Dale Ramos MD [address] [place] [address] PCP - General Family Medicine 09/05/18 Tereza Stone APRN.VENUE ATTENDANT [address] [place] [address] Hot Roll Inspector Family Medicine 04/09/24 Jakob Fiore APRN.VENUE ATTENDANT [address] [place] [address] Hot Roll Inspector Family Medicine 04/18/24 Principle Industrial Hygienist Relationship Specialty Start Date End Date Dale Ramos MD [address] [place] [address] PCP - General Family Medicine 09/05/18 Tereza Stone APRN.VENUE ATTENDANT [address] [place] [address] Hot Roll Inspector Family Medicine 04/09/24 Jakob Fiore APRN.VENUE ATTENDANT [address] [place] [address] Hot Roll Inspector Family Medicine 04/18/24 Principle Industrial Hygienist Relationship Specialty Start Date End Date Dale Ramos MD [address] [place] [address] PCP - General Family Medicine 09/05/18 Tereza Stone, JADA.VENUE ATTENDANT [address] [place] [id number] Hot Roll Inspector [facility] 04/09/24 Jakob Fiore APRN.VENUE ATTENDANT [address] [place] [address] Hot Roll Inspector [facility] 04/18/24 Team Status: Active Member Role Status Dates Dr. Dale Ramos MD Primary Care Provider Active Team Status: Inactive Member Role Status Dates Dr. Dale Ramos MD Primary Care Provider Active Start: September 07, 2024 End: September 08, 2024 Dr. Ky Carrillo DO Emergency Provider Active Start: September 07, 2024 End: September 08, 2024 (unrecognized sect ion and content) No Status Records FoundNo Status Records FoundNo Status Records FoundNo Status Records Found INFORMATION SOURCE (unrecogn ized section and content) DATE CREATED AUTHOR 11/04/2022 [facility] DATE CREATED AUTHOR AUTHOR'S ORGANIZ ATION 02/14/2023 [facility] DATE CREATED AUTHOR AUTHOR'S ORGANIZ ATION 10/03/2024 [facility] DATE CREATED AUTHOR AUTHOR'S ORGANIZ ATION 02/02/2025 [facility] Goals (unrecognized section and content) Goals may be documented in a n alternate section FOR RECORDS PERTAINING TO PATIENTS WHO ARE OR HAVE BEEN ENROLLED IN A CHEMICAL DEPENDENCY/SUBSTANCEABUSE PROGRAM, SOME INFORMATION MAY BE OMITTED. This clinical summary was aggregated from multiple sources. Caution should be exercised in using it in the provision of clinical care. This summary normalizes information from multiple sources, and as a consequence, information in this document may materially change the coding, format and clinical context of patient data. In addition, data may be omitted in some cases. CLINICAL DECISIONS SHOULD BE BASED ON THE PRIMARY CLINICAL RECORDS. [employer] [facility] provides no warranty or guarantee of the accuracy or completeness of information in this document.
[2025-02-15] MEDS: 0.9% Normal Saline (1000mL) 1,000 ML 999 ML IV (21:15)
[2025-02-15] MEDS: Clindamycin 900 MG/50 ML BAG 75 MG IV (21:15)
[2025-02-15 21:26] LABS: Hematocrit 42.7 % (40-54); Hemoglobin 14.4 g/dL (13.0-16.5); Immature Granulocytes Count 0.100 X10^3/uL (0.0-0.0); Mean Corp Hgb Conc 33.7 g/dL (32-36); Mean Corpuscular Volume 75.6 fL (80-94); Mean Platelet Vol. 9.3 fl (6.2-12.0); NRBC Flagged by Analyzer 0 % (0-5); Platelet Count 251 K/mm3 (150-450); RBC Distribution Width CV 13.9 % (11.6-14.6); RBC Distribution Width SD 37.2 fl (35.1-43.9); Red Blood Count 5.65 M/mm3 (4.6-6.2); White Blood Count 8.5 K/mm3 (4.4-11.0)
[2025-02-15 21:36] LABS: Prothrombin Time (Protime)PT. 14.5 SECONDS (11.7-14.9)
[2025-02-15 21:37] LABS: Partial Thromboplast Time 31.3 Seconds (24.1-36.2)
[2025-02-15 22:14] LABS: AST(SGOT) 16 U/L (<=37); Alanine Aminotransfer ALT/SGPT 14 U/L (<=46); Albumin, Serum 3.8 g/dL (3.5-5.0); Alkaline Phosphatase 112 U/L (40-129); Anion Gap 10 (5-15); BUN 14 mg/dL (4-19); BUN/Creat Ratio 12.6 RATIO (10-20); Calcium,Total 9.0 mg/dL (7.6-11.0); Carbon Dioxide 24.0 mmol/L (21.0-32.0); Chloride 95 mmol/L (98-108); Estimated Creatinine Clearance 112.86 ml/min (50-250); Globulin 3.7 g/dL (2.2-4.2); Glucose 425 mg/dL (70-99); Potassium 4.2 mmol/L (3.3-5.1)
[2025-02-15 23:03] LABS: Mucous, Urine 0 SEEN /hpf (<or=2+)
[2025-02-15 23:06] LABS: Color, Urine Yellow (Yellow); Glucose, Dipstick 1000 mg/dl (Normal); Ketone-Dipstick 5 mg/dl (Negative); Leukocyte Esterase-Dipstick Negative /ul (Negative); Nitrite-Dipstick Negative (Negative); Occult Blood-Urine Negative /ul (Negative); Protein-Dipstick Negative (Negative); Specific Gravity, Urine 1.010 (1.002-1.030); Urine Bilirubin Dipstick Negative (Negative)
--- NOTE | 2025-02-15 23:24 | PCM.HP.STD ---
HPI - General General Date of Admission: 02/15/25 Date of Service: 02/15/25 Chief Complaint: scrotal abscess HPI Narrative GLADYS DANIELLE, is a 54 M with a PMh as outlined who presents via the ED on 02/15/2025 with a complaitn of scrotal swelling and abscess. 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 He had an abscess on the left scrotum which he squeezed and drained. He subsequently developed a swelling and redness of the right scrotum. He had associated fever and chills and generalised malaise. He said he recently had a right index finger infection and a friend gave him amoxicillin which was helpful. He had no other complaints and review of systems otherwise negative. He has not seen a physician in all of this. Vitals in the ED were blood pressure 121/65, pulse rate of 85, respirate rate of 18 and temperature of 99.5 Fahrenheit. He was saturating at 97% on room air. CBC showed hemoglobin of 14.4 with WBC of 8.5 and platelets of 251. INR was 1.1. Chemistry showed sodium of 129 with potassium of 4.2 and bicarb of 24. Anion gap was 10 and creatinine is 1.07. Glucose was 425. Total bilirubin was 1.42. Urinalysis does not show any evidence of UTI. He has been admitted to be managed for scrotal cellulitis. CT of the pelvis was done and read was pending at time of my review. [facility] Medical History Anxiety Type 2 diabetes mellitus Pleural effusion Obesity Bronchitis Home Medications ?Medication ?Instructions ?Recorded ?Last Taken ?Type glipizide 10 mg tablet, extended 10 mg PO DAILY 09/07/24 Unknown History release 24 hr paroxetine HCl 30 mg tablet 30 mg PO DAILY 09/07/24 Unknown History buspirone 5 mg tablet 5 mg PO TID 02/15/25 Unknown History levocarnitine 500 mg capsule 3,000 mg PO DAILY 02/15/25 Unknown History (L-Carnitine) metformin 500 mg tablet 500 mg PO BID 02/15/25 Unknown History testosterone cypionate 200 mg/mL 400 mg IM .COMPLEX 02/15/25 Unknown History intramuscular oil Allergy/AdvReac Type Severity Reaction Status Date / Time hydrocodone Allergy Other Verified 02/15/25 19:49 Penicillins Allergy Rash Verified 02/15/25 19:49 Social History current occupational status: employed Smoking Status: Never smoker ROS Constitutional Constitutional: Reports chills, fatigue, fever(s), malaise and weakness; Denies anorexia Eyes Eyes: Denies change in vision ENT HEENT: Denies dysphagia, headache(s) or sore throat Cardiovascular Cardiovascular: Denies chest pain, dyspnea on exertion, lightheadedness, orthopnea, palpitations, rapid heart rate or syncope Respiratory/Chest Respiratory/Chest: Denies cough, dyspnea, productive cough, shortness of breath at rest or shortness of breath with exertion Gastrointestinal Gastrointestinal: Denies constipation, nausea or vomiting Genitourinary Genitourinary: Denies burning urination, dysuria, urinary hesitancy, urinary incontinence or urinary urgency Musculoskeletal Musculoskeletal: Reports other Details: scrotal redness and swelling ; Denies arthralgias, back pain or joint pain Neurologic Neurologic: Denies confusion, dizziness, focal weakness, headache(s), numbness, seizures or syncope Psychiatric Psychiatric: Denies anxiety or depression Endocrine Endocrinology: Denies change in body appearance Vital Signs Vital Signs Vital Signs: 02/15/25 19:45 02/15/25 19:49 02/15/25 21:24 Temperature 99.5 F H 99.5 F H Temperature Source Oral Oral Pulse Rate 98 98 Respiratory Rate 20 H 20 H Blood Pressure 156/73 H 156/73 H Blood Pressure Mean 100 100 Pulse Ox 95 95 98 Oxygen Delivery Method Room Air Room Air 02/15/25 21:25 02/15/25 21:45 02/15/25 22:00 Temperature 99.5 F H 98.5 F Temperature Source Oral Oral Pulse Rate 86 89 85 Respiratory Rate 17 13 20 H Blood Pressure 132/65 H 127/61 H 123/66 H Blood Pressure Mean 87 83 85 Pulse Ox 97 96 97 Oxygen Delivery Method Room Air Room Air Room Air 02/15/25 23:00 02/15/25 23:00 02/15/25 23:16 Temperature 99.5 F H 99.5 F H Temperature Source Oral Pulse Rate 85 85 85 Respiratory Rate 18 16 18 Blood Pressure 121/65 H 121/65 H 121/65 H Blood Pressure Mean 83 83 83 Pulse Ox 97 97 97 Oxygen Delivery Method Room Air Room Air Weight Weight: 317 lb 0.395 oz Body Mass Index (BMI) 46.7 Physical Exam Const alert, oriented x3 and no apparent distress Constitutional Narrative: class III obesity General Appearance: cooperative HEENT normocephalic, head/scalp atraumatic, hearing grossly normal bilaterally and moist oral mucous membranes Mouth: oral and palatal mucosa normal Eyes EOMs intact bilaterally and conjunctivae normal Neck supple and no JVD Resp normal respiratory effort, no retractions, no use of accessory muscles and clear to auscultation bilaterally Cardio regular rate, regular rhythm, S1 normal heart sound, S2 normal heart sound and no murmurs GI normal to inspection, nondistended, normoactive bowel sounds, soft to palpation, non-tender and non-distended Extremity normal to inspection, full ROM and no clubbing, cyanosis or edema Skin Skin Narrative: scrotum mildly edematous and erythematous, no fluctuant areas. Firm, indurated areas on both sides of the scrotum. It is larger on the right side at ~ 5cm x 3 cm in diameter, and ~ 1cm in diameter on hte left. NO fluctuant reas or NO tenderness to palpation Neuro oriented x3 and moves all extremities Sensorium / Orientation: awake and alert Motor Exam: strength 5/5 throughout Psych affect normal Results Lab / Micro Data 02/16/25 05:29 02/16/25 05:29 Labs: Laboratory Results - last 24 hr 02/15/25 21:08: WBC 8.5, RBC 5.65, Hgb 14.4, Hct 42.7, MCV 75.6 L, MCH 25.5 L, MCHC 33.7, RDW Std Deviation 37.2, RDW Coeff of Elicia 13.9, Plt Count 251, MPV 9.3, Immature Gran % (Auto) 1.200 H, Neut % (Auto) 74.1 H, Lymph % (Auto) 14.4 L, Bland % (Auto) 8.5, Eos % (Auto) 1.2, Baso % (Auto) 0.6, Absolute Neuts (auto) 6.3, Absolute Lymphs (auto) 1.22, Nucleated RBC % 0, PT 14.5, INR 1.1, APTT 31.3, Sodium 129 L, Potassium 4.2, Chloride 95 L, Carbon Dioxide 24.0, Anion Gap 10, BUN 14, Creatinine 1.07, Estim Creat Clear Calc 112.86, Est GFR (MDRD) Non-Af 83, BUN/Creatinine Ratio 12.6, Glucose 425 H, Lactic Acid < 1.0, Calcium 9.0, Total Bilirubin 1.42 H, AST 16, ALT 14, Alkaline Phosphatase 112, Total Protein 7.4, Albumin 3.8, Globulin 3.7, Albumin/Globulin Ratio 1.0 02/15/25 22:55: Urine Color Yellow, Urine Clarity Clear, Urine pH 6.0, Ur Specific [place] 1.010, Urine Protein Negative, Urine Glucose (UA) 1000 H, Urine Ketones 5 H, Urine Occult Blood Negative, Urine Nitrite Negative, Urine Bilirubin Negative, Urine Urobilinogen 4 H, Ur Leukocyte Esterase Negative Rhythm Strip Rhythm Strip: Sinus Rhythm Rate: 91 Ectopy: None Assessment & Plan Assessment/Plan (1) Cellulitis of scrotum: PLAN: Plan #Scrotal cellulitis 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 Initially noticed that he had an abscess on the left side of his scrotum which he squeezed and drained. He subsequently noticed swelling and redness on the right side of his scrotum. He has had associated fever and chills. He still does have some firm indurated swelling in the groin on both sides. Pelvic CT showed bilateral prominent superficial subcutaneous scrotal edema more on the right side probably scrotal cellulitis with no evidence of fluid collection or drainable abscess formation and no gas-forming infection and mildly distended bladder. WBC is 8.5. Hemoglobin is 14.4 and platelets are 251. Pelvic CT done and read still pending. Admit to [facility] Started on IV clindamycin. Will continue as he has allergy to penicillins. Will get wound culture. Also obtain blood culture. Await read of pelvic CT. P.o. Tylenol, p.o. oxycodone and IV morphine as needed for pain #Type 2 diabetes mellitus: Check A1c. On metformin and glipizide. High-dose insulin sliding scale. Accu-Cheks ACHS. He says he currently does not have insurance and so has not been able to get a refill of his meds as he has to pay out of pocket to be seen by his doctors. case management to help patient to see if he can get some help with his diabetes meds supplies. #DVT prophylaxis: Lovenox CODE STATUS:full code Patient counseled extensively about different types of CODE STATUS including full code, DNR CCA and DNR CCA. Patient elects to be full code. Total [id number] time 16 minutes. Charges/Coding Visit Charges Inpatient E&M: 15568 Init Hosp L3 Procedures Hospitalists Procedures: 83838 Advncd Care Plan 30 Min
[2025-02-15 23:37] LABS: Red Blood Cells-Urine 0-5 SEEN /hpf (0-5); Squamous Epithelial Cells - UA 0-5 SEEN /hpf (0-5)
--- OUTSIDE RECORDS SUMMARY | 2025-02-15 23:55 | XMS RPT_ITS | CCD ---
Author Organization [facility] Care Team Providers Care Clearing Hand Name Role Phone Dale Ramos MD Primary Care Provider PAMELA BLOOM Attending Unavailable HENRRY ROMO Referring Unavailable DALE RAMOS Primary Care Unavailable Dale Ramos MD Primary Care Provider DALE RAMOS Primary Care Unavailable JHON MAYBERRY Attending Unavailable JHON MAYBERRY Admitting Unavailable Dale Ramos MD Primary Care Provider Chase ENGINEERING TECHNICAL SPECIALIST.Tereza BARKER Unavailable Adebayo ENGINEERING TECHNICAL SPECIALIST.BRAKE REPAIRER [employer]ILROAD, Jakob Unavailable Dr. Dale Ramos MD Primary Care Provider [phone] Dr. Ky Carrillo DO Emergency Provider [phone] Ky Carrillo Attending Unavailable Dale Ramos Primary [...] AMINOPHEN] Drug Allergy 9 Mental Status Change [facility] (20 sources) Penicillin; Translations: [PENICILLIN] Drug Allergy 9 Anaphylaxis [facility] (1 source) HYDROcodone Drug Allergy 5 Other [facility] (1 source) Penicillins Allergy to substance 5 Rash [facility] (1 source) HYDROcodone Drug Allergy 5 [facility] (1 source) Penicillins Drug allergy (disorder) 5 [facility] Medications Current Medications Medication Drug [...] Start: 08-14-2019 take 2 tablets by mo [facility] twice daily Metformin 500 MG tablet Active [...] Comment on above: Take 2 tablets by [facility] every 6 hours as needed for pain. [...] Comment on above: Take 1 tablet by [facility] three times daily. 0.5 ml dulaglutide 3 [...] Comment on above: Take 1 capsule by [facility] once daily. lidocaine hydrochloride 0.02 mg/mg topical [...] )on 09-08-2024 BUN/CRE 14.8 RATIO Normal 10-20 [facility] Comment on above: Performed By: #### L 503.6005, L100.0100, L500.2500 #### [facility] [address] [place], [address] Calcium [Mass/Vol] 9.1 mg/dL Normal 7.6-11.0 [facility] Comment on above: Performed By: #### L 503.6005, L100.0100, L500.2500 #### [facility] [address] [place], [address] Chloride [Moles/Vol] 96 mmol/L Low 98-108 [facility] Comment on above: Performed By: #### L 503.6005, L100.0100, L500.2500 #### [facility] [address] [place], [address] CO2 [Moles/Vol] 21.8 mmol/L Normal 21.0-32.0 [facility] Comment on above: Performed By: #### L 503.6005, L100.0100, L500.2500 #### [facility] [address] [place], [address] Creatinine [Mass/Vol] 1.22 mg/dL High 0.70-1.20 [facility] Comment on above: Performed By: #### L 503.6005, L100.0100, L500.2500 #### [facility] [address] [place], [address] ECRCL 104.84 ml/min Normal 50-250 [facility] Comment on above: Performed By: #### L 503.6005, L100.0100, L500.2500 #### [facility] [address] [place], [address] GAP 13 Normal 5-15 [facility] Comment on above: Performed By: #### L 503.6005, L100.0100, L500.2500 #### [facility] [address] [place], [address] GFR/1.73 sq M.predicted among non-blacks MDRD (S/P/Bld) [Vol rate/Area] 71 mL/min/{1.73_m2} Normal >60 [facility] Comment on above: Result Comment: mL/m in/1.73m2 CKD-EPI Creatinine Equation (2020) Performed By: #### L 503.6005, L100.0100, L500.2500 #### [facility] [address] [place], [address] Glucose [Mass/Vol] 528 mg/dL Invalid Interpretation Code 70-99 [facility] Comment on above: Result Comment: Crit ical Result(s) Called at: 09/08/2024-12:01 by: Gerry Santos to Kary Sparr>??Results read back by same. Performed By: #### L 503.6005, L100.0100, L500.2500 #### [facility] [address] [place], [address] Potassium [Moles/Vol] 4.7 mmol/L Normal 3.3-5.1 [facility] Comment on above: Performed By: #### L 503.6005, L100.0100, L500.2500 #### [facility] [address] [place], [address] Sodium [Moles/Vol] 131 mmol/L Low 133-145 [facility] Comment on above: Performed By: #### L 503.6005, L100.0100, L500.2500 #### [facility] [address] [place], [address] Urea nitrogen [Mass/Vol] 18 mg/dL Normal 4-19 [facility] Comment on above: Performed By: #### L 503.6005, L100.0100, L500.2500 #### [facility] [address] [place], [address] Emergency Department Summary on 09-08-2024 Emergency Department Summary [facility] Medical Records Department [address] [place] [address] Emergency Department Summary 09/08/24 MR#: [id number] Acct: [id number] Name: KUSH SAMAYOA Rep #: [id number] : 1970 53 From: Ky Carrillo DO [...] antibiotics and therefore comes in for evaluation. [facility] Medical History (Updated 09/08/24 @ 05:28 by [...] as doc (more content not included)... Normal [facility] Absolute lymphocyte countOrd ered By: Ky Carrillo on 09-07-2024 Lymphocytes Auto (Unsp spec) [#/Vol] 1.72 10*3/uL 0.83-4.51 [facility] Absolute neutrophil countOrd ered By: Ky Carrillo on 09-07-2024 Neutrophils (Bld) [#/Vol] 4.9 10*3/uL 2.0-7.7 [facility] Anion gap in Serum or Plasma Ordered By: Ky Carrillo on 09-07-2024 Anion gap [Moles/Vol] 13 mmol/L 5-15 [facility] Automated lymphocyte count a s percentage of total leukocytesOrdered By: Ky Carrillo on 09-07-2024 Lymphocytes/100 WBC Auto (Unsp spec) 22.3 % 19-41 [facility] BUN/creatinine ratioOrdered By: Ky Carrillo on 09-07-2024 Urea nitrogen/Creatinine [Mass ratio] 14.8 mg/mg 10-20 [facility] Basophil percentageOrdered B y: Ky Carrillo on 09-07-2024 Basophils/100 WBC (Bld) 1.2 % High 0-1 [facility] CBC W/Diff, Automatedon Absolute Lymph 1.72 X10 3/uL Normal 0.83-4.51 [facility] Comment on above: Performed By: #### L 503.6005, L100.0100, L500.2500 #### [facility] [address] [place], [address] Absolute Neut 4.9 X10 3/uL Normal 2.0-7.7 [facility] Comment on above: Performed By: #### L 503.6005, L100.0100, L500.2500 #### [facility] [address] [place], [address] Basophils/100 WBC (Bld) 1.2 % High 0-1 [facility] Comment on above: Performed By: #### L 503.6005, L100.0100, L500.2500 #### [facility] [address] [place], [address] Eosinophils/100 WBC (Bld) 2.5 % Normal 0-5 [facility] Comment on above: Performed By: #### L 503.6005, L100.0100, L500.2500 #### [facility] [address] [place], [address] Erythrocyte distribution width (RBC) [Ratio] 14.3 % Normal 11.6-14.6 [facility] Comment on above: Performed By: #### L 503.6005, L100.0100, L500.2500 #### [facility] [address] [place], [address] Hematocrit (Bld) [Volume fraction] 39.6 % Low 40-54 [facility] Comment on above: Performed By: #### L 503.6005, L100.0100, L500.2500 #### [facility] [address] [place], [address] Hemoglobin (Bld) [Mass/Vol] 13.6 g/dL Normal 13.0-16.5 [facility] Comment on above: Performed By: #### L 503.6005, L100.0100, L500.2500 #### [facility] [address] [place], [address] IG% 3.500 High 0.0-0.9 [facility] Comment on above: Result Comment: IG% - Immature Granulocytes (promyelocytes, myelocytes and metamyelocytes) > 1% indicates that a LEFT SHIFT is Present. Performed By: #### L 503.6005, L100.0100, L500.2500 #### [facility] [address] [place], [address] Lymphocytes/100 WBC (Bld) 22.3 % Normal 19-41 [facility] Comment on above: Performed By: #### L 503.6005, L100.0100, L500.2500 #### [facility] [address] [place], [address] MCH (RBC) [Entitic mass] 26.4 pg Low 27.0-32.0 [facility] Comment on above: Performed By: #### L 503.6005, L100.0100, L500.2500 #### [facility] [address] [place], [address] MCHC (RBC) [Mass/Vol] 34.3 g/dL Normal 32-36 [facility] Comment on above: Performed By: #### L 503.6005, L100.0100, L500.2500 #### [facility] [address] [place], [address] MCV (RBC) [Entitic vol] 76.7 fL Low 80-94 [facility] Comment on above: Performed By: #### L 503.6005, L100.0100, L500.2500 #### [facility] [address] [place], [address] Monocytes/100 WBC (Bld) 6.8 % Normal 0-10 [facility] Comment on above: Performed By: #### L 503.6005, L100.0100, L500.2500 #### [facility] [address] [place], [address] Neutrophils/100 WBC (Bld) 63.7 % Normal 47-70 [facility] Comment on above: Performed By: #### L 503.6005, L100.0100, L500.2500 #### [facility] [address] [place], [address] Nucleated RBC (Bld) [#/Vol] 0 10*3/uL Normal 0-5 [facility] Comment on above: Performed By: #### L 503.6005, L100.0100, L500.2500 #### [facility] [address] [place], [address] Platelet mean volume (Bld) [Entitic vol] 9.1 fL Normal 6.2-12.0 [facility] Comment on above: Performed By: #### L 503.6005, L100.0100, L500.2500 #### [facility] [address] [place], [address] Platelets (Bld) [#/Vol] 269 10*3/uL Normal 150-450 [facility] Comment on above: Performed By: #### L 503.6005, L100.0100, L500.2500 #### [facility] [address] [place], [address] RBC (Bld) [#/Vol] 5.16 10*6/uL Normal 4.6-6.2 [facility] Comment on above: Performed By: #### L 503.6005, L100.0100, L500.2500 #### [facility] [address] [place], [address] RDW SD 38.5 fl Normal 35.1-43.9 [facility] Comment on above: Performed By: #### L 503.6005, L100.0100, L500.2500 #### [facility] [address] [place], [address] WBC (Bld) [#/Vol] 7.7 10*3/uL Normal 4.4-11.0 [facility] Comment on above: Performed By: #### L 503.6005, L100.0100, L500.2500 #### [facility] [address] [place], [address] Carbon dioxide, total [Moles /volume] in Central venous bloodOrdered By: Ky Carrillo on 09-07-2024 CO2 [Moles/Vol] 21.8 mmol/L 21.0-32.0 [facility] Chloride assayOrdered By: Maddie Carrillo on 09-07-2024 Chloride [Moles/Vol] 96 mmol/L Low 98-108 [facility] Eosinophil percentageOrdered By: Ky Carrillo on 09-07-2024 Eosinophils/100 WBC (Bld) 2.5 % 0-5 [facility] Erythrocyte distribution wid th ratioOrdered By: Ky Carrillo on 09-07-2024 Erythrocyte distribution width (RBC) [Ratio] 14.3 % 11.6-14.6 [facility] Erythrocyte distribution wid th standard deviationOrdered By: Ky Carrillo on 09-07-2024 Erythrocyte distribution width (RBC) [Ratio] 38.5 fl 35.1-43.9 [facility] Glomerular filtration rate ( GFR) estimation/1.73 sq m using serum, plasma, or whole bOrdered By: Ky Carrillo on 09-07-2024 GFR/1.73 sq M.predicted among non-blacks MDRD (S/P/Bld) [Vol rate/Area] 71 mL/min/{1.73_m2} >60 [facility] Comment on above: mL/min/1.73m2 CKD-EP I Creatinine Equation (2020) Hematocrit Auto (Bld) [Volum e fraction]Ordered By: Ky Carrillo on 09-07-2024 Hematocrit (Bld) [Volume fraction] 39.6 % Low 40-54 [facility] Hemoglobin measurementOrdere d By: Ky Carrillo on 09-07-2024 Hemoglobin (Bld) [Mass/Vol] 13.6 g/dL 13.0-16.5 [facility] Immature granulocytes/100 WB C Auto (Bld)Ordered By: Ky Carrillo on 09-07-2024 Immature granulocytes/100 WBC (Bld) 3.500 % High 0.0-0.9 [facility] Comment on above: IG% - Immature Granu locytes (promyelocytes, myelocytes and metamyelocytes) > 1% indicates that a LEFT SHIFT is Present. Lactic acid measurementOrder ed By: Ky Carrillo on 09-07-2024 Lactate [Moles/Vol] 1.4 mmol/L Normal 0.0-2.0 [facility] Comment on above: Order Comment: Y Performed By: #### L 503.6005, L100.0100, L500.2500 #### [facility] [address] [place], [address] MCV (mean corpuscular volume ) determinationOrdered By: Ky Carrillo on 09-07-2024 MCV (RBC) [Entitic vol] 76.7 fL Low 80-94 [facility] Mean corpuscular hemoglobin (MCH) determinationOrdered By: Ky Carrillo on 09-07-2024 MCH (RBC) [Entitic mass] 26.4 pg Low 27.0-32.0 [facility] Mean corpuscular hemoglobin concentration (MCHC) determinationOrdered By: Ky Carrillo on 09-07-2024 MCHC (RBC) [Mass/Vol] 34.3 g/dL 32-36 [facility] Mean platelet volume determi nationOrdered By: Ky Carrillo on 09-07-2024 Platelet mean volume (Bld) [Entitic vol] 9.1 fL 6.2-12.0 [facility] Monocyte percentageOrdered B y: Ky Carrillo on 09-07-2024 Monocytes/100 WBC (Bld) 6.8 % 0-10 [facility] Neutrophil percentageOrdered By: Ky Carrillo on 09-07-2024 Neutrophils/100 WBC (Bld) 63.7 % 47-70 [facility] Nucleated red blood cell per centageOrdered By: Ky Carrillo on 09-07-2024 Nucleated RBC/100 WBC (Bld) [Ratio] 0 % 0-5 [facility] Platelet countOrdered By: Maddie Carrillo on 09-07-2024 Platelets (Bld) [#/Vol] 269 10*3/uL 150-450 [facility] Potassium measurement (mass/ volume)Ordered By: Ky Carrillo on 09-07-2024 Potassium (Unsp spec) [Mass/Vol] 4.7 mmol/L 3.3-5.1 [facility] RBC Auto (Bld) [#/Vol]Ordere d By: Ky Carrillo on 09-07-2024 RBC (Bld) [#/Vol] 5.16 10*6/uL 4.6-6.2 [facility] Serum creatinine measurement (mass/volume)Ordered By: Ky Carrillo on 09-07-2024 Creatinine [Mass/Vol] 1.22 mg/dL High 0.70-1.20 [facility] Serum glucose measurement (m ass/volume)Ordered By: Ky Carrillo on 09-07-2024 Glucose [Mass/Vol] 528 mg/dL High 70-99 [facility] Comment on above: Critical Result(s) C alled at: 09/08/2024-12:01 by: Gerry Santos to Kary Rivera> Results read back by same. Serum or plasma calcium clem urement (mass/volume)Ordered By: Ky Carrillo on 09-07-2024 Calcium [Mass/Vol] 9.1 mg/dL 7.6-11.0 [facility] Serum or plasma urea nitroge n measurement (mass/volume)Ordered By: Ky Carrillo on 09-07-2024 Urea nitrogen [Mass/Vol] 18 mg/dL 4-19 [facility] Sodium levelOrdered By: Hermes Carrillo on 09-07-2024 Sodium [Moles/Vol] 131 mmol/L Low 133-145 [facility] White blood cell (WBC) count Ordered By: Ky Carrillo on 09-07-2024 WBC (Bld) [#/Vol] 7.7 10*3/uL 4.4-11.0 [facility] Comprehensive metabolic 2000 panelon 06-28-2024 Albumin [Mass/Vol] 4.2 g/dL Normal 3.9-4.9 [facility] Comment on above: Order Comment: Speci men Type: BLOOD SPECIMEN Ordering Facility: [facility] Address: [address] [place] [address] Performed By: #### 2 4323-8 #### [facility] CLIA [id number] [address] [place] [address] [place] ALP [Catalytic activity/Vol] 96 U/L Normal 38-[address] [facility] Comment on above: Order Comment: Speci men Type: BLOOD SPECIMEN Ordering Facility: [facility] Address: [address] [place] [address] Performed By: #### 2 4323-8 #### [facility] CLIA [id number] [address] [place] [address] [place] ALT [Catalytic activity/Vol] 30 U/L Normal 10-[address] [facility] Comment on above: Order Comment: Speci men Type: BLOOD SPECIMEN Ordering Facility: [facility] Address: [address] [place] [address] Performed By: #### 2 4323-8 #### [facility] CLIA [id number] [address] [place] [address] [place] Anion gap [Moles/Vol] 11 mmol/L Normal 8-15 [facility] Comment on above: Order Comment: Speci men Type: BLOOD SPECIMEN Ordering Facility: [facility] Address: [address] [place], [place] [address] Performed By: #### 2 4323-8 #### [facility] CLIA [id number] [address] [place] [address] [place] AST [Catalytic activity/Vol] 18 U/L Normal 14-[address] [facility] Comment on above: Order Comment: Speci men Type: BLOOD SPECIMEN Ordering Facility: [facility] Address: [address] [place] [address] Performed By: #### 2 4323-8 #### [facility] CLIA [id number] [address] [place] [address] [place] Bilirubin [Mass/Vol] 1.3 mg/dL Normal 0.2-1.3 [facility] Comment on above: Order Comment: Speci men Type: BLOOD SPECIMEN Ordering Facility: [facility] Address: [address] [place] [address] Performed By: #### 2 4323-8 #### [facility] CLIA [id number] [address] [place] [address] [place] Calcium [Mass/Vol] 9.7 mg/dL Normal 8.5-10.2 [facility] Comment on above: Order Comment: Speci men Type: BLOOD SPECIMEN Ordering Facility: [facility] Address: [address] [place] [address] Performed By: #### 2 4323-8 #### [facility] CLIA [id number] [address] [place] [address] [place] Chloride [Moles/Vol] 100 mmol/L Normal 98-107 [facility] Comment on above: Order Comment: Speci men Type: BLOOD SPECIMEN Ordering Facility: [facility] Address: [address] [place], [place] [address] Performed By: #### 2 4323-8 #### [facility] CLIA [id number] [address] [place] [address] [place] CO2 [Moles/Vol] 25 mmol/L Normal 22-[address] [facility] Comment on above: Order Comment: Ryan puga Type: BLOOD SPECIMEN Ordering Facility: [facility] Address: [address] [place] [address] Performed By: #### 2 4323-8 #### [facility] CLIA [id number] [address] [place] [address] [place] Creatinine [Mass/Vol] 0.98 mg/dL Normal 0.73-1.22 [facility] Comment on above: Order Comment: Laylai men Type: BLOOD SPECIMEN Ordering Facility: [facility] Address: [address] [place] [address] Performed By: #### 2 4323-8 #### [id number] [address] [place] [address] [place] Creatinine and Glomerular filtration rate.predicted panel (S/P/Bld) 93 mL/min/1.73m??? Normal >=[address] [facility] Comment on above: Order Comment: Ryan puga Type: BLOOD SPECIMEN Ordering Facility: [facility] Address: [address] [place] [address] Result Comment: Kandis mated Glomerular Filtration Rate [...] GFR. Performed By: #### 2 4323-8 #### [id number] [address] [place] [address] [place] Glucose [Mass/Vol] 198 mg/dL High 74-99 [facility] Comment on above: Order Comment: Laylai edd Type: BLOOD SPECIMEN Ordering Facility: [facility] Address: [address] [place] [address] Result Comment: The [place] Diabetes Association (ADA) provides guidance for cutoff [...] Standards of Medical Care in Diabetes 2016, [place] Diabetes Association. Diabetes Care. 2016.39(Suppl 1). Performed By: #### 2 4323-8 #### [facility] [id number] [address] [place] [address] [place] Potassium [Moles/Vol] 4.2 mmol/L Normal 3.7-5.1 [facility] Comment on above: Order Comment: Speci men Type: BLOOD SPECIMEN Ordering Facility: [facility] Address: [address] [place] [address] Performed By: #### 2 4323-8 #### [facility] [id number] [address] [place] [address] [place] Protein [Mass/Vol] 7.4 g/dL Normal 6.3-8.0 [facility] Comment on above: Order Comment: Speci men Type: BLOOD SPECIMEN Ordering Facility: [facility] Address: [address] [place] [id number] Performed By: #### 2 4323-8 #### [facility] CLIA [id number] [address] [place] [address] [place] Sodium [Moles/Vol] 136 mmol/L Normal 136-144 [facility] Comment on above: Order Comment: Speci men Type: BLOOD SPECIMEN Ordering Facility: [facility] Address: [address] [place] [address] Performed By: #### 2 4323-8 #### [facility] CLIA [id number] [address] [place] [address] [place] Urea nitrogen [Mass/Vol] 11 mg/dL Normal 9-[address] [facility] Comment on above: Order Comment: Speci men Type: BLOOD SPECIMEN Ordering Facility: [facility] Address: [address] [place] [address] Performed By: #### 2 4323-8 #### [facility] CLIA [id number] [address] [place] [address] [place] HbA1c (Bld)on 06-28-2024 Average glucose Estimated from glycated hemoglobin (Bld) [Mass/Vol] 226 mg/dL Normal [facility] Comment on above: Order Comment: Speci men Type: BLOOD SPECIMEN Ordering Facility: [facility] Address: [address] [place] [address] Result Comment: eAG: (Estimated average glucose) is a calculated value from HgbA1c and is cordage sales representative of the average blood glucose level in the last 2-3 month period. Performed By: #### 5 5454-3 #### [facility] CLIA [id number] [address] [place] [address] [place] HbA1c (Bld) [Mass fraction] 9.5 % High 4.3-5.[address] [facility] Comment on above: Order Comment: Speci men Type: BLOOD SPECIMEN Ordering Facility: [facility] Address: [address] [place] [address] Result Comment: [place] Diabetes Association guidelines indicate that patients with HgbA1c in the range 5.7-6.4% are at increased risk for development of diabetes, and intervention by lifestyle modification may be beneficial. HgbA1c greater or equal to 6.5% is considered diagnostic of diabetes. Performed By: #### 5 5454-3 #### [facility] CLIA [id number] [address] [place] [address] [place] TESTOSTERONE, FREE AND TOTAL , BY EQUILIBRIUM ULTRAFILTRATION MASS SPECTROMETRYon 06-28-2024 Testosterone [Mass/Vol] 705.3 ng/dL Normal 264.0-916.[address] [facility] Comment on above: Order Comment: Speci men Type: BLOOD SPECIMEN Ordering Facility: [facility] Address: [address] [place] [address] Result Comment: This [facility] LC/MS-MS method is currently certified by the CDC Hormone Standardization Program (HoSt). Adult male reference interval is based on a population of healthy nonobese males (BMI <30) between 19 and 39 years old. Wei et.al. JCEM 2017,102;3203-8181. PMID: [id number]. Performed By: #### T FTEST #### [facility] CLIA [id number] [address] [place] [address] Testosterone Free [Mass/Vol] 34.35 ng/dL High 5.00-21.[address] [facility] Comment on above: Order Comment: Speci men Type: BLOOD SPECIMEN Ordering Facility: [facility] Address: [address] [place] [address] Performed By: #### T FTEST #### [facility] CLIA [id number] [address] [place] [address] Testosterone Free/Testosterone.total [Mass fraction] 4.87 % High 1.50-4.[address] [facility] Comment on above: Order Comment: Speci men Type: BLOOD SPECIMEN Ordering Facility: [facility] Address: [address] [place] [address] Performed By: #### T FTEST #### [facility] CLIA [id number] [address] [place] [address] CNPJanice 06-26-2024 MJN Telephone (FAMPWS) KUSH SAMAYOA V ([id number]) 1970 M Date Time Provider Department 06/26/24 DALE RAMOS During your visit today, we recorded the following information about you: Carmen Dave LPN 06/26/2024 10:34 AM Signed TC to pt. LM to call office, ask for triage nurse to schedule May follow up appt. and also need to get outstanding labs. NITA Sargent Stephanie 07/06/2024 9:15 AM Signed 1st attempt [...] Encounter Status:Closed by CARMEN DAVE on 07/06/24 [facility] 03-29-2024 [facility] Telephone ([facility]) KUSH SAMAYOA V ([id number]) 1970 M Date Time Provider Department 03/29/24 JHON MAYBERRY [facility] During your visit today, we recorded the following information about you: Isis Chamberlain OCCA 03/29/2024 9:55 AM Signed Employer Forms for Patient/Caregiver Time Off of Work Received [employer] paperwork on 03/29/24. Completed, signed by provider, and returned to below contact. Completed copy scanned in [facility] Date of Surgery: 01/06/23 Estimated RTW date:02/17/23 Employer: [employer] Date sent to employer: 03/29/24 Received fax confirmation: YES Allergies As of Date: 03/29/2024 Noted Allergy Reaction PENICILLIN 06/20/2018 10 - Anaphylaxis VICODIN (HYDROCODONE-ACETAMI NOPHE*06/20/2018 1 - Mental Status Change Comments: Aggressiveness Date Reviewed: 03/08/2024 Reviewed by: Carmen Dave LPN - Fully Assessed Reason for Visit: FMLA Paperwork [3053] Prescriptions as of 03/29/2024 - anastrozole (ARIMIDEX) [...] Encounter Status:Closed by ISIS CHAMBERLAIN [facility] KUSH SAMAYOA V ([id number]) 1970 M Date Time Provider Department 03/29/[address] [facility] During your visit today, we recorded the [...] Encounter Status:Closed by MARIAM RUANO on 04/24/24 [facility] CNOVon 03-08-2024 CNOV Office Visit (FAMPWS) DANITAAVEKUSH V ([id number]) 1970 M Date Time Provider Department 03/08/24 [...] Protein, Tot (more content not included)... Normal [facility] Comprehensive metabolic 2000 panelon 03-06-2024 Albumin [Mass/Vol] 4.2 g/dL Normal 3.9-4.9 [facility] Comment on above: Order Comment: Speci men Type: BLOOD SPECIMEN Ordering Facility: [facility] Address: [address] [place] [address] Performed By: #### T FTEST #### [facility] CLIA [id number] [address] [place] [address] ALP [Catalytic activity/Vol] 95 U/L Normal 38-[address] [facility] Comment on above: Order Comment: Speci men Type: BLOOD SPECIMEN Ordering Facility: [facility] Address: [address] [place] [address] Performed By: #### T FTEST #### [facility] CLIA [id number] [address] [place] [address] ALT [Catalytic activity/Vol] 25 U/L Normal 10-[address] [facility] Comment on above: Order Comment: Speci men Type: BLOOD SPECIMEN Ordering Facility: [facility] Address: [address] [place] [address] Performed By: #### T FTEST #### [facility] CLIA [id number] [address] [place] [address] Anion gap [Moles/Vol] 12 mmol/L Normal 8-15 [facility] Comment on above: Order Comment: Speci men Type: BLOOD SPECIMEN Ordering Facility: [facility] Address: [address] [place] [address] Performed By: #### T FTEST #### [facility] CLIA [id number] [address] [place] [address] AST [Catalytic activity/Vol] 18 U/L Normal 14-[address] [facility] Comment on above: Order Comment: Speci men Type: BLOOD SPECIMEN Ordering Facility: [facility] Address: [address] [place] [address] Performed By: #### T FTEST #### [facility] CLIA [id number] [address] [place] [address] Bilirubin [Mass/Vol] 0.9 mg/dL Normal 0.2-1.3 [facility] Comment on above: Order Comment: Speci men Type: BLOOD SPECIMEN Ordering Facility: [facility] Address: [address] [place] [address] Performed By: #### T FTEST #### [facility] CLIA [id number] [address] [place] [address] Calcium [Mass/Vol] 9.2 mg/dL Normal 8.5-10.2 [facility] Comment on above: Order Comment: Speci men Type: BLOOD SPECIMEN Ordering Facility: [facility] Address: [address] [place] [address] Performed By: #### T FTEST #### [facility] CLIA [id number] [address] [place] [address] Chloride [Moles/Vol] 99 mmol/L Normal 98-107 [facility] Comment on above: Order Comment: Speci men Type: BLOOD SPECIMEN Ordering Facility: [facility] Address: [address] [place] [address] Performed By: #### T FTEST #### [facility] CLIA [id number] [address] [place] [address] CO2 [Moles/Vol] 23 mmol/L Normal 22-[address] [facility] Comment on above: Order Comment: Speci men Type: BLOOD SPECIMEN Ordering Facility: [facility] Address: [address] [place] [address] Performed By: #### T FTEST #### [facility] CLIA [id number] [address] [place] [address] Creatinine [Mass/Vol] 0.98 mg/dL Normal 0.73-1.22 [facility] Comment on above: Order Comment: Speci men Type: BLOOD SPECIMEN Ordering Facility: [facility] Address: [address] [place] [address] Performed By: #### T FTEST #### [facility] CLIA [id number] [address] [place] [address] Creatinine and Glomerular filtration rate.predicted panel (S/P/Bld) 93 mL/min/1.73m??? Normal >=[address] [facility] Comment on above: Order Comment: Speci men Type: BLOOD SPECIMEN Ordering Facility: [facility] Address: [address] [place] [address] Result Comment: Kandis mated Glomerular Filtration Rate [...] GFR. Performed By: #### T FTEST #### [facility] CLIA [id number] [address] [place] [address] Glucose [Mass/Vol] 356 mg/dL High 74-99 [facility] Comment on above: Order Comment: Ryan puga Type: BLOOD SPECIMEN Ordering Facility: [facility] Address: [address] [place] [address] Result Comment: The [place] Diabetes Association (ADA) provides guidance for cutoff [...] Standards of Medical Care in Diabetes 2016, [place] Diabetes Association. Diabetes Care. 2016.39(Suppl 1). Performed By: #### T FTEST #### [facility] CLIA [id number] [address] [place] [address] Potassium [Moles/Vol] 4.3 mmol/L Normal 3.7-5.1 [facility] Comment on above: Order Comment: Ryan puga Type: BLOOD SPECIMEN Ordering Facility: [facility] Address: [address] [place] [address] Performed By: #### T FTEST #### [facility] CLIA [id number] [address] [place] [address] Protein [Mass/Vol] 7.7 g/dL Normal 6.3-8.0 [facility] Comment on above: Order Comment: Ryan puga Type: BLOOD SPECIMEN Ordering Facility: [facility] Address: [address] [place] [address] Performed By: #### T FTEST #### [facility] CLIA [id number] [address] [place] [address] Sodium [Moles/Vol] 134 mmol/L Low 136-144 [facility] Comment on above: Order Comment: Ryan puga Type: BLOOD SPECIMEN Ordering Facility: [facility] Address: [address] [place] [address] Performed By: #### T FTEST #### [facility] CLIA [id number] [address] [place] [address] Urea nitrogen [Mass/Vol] 10 mg/dL Normal 9-[address] [facility] Comment on above: Order Comment: Ryan puga Type: BLOOD SPECIMEN Ordering Facility: [facility] Address: [address] [place] [address] Performed By: #### T FTEST #### [facility] CLIA [id number] [address] [place] [address] HbA1c (Bld)on 03-06-2024 Average glucose Estimated from glycated hemoglobin (Bld) [Mass/Vol] 286 mg/dL Normal [facility] Comment on above: Order Comment: Ryan puga Type: BLOOD SPECIMEN Ordering Facility: [facility] Address: [address] [place] [address] Result Comment: eAG: (Estimated average glucose) is a calculated value from HgbA1c and is cordage sales representative of the average blood glucose level in the last 2-3 month period. Performed By: #### T FTEST #### [facility] CLIA [id number] [address] [place] [address] HbA1c (Bld) [Mass fraction] 11.6 % High 4.3-5.[address] [facility] Comment on above: Order Comment: Ryan puga Type: BLOOD SPECIMEN Ordering Facility: [facility] Address: [address] [place] [address] Result Comment: Amer ican Diabetes Association guidelines indicate that patients with HgbA1c in the range 5.7-6.4% are at increased risk for development of diabetes, and intervention by lifestyle modification may be beneficial. HgbA1c greater or equal to 6.5% is considered diagnostic of diabetes. Performed By: #### T FTEST #### [facility] CLIA [id number] [address] [place] [address] Lipid 1996 panelon 4 Cholesterol [Mass/Vol] 157 mg/dL Normal <200 [facility] Comment on above: Order Comment: Speci men Type: BLOOD SPECIMEN Ordering Facility: [facility] Address: [address] [place] [address] Result Comment: <200 mg/dL, Desirable 200-239 mg/dL, Borderline high >239 mg/dL, High Performed By: #### T FTEST #### [facility] CLIA [id number] [address] [place] [address] Cholesterol in HDL [Mass/Vol] 27 mg/dL Low >[address] [facility] Comment on above: Order Comment: Laylai [facility] Type: BLOOD SPECIMEN Ordering Facility: [facility] Address: [address] [place] [address] Result Comment: 40-5 9 mg/dL, Acceptable >59 mg/dL, High: Negative risk factor for coronary heart disease <40 mg/dL, Low: Positive risk factor for coronary heart disease Performed By: #### T FTEST #### [facility] CLIA [id number] [address] [place] [address] Cholesterol in LDL [Mass/Vol] 83 mg/dL Normal <[address] [facility] Comment on above: Order Comment: Laylai [facility] Type: BLOOD SPECIMEN Ordering Facility: [facility] Address: [address] [place] [address] Result Comment: <100 mg/dL, Optimal 100-129 mg/dL, Near optimal/above optimal 130-159 mg/dL, Borderline high 160-189 mg/dL, High >189 mg/dL, Very high Secondary prevention optimal LDL Cholesterol levels are recommended to be < 70 mg/dL Performed By: #### T FTEST #### [facility] CLIA [id number] [address] [place] [address] Cholesterol in LDL/Cholesterol in HDL [Mass ratio] 3.07 {ratio} High <2.[address] [facility] Comment on above: Order Comment: Ryan puga Type: BLOOD SPECIMEN Ordering Facility: [facility] Address: [address] [place] [address] Result Comment: Mariana rosen: 1. National Cholesterol Education Program ATP III Guideline At-A-Glance Quick Desk Reference: National Heart, Lung, and Blood [place]. National Institutes of Health. 2001: NIH Publication No. 01-3305. 2. An International Atherosclerosis Society position paper: global recommendations for the management of dyslipidemia: executive summary, Atherosclerosis. 2014: 232(2):410-413. Performed By: #### T FTEST #### [facility] CLIA [id number] [address] [place] [address] Cholesterol in VLDL [Mass/Vol] 47 mg/dL High <[address] [facility] Comment on above: Order Comment: Ryan puga Type: BLOOD SPECIMEN Ordering Facility: [facility] Address: [address] [place] [address] Performed By: #### T FTEST #### [facility] CLIA [id number] [address] [place] [address] Cholesterol non HDL [Mass/Vol] 130 mg/dL High <[address] [facility] Comment on above: Order Comment: Ryan puga Type: BLOOD SPECIMEN Ordering Facility: [facility] Address: [address] [place] [address] Result Comment: <130 mg/dL, Optimal 130-159 mg/dL, Near optimal/above optimal 160-189 mg/dL, Borderline high 190-219 mg/dL, High >219 mg/dL, Very high Secondary prevention optimal non HDL Cholesterol levels are recommended to be <100 mg/dL Performed By: #### T FTEST #### [facility] CLIA [id number] [address] [place] [address] Cholesterol.total/Choles terol in HDL [Mass ratio] 5.81 {ratio} High <5.[address] [facility] Comment on above: Order Comment: Ryan puga Type: BLOOD SPECIMEN Ordering Facility: [facility] Address: [address] [place] [address] Performed By: #### T FTEST #### [facility] CLIA [id number] [address] [place] [address] FASTING TIME 12 hrs Normal [facility] Comment on above: Order Comment: Speci men Type: BLOOD SPECIMEN Ordering Facility: [facility] Address: [address] [place] [address] Performed By: #### T FTEST #### [facility] CLIA [id number] [address] [place] [address] Triglyceride [Mass/Vol] 233 mg/dL High <150 [facility] Comment on above: Order Comment: Speci men Type: BLOOD SPECIMEN Ordering Facility: [facility] Address: [address] [place] [address] Result Comment: <150 mg/dL, Normal 150-199 mg/dL, Borderline high 200-499 mg/dL, High >499 mg/dL, Very high Performed By: #### T FTEST #### [facility] CLIA [id number] [address] [place] [address] TESTOSTERONE, FREE AND TOTAL , BY EQUILIBRIUM ULTRAFILTRATION MASS SPECTROMETRYon 03-06-2024 Testosterone [Mass/Vol] 989.3 ng/dL High 264.0-916.[address] [facility] Comment on above: Order Comment: Speci men Type: BLOOD SPECIMEN Ordering Facility: [facility] Address: [address] [place] [address] Result Comment: This [facility] LC/MS-MS method is currently certified by the CDC Hormone Standardization Program (HoSt). Adult male reference interval is based on a population of healthy nonobese males (BMI <30) between 19 and 39 years old. Wei et.al. JCEM 2017,102;0805-0632. PMID: [id number]. Performed By: #### T FTEST #### [facility] CLIA [id number] [address] [place] [address] Testosterone Free [Mass/Vol] 36.60 ng/dL High 5.00-21.[address] [facility] Comment on above: Order Comment: Speci men Type: BLOOD SPECIMEN Ordering Facility: [facility] Address: [address] [place] [address] Performed By: #### T FTEST #### [facility] CLIA [id number] [address] [place] [address] Testosterone Free/Testosterone.total [Mass fraction] 3.70 % Normal 1.50-4.[address] [facility] Comment on above: Order Comment: Speci men Type: BLOOD SPECIMEN Ordering Facility: [facility] Address: [address] [place] [address] Performed By: #### T FTEST #### [facility] CLIA [id number] [address] [place] [address] CNPNon 03-02-2024 CNPN Telephone (4CQ) KUSH SAMAYOA V ([id number]) 1970 M Date Time Provider Department 03/02/24 DALE RAMOS 4CQ During your visit today, we recorded [...] Order(s):COMPREHENSI VE METABOLIC PANEL [SQCMP] Order #: [id number] FUTURE HEMOGLOBIN A1C [NHBKJ0D] Order #: [id number] FUTURE LIPID PANEL BASIC [SQLIPB] Order #: [id number] FUTURE TESTOSTERONE, FREE AND TOTAL, BY EQUILIBRIUM ULTRAFILTRATION MASS SPECTROMETRY [SQTFTEST] Order #: [id number] FUTURE Prescriptions as of 03/02/2024 - metFORMIN [...] Status:Closed by CARMEN DAVE on 03/02/[address] [facility] Basic metabolic 2000 panelon 01-07-2023 Anion gap [Moles/Vol] 14 mmol/L Normal 9-18 [facility] Comment on above: Order Comment: Speci men Type: BLOOD SPECIMEN Ordering Facility: [facility] Address: [address] [place] [address] Performed By: #### 2 4321-2 #### [facility] CLIA [id number] [address] [place] [address] [place] Calcium [Mass/Vol] 9.2 mg/dL Normal 8.5-10.2 [facility] Comment on above: Order Comment: Speci men Type: BLOOD SPECIMEN Ordering Facility: [facility] Address: [address] [place] [address] Performed By: #### 2 4321-2 #### [facility] CLIA [id number] [address] [place] [address] [place] Chloride [Moles/Vol] 104 mmol/L Normal 97-105 [facility] Comment on above: Order Comment: Speci men Type: BLOOD SPECIMEN Ordering Facility: [facility] Address: [address] [place] [address] Performed By: #### 2 4321-2 #### [facility] CLIA [id number] [address] [place] [address] [place] CO2 [Moles/Vol] 21 mmol/L Low 22-30 [facility] Comment on above: Order Comment: Speci men Type: BLOOD SPECIMEN Ordering Facility: [facility] Address: [address] [place] [address] Performed By: #### 2 4321-2 #### [facility] CLIA [id number] [address] [place] [address] [place] Creatinine [Mass/Vol] 1.23 mg/dL High 0.73-1.22 [facility] Comment on above: Order Comment: Ryan puga Type: BLOOD SPECIMEN Ordering Facility: [facility] Address: [address] [place] [address] Performed By: #### 2 4321-2 #### [facility] CLIA [id number] [place] [address] [place] Creatinine and Glomerular filtration rate.predicted panel (S/P/Bld) 71 mL/min/1.73m??? Normal >=60 [facility] Comment on above: Order Comment: Ryan puga Type: BLOOD SPECIMEN Ordering Facility: [facility] Address: [address] [place] [address] Result Comment: Kandis mated Glomerular Filtration Rate [...] GFR. Performed By: #### 2 4321-2 #### [facility] CLIA [id number] [place] [address] [place] Glucose [Mass/Vol] 151 mg/dL High 74-99 [facility] Comment on above: Order Comment: Ryan puga Type: BLOOD SPECIMEN Ordering Facility: [facility] Address: [address] [place] [address] Result Comment: The [place] Diabetes Association (ADA) provides guidance for cutoff [...] Standards of Medical Care in Diabetes 2016, [place] Diabetes Association. Diabetes Care. 2016.39(Suppl 1). Performed By: #### 2 4321-2 #### [facility] CLIA [id number] [place] [address] [place] Potassium [Moles/Vol] 4.5 mmol/L Normal 3.7-5.1 [facility] Comment on above: Order Comment: Speci men Type: BLOOD SPECIMEN Ordering Facility: [facility] Address: [address] [place] [address] Performed By: #### 2 4321-2 #### [facility] CLIA [id number] [address] [place] [address] [place] Sodium [Moles/Vol] 139 mmol/L Normal 136-144 [facility] Comment on above: Order Comment: Speci men Type: BLOOD SPECIMEN Ordering Facility: [facility] Address: [address] [place] [address] Performed By: #### 2 4321-2 #### [facility] CLIA [id number] [address] [place] [address] [place] Urea nitrogen [Mass/Vol] 16 mg/dL Normal 9-24 [facility] Comment on above: Order Comment: Speci men Type: BLOOD SPECIMEN Ordering Facility: [facility] Address: [address] [place] [address] Performed By: #### 2 4321-2 #### [facility] CLIA [id number] [address] [place] [address] [place] CBC panel Auto (Bld)on 01-07 Erythrocyte distribution width (RBC) [Ratio] 14.4 % Normal 11.5-15.0 [facility] Comment on above: Order Comment: Speci men Type: BLOOD SPECIMENOrdering Facility: [facility] Address: [address] [place] [address] Performed By: #### 5 8410-2 ####[facility] [id number] [address] [place] Hematocrit (Bld) [Volume fraction] 38.9 % Low 39.0-51.0 [facility] Comment on above: Order Comment: Speci men Type: BLOOD SPECIMENOrdering Facility: [facility] Address: [address] [place] [address] Performed By: #### 5 8410-2 ####[facility] [id number] [place] [address] [place] Hemoglobin (Bld) [Mass/Vol] 13.1 g/dL Normal 13.0-17.0 [facility] Comment on above: Order Comment: Speci men Type: BLOOD SPECIMENOrdering Facility: [facility] Address: [address] [place] [address] Performed By: #### 5 8410-2 ####[facility] [id number] [place] [address] [place] MCH (RBC) [Entitic mass] 26.6 pg Normal 26.0-34.0 [facility] Comment on above: Order Comment: Speci men Type: BLOOD SPECIMENOrdering Facility: [facility] Address: [address] [place] [address] Performed By: #### 5 8410-2 ####[facility] [id number] [place] [address] [place] MCHC (RBC) [Mass/Vol] 33.7 g/dL Normal 30.5-36.0 [facility] Comment on above: Order Comment: Speci men Type: BLOOD SPECIMENOrdering Facility: [facility] Address: [address] [place] [address] Performed By: #### 5 8410-2 ####[facility] [id number] [address] [place] MCV (RBC) [Entitic vol] 79.1 fL Low 80.0-100.0 [facility] Comment on above: Order Comment: Speci men Type: BLOOD SPECIMENOrdering Facility: [facility] Address: [address] [place] [address] Performed By: #### 5 8410-2 ####[facility] [id number] [place] [id number] [place] Nucleated RBC (Bld) [#/Vol] 10*3/uL Normal <0.01 [facility] Comment on above: Order Comment: Speci men Type: BLOOD SPECIMENOrdering Facility: [facility] Address: [address] [place] [address] Performed By: #### 5 8410-2 ####[facility] [id number] [place] [address] [place] Platelet mean volume (Bld) [Entitic vol] 9.2 fL Normal 9.0-12.7 [facility] Comment on above: Order Comment: Speci men Type: BLOOD SPECIMENOrdering Facility: [facility] Address: [address] [place] [address] Performed By: #### 5 8410-2 ####[facility] [id number] [place] [address] [place] Platelets (Bld) [#/Vol] 256 10*3/uL Normal 150-400 [facility] Comment on above: Order Comment: Speci men Type: BLOOD SPECIMENOrdering Facility: [facility] Address: [address] [place] [address] Performed By: #### 5 8410-2 ####[facility] [id number] [place] [id number] [place] RBC (Bld) [#/Vol] 4.92 10*6/uL Normal 4.20-6.00 [facility] Comment on above: Order Comment: Speci men Type: BLOOD SPECIMENOrdering Facility: [facility] Address: [address] [place] [address] Performed By: #### 5 8410-2 ####HANAPEPE LABORATORYCLIA [id number] [place] [id number] [place] WBC (Bld) [#/Vol] 11.09 10*3/uL High 3.70-11.00 [facility] Comment on above: Order Comment: Ryan puga Type: BLOOD SPECIMENOrdering Facility: [facility] Address: [place] [address] Performed By: #### 5 8410-2 ####NIURKA LABORATORYCLIA [id number] [address] CNDSon 01-07-2023 CNDS HNO ID: [id number] Author: Elisabeth Grossman MD Service: General Surgery [...] at you (more content not included)... Normal [facility] ANES POSTPROC EVALon 023 ANES POSTPROC EVAL HNO ID: [id number] Author: Cruz Eduardo MD Service: Anesthesiology Author [...] January 06, 2023 TIME: 6:51 PM CSN: [id number] [facility] ANES PRE-OPon 01-06-2023 ANES PRE-OP HNO ID: [id number] Author: Dex Roa MD Service: Anesthesiology Author [...] and consent discussed: yes. Patient / Responsible Libertarian agrees to proceed: yes Patient / Surrogate [...] January 06, 2023 TIME: 11:27 AM CSN: [id number] [facility] BRIEF OP NOTon 01-06-2023 BRIEF OP NOT HNO ID: [id number] Author: Matilde Razo MD Service: General Surgery Author Type: Resident Type: Brief Op Note Filed: 01/06/2023 3:20 PM Note Text: GENERAL SURGERY BRIEF OP NOTE Patient Name: Kush Samayoa Log ID: [id number] Surgery/Procedure Date: 01/06/2023 Incision/Procedure Start Time: 12:26 PM Incision Close/Procedure End Time: 2:53 PM Surgeon(s) and Water Service Supervisor(s): Surgeon(s) and Role: * Jhon Mayberry MD [...] Postop Plan of Care: PACU then Home [facility] NURSING PROGon 01-06-2023 NURSING PROG HNO ID: [id number] Author: Zohra Camejo RN Service: Pain Management Author Type: Registered Nurse Type: Nursing Progress Note Filed: 01/06/2023 3:20 PM Note Text: BILATERAL rectus sheath single shot nerve blocks in OR setting. Dr. Stevens and Dr. Rodríguez [facility] NURSING PROG HNO ID: [id number] Author: Linda Paul, RN Service: Nursing Author [...] (RECOMMENDATION): None Electronically Signed By: Linda Paul [facility] OPERATIVE NOon 01-06-2023 OPERATIVE NO HNO ID: [id number] Author: Jhon Mayberry MD Service: General Surgery Author Type: Physician Type: Operative Report Filed: 01/06/2023 3:04 PM Note Text: LOG ID: [id number] Surgery/Procedure Date: 01/06/2023 Incision/Procedure Start Time: 12:26 PM Incision Close/Procedure End Time: 2:53 PM Surgeon(s)/Procedura list(s) and Water Service Supervisor(s): Surgeon(s) and Role: * Jhon Mayberry MD [...] polypropylene towards the anterior abdominal wall. A Dayak suture passer was used to grasp the [...] case. Pre-Op (more content not included)... Normal [facility] CBC W Auto Differential pane l (Bld)on 12-23-2022 Basophils (Bld) [#/Vol] 0.06 10*3/uL <0.11 k/uL [facility] Basophils/100 WBC (Bld) 0.8 % [facility] Differential cell count method Nom (Bld) Auto [facility] Eosinophils (Bld) [#/Vol] 0.16 10*3/uL <0.46 k/uL [facility] Eosinophils/100 WBC (Bld) 2.2 % [facility] Erythrocyte distribution width (RBC) [Ratio] 14.9 % 11.5 - 15.0 % [facility] Hematocrit (Bld) [Volume fraction] 39.7 % 39.0 - 51.0 % [facility] Hemoglobin (Bld) [Mass/Vol] 13.7 g/dL 13.0 - 17.0 g/dL [facility] Immature granulocytes (Bld) [#/Vol] 0.14 10*3/uL High <0.10 k/uL [facility] Immature granulocytes/100 WBC (Bld) 1.9 % [facility] Lymphocytes (Bld) [#/Vol] 2.13 10*3/uL 1.00 - 4.00 k/uL [facility] Lymphocytes/100 WBC (Bld) 29.1 % [facility] MCH (RBC) [Entitic mass] 26.0 pg 26. 0 - 34.0 pg [facility] MCHC (RBC) [Mass/Vol] 34.5 g/dL 30.5 - 36.0 g/dL [facility] MCV (RBC) [Entitic vol] 75.5 fL Low 80.0 - 100.0 fL [facility] Monocytes (Bld) [#/Vol] 0.57 10*3/uL <0.87 k/uL [facility] Monocytes/100 WBC (Bld) 7.8 % [facility] Neutrophils (Bld) [#/Vol] 4.26 10*3/uL 1.45 - 7.50 k/uL [facility] Neutrophils/100 WBC (Bld) 58.2 % [facility] Nucleated RBC (Bld) [#/Vol] <0.01 k/uL [facility] Nucleated RBC/100 WBC (Bld) [Ratio] 0.0 /100 WBC [facility] Platelet mean volume (Bld) [Entitic vol] 8.6 fL Low 9.0 - 12.7 fL [facility] Platelets (Bld) [#/Vol] 226 10*3/uL 150 - 400 k/uL [facility] RBC (Bld) [#/Vol] 5.26 10*6/uL 4.20 - 6.0 0 m/uL [facility] WBC (Bld) [#/Vol] 7.32 10*3/uL 3.70 - 11. 00 k/uL [facility] Comprehensive metabolic 2000 panelon 12-23-2022 Albumin [Mass/Vol] 4.3 g/dL 3.9 - 4.9 g/dL [facility] ALP [Catalytic activity/Vol] 87 U/L 38 - 113 U/L [facility] ALT [Catalytic activity/Vol] 28 U/L 10 - 54 U/L [facility] Anion gap [Moles/Vol] 11 mmol/L 9 - 18 mmol/L [facility] AST [Catalytic activity/Vol] 17 U/L 14 - 40 U/L [facility] Bilirubin [Mass/Vol] 1.1 mg/dL 0.2 - 1 .3 mg/dL [facility] Calcium [Mass/Vol] 10.1 mg/dL 8.5 - 10. 2 mg/dL [facility] Chloride [Moles/Vol] 101 mmol/L 97 - 10 5 mmol/L [facility] CO2 [Moles/Vol] 24 mmol/L 22 - 30 mmol/L [facility] Creatinine [Mass/Vol] 1.24 mg/dL High 0.73 - 1.22 mg/dL [facility] Estimated Glomerular Filtration Rate 70 mL/min/1.73m >=60 mL/min/1.73m [facility] Glucose [Mass/Vol] 177 mg/dL High 74 - 99 mg/dL [facility] Potassium [Moles/Vol] 3.9 mmol/L 3.7 - 5.1 mmol/L [facility] Protein [Mass/Vol] 7.7 g/dL 6.3 - 8.0 g/dL [facility] Sodium [Moles/Vol] 136 mmol/L 136 - 144 mmol/L [facility] Urea nitrogen [Mass/Vol] 14 mg/dL 9 - 24 mg/d L [facility] HbA1c (Bld)on 12-23-2022 Average glucose Estimated from glycated hemoglobin (Bld) [Mass/Vol] 140 mg/dL [facility] HbA1c (Bld) [Mass fraction] 6.5 % High 4.3 - 5.6 % [facility] CNOVon 11-04-2022 CNOV Office Visit (UROLAE) KUSH SAMAYOA V ([id number]) 1970 M Date Time Provider Department 11/04/22 [...] patient: Yes Procedure confirmed with physician and support services manager: Yes UNIVERSAL PROTOCOL / SAFETY CHECKLIST Procedure [...] by contextual derivation. Referring Provider: HENRRY ROMO [[id number]] Allergies As of Date: 11/04/2022 Noted Allergy Reaction PENICILLIN 06/20/2018 10 - Anaphylaxis VICODIN (HYDROCODONE-ACETAMI NOPHE*06/20/2018 1 - Mental Status Change Comments: Aggressiveness Date Reviewed: 11/04/2022 Reviewed by: Shirley Person Security Intern - Fully Assessed Reason for Visit: Cystoscopy-1 [303] Primary Visit Diagnosis:Gross hematuria [R31.0] Order(s):[] lidocaine urojet 2 % 6 mL topical gel (GLYDO)Disp: Rfl: UA DIP, URINE (POC) [8464699] Order #: [id number] Prescriptions as of 11/04/2022 - iv contrast [...] anastrozole (A (more content not included)... Normal [facility] UA DIP, URINE (POC)on 2022 BILIRUBIN UA (POCT) Negative Negative [facility] CLARITY UA (POCT) Clear [facility] COLOR UA (POCT) Yellow [facility] GLUCOSE UA (POCT) Negative Negative mg/dL [facility] HEMOGLOBIN/BLOOD UA (POCT) Negative Negative [facility] KETONE UA (POCT) Negative Negative mg/dL [facility] LEUKOCYTES UA (POCT) Negative Negative [facility] NITRITE UA (POCT) Negative Negative [facility] PH UA (POCT) 7.0 4.5 - 8.0 [facility] Protein Ql (U) Negative Negative mg/dL [facility] SPECIFIC GRAVITY UA (POCT) 1.020 1.005 - 1.030 [facility] UROBILINOGEN UA (POCT) 1.0 E.U./dL Lindsay l E.U./dL [facility] CNPJanice 10-13-2022 MJN Telephone (AKURFL) KUSH SAMAYOA V ([id number]) 1970 M Date Time Provider Department 10/13/22 [...] Status:Closed by LA NENA DELGADO on 10/13/22 [facility] Vital Signs Date Time Vital Sign Value Performing Clinician Faci lity 09-08-2024 01:00-0400 Body temperature 98.2 [degF] Dr. Dale Ramos MD Work Phone: [phone] [place] [address] 09-08-2024 01:00-0400 Diastolic blood pressure 87 mm[Hg] Dr. Dale Ramos MD Work Phone: 2([phone])827-286921 [place] [address] 09-08-2024 01:00-0400 Heart rate 83 /min Dr. Dale Ramos MD Work Phone: 4(284)779-875321 [place] [address] 09-08-2024 01:00-0400 Respiratory rate 16 /min Dr. Dale Ramos MD Work Phone: 1(162)651-106521 [place] [address] 09-08-2024 01:00-0400 SaO2% (BldA) [Mass fraction] 97 % Dr. Dale Ramos MD Work Phone: 1(627)266-517421 [place] [address] 09-08-2024 01:00-0400 Systolic blood pressure 138 mm[Hg] Dr. Dale Ramos MD Work Phone: 5(980)800-435521 [place] [address] 09-07-2024 21:18-0400 Body height 175.[address] Dale Ramos MD Work Phone: 7(897)704-900621 [place] [address] 09-07-2024 21:18-0400 Body mass index (BMI) [Ratio] 50.6 kg/m2 Dr. Dale Ramos MD Work Phone: 0(551)633-820021 [place] [address] 09-07-2024 21:18-0400 Body weight 155.[address] Dale Ramos MD Work Phone: 9([phone])123-012821 [place] [address] 03-08-2024 11:18-0500 Body mass index (BMI) [Ratio] 47.11 kg/m2 Treeza Stone APRN.[employer]RAKE REPA[employer]ER [employer]RO[employer] Work Phone: [facility] 03-08-2024 11:18-0500 Body weight 144.7 kg Tereza Stone APRN.[employer]RAKE REPAIR[employer] Work Phone: [facility] 03-08-2024 11:18-0500 Diastolic blood pressure 68 mm[Hg] Tereza Stone APRN.[employer]KE RE[employer]IRER [employer] Work Phone: [facility] 03-08-2024 11:18-0500 Heart rate 92 /min Tereza Tannhof ENGINEERING TECHNICAL SPECIALIST.[employer]RAKE REPAIRER [employer]RO[employer] Work Phone: [facility] 03-08-2024 11:18-0500 Respiratory rate 16 /min Tereza Tannhof ENGINEERING TECHNICAL SPECIALIST.BRAKE REPAIRER [employer]RO[employer] Work Phone: [facility] 03-08-2024 11:18-0500 SaO2% (BldA) [Mass fraction] 95 % Tereza Tannhof ENGINEERING TECHNICAL SPECIALIST.BRAKE REPAIRER [employer]ROAD Work Phone: [facility] 03-08-2024 11:18-0500 Systolic blood pressure 136 mm[Hg] Tereza Tannhof ENGINEERING TECHNICAL SPECIALIST.[employer] REPA[employer] Work Phone: [facility] 08-09-2023 08:56-0400 Body weight 150.59 kg Tereza Tannhof ENGINEERING TECHNICAL SPECIALIST.[employer] REPAIR[employer] Work Phone: [facility] 08-09-2023 08:56-0400 Diastolic blood pressure 80 mm[Hg] Tereza Tannhof ENGINEERING TECHNICAL SPECIALIST.[employer]KE REPAIR[employer]RO[employer] Work Phone: [facility] 08-09-2023 08:56-0400 Heart rate 71 /min Tereza Tannhof ENGINEERING TECHNICAL SPECIALIST.BRAKE REPAIRER [employer]RO[employer] Work Phone: [facility] 08-09-2023 08:56-0400 Respiratory rate 16 /min Tereza Tannhof ENGINEERING TECHNICAL SPECIALIST.BRA[employer] REPAIR[employer]RO[employer] Work Phone: [facility] 08-09-2023 08:56-0400 SaO2% (BldA) [Mass fraction] 96 % Tereza Tannhof ENGINEERING TECHNICAL SPECIALIST.[employer] REPAIR[employer]RO[employer] Work Phone: [facility] 08-09-2023 08:56-0400 Systolic blood pressure 130 mm[Hg] Tereaz Tannhof ENGINEERING TECHNICAL SPECIALIST.B[employer]KE REPAIR[employer]RO[employer] Work Phone: [facility] 02-04-2023 09:44-0400 Body weight 151.5 kg Tereza Tannhof ENGINEERING TECHNICAL SPECIALIST.BRAKE REPAIR[employer]RO[employer] Work Phone: [facility] 02-04-2023 09:44-0400 Diastolic blood pressure 80 mm[Hg] Tereza Tannhof ENGINEERING TECHNICAL SPECIALIST.BRAKE REPAIRER [employer]RO[employer] Work Phone: [facility] 02-04-2023 09:44-0400 Heart rate 81 /min Tereza Márquezhof ENGINEERING TECHNICAL SPECIALIST.[employer]KE REPAIRER [employer]RO[employer] Work Phone: [facility] 02-04-2023 09:44-0400 Respiratory rate 16 /min Tereza Márquezhof ENGINEERING TECHNICAL SPECIALIST.BRAKE REPAIRER [employer]ROAD Work Phone: [facility] 02-04-2023 09:44-0400 SaO2% (BldA) [Mass fraction] 98 % Tereza Márquezhof ENGINEERING TECHNICAL SPECIALIST.BRAKE REPAIRER [employer]ROAD Work Phone: [facility] 02-04-2023 09:44-0400 Systolic blood pressure 128 mm[Hg] Terzea Márquezhof ENGINEERING TECHNICAL SPECIALIST.BRAKE REPAIRER [employer]RO[employer] Work Phone: [facility] 01-28-2023 11:43-0400 Body height 175.3 cm Jhon Mayberry MD Work Phone: [facility] 01-28-2023 11:43-0400 Body temperature 97.7 [degF] Jhon Mayberry MD Work Phone: [facility] 01-28-2023 11:43-0400 Body weight 154.68 kg Jhon Mayberry MD Work Phone: [facility] 01-28-2023 11:43-0400 Diastolic blood pressure 64 mm[Hg] Jhon Mayberry MD Work Phone: [facility] 01-28-2023 11:43-0400 Heart rate 72 /min Jhon Mayberry MD Work Phone: [facility] 01-28-2023 11:43-0400 SaO2% (BldA) [Mass fraction] 98 % Jhon Mayberry MD Work Phone: [facility] 01-28-2023 11:43-0400 Systolic blood pressure 140 mm[Hg] Jhon Mayberry MD Work Phone: [facility] 12-23-2022 09:21-0400 Body height 175.3 cm [facility] 1 Work Phone: [facility] 12-23-2022 09:21-0400 Body temperature 98.2 [degF] Pacc 1 Work Phone: [facility] 12-23-2022 09:21-0400 Body weight 150.59 kg Pacc 1 Work Phone: [facility] 12-23-2022 09:21-0400 Diastolic blood pressure 76 mm[Hg] Pacc 1 Work Phone: [facility] 12-23-2022 09:21-0400 Heart rate 75 /min Pacc 1 Work Phone: [facility] 12-23-2022 09:21-0400 Respiratory rate 18 /min Pacc 1 Work Phone: [facility] 12-23-2022 09:21-0400 SaO2% (BldA) [Mass fraction] 97 % Pacc 1 Work Phone: [facility] 12-23-2022 09:21-0400 Systolic blood pressure 144 mm[Hg] Pacc 1 Work Phone: [facility] 11-04-2022 10:39-0400 Diastolic blood pressure 86 mm[Hg] Pamela Bloom MD Work Phone: [facility] 11-04-2022 10:39-0400 Heart rate 70 /min Pamela Bloom MD Work Phone: [facility] 11-04-2022 10:39-0400 SaO2% (BldA) [Mass fraction] 96 % Pamela Bloom MD Work Phone: [facility] 11-04-2022 10:39-0400 Systolic blood pressure 134 mm[Hg] Pamela Bloom MD Work Phone: [facility] 10-02-2022 14:35-0400 Body weight 145.97 kg Dale Ramos MD Work Phone: [facility] 10-02-2022 14:35-0400 Diastolic blood pressure 70 mm[Hg] Dale Ramos MD Work Phone: [facility] 10-02-2022 14:35-0400 Heart rate 80 /min Dale Ramos MD Work Phone: [facility] 10-02-2022 14:35-0400 Respiratory rate 16 /min Dale Ramos MD Work Phone: [facility] 10-02-2022 14:35-0400 Systolic blood pressure 134 mm[Hg] Dale Ramos MD Work Phone: [facility] 08-17-2022 10:00-0400 Body weight 148.33 kg Tereza Stone ENGINEERING TECHNICAL SPECIALIST.BRAKE REPAIRER [employer]ILROAD Work Phone: [facility] 08-17-2022 10:00-0400 Diastolic blood pressure 78 mm[Hg] Tereza Stone ENGINEERING TECHNICAL SPECIALIST.BRAKE REPAIRER [employer]ILROAD Work Phone: [facility] 08-17-2022 10:00-0400 Heart rate 73 /min Tereza Stone ENGINEERING TECHNICAL SPECIALIST.BRAKE REPAIRER [employer]ILROAD Work Phone: [facility] 08-17-2022 10:00-0400 Respiratory rate 16 /min Tereza Stone ENGINEERING TECHNICAL SPECIALIST.BRAKE REPAIRER [employer]ILROAD Work Phone: [facility] 08-17-2022 10:00-0400 SaO2% (BldA) [Mass fraction] 95 % Tereza Stone ENGINEERING TECHNICAL SPECIALIST.BRAKE REPAIRER [employer]ILROAD Work Phone: [facility] 08-17-2022 10:00-0400 Systolic blood pressure 126 mm[Hg] Tereza Stone ENGINEERING TECHNICAL SPECIALIST.BRAKE REPAIRER [employer]ILROAD Work Phone: [facility] Encounters Encounter Date Encounter Type Care Provider Facility Start: 01-25-2025 End: 01-25-2025 ambulatory DALE RAMOS Facility:[facility] Start: 09-07-2024 End: 09-08-2024 Emergency department patient visit Dr. Dale Ramos MD Work Phone: -Emergency Department Work Phone: Start: 07-05-2024 End: 07-10-2024 Follow-up encounter Tereza Stone APRN.BRAKE REPAIRER RAILROAD Work Phone: [facility] [place] Comment on above: Type 2 diabetes milady itus without complication, without long- term current use of insulin ([facility]) (Primary Dx); Hyperlipidemia, mixed Start: 06-28-2024 End: 06-28-2024 ambulatory [facility] Facility:[facility] Start: 06-26-2024 End: 07-06-2024 Telephone encounter Dale Ramos MD Work Phone: [facility] [place] Start: 06-14-2024 End: 06-14-2024 ambulatory [facility] Facility:[facility] Start: 06-14-2024 End: 06-14-2024 Office outpatient visit 25 minutes Tereza Stone ENGINEERING TECHNICAL SPECIALIST.BRAKE REPAIRER RAILROAD Work Phone: [facility] [place] Comment on above: Type 2 diabetes milady itus without complication, without long- term current use of insulin (HCC) (Primary Dx); Anxiety with depression; Hypogonadism in male Start: 06-13-2024 End: 06-14-2024 Refill Tereza Stone ENGINEERING TECHNICAL SPECIALIST.BRAKE REPAIRER RAILROAD Work Phone: [facility] Comment on above: Refill Request Start: 03-29-2024 End: 04-24-2024 Telephone encounter Jhon Mayberry MD Work Phone: General Surgery Comment on above: FMLA Paperwork Start: 03-08-2024 End: 03-08-2024 Patient encounter procedure Tereza Stone ENGINEERING TECHNICAL SPECIALIST.BRAKE REPAIRER [employer]ILROAD Work Phone: [facility] [place] Comment on above: Type 2 diabetes milady itus without complication, without long- term current use of insulin (HCC) (Primary Dx); Hypogonadism in male Start: 03-08-2024 End: 03-08-2024 ambulatory [facility] Facility:[facility] Start: 03-06-2024 End: 03-06-2024 ambulatory DALE RAMOS Facility:[facility] Start: 03-02-2024 End: 03-02-2024 Telephone encounter Dale Ramos MD Work Phone: [address] [place] [address] Comment on above: Orders Start: 01-24-2024 End: 01-24-2024 Refill Dale Ramos MD Work Phone: [facility] Comment on above: Refill Request Start: 11-03-2023 End: 11-03-2023 ambulatory Tereza Willihof ENGINEERING TECHNICAL SPECIALIST.BRAKE REPAIRER [employer]ILROAD Work Phone: [facility] Comment on above: Anxiety with depress ion (Primary Dx) Start: 11-03-2023 End: 11-03-2023 Telemedicine consultation with patient Tereza Márquezhof ENGINEERING TECHNICAL SPECIALIST.BRAKE REPAIRER RAILROAD Work Phone: [facility] [place] Start: 10-06-2023 Telephone encounter Tereza Salgado nhof ENGINEERING TECHNICAL SPECIALIST.BRAKE REPAIRER RAILROAD Work Phone: [facility] [place] Start: 09-21-2023 Telephone encounter Tereza Salgado nhof ENGINEERING TECHNICAL SPECIALIST.BRAKE REPAIRER RAILROAD Work Phone: [facility] Comment on above: Medication Problem Start: 09-08-2023 End: 09-08-2023 ambulatory Tereza Willihof ENGINEERING TECHNICAL SPECIALIST.BRAKE REPAIRER RAILROAD Work Phone: [facility] Comment on above: Anxiety with depress ion (Primary Dx) Start: 09-08-2023 End: 09-08-2023 Telemedicine consultation with patient Tereza Stone ENGINEERING TECHNICAL SPECIALIST.BRAKE REPAIRER RAILROAD Work Phone: [facility] [place] Start: 08-09-2023 Telephone encounter Dale shetty MD Work Phone: Internal Medicine [place] Comment on above: Insurance Authorizat ion Start: 08-09-2023 End: 08-09-2023 Patient encounter procedure Tereza Márquezhof ENGINEERING TECHNICAL SPECIALIST.BRAKE REPAIRER RAILROAD Work Phone: [facility] Comment on above: Type 2 diabetes milady itus without complication, without long- term current use of insulin (HCC) (Primary Dx); Hypogonadism in male; Anxiety with depression; Bilateral impacted cerumen; Ear pain, right Start: 03-06-2023 Orders Only Tereza Tannhof ENGINEERING TECHNICAL SPECIALIST.BRAKE REPAIRER RAILROAD Work Phone: [facility] [place] Start: 03-03-2023 Orders Only Tereza Tannhof ENGINEERING TECHNICAL SPECIALIST.BRAKE REPAIRER RAILROAD Work Phone: [facility] [place] Start: 02-04-2023 End: 02-04-2023 Patient encounter procedure Tereza Tannhof ENGINEERING TECHNICAL SPECIALIST.BRAKE REPAIRER [employer]ILROAD Work Phone: [facility] [place] Comment on above: Type 2 diabetes milady [...] Post Op Start: 01-06-2023 End: 01-07-2023 ambulatory [facility] Facility:[facility] Start: 12-23-2022 End: 12-23-2022 Admission to establishment [facility] [place] 1 Work Phone: [facility] [...] examination done Pac [place] 1 Work Phone: [facility] Work Phone: Start: 12-07-2022 Telephone encounter Jhon sahu MD Work Phone: General Surgery Comment on above: FMLA Paperwork Opened In Error Start: 12-04-2022 Telephone encounter Jhon sahu MD Work Phone: General Surgery Comment on above: Schedule Surgery Start: 11-11-2022 Telephone encounter Henrry jones PA-C Work Phone: Urology Comment on above: Results Start: 11-05-2022 ambulatory Dale barrera MD Work Phone: [facility] [place] Comment on above: Test results Start: 11-04-2022 End: 11-04-2022 ambulatory PAMELA BLOOM Facility:[facility] Start: 11-04-2022 End: 11-04-2022 Patient encounter procedure Pamela Bloom MD Work Phone: Urology Comment on above: Gross hematuria (Annalee alexx Dx) Start: 10-15-2022 Telephone encounter Henrry jones PA-C Work Phone: Urology Comment on above: Results Start: 10-13-2022 Telephone encounter Henrry jones PA-C Work Phone: [facility] Comment on above: Appointment Start: 10-02-2022 End: 10-02-2022 Patient encounter procedure Dale Ramos MD Work Phone: [facility] [place] Comment on above: Hematuria, unspecifi ed type (Primary Dx); Hospital discharge follow-up; Bilateral flank pain; Musculoskeletal pain; Lower abdominal pain; Elevated serum creatinine Start: 08-17-2022 End: 08-17-2022 Patient encounter procedure Tereza Stone APRN.CNP Work Phone: [facility] [place] Comment on above: Type 2 diabetes milady itus without complication, without long- term current use of insulin (HCC) (Primary Dx); Hypogonadism in male; Obesity, Class III, BMI 40-49.9 (morbid obesity) (HCC) Start: 02-16-2022 End: 02-16-2022 ambulatory Dale Ramos MD Work Phone: [facility] [place] Comment on above: Type 2 diabetes milady itus without complication, without long- term current use of insulin (HCC); Hypogonadism in male Start: 02-16-2022 End: 02-16-2022 Telemedicine consultation with patient Dale Ramos MD Work Phone: [facility] [place] Start: 02-05-2022 Telephone encounter Dale shetty MD Work Phone: [facility] [place] Comment on above: requesting apt type change (Changing office apt to phone apt/) Start: 11-18-2021 Refill Dale barrera MD Work Phone: [facility] [place] Comment on above: Refill Request Start: 2021 Refill Dale barrera MD Work Phone: [facility] [place] Comment on above: Refill Request Start: 09-19-2021 Refill Dale barrera MD Work Phone: [facility] [place] Comment on above: Refill Request Start: 08-04-2021 Telephone encounter Dale shetty MD Work Phone: [facility] [place] Comment on above: Insurance Authorizat ion Start: 07-29-2021 Telephone encounter Dale shetty MD Work Phone: [facility] [place] Comment on above: Results Start: 10-15-2020 Telephone encounter Dale shetty MD Work Phone: [facility] [place] Comment on above: Patient Update Procedures Date Procedure Procedure Detail Performing Clinician Start: 09-07-[address] Dale Ramos MD Work Phone: Start: 11-03-2023 Adult depression screening assessment Tereza Stone APRN.[employer] Work Phone: Start: 12-23-2022 Ecg routine ecg w/le ast 12 lds i&r only [facility] Provider Start: 11-04-2022 Urnls dip stick/tabl et rgnt auto w/o microscopy Pamela Bloom MD Work Phone: Start: 2020 Adult depression screening assessment Dale Ramos MD Work Phone: Plan of Treatment Date Care Activity Detail Author Start: 06-28-2025 Creatinine measurement Serum Creatin ine [facility] Start: 06-20-2025 Urine microalbumin profile [facility] Start: 06-14-2025 Annual PCP Team Hot Cell Technician radha Disease Visit Annual PCP Team Chronic Disease Visit [facility] Start: 03-08-2025 Annual PCP Team Hot Cell Technician radha Disease Visit Annual PCP Team Chronic Disease Visit [facility] Start: 03-06-2025 Creatinine measurement Serum Creatin ine [facility] Start: 03-06-2025 Hepatitis B surface antibody level LDL Cholesterol [facility] Start: 11-02-2024 Annual PCP Team Hot Cell Technician radha Disease Visit Annual PCP Team Chronic Disease Visit [facility] Start: 11-02-2024 Anxiety Screening Anxiety Screening [facility] Start: 11-02-2024 Depression Screening Depression Scre ening [facility] Start: 10-06-2024 End: 10-06-2024 ambulatory 10/06/2024 7:40 AM EDT [facility] [place] [address] [place], [place] [id number] Jakob Fiore APRN.[employer] RE[employer] [address] [place], [place] [id number] 3 month f/u [facility] [place] Comment on above: 3 month f/u Start: 10-05-2024 End: 01-04-2025 Comprehensive metabolic 2000 panel - Serum or Plasma COMPREHENSIVE METABOLIC PANEL Lab Routine Hyperlipidemia, mixed Expected: 10/05/2024, Expires: 01/04/2025 [facility] Work Phone: Comment on above: Expected: 10/05/2024 , Expires: 01/04/2025 Start: 10-05-2024 End: 01-04-2025 Hemoglobin A1c in Blood HEMOGLOBIN A1C Lab Routine Type 2 diabetes mellitus without complication, without long-term current use of insulin (HCC) Expected: 10/05/2024, Expires: 01/04/2025 [facility] Comment on above: Expected: 10/05/2024 , Expires: 01/04/2025 Start: 10-05-2024 End: 01-04-2025 Lipid 1996 panel - Serum or Plasma LIPID PANEL BASIC Lab Routine Hyperlipidemia, mixed Expected: 10/05/2024, Expires: 01/04/2025 [facility] Comment on above: Expected: 10/05/2024 , Expires: 01/04/2025 Start: 09-25-2024 Hemoglobin A1c measurement HbA1C [facility] Start: 09-08-2024 [facility] Start: 09-07-2024 Annual PCP Team Hot Cell Technician radha Disease Visit Annual PCP Team Chronic Disease Visit [facility] Start: 08-08-2024 Annual PCP Team Hot Cell Technician radha Disease Visit Annual PCP Team Chronic Disease Visit [facility] Start: 08-06-2024 Creatinine measurement Serum Creatin ine [facility] Start: 08-06-2024 Hepatitis B surface antibody level LDL Cholesterol [facility] Start: 06-14-2024 End: 06-14-2024 Follow-up encounter 06/14/2024 6:00 PM [facility] [place] [address] [place], [place] [address] Tereza Stone APRN.[employer] REPA[employer] [address] [facility] [place] [address] 3 month follow up Family [facility] [place] Comment on above: 3 month follow up Start: 06-14-2024 End: 09-13-2024 TESTOSTERONE, FREE AND TOTAL, BY EQUILIBRIUM ULTRAFILTRATION MASS SPECTROMETRY TESTOSTERONE, FREE AND TOTAL, BY EQUILIBRIUM ULTRAFILTRATION MASS SPECTROMETRY Lab Routine Hypogonadism in male Expected: 06/14/2024, Expires: 09/13/2024 [facility] Work Phone: Comment on above: Expected: 06/14/2024 , Expires: 09/13/2024 Start: 06-08-2024 End: 09-07-2024 Comprehensive metabolic 2000 panel - Serum or Plasma COMPREHENSIVE METABOLIC PANEL Lab Routine Type 2 diabetes mellitus without complication, without long-term current use of insulin (HCC) Expected: 06/08/2024, Expires: 09/07/2024 [facility] Comment on above: Expected: 06/08/2024 , Expires: 09/07/2024 Start: 06-08-2024 End: 09-07-2024 Hemoglobin A1c in Blood HEMOGLOBIN A1C Lab Routine Type 2 diabetes mellitus without complication, without long-term current use of insulin (HCC) Expected: 06/08/2024, Expires: 09/07/2024 [facility] Work Phone: Comment on above: Expected: 06/08/2024 , Expires: 09/07/2024 Start: 06-06-2024 Hemoglobin A1c measurement HbA1C [facility] Start: 03-08-2024 End: 03-08-2024 Patient encounter procedure 03/08/2024 11:20 AM EST Office Visit [facility] [address] [place] [address] Tereza Stone APRN.BRAKE REPAIRER [employer]RO[employer] [address] [place] [address] follow up with labs [facility] [place] Comment on above: follow up with labs Start: 03-02-2024 End: 06-01-2024 Comprehensive metabolic 2000 panel - Serum or Plasma COMPREHENSIVE METABOLIC PANEL Lab Routine Hyperlipidemia, unspecified hyperlipidemia type Hypertension, unspecified type Type 2 diabetes mellitus without complication, without long-term current use of insulin (HCC) Chronic kidney disease, unspecified CKD stage Expected: 03/02/2024, Expires: 06/01/2024 [facility] Work Phone: Comment on above: Expected: 03/02/2024 , Expires: 06/01/2024 Start: 03-02-2024 End: 06-01-2024 Hemoglobin A1c in Blood HEMOGLOBIN A1C Lab Routine Type 2 diabetes mellitus without complication, without long-term current use of insulin (HCC) Expected: 03/02/2024, Expires: 06/01/2024 [facility] Comment on above: Expected: 03/02/2024 , Expires: 06/01/2024 Start: 03-02-2024 End: 06-01-2024 Lipid 1996 panel - Serum or Plasma LIPID PANEL BASIC Lab Routine Hyperlipidemia, unspecified hyperlipidemia type Hypertension, unspecified type Type 2 diabetes mellitus without complication, without long-term current use of insulin (HCC) Expected: 03/02/2024, Expires: 06/01/2024 [facility] Comment on above: Expected: 03/02/2024 , Expires: 06/01/2024 Start: 03-02-2024 End: 06-01-2024 TESTOSTERONE, FREE AND TOTAL, BY EQUILIBRIUM ULTRAFILTRATION MASS SPECTROMETRY TESTOSTERONE, FREE AND TOTAL, BY EQUILIBRIUM ULTRAFILTRATION MASS SPECTROMETRY Lab Routine Hypogonadism in male Expected: 03/02/2024, Expires: 06/01/2024 [facility] Comment on above: Expected: 03/02/2024 , Expires: 06/01/2024 Start: 02-05-2024 Annual PCP Team Hot Cell Technician radha Disease Visit Annual PCP Team Chronic Disease Visit [facility] Start: 01-08-2024 Serum Creatinine Serum Creatinine Cl [facility] Start: 01-02-2024 Covid-19 Vaccine ( season) Covid-19 Vaccine () [facility] Start: 01-02-2024 Influenza vaccination [facility] Start: 12-24-2023 SERUM CREATININE SERUM CREATININE Cl [facility] Start: 11-22-2023 End: 11-22-2023 Patient encounter procedure 11/22/2023 9:00 AM EDT Office Visit Family Medicine [place] [address] [facility] [place] [address] Tereza Stone APRN.[employer]RA[employer] RE[employer]IR[employer]RO[employer] [address] [place] [address] 3 month follow up with labs Family [facility] [place] Comment on above: 3 month follow up [facility] labs Start: 11-09-2023 End: 11-09-2023 Patient encounter procedure 11/09/2023 11:20 AM EDT Office [place] [address] Cost [employer] [facility] Comment on above: Cost Start: 11-08-2023 End: 02-07-2024 Comprehensive metabolic 2000 panel - Serum or Plasma COMP METABOLIC PANEL Lab Routine Type 2 diabetes mellitus without complication, without long-term current use of insulin (HCC) Expected: 11/08/2023, Expires: 02/07/2024 [facility] Work Phone: Comment on above: Expected: 11/08/2023 , Expires: 02/07/2024 Start: 11-08-2023 End: 02-07-2024 Hemoglobin A1c in Blood HGB A1C Lab Routine Type 2 diabetes mellitus without complication, without long-term current use of insulin (HCC) Expected: 11/08/2023, Expires: 02/07/2024 [facility] Work Phone: Comment on above: Expected: 11/08/2023 , Expires: 02/07/2024 Start: 11-06-2023 Hemoglobin A1c measurement HbA1C [facility] Start: 10-13-2023 End: 10-13-2023 Follow-up encounter 10/13/2023 5:20 PM EDT [facility] [place] [address] [place] [address] Tereza Stone APRN.BRAKE RE[employer] [address] [place] [address] follow up [facility] [place] Comment on above: follow up Start: 10-03-2023 ANNUAL PCP TEAM HEALTH LEAD RADHA DISEASE VISIT ANNUAL PCP TEAM CHRONIC DISEASE VISIT [facility] Start: 08-18-2023 ANNUAL PCP TEAM HEALTH LEAD RADHA DISEASE VISIT ANNUAL PCP TEAM CHRONIC DISEASE VISIT [facility] Start: 08-18-2023 COLORECTAL CANCER SCREENING COLORECTAL CANCER SCREENING [facility] Comment on above: Postponed from 10/27 (Declined at this time) Start: 08-18-2023 COVID-19 VACCINE (#1) COVID-19 VACCI NE (#1) [facility] Comment on above: Postponed from 04/28 (Declined at this time) Start: 08-18-2023 HEPATITIS B (1 of 3 - 3-dose series) HEPATITIS B (1 of 3 - 3-dose series) [facility] Comment on above: Postponed from 10/27 (Declined at this time) Start: 08-18-2023 Hepatitis B Vaccine (1 of 3 - 19+ 3-dose series) Hepatitis B Vaccine (1 of 3 - 19+ 3-dose series) [facility] Comment on above: Postponed from 10/27 (Declined at this time) Start: 08-18-2023 Hepatitis B Vaccine (1 of 3 - 3-dose series) Hepatitis B Vaccine (1 of 3 - 3-dose series) [facility] Comment on above: Postponed from 10/27 (Declined at this time) Start: 08-18-2023 HEPATITIS C SCREENING HEPATITIS C [facility] Comment on above: Postponed from 10/27 (Declined at this time) Start: 08-18-2023 Hepatitis C screening Hepatitis C [facility] Comment on above: Postponed from 10/27 (Declined at this time) Start: 08-18-2023 HIV SCREENING HIV SCREENING [facility] Comment on above: Postponed from 10/27 (Declined at this time) Start: 08-18-2023 HIV screening HIV Screening [facility] Comment on above: Postponed from 10/27 (Declined at this time) Start: 08-18-2023 PNEUMOCOCCAL (1 - PCV) PNEUMOCOCCAL (1 - PCV) [facility] Comment on above: Postponed from 10/27 (Declined at this time) Start: 08-18-2023 Pneumococcal vaccination [facility] Comment on above: Postponed from 10/27 (Declined at this time) Start: 08-18-2023 Screening for malign ant neoplasm of colon Colorectal Cancer Screening [facility] Comment on above: Postponed from 10/27 (Declined at this time) Start: 08-18-2023 SHINGRIX VACCINE (1 of 2) LITTLEJOHN GRIX VACCINE (1 of 2) [facility] Comment on above: Postponed from 10/27 (Declined at this time) Start: 08-09-2023 Hepatitis B surface antibody level LDL CHOLESTEROL [facility] Start: 08-06-2023 End: 10-06-2023 Comprehensive metabolic 2000 panel - Serum or Plasma COMP METABOLIC PANEL Lab Routine Type 2 diabetes mellitus without complication, without long-term current use of insulin (HCC) Expected: 08/06/2023, Expires: 10/06/2023 [facility] Work Phone: Comment on above: Expected: 08/06/2023 , Expires: 10/06/2023 Start: 08-06-2023 End: 10-06-2023 ESTROGEN FRACTION BL ESTROGEN FRACTION BL Lab Routine Hypogonadism in male Expected: 08/06/2023, Expires: 10/06/2023 [facility] Work Phone: Comment on above: Expected: 08/06/2023 , Expires: 10/06/2023 Start: 08-06-2023 End: 10-06-2023 Hemoglobin A1c in Blood HGB A1C Lab Routine Type 2 diabetes mellitus without complication, without long-term current use of insulin (HCC) Expected: 08/06/2023, Expires: 10/06/2023 [facility] Work Phone: Comment on above: Expected: 08/06/2023 , Expires: 10/06/2023 Start: 08-06-2023 End: 10-06-2023 Lipid 1996 panel - Serum or Plasma LIPID PANEL BASIC Lab Routine Screening cholesterol level Expected: 08/06/2023, Expires: 10/06/2023 [facility] Work Phone: Comment on above: Expected: 08/06/2023 , Expires: 10/06/2023 Start: 08-06-2023 End: 10-06-2023 TESTOSTERONE, FREE AND TOTAL TESTOSTERONE, FREE AND TOTAL Lab Routine Hypogonadism in male Expected: 08/06/2023, Expires: 10/06/2023 [facility] Work Phone: Comment on above: Expected: 08/06/2023 , Expires: 10/06/2023 Start: 06-25-2023 Hemoglobin A1c/Hemoglobin.total in Blood HBA1C [facility] Start: 05-03-2023 Behavioral Health Screening Behavioral Health Screening [facility] Start: 02-16-2023 ANNUAL PCP TEAM HEALTH LEAD RADHA DISEASE VISIT ANNUAL PCP TEAM CHRONIC DISEASE VISIT [facility] Start: 02-09-2023 Hepatitis B screening URINE AL BUMIN:CREATININE RATIO [facility] Start: 02-07-2023 Hemoglobin A1c/Hemoglobin.total in Blood HBA1C [facility] Start: 01-01-2023 Covid-19 Vaccine () Covid-19 Vaccine () [facility] Start: 01-01-2023 Influenza vaccination C [facility] Start: 12-09-2022 Glaucoma screening Dilated Retinal E xam [facility] Start: 12-09-2022 Hepatitis C antibody , confirmatory test DILATED RETINAL EXAM [facility] Start: 08-17-2022 End: 10-17-2022 Comprehensive metabolic 2000 panel - Serum or Plasma COMP METABOLIC PANEL Lab Routine Type 2 diabetes mellitus without complication, without long-term current use of insulin (HCC) Expected: 08/17/2022 (Approximate), Expires: 10/17/2022 [facility] Work Phone: Comment on above: Expected: 08/17/2022 (Approximate), Expires: 10/17/2022 Start: 08-17-2022 End: 10-17-2022 ESTROGEN FRACTION BL ESTROGEN FRACTION BL Lab Routine Hypogonadism in male Expected: 08/17/2022 (Approximate), Expires: 10/17/2022 [facility] Work Phone: Comment on above: Expected: 08/17/2022 (Approximate), Expires: 10/17/2022 Start: 08-17-2022 End: 10-17-2022 Hemoglobin A1c in Blood HGB A1C Lab Routine Type 2 diabetes mellitus without complication, without long-term current use of insulin (HCC) Expected: 08/17/2022 (Approximate), Expires: 10/17/2022 [facility] Work Phone: Comment on above: Expected: 08/17/2022 (Approximate), Expires: 10/17/2022 Start: 08-17-2022 End: 10-17-2022 Lipid 1996 panel - Serum or Plasma LIPID PANEL BASIC Lab Routine Type 2 diabetes mellitus without complication, without long-term current use of insulin (HCC) Expected: 08/17/2022 (Approximate), Expires: 10/17/2022 [facility] Work Phone: Comment on above: Expected: 08/17/2022 (Approximate), Expires: 10/17/2022 Start: 08-17-2022 End: 10-17-2022 TESTOSTERONE, FREE AND TOTAL [facility] Work Phone: Comment on above: Expected: 08/17/2022 (Approximate), Expires: 10/17/2022 Expected: 08/17/2022 , Expires: 10/17/2022 Start: 08-10-2022 Hemoglobin A1c/Hemoglobin.total in Blood HBA1C [facility] Start: 07-28-2022 ANNUAL PCP TEAM HEALTH LEAD RADHA DISEASE VISIT ANNUAL PCP TEAM CHRONIC DISEASE VISIT [facility] Start: 07-28-2022 HEPATITIS C SCREENING HEPATITIS C [facility] Comment on above: Postponed from 10/27 (Declined at this time) Start: 07-19-2022 Hepatitis B surface antibody level LDL CHOLESTEROL [facility] Start: 05-03-2022 DEPRESSION ASSESSMENT DEPRESSION ASS ESSMENT [facility] Start: 01-27-2022 COLORECTAL CANCER SCREENING COLORECTAL CANCER SCREENING [facility] Start: 01-27-2022 FECAL OCCULT BLOOD FECAL OCCULT BLOO D [facility] Start: 01-27-2022 ONE PNEUMOVAX PRIOR TO AGE 65 ONE PNEUMOVAX PRIOR TO AGE 65 [facility] Comment on above: Postponed from 10/27 (Declined at this time) Start: 01-27-2022 PNEUMOCOCCAL (1 - PCV) PNEUMOCOCCAL (1 - PCV) [facility] Comment on above: Postponed from 10/27 (Declined at this time) Start: 01-27-2022 Screening for malign ant neoplasm of colon [facility] Start: 01-19-2022 Hemoglobin A1c/Hemoglobin.total in Blood HBA1C [facility] Start: 01-01-2022 Influenza vaccination C [facility] Start: 10-30-2021 Influenza vaccination INFLUENZA (#1) [facility] Comment on above: Postponed from 01/01 (Declined at this time) Start: 2021 Adult depression screening assessment DEPRESSION SCREENING [facility] Start: 2021 COVID-19 VACCINE (#1) COVID-19 VACCI NE (#1) [facility] Comment on above: Postponed from 10/27 (Declined at this time) Start: 2021 COVID-19 VACCINE (1) COVID-19 VACCIN E (1) [facility] Comment on above: Postponed from 10/27 (Declined at this time) Start: 2021 HIV SCREENING HIV SCREENING [facility] Comment on above: Postponed from 10/27 (Declined at this time) Start: 10-27-2021 SHINGRIX VACCINE (1 of 2) LITTLEJOHN GRIX VACCINE (1 of 2) [facility] Start: 05-03-2021 DEPRESSION ASSESSMENT DEPRESSION ASS ESSMENT [facility] Start: 09-27-2020 Hepatitis B screening URINE AL BUMIN:CREATININE RATIO [facility] Start: 09-06-2019 3 comp foot exam completed DIABETIC FOOT EXAM [facility] Start: 09-06-2019 Diabetic foot examination Diabetic F oot Exam [facility] Start: 07-24-2019 Hepatitis C antibody , confirmatory test DILATED RETINAL EXAM [facility] Start: 10-27-2016 COLOGUARD (FIT-DNA) COLOGUARD (FIT-D NA) [facility] Start: 10-27-2016 Colonoscopy COLONOSCOPY [facility] Start: 10-27-[address] COLONOGRAPHY [facility] Start: 10-27-2016 Screening for malign ant neoplasm of colon [facility] Start: 10-27-2016 SIGMOIDOSCOPY SIGMOIDOSCOPY [facility] Start: 10-27-1990 HEPATITIS B (1 of 3 - Risk 3-dose series) HEPATITIS B (1 of 3 - Risk 3-dose series) [facility] Start: 10-27-1990 Hepatitis B Vaccine (1 of 3 - 19+ 3-dose series) Hepatitis B Vaccine (1 of 3 - 19+ 3-dose series) [facility] Start: 10-27-1990 Pneumococcal Vaccine : 50+ (1 of 2 - PCV) Pneumococcal Vaccine: 50+ (1 of 2 - PCV) [facility] Start: 10-27-1990 SHINGRIX VACCINE (1 of 2) LITTLEJOHN GRIX VACCINE (1 of 2) [facility] Start: 10-27-1989 Anxiety Screening Anxiety Screening [facility] Start: 10-27-1989 Depression Screening Depression Scre ening [facility] Start: 10-27-1989 Hepatitis C screening Hepatitis C Sc reening [facility] Start: 10-27-1989 HIV SCREENING HIV SCREENING [facility] Start: 10-27-1989 HIV screening HIV Screening [facility] Start: 10-27-1977 PNEUMOCOCCAL (1 - PCV) PNEUMOCOCCAL (1 - PCV) [facility] Start: 10-27-1977 Pneumococcal vaccination Pneum ococcal Vaccine (1 of 2 - PCV) [facility] Start: 10-27-1976 COVID-19 VACCINE (#1) COVID-19 VACCI NE (#1) [facility] Start: 04-28-1972 COVID-19 VACCINE (#1) COVID-19 VACCI NE (#1) [facility] Start: 1971 HEPATITIS B (1 of 3 - 3-dose series) HEPATITIS B (1 of 3 - 3-dose series) [facility] End: 12-24-2023 ECG COMPLETE ECG COMPLETE ECG Routine Pre-operative examination 1 Occurrences starting 12/23/2022 until 12/24/2023 [facility] Work Phone: Comment on above: 1 Occurrences starti ng 12/23/2022 until 12/24/2023 ECG COMPLETE ECG COMPLETE ECG 12/23/2022 10:02 AM EDT [facility] Patient Education ED Abscess Inc ision And Drainage [facility] Work Phone: Patient referral [facility] Phone[facility] Immunizations Immunization Date Immunization Notes Care Provider Fa cility 06-20-2018 influenza virus vaccine, unspecified formulation Jhon Mayberry MD Work Phone: [facility] 06-20-2015 tetanus toxoid, redu ramon diphtheria toxoid, and acellular pertussis vaccine, adsorbed Dale Ramos MD Work Phone: [facility] Payers Date Payer Category Payer Self-pay [id number] 2022 Unknown [id number] 2022 Government (not [facility] or Medicaid) [facility] Member Subscriber Plan / Payer (Effective 2022-Present) Name: Kush Samayoa V Relation to Subscriber: Self Name: Kush Samayoa Linda Payer ID: Not on file Group ID: Not on file Type: [facility] Address: [facility] [address] [place] [id number] 2022 Unknown [id number] 2022 Unknown [id number] 2020 Medicaid [facility] MEDICAID [facility] MEDICAID [id number] 2020-Present [phone] [address] [place] [address] Medicaid [id number] 2020 Medicaid [id number] Unknown [facility] COMMUNITY PLAN [id number] Unknown [id number] Social History Date Type Detail Facility Start: 06-20-2018 End: 09-07-2024 Tobacco smoking status NHIS Never smoked tobacco [facility] Start: 06-20-2018 End: 10-02-2022 Tobacco use and exposure User of smokeless tobacco [facility] History of tobacco use Snuff User [facility] Start: 07-28-2021 End: 10-02-2022 Alcohol intake Current non-drinker of alcohol (finding) [facility] Start: 1970 Sex Assigned At Not on file [facility] Start: 07-18-2021 End: 02-16-2022 Exposure to SARS-CoV-2 (event) Not sure [facility] Start: 10-02-2022 Tobacco Comment Pt states he s topped two weeks ago [facility] Start: 10-13-2022 Tobacco use and exposure Former smokeless tobacco user [facility] Work Phone: Start: 10-13-2022 End: 01-12-2023 Alcohol intake Current drinker of alcohol (finding) [facility] Start: 10-13-2022 Alcohol Comment occasional may be once a year [facility] Start: 10-02-2022 End: 11-10-2022 History of Social function [facility] Work Phone: Start: 10-02-2022 End: 11-10-2022 Tobacco use panel [facility] Work Phone: Adult Depression Screening Assessment 0 [facility] Work Phone: Start: 12-03-2022 Alcohol Comment recently 12 pa ck beer in a week [facility] Start: 12-23-2022 Alcohol Comment 12 pack every couple days [facility] Start: 01-28-2023 End: 08-09-2023 Alcohol intake Ex-drinker (finding) [facility] Has the [employer], [employer], or water [employer] threatened to shut off services in your home in past 12Mo Yes [facility] Are you now , , , , never or living with a partner? [facility] How often to you hav e a drink containing alcohol? Monthly or less [facility] How many standard drinks containing alcohol do you have on a typical day? 5 or 6 [facility] How often do you hav e 6 or more drinks on 1 occasion? Monthly [facility] How hard is it for y ou to pay for the very basics like food, housing, medical care, and heating Very hard [facility] Do you feel stress - tense, restless, nervous, or anxious, or unable to sleep at night because your mind is troubled all the time - these days [OSQ] Very much [facility] (I/We) worried cecile er (my/our) food would run out before (I/we) got money to buy more. Sometimes true [facility] The food that (I/we) bought just didn't last, and (I/we) didn't have money to get more. Often true [facility] At any time in the p ast 12 months, were you homeless or living in fci [including now]? No [facility] How often do you hav e 6 or more drinks on 1 occasion? Less than monthly [facility] How hard is it for y ou to pay for the very basics like food, housing, medical care, and heating Somewhat hard [facility] Do you feel stress - tense, restless, nervous, or anxious, or unable to sleep at night because your mind is troubled all the time - these days [OSQ] Rather much [facility] Start: 11-01-2014 Alcohol Alcohol [facility] Start: 11-01-2014 Drugs Drugs [facility] Start: 11-01-2014 Lives Lives [facility] Start: 01-29-2020 Tobacco Use Tobacco Use [facility] Start: 1970 Sex Assigned At Male W [facility] Medical Equipment Procedure Code Equipment Code Equipment Origin al Text Equipment Identifier Dates 1 Each every 2 weeks. [id number] Start: 06-26-2020 End: 11-03-2023 Comment on above: 1 Each every 2 weeks . Mesh Alena D s Round 15cm X1 - [id number] Start: 01-06-2023 Functional Status Date Assessment Result Facility 01-07-2023 Are you deaf, or do you have serious difficulty hearing No 01/07/2023 2:57 PM EDT Torrie Mccormick RN No [facility] 01-07-2023 Are you blind, or do you have serious difficulty seeing, even when wearing glasses No 01/07/2023 2:57 PM EDT Torrie Mccormick RN No [facility] 01-07-2023 Do you have serious difficulty walking or climbing stairs No 01/07/2023 2:57 PM EDT Torrie Mccormick RN No [facility] 01-07-2023 Do you have difficul ty dressing or bathing No 01/07/2023 2:57 PM EDT Torrie Mccormick RN No [facility] 01-07-2023 Because of a physica l, mental, or emotional condition, do you have difficulty doing errands alone such as visiting a physician's office or shopping No 01/07/2023 2:57 PM EDT Torrie Mccormick RN No [facility] Mental Status Date Assessment Result Facility 01-07-2023 Because of a physica l, mental, or emotional condition, do you have serious difficulty concentrating, remembering, or making decisions No 01/07/2023 2:57 PM EDT Torrie Mccormick RN No [facility] Clinical Notes 07-30-2021 to 09-07-2024 Telephone [...] any further concerns or worsening of symptoms [facility] Work Phone: 07-10-2024 Telephone encounter Note Patient notified of results and provider's instructions. Patient verbalizes understanding. Shirley Weaver RN [facility] 07-10-2024 Miscellaneous Notes Patient notified of [...] any additional questions. Thank you. Tereza Stone APRN.BRAKE REPAIRER [employer]ILRO[employer] documented in this encounter [facility] 07-10-2024 Progress note Formatting of t his note might be different from the original. Called and left message on patients voicemail to return call to the office and ask to speak with a FM triage nurse. Kristen Serna MA [facility] 07-06-2024 Telephone encounter Note TC to pt. LM to call office, ask for triage nurse to get results. Carmen Dave LPN [facility] 07-06-2024 Telephone encounter Note 1st attempt - left message. When patient calls, please schedule patient for 3 month follow up in August. Shirley Kellogg [facility] 07-06-2024 Miscellaneous Notes 1st attempt - left message. When patient calls, please schedule patient for 3 month follow up in August. Shirley Kellogg TC to pt. LM to call office, ask for triage nurse to schedule May follow up appt. and also need to get outstanding labs. Carmen Dave LPN documented in this encounter [facility] 07-05-2024 Telephone encounter Note Can you [...] any additional questions. Thank you. Tereza Stone APRN.BRAKE REPAIRER [employer]ILROAD [facility] 06-26-2024 Telephone encounter Note TC to pt. LM to call office, ask for triage nurse to schedule May follow up appt. and also need to get outstanding labs. Carmen Dave LPN [facility] 06-14-2024 Instructions Tereza Stone APRN.MJ - [...] pending test results. documented in this encounter [facility] 06-14-2024 History of Presen t illness [...] agrees to the visit: Yes Patient Location: [place] I have communicated my name and active licensure. The patient's identity and physical location were verified at the time of this visit. Either the patient or their legal cordage sales representative has been informed of the risks and [...] minutes This note was partially generated using MakeSpace voice recognition system. Note was reviewed for accuracy. There may be minor misspellings or grammar miscues with [employer] voice recognition. documented in this encounter [facility] 06-14-2024 Note HNO ID: [id number] Author: TEREZA STONE APRN.CNP Service: ? Author [...] agrees to the visit: Yes Patient Location: [place] I have communicated my name and active licensure. The patient's identity and physical location were verified at the time of this visit. Either the patient or their legal cordage sales representative has been informed of the risks and [...] anxiety EXAM: Ther (more content not included)... [facility] 06-14-2024 Telephone encounter Note Prescription Refill [...] Dave LPN June 14, 2024 3:16 PM [facility] 06-14-2024 Miscellaneous Notes Prescription Refill Information [...] 2024 3:16 PM documented in this encounter [facility] 03-29-2024 Telephone encounter Note Received FMLA/STD paperwork on 03/28/2024 Pending physician signature and completion. Surgeon: Dr. Mayberry Date of Surgery (if known): 01/06/2023 [facility] 03-29-2024 Miscellaneous Notes Received FMLA/STD paperwork on 03/28/2024 Pending physician signature and completion. Surgeon: Dr. Mayberry Date of Surgery (if known): 01/06/2023 documented in this encounter [facility] 03-29-2024 Telephone encounter Note Employer Forms for Patient/Caregiver Time Off of Work Received [employer] paperwork on 03/29/24. Completed, signed by provider, and returned to below contact. Completed copy scanned in [facility] Date of Surgery: 01/06/23 Estimated RTW date:02/17/23 Employer: [employer] Date sent to employer: 03/29/24 Received fax confirmation: YES [facility] 03-29-2024 Miscellaneous Notes Employer Forms for Patient/Caregiver Time Off of Work Received [employer] [facility] paperwork on 03/29/24. Completed, signed by provider, and returned to below contact. Completed copy scanned in Epic Date of Surgery: 01/06/23 Estimated RTW date:02/17/23 Employer: [employer] [facility] [employer] Date sent to employer: 03/29/24 Received fax confirmation: YES documented in this encounter [facility] 03-08-2024 Instructions Tereza Stone APRN.MJ - 03/08/2024 11:32 AM EST Start Glipizide XL 5 mg daily ( may use the [employer] coupon, [facility]) Continue with Metformin Check fasting sugars and message the office in 2 weeks with readings. Work on eating a low carb diet, increase lean protein, veggies, and get some form of exercise. Get repeat labs in 3 months prior to next visit Quest Bars: Protein Bars documented in this encounter [facility] 03-08-2024 History of Presen t illness [...] APRN.MJ This note was partially generated using Make[employer] voice recognition system. Note was reviewed for accuracy. There may be minor misspellings or grammar miscues with [employer] voice recognition. PDMP website checked and validated. All prescriptions have been APPROPRIATELY filled. No suspicious activity was identified. 03/08/2024 by Tereza Stone APRN.MJ documented in this encounter [facility] 03-08-2024 Note HNO ID: [id number] Author: TEREZA STONE APRN.CNP Service: ? Author [...] mg/dL 10 Creatini (more content not included)... [facility] 03-02-2024 Telephone encounter Note Patient notified of lab orders, verbalizes understanding of instructions. Carmen Dave LPN [facility] 03-02-2024 Miscellaneous Notes Patient notified of [...] ordered. Thank you documented in this encounter [facility] 03-02-2024 Telephone encounter Note Labs filed Dale Ramos MD [facility] 03-02-2024 Telephone encounter Note Pt's labs that were entered have been cancelled due to expiring. Pended labs, please review and file. Update pt once ordered. Kristen Serna MA [facility] 03-02-2024 Telephone encounter Note Patient asking for blood work prior to appt 03/08 Please advise and call patient if ordered. Thank you [facility] 01-24-2024 Telephone encounter Note The following approved medication requests have been transmitted electronically. Requested Prescriptions Pending Prescriptions Disp Refills metFORMIN (GLUCOPHAGE) 500 mg tablet 180 tablet 3 Sig: Take 1 tablet by mouth two times a day. . Tereza Stone APRN.CNP [facility] 01-24-2024 Miscellaneous Notes The following approved medication requests have been transmitted electronically. Requested Prescriptions Pending Prescriptions Disp Refills metFORMIN (GLUCOPHAGE) 500 mg tablet 180 tablet 3 Sig: Take 1 tablet by mouth two times a day. . Tereza Stone APRN.CNP Patient will be leaving for work in [facility] within the months and needs his [...] mouth two times a day. . Amina Zimmeramn January 24, 2024 2:28 PM documented in this encounter [facility] 01-24-2024 Telephone encounter Note Patient will be leaving for work in [place] within the months and needs his script sent it now. [facility] 01-24-2024 Telephone encounter Note Prescription Refill [...] Amina Zimmerman January 24, 2024 2:28 PM [facility] 11-03-2023 History of Presen t illness [...] agrees to the visit: Yes Patient Location: [place] I have communicated my name and active licensure. The patient's identity and physical location were verified at the time of this visit. Either the patient or their legal cordage sales representative has been informed of the risks and [...] minutes This note was partially generated using MakeSpace voice recognition system. Note was reviewed for accuracy. There may be minor misspellings or grammar miscues with [employer] voice recognition. documented in this encounter [facility] 11-03-2023 Instructions Tereza Stone APRN.CNP - 11/03/2023 5:40 PM EDT Continue to take medication as prescribed. Follow up as scheduled documented in this encounter [facility] 09-22-2023 Telephone encounter Note The following approved medication requests have been transmitted electronically. Requested Prescriptions Signed Prescriptions Disp Refills PARoxetine (PAXIL) 20 mg tablet 30 tablet 2 Sig: Take 1 tablet by mouth once daily. Authorizing Provider: TEREZA STONE APRN.CNP [facility] 09-22-2023 Miscellaneous Notes The following approved [...] Sivan Munoz LPN documented in this encounter [facility] 09-21-2023 Telephone encounter Note Last appt: [...] by mouth once daily. Sivan Munoz LPN [facility] 09-08-2023 Instructions Tereza Stone APRN.BRAKE REPAIRER [employer]ILROAD - 09/08/2023 5:19 PM EDT Stop Prozac, start Paxil 10 mg daily. Monitor symptoms at home, any worsening symptoms contact the office. Follow-up in 1 month or sooner as needed. May be virtual or telephone. documented in this encounter [facility] 09-08-2023 History of Presen t illness [...] agrees to the visit: Yes Patient Location: [place] I have communicated my name and active licensure. The patient's identity and physical location were verified at the time of this visit. Either the patient or their legal cordage sales representative has been informed of the risks and [...] minutes This note was partially generated using MakeSpace voice recognition system. Note was reviewed for accuracy. There may be minor misspellings or grammar miscues with Dragon voice recognition. documented in this encounter [facility] 08-09-2023 Miscellaneous Notes Images from the original note were not included. Prior authorization approved Payer: [employer] [phone] CaseId:[id number];Status:Approved; Review Type:Prior Auth;Coverage Start Date:08/02/2023;Coverage End Date:08/08/2024; Approval Details Authorized from August 02, 2023 to August 08, 2024 Electronic appeal: Not supported Prior auth initiated by: [id number] [place] [address] - 1954 [id number] View History Notes Time User Attachment [employer] COPAY (BIN# [id number] PCN# COPAY) - 75: Prior Authorization Required. See Third Libertarian Information. 08/09/2023 11:30 AM , [facility] Incoming Retail Pharmacy From [facility] Medication Being Authorized testosterone cypionate (DEPO-TESTOSTERONE) 200 mg/mL injection Inject 1 mL intramuscularly two times a week for 180 days. Dispense: 24 mL Refills: 1 Start: 08/09/2023 End: 02/05/2024 Class: Normal Diagnoses: Hypogonadism in male Images from the original note were not included. Both approved. Prior authorization approved Payer: [employer] [phone] CaseId:[id number];Status:Approved; Review Type:Prior Auth;Coverage Start Date:08/02/2023;Coverage End Date:08/08/2024; Approval Details Authorized from August 02, 2023 to August 08, 2024 Electronic appeal: Not supported Prior auth initiated by: [facility] [id number] [place] [address] - 1954 [facility] [phone] [id number] View History Medication Being Authorized semaglutide (OZEMPIC) 0.25 mg or 0.5 mg (2 mg/3 mL) pen Inject 0.25 mg subcutaneously one time a week. Dispense: 3 mL Refills: 2 Start: 08/09/2023 End: 11/07/2023 Class: Normal Diagnoses: Type 2 diabetes mellitus without complication, without long-term current use of insulin (HCC) This order has been released to its destination. To be filled at: [id number] [place] [address] - 1954 [facility] [phone] [id number] Electronic PA rec'd and completed for testosterone cypionate and ozempic. documented in this encounter [facility] 08-09-2023 Instructions Tereza Stone APRN.BRAKE REPAIRER [employer]ILRO[employer] - 08/09/2023 9:18 AM EDT Start Prozac [...] some form of exercise. Recommend tracking food, [employer] phone estevan. Get repeat labs in 3 [...] this medication abruptly. documented in this encounter [facility] 08-09-2023 History of Presen t illness [...] Pleasant, engaged, good eye contact. Latest Ref [facility] 08/07/2023 Protein, Total 6.3 - 8.0 [...] discussed and patient voices understanding. Tereza Stone APRN.BRAKE REPAIRER [employer]ILROAD This note was partially generated using [employer] recognition system. Note was reviewed for accuracy. There may be minor misspellings or grammar miscues with [employer] voice recognition. documented in this encounter [facility] 02-13-2023 Note HNO ID: [id number] Author: Note, Interface Service: ? Author Type: ? Type: Progress Notes Filed: 02/13/2023 3:31 AM Note Text: Epic Scheduled Downtime: 02/13/2023 1:00:00 AM to 02/13/2023 1:28:00 AM [facility] 02-04-2023 Instructions Tereza Stone APRN.CNP - 02/04/2023 10:00 AM EDT Repeat fasting labs in 6 months prior to next office visit. Continue to take all medication as prescribed. Work on eating low carb diet, slowly increase exercise per surgeon's guidance. Monitor glucose at home. Follow up in 6 months or sooner as needed. documented in this encounter [facility] 02-04-2023 History of Presen t illness [...] Abs Lymph 1.00 - 4.00 k/uL 2.13 [place]es% % 7.8 Abs C[place]es <0.87 k/uL 0.57 Eosin% % 2.2 Abs [...] APRN.MJ This note was partially generated using MakeSpace voice recognition system. Note was reviewed for accuracy. There may be minor misspellings or grammar miscues with MakeSpace voice recognition. documented in this encounter [facility] 01-28-2023 Miscellaneous Notes Employer Forms for Patient/Caregiver Time Off of Work FMLA completed, signed by provider, and returned to below contact. Completed copy scanned in [facility] Date of Surgery: 01/06/23 Return to work date: 02/17/23 Employer: [employer] Phone Number: Date sent to employer: 01/28/23 Received fax confirmation: YES Isis Chamberlain M.A. documented in this encounter [facility] 01-28-2023 Nurse Note What is the reason for your visit today? Post op f/u Who is your referring physician? Are you having poor oral intake? NO Have you had unintentional weight loss of 15 lbs/7 Kg in the last 3-6 months? NO Bowels: regular Wound: no issues Temperature: No Drains: No documented in this encounter [facility] 01-28-2023 History of Presen t illness Narrative [facility] Abdominal Core Health - Follow Up Visit [...] Mayberry MD 02/11/23, 1:06 PM General Surgery [facility] Medical Decision Making: Problems: Minimal: Self-limited or minor problem Risk: Minimal: Minimal risk from testing/treatment Medical Decision Making Level: 2 - Straightforward documented in this encounter [facility] 01-14-2023 Miscellaneous Notes Returned call and spoke with patient. He called to provide information to fax his short disability paperwork. Claim #:[id number] Fax #: [phone] Attn: Elsie Mcguireostieta Patient reports his pain has improved since our last conversation and he is overall feeling better. Patient called and left message regarding post operative 01/06 laparoscopic umbilical hernia repair return call to [phone] documented in this encounter [facility] 01-12-[address] Mayberry is [...] refill on pain medication return call to [phone] documented in this encounter [facility] 01-07-2023 Note HNO ID: [id number] Author: Vinay Hussein MD Service: General Surgery Author Type: Resident Type: Progress Notes Filed: 01/07/2023 6:40 AM Note Text: GENERAL SURGERY SERVICES PROGRESS NOTE Kush Samayoa [id number] Subjective No acute events Pain is well [...] weekdays: [facility] (Trauma, General Surgery): [facility] (Bariatrics, HPB) : [phone] [facility]: [facility]: [facility]: [id number] For team paging after 6PM or on weekend / holidays: [facility] 01-07-2023 Note HNO ID: [id number] Author: Chante Pyle RN Service: Nursing Author Type: Registered Nurse Type: Nursing Progress Note Filed: 01/07/2023 3:58 AM Note Text: Abdominal binder changed to larger size. [facility] 01-07-2023 Note HNO ID: [id number] Author: Liz Crawford MD Service: General Surgery [...] No acute postoperative events - Arrived to [facility] without complications - Reports mild pain around [...] General Surgery Resident, PGY-1 01/07/2023 1:27 AM [facility] 01-06-2023 Note HNO ID: [id number] Author: Jeramie Stevens DO Service: Anesthesiology Author Type: Anesthesiologist Type: Anesthesia Procedure Notes Filed: 01/06/2023 3:16 PM Note Text: ANESTHESIOLOGY PROCEDURE NOTE Peripheral Nerve Block General Information Procedure Start Time/Medication Administration: 01/06/2023 3:01 PM Procedure End time: 01/06/2023 3:10 PM Patient location during procedure: OR Timeout Performed Pre-procedure: timeout performed Consent Obtained: Yes Patient identity confirmed: arm band, care team lead and patient Reason for block: post-op pain [...] January 06, 2023 TIME: 3:15 PM CSN: [id number] [facility] 01-06-2023 Note HNO ID: [id number] Author: Chadwick Estrada APRN.CRNA Service: Anesthesiology Author Type: Nurse Home Care Coordinator Type: Anesthesia Procedure Notes Filed: 01/06/2023 12:33 PM Note Text: ANESTHESIOLOGY PROCEDURE NOTE Gastric Tube General Information Procedure Start Time/Medication Administration: 01/06/2023 12:10 PM Patient location during procedure: OR Patient identity confirmed: care team lead and arm band Indication: gastric decompression Staffing Anesthesiologist: Dex Roa MD MEDICATION AIDE: Chadwick Estrada APRN.MEDICATION AIDE Performed by: JACINTO Procedure Details Type: Orogastric tube Size: 18 Fr cm Distance Advanced: 60 cm Successful Placement: yes Post-Procedure Details Patient tolerated the procedure well with no immediate complications SIGNATURE: Chadwick Estrada APRN.CRNA PATIENT NAME: Kush Samayoa DATE: January 06, 2023 TIME: 12:33 PM CSN: [id number] [facility] 01-06-2023 Note HNO ID: [id number] Author: Chadwick Estrada APRN.CRNA Service: Anesthesiology Author Type: Nurse Home Care Coordinator Type: Anesthesia Procedure Notes Filed: 01/06/2023 12:31 PM Note Text: ANESTHESIOLOGY PROCEDURE NOTE Airway General Information Procedure Start Time/Medication Administration: 01/06/2023 12:04 PM Patient location during procedure: OR Patient identity confirmed: arm band, care team lead and patient Staffing Anesthesiologist: Dex Roa MD MEDICATION AIDE: Chadwick Estrada APRN.MEDICATION AIDE Performed by: MEDICATION AIDE Indications and Patient Condition Indications for airway [...] lips intact post intubation. SIGNATURE: Chadwick Estrada APRN.MEDICATION AIDE PATIENT NAME: Kush Samayoa DATE: January 06, 2023 TIME: 12:30 PM CSN: [id number] [facility] 12-23-2022 Instructions Jessica Vidal APRN.BRAKE REPAIRER RAILROAD - 12/23/2022 9:33 AM EDT PATIENT PREOPERATIVE INSTRUCTIONS Jhon Mayberry MD has scheduled you for your procedure at this surgery center: [facility]: [phone] --[id number] [address]. Please check in on the 1st floor [...] Procedures: - YOU MUST HAVE A RESPONSIBLE UTILITY WORKER PRODUCTION TAKE YOU HOME. A RECEPTION OR PING PONG TABLE ASSEMBLER CANNOT BE MADE A RESPONSIBLE UTILITY WORKER PRODUCTION. - We recommend that a responsible person [...] Advance Directive, please fax a copy to [phone] or email to for it to be [...] Jessica Vidal APRN.CNP documented in this encounter [facility] 12-23-2022 History and physical note HISTORY AND PHYSICAL EXAMINATION SERVICE DATE: 12/23/2022 SERVICE TIME: 8:25 AM PRIMARY CARE PHYSICIAN: Dale Ramos MD This is a virtual visit using Inkblazers video visit. It required patient-provider interaction for [...] fevers. Neurological: No history of TIA's, stroke, [employer] MANAGER ARCHITECT tumor, impaired sensorium, hemiplegia, paraplegia or quadraplegia. No neurological symptoms or problems. Respiratory: No history of current cough or dyspnea, or pneumonia in the past 6 weeks. No history of respiratory/pulmonary symptoms or problems. Cardiovascular: No history of HTN requiring medication, no history of angina, CHF, NV, cardiac surgery or stents. Denies rest pain, [...] 402 QTC Calculation (Bazett) 446 Calculated P [place] 15 Calculated R [place] 39 Calculated T [place] 36 Impression NORMAL SINUS RHYTHM NORMAL ECG No results found for this or any previous visit (from the past 18283 hour(s)). Assessment Patient has the following medical [...] large neck Male patient STOP-Bang Score: 8 [id number] Score: Age: <65 Sex: male CHF history: No Hypertension history: No Stroke/TIA/thromboembolism history: No Vascular disease history: No Diabetes history: Yes [id number] Score: 1 ARISCAT Score: Age: 51-80 Preoperative [...] and consent discussed: yes. Patient / Responsible Libertarian agrees to proceed: yes Patient / Surrogate [...] AM PAGER/CONTACT #: documented in this encounter [facility] 12-07-2022 Miscellaneous Notes Employer Forms for Patient/Caregiver Time Off of Work FMLA/STD completed, signed by provider, and returned to below contact. Completed copy scanned in ASP64 Date of Surgery: 01/06/23 Estimated RTW date: 02/17/23 Employer: [employer] Date sent to employer: 12/07/22 Received fax confirmation: YES Liliana Yu MA documented in this encounter [facility] 12-07-2022 Miscellaneous Notes Pt states his surgery got documented in this encounter [facility] 12-04-2022 Miscellaneous Notes Called patient 12/03, 12/04 to schedule Umbilical hernia repair with Dr. Mayberry. No answer and mailbox is full. Could not leave a message. documented in this encounter [facility] 11-11-2022 Miscellaneous Notes Left message on personal VM with results. Advised that he call the office with any further questions or concerns. ----- Message from Henrry Romo PA-C sent at 11/11/2022 1:04 PM EDT ----- CT Urogram - Normal , MILADY Garcia, MT, PA-C documented in this encounter [facility] 11-05-2022 Miscellaneous Notes Patient active MyChart. Patient notified via [employer] GamesharCued message. Taina Lovett MA OK to refer to Surg as requested Dale Ramos MD documented in this encounter [facility] 11-04-2022 Note HNO ID: [id number] Author: Pamela Bloom MD Service: ? Author Type: Physician Type: Procedures Filed: 11/04/2022 10:54 AM Note Text: CYSTOSCOPY PROCEDURE NOTE : Kush Samayoa is a 52 year old male who presents with Hematuria gross for cystoscopy. PRE-OP/PRE-PROCEDURE DIAGNOSIS: Gross hematuria POST-OP/POST-PROCEDURE DIAGNOSIS: Gross hematuria SURGERY/PROCEDURE(S): Cystoscopy Pt ID verified with patient: Yes Procedure verified with patient: Yes Procedure confirmed with physician and support services manager: Yes UNIVERSAL PROTOCOL / SAFETY CHECKLIST Procedure [...] meaning may be extrapolated by contextual derivation. [facility] 11-04-2022 Procedure note CYSTOSCOPY PROCEDURE NOTE : Kush Samayoa is a 52 year old male who presents with Hematuria gross for cystoscopy. PRE-OP/PRE-PROCEDURE DIAGNOSIS: Gross hematuria POST-OP/POST-PROCEDURE DIAGNOSIS: Gross hematuria SURGERY/PROCEDURE(S): Cystoscopy Pt ID verified with patient: Yes Procedure verified with patient: Yes Procedure confirmed with physician and support services manager: Yes UNIVERSAL PROTOCOL / SAFETY CHECKLIST Procedure [...] by contextual derivation. documented in this encounter [facility] 10-15-2022 Miscellaneous Notes Left detailed message to inform of normal results. Pt to keep future appts as scheduled. Melania Prince ----- Message from Henrry Romo PA-C sent at 10/14/2022 5:47 PM EDT ----- No infection in the urine No cancer cells in urine, please continue the rest of the testing MILADY Garcia, [place], JOEL documented in this encounter [facility] 10-13-2022 Miscellaneous Notes Pt confirmed cysto with Dr. Bloom @ [facility] 11/04/22 @ 10:15am. Aubree Left vm pt needs scheduled for cysto with any provider. He has gross hematuria and being ref by Fiordaliza Romo. His CT scheduled for 10/26/22. Aubree documented in this encounter [facility] 10-02-2022 History of Presen t illness Narrative Chief Complaint Patient presents with: Hospital Follow Up HPI Kush Samayoa is a 51 year old male who presents here today for ER Follow Up. Pt was in [facility] ER on 09/23/22 for lower abdominal pain [...] mg BID for ED hematuria. 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 Hospital discharge follow-up [...] Past Histories independently gathered by the clinical support services manager and the remaining scribed note accurately describes [...] Kristen Serna Ma documented in this encounter [facility] 08-17-2022 Instructions Tereza Stone APRN.MJ - 08/17/2022 10:21 AM EDT Get Testosterone level checked today Increase Trulicity 3 mg weekly, monitor sugars at home. Recommend tracking food, myfitnesspal phone estevan. Try to inncrease protein, veggie, and get exercise. Watch carbs in the diet. Continue to take medication as prescribed. Follow up in 3 months or sooner as needed. documented in this encounter [facility] 08-17-2022 History of Presen t illness Narrative This is a 51 year old male who presents today with: Patient presents with: Follow Up: follow up on DM, testosterone HISTORY OF PRESENT ILLNESS: Kush Samayoa is a 51 year old male. [...] APRN.CNP This note was partially generated using MakeSpace voice recognition system. Note was reviewed for accuracy. There may be minor misspellings or grammar miscues with Dragon voice recognition. documented in this encounter [facility] 02-16-2022 History of Presen t illness [...] watch sugar intake. Eye exams done at [facility]. He states he can tell when the [...] Dale Ramos MD documented in this encounter [facility] 02-05-2022 Miscellaneous Notes Pt called and states he has a 6 month follow up in the office. 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 Requesting a phone apt. Checked with nurse and Dr. Ramos and the doctor okayed this. Nurse will change apt in the computer. Pt notified back with above. Melania Corona LPN documented in this encounter [facility] 11-18-2021 Miscellaneous Notes The following approved medication requests have been transmitted electronically. Pending Prescriptions Disp Refills TRULICITY 1.5 MG/0.5 ML SUBCUTANEOUS PEN INJECTOR 4 Each 11 Sig: Inject 1.5 mg subcutaneously one time a week. Inject once per week. 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 Please re-send metfromin to [...] Amina James Pss documented in this encounter [facility] 09-19-2021 Miscellaneous Notes The following approved [...] Carmela Cordon Pss documented in this encounter [facility] 08-07-2021 Miscellaneous Notes Patient calling in [...] Prior Authorization has been completed online at [employer] for Testosterone, will await response. [employer]- [id number] Please keep encounter open until final decision has been received and documented from insurance company. Roxy Adams LPN Patient calling to state his insurance is not approving his current testosterone dosing without additional information from provider. Informed patient that this nurse would contact his pharmacy to get further details. [facility] contacted by this nurse and pharmacist states a PA is needed for the testosterone cypionate and has faxed over the PA request to Dr. Ramos's office today. Will send for a PA request to PA Dept. Ania Dickerson RN documented in this encounter [facility] 07-30-2021 Miscellaneous Notes Patient notified and verbalized understanding Astrid Georges Ma Please notify patient that his testosterone level is normal I would suggest he try changing the Arimedex to taking 1/2 pill twice a week, rather than one pill weekly, and we will check his estrogen level with the next blood work Dale Ramos MD documented in this encounter [facility] Evaluation note Diagnosis Hypogonadism in male [facility] Diagnosis Type 2 diabetes mellitus without complication, without long-term current use of insulin (HCC) Hypogonadism in male [facility] Type 2 diabetes mellitus without complication, without long-term current use of insulin (HCC) [facility] Diagnosis Type 2 diabetes mellitus without complication, without long-term current use of insulin (HCC) Hypogonadism in male [facility] Diagnosis Type 2 diabetes mellitus without complication, without long-term current use of insulin (HCC)- Primary Hypogonadism in male Obesity, Class III, BMI 40-49.9 (morbid obesity) (HCC) Morbid obesity [facility]* Diagnosis Hematuria, unspecified type- Primary Hospital discharge follow-up Other follow-up examination Bilateral flank pain Abdominal pain, unspecified site Musculoskeletal pain Mylagia and myositis, unspecified Lower abdominal pain Abdominal pain, other specified site Elevated serum creatinine Other nonspecific findings on examination of blood [facility] Diagnosis Gross hematuria- Primary [facility] Diagnosis Left lower quadrant abdominal pain- Primary [facility] Diagnosis Pre-operative examination- Primary Preoperative examination, unspecified CUCO (obstructive sleep apnea) Obstructive sleep apnea (adult) (pediatric) Type 2 diabetes mellitus without complication, without long-term current use of insulin (HCC) Chronic kidney disease, unspecified CKD stage Gastroesophageal reflux disease, unspecified whether esophagitis present Umbilical hernia without obstruction and without gangrene [facility] Diagnosis Postoperative pain Other acute postoperative pain [facility] Diagnosis Type 2 diabetes mellitus without complication, without long-term current use of insulin (HCC)- Primary Hypogonadism in male Screening cholesterol level Screening for lipoid disorders [facility] Diagnosis Incarcerated umbilical hernia- Primary Umbilical hernia with obstruction [facility]* Diagnosis Type 2 diabetes mellitus without complication, without long-term current use of insulin (HCC)- Primary Hypogonadism in male Anxiety with depression Bilateral impacted cerumen Impacted cerumen Ear pain, right Otalgia, unspecified [facility] Diagnosis Anxiety with depression- Primary [facility] Diagnosis Anxiety with depression- Primary [facility] Diagnosis Pre-operative examination- Primary Preoperative examination, [...] [facility] documented in this encounter [facility] note* Diagnosis Pre-operative examination- Primary Preoperative examination, [...] Hypogonadism in male documented in this encounter [facility] note* Diagnosis Pre-operative examination- Primary Preoperative examination, [...] Hypogonadism in male documented in this encounter [facility] note* Diagnosis Pre-operative examination- Primary Preoperative examination, unspecified CUCO (obstructive sleep apnea) Obstructive sleep apnea (adult) (pediatric) Type 2 diabetes mellitus without complication, without long-term current use of insulin ([facility]) Chronic kidney disease, unspecified CKD stage Gastroesophageal reflux disease, unspecified whether esophagitis present Anxiety with depression documented in this encounter [facility] note* Diagnosis Pre-operative examination- Primary Preoperative examination, [...] Hypogonadism in male documented in this encounter [facility] note* Diagnosis Pre-operative examination- Primary Preoperative examination, [...] mixed Mixed hyperlipidemia [facility] noteNo assessment information availableWSelect Medical [facility] Work Phone: Reason for referral (narrative)* Outpatient Procedure (Routine) - Closed Specialty Diagnoses / Procedures Referred By Contac t Referred To [facility] Diagnoses Pre-operative examination Procedures ECG COMPLETE ECG ROUTINE ECG W/LEAST 12 LDS W/I&R Jessica Vidal APRN.BRAKE REPAIRER RAILROAD [address] [place] [address] [facility] [place] [address] [place] [address] Referral ID Status Reason Start Date Expiration Date V isits Requested Visits Authorized [id number] Closed Auto-Generate d Referral 12/23/2022 12/23/2023 1 1 [facility] (narrative)No reason for referral information availableWSelect Medical Special[facility] Work Phone: Reason for Referral Specialty Diagnoses / Procedures Referred By Contac t Referred To Contact Urology Diagnoses Bilateral flank pain Hematuria, unspecified type Elevated serum creatinine Procedures CONSULT TO UROLOGY OFFICE/OUTPATIENT [facility] MDM 60-74 MINUTES Dale Ramos MD [address] [place] [address] Referral ID Status Reason Start Date Expiration Date Visits Requested Visits Authorized [id number] Authorized PCP Requested Referral 10/02/2022 10/02/2023 1 1 Specialty Diagnoses / Procedures Referred By Contac t Referred To Contact General Surgery Diagnoses Left lower quadrant abdominal pain Procedures CONSULT TO GENERAL SURGERY OFFICE/OUTPATIENT [facility] MDM 60-74 MINUTES Dale Ramos MD [address] [place] [address] Referral ID Status Reason Start Date Expiration Date Visits Requested Visits Authorized [id number] Authorized PCP Requested Referral 11/05/2022 11/05/2023 1 1 Specialty Diagnoses / Procedures Referred By Contac t Referred To Contact Ent - Otolaryngology Diagnoses Bilateral impacted cerumen Procedures CONSULT TO ENT OFFICE/OUTPATIENT NEW HIGH MDM 60 MINUTES Tereza Stone APRN.BRAKE REPAIRER [address] [place] [address] Referral ID Status Reason Start Date Expiration Date Visits Requested Visits Authorized [id number] Authorized PCP Requested Referral 08/09/2023 08/08/2024 1 1 Specialty Diagnoses / Procedures Referred By Contac t Referred To Contact Diagnoses Type 2 diabetes mellitus without complication, without long-term current use of insulin (HCC) Tereza Stone APRN.BRAKE REPAIRER [employer]ILRO[address] [place] [address] Referral ID Status Reason Start Date Expiration Date V isits Requested Visits Authorized [id number] Authorized 08/02/2023 08/08/2024 1 1 Specialty Diagnoses / Procedures Referred By Yaz t Referred To Contact Diagnoses Hypogonadism in male Tereza Stone APRN.BRAKE REPAIRER [address]RO[address] [place] [address] Referral ID Status Reason Start Date Expiration Date V isits Requested Visits Authorized [id number] Authorized 08/02/2023 08/08/2024 1 1 Summary Purpose [...] Do you have a Healthcare Power of Operations Forester? No September 07, 2024 9:48pm Advance Directives [...] or prosecute any alcohol or drug abuse patient.[facility] the event this information is protected by the Federal Confidentiality of Alcohol and Drug Abuse Patient Records regulations: The Federal rules restrict any use of the information to criminally investigate or prosecute any alcohol or drug abuse patient.[facility] Hospital[facility] the event this information is protected by the Federal Confidentiality of Alcohol and Drug Abuse Patient Records regulations: The Federal rules restrict any use of the information to criminally investigate or prosecute any alcohol or drug abuse patient.[facility] HospitalIn the event this information is protected by the Federal Confidentiality of Alcohol and Drug Abuse Patient Records regulations: The Federal rules restrict any use of the information to criminally investigate or prosecute any alcohol or drug abuse patient.[facility] HospitalIn the event this information is protected by the Federal Confidentiality of Alcohol and Drug Abuse Patient Records regulations: The Federal rules restrict any use of the information to criminally investigate or prosecute any alcohol or drug abuse patient.[facility] HospitalIn the event this information is protected by the Federal Confidentiality of Alcohol and Drug Abuse Patient Records regulations: The Federal rules restrict any use of the information to criminally investigate or prosecute any alcohol or drug abuse patient.[facility] HospitalIn the event this information is protected by the Federal Confidentiality of Alcohol and Drug Abuse Patient Records regulations: The Federal rules restrict any use of the information to criminally investigate or prosecute any alcohol or drug abuse patient.[facility] HospitalIn the event this information is protected by the Federal Confidentiality of Alcohol and Drug Abuse Patient Records regulations: The Federal rules restrict any use of the information to criminally investigate or prosecute any alcohol or drug abuse patient.[facility] HospitalIn the event this information is protected by the Federal Confidentiality of Alcohol and Drug Abuse Patient Records regulations: The Federal rules restrict any use of the information to criminally investigate or prosecute any alcohol or drug abuse patient.[facility] HospitalIn the event this information is protected by the Federal Confidentiality of Alcohol and Drug Abuse Patient Records regulations: The Federal rules restrict any use of the information to criminally investigate or prosecute any alcohol or drug abuse patient.[facility] HospitalIn the event this information is protected by the Federal Confidentiality of Alcohol and Drug Abuse Patient Records regulations: The Federal rules restrict any use of the information to criminally investigate or prosecute any alcohol or drug abuse patient.[facility] HospitalIn the event this information is protected by the Federal Confidentiality of Alcohol and Drug Abuse Patient Records regulations: The Federal rules restrict any use of the information to criminally investigate or prosecute any alcohol or drug abuse patient.[facility] HospitalIn the event this information is protected by the Federal Confidentiality of Alcohol and Drug Abuse Patient Records regulations: The Federal rules restrict any use of the information to criminally investigate or prosecute any alcohol or drug abuse patient.[facility] HospitalIn the event this information is protected by the Federal Confidentiality of Alcohol and Drug Abuse Patient Records regulations: The Federal rules restrict any use of the information to criminally investigate or prosecute any alcohol or drug abuse patient.[facility] HospitalIn the event this information is protected by the Federal Confidentiality of Alcohol and Drug Abuse Patient Records regulations: The Federal rules restrict any use of the information to criminally investigate or prosecute any alcohol or drug abuse patient.[facility] HospitalIn the event this information is protected by the Federal Confidentiality of Alcohol and Drug Abuse Patient Records regulations: The Federal rules restrict any use of the information to criminally investigate or prosecute any alcohol or drug abuse patient.[facility] HospitalIn the event this information is protected by the Federal Confidentiality of Alcohol and Drug Abuse Patient Records regulations: The Federal rules restrict any use of the information to criminally investigate or prosecute any alcohol or drug abuse patient.[facility] HospitalIn the event this information is protected by the Federal Confidentiality of Alcohol and Drug Abuse Patient Records regulations: The Federal rules restrict any use of the information to criminally investigate or prosecute any alcohol or drug abuse patient.[facility] HospitalIn the event this information is protected by the Federal Confidentiality of Alcohol and Drug Abuse Patient Records regulations: The Federal rules restrict any use of the information to criminally investigate or prosecute any alcohol or drug abuse patient.[facility] HospitalIn the event this information is protected by the Federal Confidentiality of Alcohol and Drug Abuse Patient Records regulations: The Federal rules restrict any use of the information to criminally investigate or prosecute any alcohol or drug abuse patient.[facility] HospitalIn the event this information is protected by the Federal Confidentiality of Alcohol and Drug Abuse Patient Records regulations: The Federal rules restrict any use of the information to criminally investigate or prosecute any alcohol or drug abuse patient.[facility] HospitalIn the event this information is protected by the Federal Confidentiality of Alcohol and Drug Abuse Patient Records regulations: The Federal rules restrict any use of the information to criminally investigate or prosecute any alcohol or drug abuse patient.[facility] HospitalIn the event this information is protected by the Federal Confidentiality of Alcohol and Drug Abuse Patient Records regulations: The Federal rules restrict any use of the information to criminally investigate or prosecute any alcohol or drug abuse patient.[facility] [facility]In the event this information is protected by the Federal Confidentiality of Alcohol and Drug Abuse Patient Records regulations: The Federal rules restrict any use of the information to criminally investigate or prosecute any alcohol or drug abuse patient.[facility] HospitalIn the event this information is protected by the Federal Confidentiality of Alcohol and Drug Abuse Patient Records regulations: The Federal rules restrict any use of the information to criminally investigate or prosecute any alcohol or drug abuse patient.[facility] HospitalIn the event this information is protected by the Federal Confidentiality of Alcohol and Drug Abuse Patient Records regulations: The Federal rules restrict any use of the information to criminally investigate or prosecute any alcohol or drug abuse patient.[facility] HospitalIn the event this information is protected by the Federal Confidentiality of Alcohol and Drug Abuse Patient Records regulations: The Federal rules restrict any use of the information to criminally investigate or prosecute any alcohol or drug abuse patient.[facility] HospitalIn the event this information is protected by the Federal Confidentiality of Alcohol and Drug Abuse Patient Records regulations: The Federal rules restrict any use of the information to criminally investigate or prosecute any alcohol or drug abuse patient.[facility] HospitalIn the event this information is protected by the Federal Confidentiality of Alcohol and Drug Abuse Patient Records regulations: The Federal rules restrict any use of the information to criminally investigate or prosecute any alcohol or drug abuse patient.[facility] HospitalIn the event this information is protected by the Federal Confidentiality of Alcohol and Drug Abuse Patient Records regulations: The Federal rules restrict any use of the information to criminally investigate or prosecute any alcohol or drug abuse patient.[facility] HospitalIn the event this information is protected by the Federal Confidentiality of Alcohol and Drug Abuse Patient Records regulations: The Federal rules restrict any use of the information to criminally investigate or prosecute any alcohol or drug abuse patient.[facility] HospitalIn the event this information is protected by the Federal Confidentiality of Alcohol and Drug Abuse Patient Records regulations: The Federal rules restrict any use of the information to criminally investigate or prosecute any alcohol or drug abuse patient.[facility] HospitalIn the event this information is protected by the Federal Confidentiality of Alcohol and Drug Abuse Patient Records regulations: The Federal rules restrict any use of the information to criminally investigate or prosecute any alcohol or drug abuse patient.[facility] HospitalIn the event this information is protected by the Federal Confidentiality of Alcohol and Drug Abuse Patient Records regulations: The Federal rules restrict any use of the information to criminally investigate or prosecute any alcohol or drug abuse patient.[facility] HospitalIn the event this information is protected by the Federal Confidentiality of Alcohol and Drug Abuse Patient Records regulations: The Federal rules restrict any use of the information to criminally investigate or prosecute any alcohol or drug abuse patient.[facility] HospitalIn the event this information is protected by the Federal Confidentiality of Alcohol and Drug Abuse Patient Records regulations: The Federal rules restrict any use of the information to criminally investigate or prosecute any alcohol or drug abuse patient.[facility] HospitalIn the event this information is protected by the Federal Confidentiality of Alcohol and Drug Abuse Patient Records regulations: The Federal rules restrict any use of the information to criminally investigate or prosecute any alcohol or drug abuse patient.[facility] HospitalIn the event this information is protected by the Federal Confidentiality of Alcohol and Drug Abuse Patient Records regulations: The Federal rules restrict any use of the information to criminally investigate or prosecute any alcohol or drug abuse patient.[facility] HospitalIn the event this information is protected by the Federal Confidentiality of Alcohol and Drug Abuse Patient Records regulations: The Federal rules restrict any use of the information to criminally investigate or prosecute any alcohol or drug abuse patient.[facility] HospitalIn the event this information is protected by the Federal Confidentiality of Alcohol and Drug Abuse Patient Records regulations: The Federal rules restrict any use of the information to criminally investigate or prosecute any alcohol or drug abuse patient.[facility] HospitalIn the event this information is protected by the Federal Confidentiality of Alcohol and Drug Abuse Patient Records regulations: The Federal rules restrict any use of the information to criminally investigate or prosecute any alcohol or drug abuse patient.[facility] Reason for Visit (unrecogniz ed section [...] Follow-up Specialty Diagnoses / Procedures Ref[facility] Referred To Contact Family Medicine / FAMILY MEDICINE Diagnoses follow up Procedures PROVIDER PHONE CALL Tereza Stone APRN.[employer] [address] [place] [address] Tereza Stone APRN.[employer] [address] [place] [address] Referral ID Status Reason Start Date Expiration Date V isits Requested Visits Authorized [id number] Denied Clearance Not Met - Admin/Chairm an/Director Advise to Postpone/Res chedule or Not Proceed 10/13/2023 01/11/2024 1 0 Reason Onset Date Comments Refill Request 01/24/2024 Reason Comments Orders Reason Comments Follow Up follow up for labs Specialty Diagnoses / Procedures [facility] Referred To Contact FAMILY MEDICINE Diagnoses office Procedures OFFICE VISIT, NEW PT., LEVEL 5 TC Dale Ramos MD [address] [place] [address] [facility] [address] [place] [address] Referral ID Status Reason Start Date Expiration Date Visits Requested Visits Authorized [id number] Authorized Financial Clearance Required - Self Pay Patient Cleared - Qualified HCAP/501/FA 01/27/2024 04/26/2024 99 99 Reason Onset Date Comments Refill Request 06/13/2024 Reason Comments F/U 3 Month Specialty Diagnoses / Procedures Referred By Contac t Referred To Contact Family Medicine / FAMILY MEDICINE Diagnoses 3 month follow up Procedures VIDEO PRIMARY EST Self Tereza Stone APRN.[employer] [address] [place] [address] Phone: tel: fax: Referral ID Status Reason Start Date Expiration Date V isits Requested Visits Authorized [id number] Denied Financial Clearance Required - Self Pay Clearance Not Met - Admin/Class C Driver /Director Advise to Postpone/Alexander edule or Not Proceed 06/12/2024 09/10/2024 1 0 Reason Onset Date Comments Results 07/05/2024 Care Teams (unrecognized sec tion and content) Clearing Hand Relationship Specialty Start Date End Date Dale Ramos MD [address] [facility] [place] [address] PCP - General Family Practice 09/05/18 Clearing Hand Relationship Specialty Start Date End Date Dale Ramos MD [address] [facility] [place] [address] PCP - General Family Practice 09/05/18 Clearing Hand Relationship Specialty Start Date End Date Dale Ramos MD [address] [facility] [place] [address] PCP - General Family Practice 09/05/18 Clearing Hand Relationship Specialty Start Date End Date Dale Ramos MD [address] [facility] [place] [address] PCP - General Family Practice 09/05/18 Clearing Hand Relationship Specialty Start Date End Date Dale Ramos MD [address] [facility] [place] [address] PCP - General Family Medicine 09/05/18 Clearing Hand Relationship Specialty Start Date End Date Dale Ramos MD [address] [facility] [place] [address] PCP - General Family Medicine 09/05/18 Clearing Hand Relationship Specialty Start Date End Date Dale Ramos MD [address] [facility] [place] [address] PCP - General Family Medicine 09/05/18 Clearing Hand Relationship Specialty Start Date End Date Dale Ramos MD [address] [facility] [place] [address] PCP - General Family Medicine 09/05/18 Clearing Hand Relationship Specialty Start Date End Date Dale Ramos MD [address] [facility] [place] [address] PCP - General Family Medicine 09/05/18 Clearing Hand Relationship Specialty Start Date End Date Dale Ramos MD [address] [place] [address] PCP - General Family Medicine 09/05/18 Clearing Hand Relationship Specialty Start Date End Date Dale Ramos MD [address] [place] [address] PCP - General Family Medicine 09/05/18 Clearing Hand Relationship Specialty Start Date End Date Dale Ramos MD [address] [place] [address] PCP - General Family Medicine 09/05/18 Clearing Hand Relationship Specialty Start Date End Date Dale Ramos MD [address] [place] [address] PCP - General Family Medicine 09/05/18 Clearing Hand Relationship Specialty Start Date End Date Dale Ramos MD [address] [place] [address] PCP - General Family Medicine 09/05/18 Clearing Hand Relationship Specialty Start Date End Date Dale Ramos MD [address] [place] [address] PCP - General Family Medicine 09/05/18 Clearing Hand Relationship Specialty Start Date End Date Dale Ramos MD [address] [place] [address] PCP - General Family Medicine 09/05/18 Clearing Hand Relationship Specialty Start Date End Date Dale Ramos MD [address] [place] [address] PCP - General Family Medicine 09/05/18 Clearing Hand Relationship Specialty Start Date End Date Dale Ramos MD [address] [facility] [place] [address] PCP - General Family Medicine 09/05/18 Clearing Hand Relationship Specialty Start Date End Date Dale Ramos MD [address] [place] [address] PCP - General Family Medicine 09/05/18 Clearing Hand Relationship Specialty Start Date End Date Dale Ramos MD [address] [place] [address] PCP - General Family Medicine 09/05/18 Clearing Hand Relationship Specialty Start Date End Date Dale Ramos MD [address] [place] [address] PCP - General Family Medicine 09/05/18 Clearing Hand Relationship Specialty Start Date End Date Dale Ramos MD [address] [place] [address] PCP - General Family Medicine 09/05/18 Clearing Hand Relationship Specialty Start Date End Date Dale Ramos MD [address] [facility] [place] [address] PCP - General Family Medicine 09/05/18 Clearing Hand Relationship Specialty Start Date End Date Dale Ramos MD [address] [facility] [place] [address] PCP - General Family Medicine 09/05/18 Clearing Hand Relationship Specialty Start Date End Date Dale Ramos MD [address] [facility] [place] [address] PCP - General Family Medicine 09/05/18 Clearing Hand Relationship Specialty Start Date End Date Dale Ramos MD [address] [facility] [place] [address] PCP - General Family Medicine 09/05/18 Clearing Hand Relationship Specialty Start Date End Date Dale Ramos MD [address] [place] [address] PCP - General Family Medicine 09/05/18 Clearing Hand Relationship Specialty Start Date End Date Dale Ramos MD [address] [facility] [place] [address] PCP - General Family Medicine 09/05/18 Clearing Hand Relationship Specialty Start Date End Date Dale Ramos MD [address] [facility] [place] [address] PCP - General Family Medicine 09/05/18 Tereza Stone, ENGINEERING TECHNICAL SPECIALIST.[employer] [address] [place] [address] [facility] 04/09/24 Jakob Fiore, ENGINEERING TECHNICAL SPECIALIST.[employer] [address] [facility] [place] [address] [facility] 04/18/24 Clearing Hand Relationship Specialty Start Date End Date Dale Ramos MD [address] [facility] [place] [address] PCP - General Family Medicine 09/05/18 Tereza Stone, ENGINEERING TECHNICAL SPECIALIST.[employer] [address] [place] [address] [facility] 04/09/24 Jakob Fiore APRN.[employer] [address] [place] [address] [facility] 04/18/24 Clearing Hand Relationship Specialty Start Date End Date Dale Ramos MD [address] [place] [address] PCP - General Family Medicine 09/05/18 Tereza Stone APRN.[employer] [address] [place] [address] [facility] 04/09/24 Jakob Fiore APRN.[employer] [address] [place] [address] [facility] 04/18/24 Clearing Hand Relationship Specialty Start Date End Date Dale Ramos MD [address] [place] [address] PCP - General Family Medicine 09/05/18 Tereza Stone APRN.[employer] [address] [place] [address] [facility] 04/09/24 Jakob Fiore APRN.[employer] [address] [place] [address] [facility] 04/18/24 Clearing Hand Relationship Specialty Start Date End Date Dale Ramos MD [address] [place] [address] PCP - General Family Medicine 09/05/18 Tereza Stone, JADA.[employer] [address] [place] [address] [facility] 04/09/24 Jakob Fiore APRN.[employer] [address] [place] [address] [facility] 04/18/24 Team Status: Active Member Role Status [...] DATE CREATED AUTHOR AUTHOR'S ORGANIZ ATION 02/14/2023 [facility] DATE CREATED AUTHOR AUTHOR'S ORGANIZ ATION 10/03/2024 [facility] DATE CREATED AUTHOR AUTHOR'S ORGANIZ ATION 02/02/[address] [facility] Goals (unrecognized section and content) Goals [...] BE BASED ON THE PRIMARY CLINICAL RECORDS. [facility]. provides no warranty or guarantee of the accuracy or completeness of information in this document.
[2025-02-16 01:06] VITALS: BMI 46.4
[2025-02-16 01:20] VITALS: BP 132/76; PULSE 87; RESP 18; TEMP 36.8; O2SAT 97
[2025-02-16] MEDS: 0.9% Normal Saline (1000mL) 1,000 ML 125 ML IV ×2 (01:33→09:44)
[2025-02-16 05:42] VITALS: BP 137/61; PULSE 85; RESP 18; TEMP 36.9; O2SAT 98
[2025-02-16] MEDS: Clindamycin 300 MG in Dextrose 5%-Water (50mL Bag) 50 ML 150 MG IV ×4 (05:52→22:59)
[2025-02-16 06:08] LABS: Hematocrit 40.5 % (40-54); Hemoglobin 13.2 g/dL (13.0-16.5); Immature Granulocytes Count 0.140 X10^3/uL (0.0-0.0); Mean Corp Hgb Conc 32.6 g/dL (32-36); Mean Corpuscular Volume 76.6 fL (80-94); Mean Platelet Vol. 9.4 fl (6.2-12.0); NRBC Flagged by Analyzer 0 % (0-5); Platelet Count 226 K/mm3 (150-450); RBC Distribution Width CV 13.9 % (11.6-14.6); RBC Distribution Width SD 38.0 fl (35.1-43.9); Red Blood Count 5.29 M/mm3 (4.6-6.2); White Blood Count 8.3 K/mm3 (4.4-11.0)
[2025-02-16 06:54] LABS: Anion Gap 11 (5-15); BUN 11 mg/dL (4-19); BUN/Creat Ratio 11.1 RATIO (10-20); Calcium,Total 8.3 mg/dL (7.6-11.0); Carbon Dioxide 23.6 mmol/L (21.0-32.0); Chloride 97 mmol/L (98-108); Estimated Creatinine Clearance 123.90 ml/min (50-250); Glucose 329 mg/dL (70-99); Potassium 4.1 mmol/L (3.3-5.1)
[2025-02-16 07:56] VITALS: BP 130/74; PULSE 85; RESP 16; TEMP 36.8; O2SAT 93
--- NOTE | 2025-02-16 09:24 | PCM.PN.HOSP ---
Subjective Subjective Still having scrotal pain however white count is improved and he is afebrile Objective Data Objective Data Vital Signs: Vital Signs Temp Pulse Resp BP Pulse Ox O2 Del Method 98.3 F 85 16 130/74 H 93 Room Air 02/16/25 07:56 02/16/25 07:56 02/16/25 07:56 02/16/25 07:56 02/16/25 07:56 02/16/25 07:56 Oxygen Delivery Method Room Air Weight: 314 lb 6.067 oz Body Mass Index (BMI) 46.4 Intake & Output: Intake and Output for Last 24 Hours 02/15/25 02/16/25 02/17/25 03:59 03:59 03:59 Intake Total 1050 / 1050 52 / 52 Output Total 500 / 500 475 / 475 Balance 550 / 550 -423 / -423 Lab / Micro Data 02/16/25 05:29 02/16/25 05:29 Labs: Laboratory Results - last 24 hr 02/15/25 21:08: WBC 8.5, RBC 5.65, Hgb 14.4, Hct 42.7, MCV 75.6 L, MCH 25.5 L, MCHC 33.7, RDW Std Deviation 37.2, RDW Coeff of Elicia 13.9, Plt Count 251, MPV 9.3, Immature Gran % (Auto) 1.200 H, Neut % (Auto) 74.1 H, Lymph % (Auto) 14.4 L, Tyrrell % (Auto) 8.5, Eos % (Auto) 1.2, Baso % (Auto) 0.6, Absolute Neuts (auto) 6.3, Absolute Lymphs (auto) 1.22, Nucleated RBC % 0, PT 14.5, INR 1.1, APTT 31.3, Sodium 129 L, Potassium 4.2, Chloride 95 L, Carbon Dioxide 24.0, Anion Gap 10, BUN 14, Creatinine 1.07, Estim Creat Clear Calc 112.86, Est GFR (MDRD) Non-Af 83, BUN/Creatinine Ratio 12.6, Glucose 425 H, Hemoglobin A1c 11.7 H, Lactic Acid < 1.0, Calcium 9.0, Total Bilirubin 1.42 H, AST 16, ALT 14, Alkaline Phosphatase 112, Total Protein 7.4, Albumin 3.8, Globulin 3.7, Albumin/Globulin Ratio 1.0 02/15/25 22:55: Urine Color Yellow, Urine Clarity Clear, Urine pH 6.0, Ur Specific [place] 1.010, Urine Protein Negative, Urine Glucose (UA) 1000 H, Urine Ketones 5 H, Urine Occult Blood Negative, Urine Nitrite Negative, Urine Bilirubin Negative, Urine Urobilinogen 4 H, Ur Leukocyte Esterase Negative, Urine RBC 0-5 SEEN, Urine WBC 0-5 SEEN, Ur Squamous Epith Cells 0-5 SEEN, Urine Bacteria 0 SEEN, Urine Mucus 0 SEEN 02/16/25 05:29: WBC 8.3, RBC 5.29, Hgb 13.2, Hct 40.5, MCV 76.6 L, MCH 25.0 L, MCHC 32.6, RDW Std Deviation 38.0, RDW Coeff of Elicia 13.9, Plt Count 226, MPV 9.4, Immature Gran % (Auto) 1.700 H, Neut % (Auto) 71.1 H, Lymph % (Auto) 16.8 L, Tyrrell % (Auto) 8.8, Eos % (Auto) 1.0, Baso % (Auto) 0.6, Absolute Neuts (auto) 5.9, Absolute Lymphs (auto) 1.39, Nucleated RBC % 0, Sodium 131 L, Potassium 4.1, Chloride 97 L, Carbon Dioxide 23.6, Anion Gap 11, BUN 11, Creatinine 0.97, Estim Creat Clear Calc 123.90, Est GFR (MDRD) Non-Af 93, BUN/Creatinine Ratio 11.1, Glucose 329 H, Calcium 8.3 02/16/25 05:47: POC Glucose 336 H Radiography Diagnostic Testing: Radiology Impression Pelvis CT 02/15/25 20:22 IMPRESSION: Bilateral prominent superficial subcutaneous scrotal edema, more on the right side, probably scrotal cellulitis. No fluid collection or drainable abscess formation. No CT evidence of gas-forming infection. Surgical changes of the anterior abdominal wall. Mildly distended bladder. Mild diffuse spondylosis. Reading Location: [place] [address] Rhythm Strip Rhythm Strip: Sinus Rhythm Rate: 91 Ectopy: None Physical Exam Narrative General: Alert, Oriented x3, Cooperative, No apparent distress HEENT: Atraumatic, PERRLA, EOMI, Normocephalic Oral: Moist Mucosa Neck: Supple, No JVD Lungs: Diminished at the, Normal air movement, No rhonchi, No wheeze, No rales Cardiovascular: Regular rate, Regular Rhythm, Normal S1, Normal S2, No murmurs Abdomen: Soft, Non Tender, Non-Distended, No Hepato-splenomegaly Extremities: No edema, Capillary Refill Less than 3 Seconds Skin: Scrotal erythema Musculoskeletal: No Tenderness to Palpation of Joints or Extremities Neurological: No focal neurological deficits, moves all extremities Psych/Mental Status: Normal Affect, Appropriate Assessment & Plan Assessment/Plan (1) Cellulitis of scrotum: PLAN: Plan 1. Scrotal cellulitis ? Afebrile leukocytosis has resolved ? Continue with antibiotics ? CT of the pelvis does not show a fluid collection or abscess ? Will add oxycodone to his pain management regimen, will increase his Tylenol to 1000 mg p.o. 3 times daily 2. DM2 ? A1c on admission 11.7 ? Continue with sliding scale insulin ? Accu-Cheks ? Will monitor make adjustments as necessary DVT: Lovenox Charges/Coding Visit Charges Inpatient E&M: 04959 Subs Hosp L2
--- NOTE | 2025-02-16 11:05 | CASEMGMT ---
[place] Assessment: Face to Face with pt for initial transition planning/care coordination assessment. RN KATELYNN introduced self and role at [facility], pt voices understanding and consents to assessment. Pt is A&O x4 and answers all questions appropriately at this time. Pt sitting up in bed in no distress with at bedside. Care providers, pharmacy, and demographics verified/updated. Admitting Dx: scrotal cellulitis Strata Score: 2 PCP:Richard Specialists:Denies Preferred Pharmacy:[facility] [place] [facility] Insurance: Self Pay Prescription Benefit: no LNOK: Yisel Samayoa, ; Anita/Jorge Samayoa, parents Living Arrangements: Pt lives with in a mobile home with 5 steps to enter with a bilat rails. Pt reports he is I in ADL/IADLs and denies concerns at home. Transportation: Pt drives self and denies concerns with transportation. 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 DME:[facility] with sufficient supply of strips and lancets HHC/SNF: Denies hx of Pt states no concerns with going home at time of dc.Discussed prescription programs and provided pt with resources from for prescription assistance. Pt was seen by Macrina from [facility] and pt is over income. Pt states he can afford his prescriptions but his doctor will not reorder his prescriptions until he is seen in the office and has lab work. Pt states the labs are approx $900 some. Pt states he has applied for HCAPS through [facility] which is their financial program but does not qualify. Pt states he missed the open enrollment for his work which was in August. He states he will sign up for insurance next August. Discussed [place] as well, pt states he feels this would not be beneficial. Pt aware RN KATELYNN will request that physician reorder all his meds upon dc. Pt agreeable to this and denies any need for further assistance. Requested this from the hospitalist. Pt states no further concerns/needs. CM to follow. Advised pt to ask CM if any further questions/concerns/needs arise, voices understanding. Pt Goal: Home Plan: Home with ordering of all meds upon dc. Bandar CHACON CM
[2025-02-16] MEDS: 0.9% Saline Lock 10 ML Syringe IV ×3 (11:43→16:27)
--- NOTE | 2025-02-16 12:39 | CASEMGMT ---
Social Work- QUITA followed up with Macrina/[employer]. 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 SW provided prescription assistance list and forms for pt. Ptr working with RNCM on any other discharge planning needs. LINA Jarrett
[2025-02-16 14:45] VITALS: BP 141/63; PULSE 78; RESP 16; TEMP 36.4; O2SAT 94
--- NOTE | 2025-02-16 14:53 | NURSING ---
spoke with pt spouse, states she will bring in pt nonformulary medication
[2025-02-16 22:20] VITALS: BP 164/82; PULSE 81; RESP 18; TEMP 36.6; O2SAT 99
--- NOTE | 2025-02-16 23:02 | EKG12_ITS ---
Test Reason : CP Blood Pressure : */* mmHG Vent. Rate : 82 BPM Atrial Rate : 82 BPM P-R Int : 162 ms QRS Dur : 82 ms QT Int : 366 ms P-R-T Axes : 68 49 50 degrees QTcB Int : 427 ms Normal sinus rhythm with sinus arrhythmia Normal ECG When compared with ECG of 15-Feb-2025 20:39, Nonspecific T wave abnormality no longer evident in Anterior leads Confirmed by BOLA SERNA MD ([id number]), photographic editor DANAY SCHOFIELD ([id number]) on 02/19/2025 10:06:18 AM Referred By: Confirmed By: BOLA SERNA MD
[2025-02-16 23:20] VITALS: BP 172/89; PULSE 82; RESP 18; TEMP 36.6; O2SAT 99
--- NOTE | 2025-02-16 23:45 | RAD_ITS ---
PROCEDURE: CHEST 1 VIEW (PORTABLE) 02/16/2025 REASON FOR EXAM: CHEST PAIN TECHNIQUE: Frontal view of the chest. COMPARISON: None. FINDINGS: Mild bilateral basilar atelectatic pulmonary changes. There is no demonstrated pleural abnormality. Normal heart and pericardium. Normal mediastinum and nathan. Normal visualized pulmonary arteries. Normal visualized aortic arch and descending thoracic aorta. Normal visualized thoracic spine. Normal visualized ribs, clavicles, and shoulders. There is no demonstrated abnormality of the visualized soft tissue structures of the upper abdomen. RAD/Chest 1 View (Portable) IMPRESSION: Mild bilateral basilar atelectatic pulmonary changes. [facility]
--- NOTE | 2025-02-16 23:56 | PCM.HOSP.N ---
Hospitalist Note Afebrile leukocytosis has resolved, scrotal cellulitis admission on antibiotics c/o midsternal CP that feels like someone smacked me with a 2x4 across my chest, but denies numbness, tingling and radiation of pain. To his nurse, he reported that it felt like an elephant on his chest with numbness to right fingers. STAT ECG obtained: NSR w/out ischemia, no STEMI, rate of 82, Sandro 162ms, QRS 82ms, QT 366ms. VS: 172/89, 82, 18, 99% on RA. He was given ondansetron for complaints of nausea and upper abdominal pain associated with his CP, nausea resolved. He does state that he has general myalgias and arthralgias, and that he's afraid to move. LSC are throughout w/dim bases A&P, pulses +2, regular rate and rhythm without rubs or murmurs, nonpitting edema to jitendra ankles. Ordered troponin series, CBC, BMP, BNPt, TSH, pCXR. 0100-labs resulted and not diagnostic or supportive of infarct to cardiac tissue, troponin of 6. CXR demonstrates mild bilateral basilar atelectatic pulmonary changes. Nrsg staff reports relief of CP w/PRN Oxy IR and acetaminophen.
[2025-02-17 00:09] VITALS: BP 136/71; PULSE 82; RESP 20; TEMP 37.2; O2SAT 97
[2025-02-17 00:14] LABS: Hematocrit 41.1 % (40-54); Hemoglobin 13.5 g/dL (13.0-16.5); Immature Granulocytes Count 0.110 X10^3/uL (0.0-0.0); Mean Corp Hgb Conc 32.8 g/dL (32-36); Mean Corpuscular Volume 75.6 fL (80-94); Mean Platelet Vol. 8.8 fl (6.2-12.0); NRBC Flagged by Analyzer 0 % (0-5); Platelet Count 234 K/mm3 (150-450); RBC Distribution Width CV 13.8 % (11.6-14.6); RBC Distribution Width SD 36.9 fl (35.1-43.9); Red Blood Count 5.44 M/mm3 (4.6-6.2); White Blood Count 8.0 K/mm3 (4.4-11.0)
[2025-02-17 00:21] LABS: Prothrombin Time (Protime)PT. 15.1 SECONDS (11.7-14.9)
[2025-02-17 00:22] LABS: Partial Thromboplast Time 30.7 Seconds (24.1-36.2)
[2025-02-17 00:30] LABS: Anion Gap 10 (5-15); BUN 12 mg/dL (4-19); BUN/Creat Ratio 12.7 RATIO (10-20); Calcium,Total 8.8 mg/dL (7.6-11.0); Carbon Dioxide 24.3 mmol/L (21.0-32.0); Chloride 99 mmol/L (98-108); Estimated Creatinine Clearance 132.07 ml/min (50-250); Glucose 273 mg/dL (70-99); Potassium 3.9 mmol/L (3.3-5.1); Pro- Brain NATRIURETIC PEPTIDE 119 pg/mL (<=900); Troponin T High Sensitivity 6 ng/L (<=22)
[2025-02-17 02:43] LABS: Troponin T High Sens 2 HR 10 ng/L (<=22)
[2025-02-17 04:17] LABS: Hematocrit 40.6 % (40-54); Hemoglobin 13.2 g/dL (13.0-16.5); Immature Granulocytes Count 0.130 X10^3/uL (0.0-0.0); Mean Corp Hgb Conc 32.5 g/dL (32-36); Mean Corpuscular Volume 75.6 fL (80-94); Mean Platelet Vol. 8.9 fl (6.2-12.0); NRBC Flagged by Analyzer 0 % (0-5); Platelet Count 232 K/mm3 (150-450); RBC Distribution Width CV 13.8 % (11.6-14.6); RBC Distribution Width SD 36.6 fl (35.1-43.9); Red Blood Count 5.37 M/mm3 (4.6-6.2); White Blood Count 7.4 K/mm3 (4.4-11.0)
[2025-02-17 04:34] LABS: Troponin T High Sens 4 HR < 6 ng/L (<=22)
[2025-02-17 04:36] LABS: Anion Gap 12 (5-15); BUN 10 mg/dL (4-19); BUN/Creat Ratio 10.8 RATIO (10-20); Calcium,Total 8.6 mg/dL (7.6-11.0); Carbon Dioxide 23.0 mmol/L (21.0-32.0); Chloride 100 mmol/L (98-108); Estimated Creatinine Clearance 135.03 ml/min (50-250); Glucose 245 mg/dL (70-99); Potassium 4.0 mmol/L (3.3-5.1)
[2025-02-17 06:23] VITALS: BP 122/58; PULSE 80; RESP 18; TEMP 36.7; O2SAT 98
[2025-02-17] MEDS: Clindamycin 300 MG in Dextrose 5%-Water (50mL Bag) 50 ML 150 MG IV ×2 (06:29→11:44)
[2025-02-17 09:20] VITALS: BP 110/51; PULSE 82; RESP 16; TEMP 36.5; O2SAT 96
[2025-02-17] MEDS: LEVOCARNITINE 500 MG 3000 MG PO (09:34)
--- NOTE | 2025-02-17 12:58 | PN.HOSP_ITS ---
Reason for Visit Chief Complaint: scrotal abscess Objective Data Objective Data Vital Signs: Vital Signs Temp Pulse Resp BP Pulse Ox O2 Del Method 97.7 F L 82 16 110/51 L 96 Room Air 02/17/25 09:20 02/17/25 09:20 02/17/25 09:20 02/17/25 09:20 02/17/25 09:20 02/17/25 09:20 Oxygen Delivery Method Room Air Weight: 314 lb 6.067 oz Body Mass Index (BMI) 46.4 Intake & Output: Intake and Output for Last 24 Hours 02/15/25 02/16/25 02/17/25 23:59 23:59 23:59 Intake Total 1050 / 1050 3008.00 / 3008.00 654 / 654 Output Total 1825 / 1825 600 / 600 Balance 1050 / 1050 1183.00 / 1183.00 54 / 54 Lab / Micro Data 02/17/25 04:10 02/17/25 04:10 Labs: Laboratory Results - last 24 hr 02/16/25 16:25: POC Glucose 295 H 02/16/25 22:23: POC Glucose 285 H 02/17/25 00:04: WBC 8.0, RBC 5.44, Hgb 13.5, Hct 41.1, MCV 75.6 L, MCH 24.8 L, MCHC 32.8, RDW Std Deviation 36.9, RDW Coeff of Elicia 13.8, Plt Count 234, MPV 8.8, Immature Gran % (Auto) 1.400 H, Neut % (Auto) 75.1 H, Lymph % (Auto) 13.7 L , [place] % (Auto) 7.9, Eos % (Auto) 1.4, Baso % (Auto) 0.5, Absolute Neuts (auto) 6.0, Absolute Lymphs (auto) 1.09, Nucleated RBC % 0, PT 15.1 H, INR 1.2, APTT 30.7, Sodium 133, Potassium 3.9, Chloride 99, Carbon Dioxide 24.3, Anion Gap 10, BUN 12, Creatinine 0.91, Estim Creat Clear Calc 132.07, Est GFR (MDRD) Non-Af 101, BUN/Creatinine Ratio 12.7, Glucose 273 H, Calcium 8.8, Troponin T High Sens 6, NT pro BNP II 119, TSH 1.060 02/17/25 02:10: Troponin T Hi Sens 2 Hr 10 02/17/25 04:10: WBC 7.4, RBC 5.37, Hgb 13.2, Hct 40.6, MCV 75.6 L, MCH 24.6 L, MCHC 32.5, RDW Std Deviation 36.6, RDW Coeff of Elicia 13.8, Plt Count 232, MPV 8.9, Immature Gran % (Auto) 1.800 H, Neut % (Auto) 71.6 H, Lymph % (Auto) 15.3 L , [place] % (Auto) 9.2, Eos % (Auto) 1.4, Baso % (Auto) 0.7, Absolute Neuts (auto) 5.3, Absolute Lymphs (auto) 1.13, Nucleated RBC % 0, Sodium 135, Potassium 4.0, Chloride 100, Carbon Dioxide 23.0, Anion Gap 12, BUN 10, Creatinine 0.89, Estim Creat Clear Calc 135.03, Est GFR (MDRD) Non-Af 103, BUN/Creatinine Ratio 10.8, G lucose 245 H, Calcium 8.6, Troponin T Hi Sens 4Hr < 6 02/17/25 06:28: POC Glucose 246 H 02/17/25 11:42: POC Glucose 339 H Micro: Microbiology 02/15/25 22:55 Urine, Clean Catch Urine Culture - Preliminary Culture exhibits no growth. Radiography Diagnostic Testing: Radiology Impression Chest X-Ray 02/16/25 23:45 IMPRESSION: Mild bilateral basilar atelectatic pulmonary changes. Reading Location: [place] [address] Rhythm Strip Rhythm Strip: Sinus Rhythm Rate: 91 Ectopy: None Physical Exam Narrative Seen and examined No fever. Heart rate and blood pressure normal range. No hypoxia. There is drainage of purulent material from the right scrotal region Physical exam General: Alert, Oriented x3, Cooperative HEENT: Atraumatic, PERRLA, EOMI, Normocephalic. Oral: No Gingival or Mucosal Lesions/ Ulcerations Neck: Supple, No JVD, Negative Carotid Bruits Chest wall/Lungs: Air entry diminished in bilateral lung bases. No crepitation/rhonchi Cardiovascular: Regular rate and rhythm, Normal S1,S2, No M/G/R Abdomen: Bowel Sounds Present, Soft, Non Tender, Non-Distended : Purulent drainage from the right upper lateral scrotal region. Bilateral testes seems not enlarged not tender. Right and left upper scrotal indurated tender and inflamed. No renal angle tenderness. Extremities: No edema, Capillary Refill Less than 3 Seconds Skin: Redness and inflammation and induration over both bilateral upper and root of his scrotum suggestive of cellulitis along with purulent drainage suggestive of superficial abscess Musculoskeletal: No Tenderness to Palpation of Joints or Extremities Neurological: Cranial nerves II-XII grossly intact, DTR 2+/4. No acute focal neurological deficit. Psych/Mental Status: Normal Affect, Appropriate. Assessment & Plan Assessment/Plan (1) Cellulitis of scrotum: PLAN: Plan 54-year-old gentleman admitted with scrotal cellulitis. 1. Scrotal cellulitis with localized superficial abscess 02/17: Patient afebrile. Leukocytosis resolved. Patient having purulent drainage from right scrotal region. No tachycardia. I called plastic surgeon, Dr. Swartz who is not on-call. I called urologist, Dr. Szymanski who is also not on-call. Then I called general surgeon Dr. Jackson who said that if urologist not on-call then she would like to be transferred as she does not do incision and drainage of scrotal or genitourinary region. Then with history of diabetes and uncontrolled hyperglycemia and tiny purulent drainage from small hole/opening, I thought to elongate the incision for adequate drainage. Written informed consent was taken from the patient. Please see the procedure note for details Purulent and sent for culture. Antibiotic broadened. IV vancomycin, ceftriaxone. Patient already on clindamycin for 2 days. Started on IV Flagyl and clindamycin discontinued Later on Dr. Lagunas called me and advised to transfer because of chance of getting exacerbation of scrotal cellulitis in view of diabetes mellitus and risk of Eduard's gangrene/deep tissue infection Discussed with the patient and and they want to transfer to [facility]. I called the transfer line and talked to the hospitalist who advised check and transfer beader to discuss with the urologist. CT pelvis with IV contrast ordered ? CT of the pelvis on 02/15 does not show a fluid collection or abscess Continue oxycodone to his pain management regimen, will increase his Tylenol to 1000 mg p.o. 3 times daily 2. DM2 ? A1c on admission 11.7 Glucose is high between 250- 340. Started on Lantus and Humalog scheduled insulin with hypoglycemia protocol. ? Continue with sliding scale insulin DVT: Lovenox Microbiology Past 72 Hours 02/15/25 22:55 Urine, Clean Catch Urine Culture - Preliminary Culture exhibits no growth. Laboratory Results 02/16/25 22:23: POC Glucose 285 H 02/17/25 00:04: WBC 8.0, RBC 5.44, Hgb 13.5, Hct 41.1, MCV 75.6 L, MCH 24.8 L, MCHC 32.8, RDW Std Deviation 36.9, RDW Coeff of Elicia 13.8, Plt Count 234, MPV 8.8, Immature Gran % (Auto) 1.400 H, Neut % (Auto) 75.1 H, Lymph % (Auto) 13.7 L , [place] % (Auto) 7.9, Eos % (Auto) 1.4, Baso % (Auto) 0.5, Absolute Neuts (auto) 6.0, Absolute Lymphs (auto) 1.09, Nucleated RBC % 0, PT 15.1 H, INR 1.2, APTT 30.7, Sodium 133, Potassium 3.9, Chloride 99, Carbon Dioxide 24.3, Anion Gap 10, BUN 12, Creatinine 0.91, Estim Creat Clear Calc 132.07, Est GFR (MDRD) Non-Af 101, BUN/Creatinine Ratio 12.7, Glucose 273 H, Calcium 8.8, Troponin T High Sens 6, NT pro BNP II 119, TSH 1.060 02/17/25 02:10: Troponin T Hi Sens 2 Hr 10 02/17/25 04:10: WBC 7.4, RBC 5.37, Hgb 13.2, Hct 40.6, MCV 75.6 L, MCH 24.6 L, MCHC 32.5, RDW Std Deviation 36.6, RDW Coeff of Elicia 13.8, Plt Count 232, MPV 8.9, Immature Gran % (Auto) 1.800 H, Neut % (Auto) 71.6 H, Lymph % (Auto) 15.3 L , [place] % (Auto) 9.2, Eos % (Auto) 1.4, Baso % (Auto) 0.7, Absolute Neuts (auto) 5.3, Absolute Lymphs (auto) 1.13, Nucleated RBC % 0, Sodium 135, Potassium 4.0, Chloride 100, Carbon Dioxide 23.0, Anion Gap 12, BUN 10, Creatinine 0.89, Estim Creat Clear Calc 135.03, Est GFR (MDRD) Non-Af 103, BUN/Creatinine Ratio 10.8, G lucose 245 H, Calcium 8.6, Troponin T Hi Sens 4Hr < 6 02/17/25 06:28: POC Glucose 246 H 02/17/25 11:42: POC Glucose 339 H 02/17/25 16:25: POC Glucose 268 H Charges/Coding Addendum Addendum: Total time of the visit including total time spent in counseling or coordination of care, (more than 50% of the total time, spent in obtaining medical information from nurses and other ancillary care providers ,explaining to the patient about labs, imaging, diagnosis and management of active complex medical conditions), discussion with multiple consultants over the phone, check and transfer beader and hospitalist of [facility], review of labs and imaging is 40 minutes. Visit Charges Inpatient E&M: 76470 Subs Hosp L3
--- NOTE | 2025-02-17 14:48 | PCM.OP.PRO2 ---
Procedures Hospitalists Procedures: 42101 Drain Skin Abscess Bedside Procedural Bedside Procedure Information Pre-Procedure Diagnosis: Right-sided scrotal superficial abscess Post-Procedure Diagnosis: Same Procedure Performed:: Right-sided local incision and drainage under local anesthesia nailer hand: No Procedure Time Out: 14:20 Procedure Start Time: 14:25 Procedure Stop Time: 14:45 Procedure findings: Informed written consent was taken from the patient. was present care of the patient. Consent was witnessed by the charge nurse, [place] Under local anesthesia, lidocaine 1% about 8 mL was locally infiltrated for area of block and right inguinal canal block vas deferens. With stab knife, small hole from where spontaneous purulent material is coming what was enlarged/elongated. Purulent material was drained out. This followed by some bloody discharge. Dressing was done. Patient tolerated procedure well. Purulent material sent for culture.
[2025-02-17 15:07] VITALS: BP 155/89; PULSE 79; RESP 16; TEMP 36.5; O2SAT 96
--- NOTE | 2025-02-17 15:48 | NURSING ---
facesheet faxed to [facility] fax [phone]
--- NOTE | 2025-02-17 16:32 | CT_ITS ---
PROCEDURE: CT ABDOMEN/PELVIS WITH CONTRAST 02/17/2025 REASON FOR EXAM: SCROTAL ABSCESS, DRAINING PUS FROM RIGHT SCROTUM TECHNIQUE: Procedure Code: [id number] Modality: CT Procedure: ABDOMEN/PELVIS WITH CONTRAST Coronal and Sagittal reconstruction series were provided. CONTRAST: Isovue 370 VOLUME: 91 mL One or more dose reduction techniques were used (e.g., Automated exposure control, adjustment of the mA and/or kV according to patient size, use of iterative reconstruction technique. RADIATION DOSE SUMMARY: CTDlvol: 24.18 mGy DLP: 1671.99 mGycm COMPARISON: CT pelvis 02/15/2025. FINDINGS: Lung bases: Clear. Liver: No significant abnormality. Gallbladder: Unremarkable. Spleen: Unremarkable. Pancreas: Unremarkable. Adrenals: Unremarkable. Kidneys: Unremarkable. No urolithiasis or hydronephrosis. Bladder: Unremarkable. Reproductive Organs: Nonenlarged prostate. Subcutaneous inflammatory fat stranding involving the right aspect of the scrotal soft tissues with skin thickening/cellulitic changes. No drainable fluid collection/abscess. Tiny locule of superficial subcutaneous emphysema at the anteroinferior right aspect. Bowel: No evidence of obstruction or active inflammatory process. Normal appendix. Lymph nodes: No suspicious lymph node enlargement. Vasculature: Normal caliber abdominal aorta and IVC. Peritoneum / Retroperitoneum: No ascites or free air. Postoperative changes of prior ventral abdominal wall hernia repair with surgical clips/mesh material. Bones: Mild degenerative changes of the spine with evidence of DISH. CT/Abdomen/Pelvis WITH Contrast IMPRESSION: Subcutaneous edema and inflammatory fat stranding/cellulitic changes along the right aspect of the scrotum, similar to prior exam. No drainable fluid collection/abscess. Tiny locule of superficial soft tissue gas at the anteroinferior right aspect probably related to recent I&D procedure. Reading Location: [id number]
[2025-02-17] MEDS: Vancomycin HCl 2,000 MG in 0.9% Normal Saline (500mL Bag) 500 ML 250 MG IV (16:38)
--- NOTE | 2025-02-17 17:25 | PCM.RX.CS ---
Consult Antibiotic Management Pharmacy has been consulted to manage selected antibiotic: Vancomycin Type of Intervention Type of Consult: New start Suspected Infection Suspected Infection: Skin/Soft tissue Labs Labs: Sodium 135 mmol/L (133-145) 02/17/25 04:10 Potassium 4.0 mmol/L (3.3-5.1) 02/17/25 04:10 Chloride 100 mmol/L (98-108) 02/17/25 04:10 Carbon Dioxide 23.0 mmol/L (21.0-32.0) 02/17/25 04:10 Anion Gap 12 (5-15) 02/17/25 04:10 BUN 10 mg/dL (4-19) 02/17/25 04:10 Creatinine 0.89 mg/dL (0.70-1.20) 02/17/25 04:10 Est GFR (MDRD) Non-Af 103 (>60) 02/17/25 04:10 BUN/Creatinine Ratio 10.8 RATIO (10-20) 02/17/25 04:10 Glucose 245 mg/dL (70-99) H 02/17/25 04:10 Microbiology Microbiology: Microbiology 02/15/25 22:55 Urine, Clean Catch Urine Culture - Preliminary Culture exhibits no growth. Goal Trough Goal Trough: 15-20 mcg/mL Pharmacy Plan for Drug Dosing Pharmacy Plan for Drug Dosing: NEW START IV VANCOMYCIN Consulting Physician: Dr. Ricardo Indication: Cellulitis Goal Trough: 15-20 SrCr: 0.89 CrCl: 135mls/min Comments: pt received a 2000mg loading dose on 02/17/25 at 1638 Vancomycin Dose: based on patients weight and renal function, recommend an initial dose of 1500mg q8h starting 02/18/25 at 0030. Trough prior to the 4th dose Pending Level: 02/18/25 at 1600 Pharmacy Service will continue to monitor and adjust dosing as required. Follow-Up Labs Follow-Up Labs: Trough: Vancomycin (02/18/25 at 1600)
--- NOTE | 2025-02-17 18:32 | PCM.DC.SUM ---
Providers Date of Admission: 02/15/25 Date of Discharge: 02/17/25 Primary Care Physician: Dr. Keron Ramos MD Reason For Visit: SCROTAL CELLULITIS Diagnosis Discharge Diagnosis (1) Cellulitis of scrotum: Status: Acute Code(s): N49.2 - Inflammatory disorders of scrotum Plan 54-year-old gentleman admitted with scrotal cellulitis. 1. Scrotal cellulitis with localized superficial abscess 02/17: Patient afebrile. Leukocytosis resolved. Patient having purulent drainage from right scrotal region. No tachycardia. I called plastic surgeon, Dr. Swartz who is not on-call. I called urologist, Dr. Szymanski who is also not on-call. Then I called general surgeon Dr. Jackson who said that if urologist not on-call then she would like to be transferred as she does not do incision and drainage of scrotal or genitourinary region. Then with history of diabetes and uncontrolled hyperglycemia and tiny purulent drainage from small hole/opening, I thought to elongate the incision for adequate drainage. Written informed consent was taken from the patient. Please see the procedure note for details Purulent and sent for culture. Antibiotic broadened. IV vancomycin, ceftriaxone. Patient already on clindamycin for 2 days. Started on IV Flagyl and clindamycin discontinued Later on Dr. Lagunas called me and advised to transfer because of chance of getting exacerbation of scrotal cellulitis in view of diabetes mellitus and risk of Eduard's gangrene/deep tissue infection Discussed with the patient and and they want to transfer to [facility]. I called the transfer line and talked to the hospitalist who advised home care coordinator to discuss with the urologist. CT pelvis with IV contrast ordered ? CT of the pelvis on 02/15 does not show a fluid collection or abscess Continue oxycodone to his pain management regimen, will increase his Tylenol to 1000 mg p.o. 3 times daily 02/17: Repeat CT abdomen pelvis with IV contrast was done though it is not officially reported. I looked at the images and testis his size looks normal without swelling but there is induration swelling of the scrotal region. Urologist called me and initially said to call after it is reported but later when I said that he might be risk for Eduard's gangrene with uncontrolled hyperglycemia and DM type II history is said to transfer the patient to [facility]. Patient was transferred to [facility], Dr. Keron Norris was accepting physician Repeat CT abdomen/pelvis with contrast reported subcutaneous edema inflammatory fat stranding cellulitis along the right aspect of L4 pulm similar to prior exam. No drainable fluid collection/abscess. Tiny locule of superficial soft tissue gas at the anteroinferior right aspect related to recent I&D procedure 2. DM2 ? A1c on admission 11.7 Glucose is high between 250- 340. Started on Lantus and Humalog scheduled insulin with hypoglycemia protocol. ? Continue with sliding scale insulin DVT: Lovenox Patient is being transferred to [facility] for further care. Microbiology Past 72 Hours 02/15/25 22:55 Urine, Clean Catch Urine Culture - Preliminary Culture exhibits no growth. Laboratory Results 02/16/25 22:23: POC Glucose 285 H 02/17/25 00:04: WBC 8.0, RBC 5.44, Hgb 13.5, Hct 41.1, MCV 75.6 L, MCH 24.8 L, MCHC 32.8, RDW Std Deviation 36.9, RDW Coeff of Elicia 13.8, Plt Count 234, MPV 8.8, Immature Gran % (Auto) 1.400 H, Neut % (Auto) 75.1 H, Lymph % (Auto) 13.7 L, [place] % (Auto) 7.9, Eos % (Auto) 1.4, Baso % (Auto) 0.5, Absolute Neuts (auto) 6.0, Absolute Lymphs (auto) 1.09, Nucleated RBC % 0, PT 15.1 H, INR 1.2, APTT 30.7, Sodium 133, Potassium 3.9, Chloride 99, Carbon Dioxide 24.3, Anion Gap 10, BUN 12, Creatinine 0.91, Estim Creat Clear Calc 132.07, Est GFR (MDRD) Non-Af 101, BUN/Creatinine Ratio 12.7, Glucose 273 H, Calcium 8.8, Troponin T High Sens 6, NT pro BNP II 119, TSH 1.060 02/17/25 02:10: Troponin T Hi Sens 2 Hr 10 02/17/25 04:10: WBC 7.4, RBC 5.37, Hgb 13.2, Hct 40.6, MCV 75.6 L, MCH 24.6 L, MCHC 32.5, RDW Std Deviation 36.6, RDW Coeff of Elicia 13.8, Plt Count 232, MPV 8.9, Immature Gran % (Auto) 1.800 H, Neut % (Auto) 71.6 H, Lymph % (Auto) 15.3 L, [place] % (Auto) 9.2, Eos % (Auto) 1.4, Baso % (Auto) 0.7, Absolute Neuts (auto) 5.3, Absolute Lymphs (auto) 1.13, Nucleated RBC % 0, Sodium 135, Potassium 4.0, Chloride 100, Carbon Dioxide 23.0, Anion Gap 12, BUN 10, Creatinine 0.89, Estim Creat Clear Calc 135.03, Est GFR (MDRD) Non-Af 103, BUN/Creatinine Ratio 10.8, Glucose 245 H, Calcium 8.6, Troponin T Hi Sens 4Hr < 6 02/17/25 06:28: POC Glucose 246 H 02/17/25 11:42: POC Glucose 339 H 02/17/25 16:25: POC Glucose 268 H Medications at Discharge Home Medications glipizide 10 mg tablet, extended release 24 hr 10 mg PO DAILY 09/07/24 paroxetine HCl 30 mg tablet 30 mg PO DAILY 09/07/24 buspirone 5 mg tablet 5 mg PO TID 02/15/25 levocarnitine 500 mg capsule (L-Carnitine) 3,000 mg PO DAILY 02/15/25 metformin 500 mg tablet 500 mg PO BID 02/15/25 testosterone cypionate 200 mg/mL intramuscular oil 400 mg IM .COMPLEX 02/15/25 Physical Exam Narrative Please see exam finding of the progress note Weight / BMI Weight Weight: 314 lb 6.067 oz Body Mass Index (BMI) 46.4 ABG / Lab / Microbiology Data 02/17/25 04:10 02/17/25 04:10 Laboratory: Laboratory Results - last 24 hr 02/17/25 11:42: POC Glucose 339 H 02/17/25 16:25: POC Glucose 268 H Microbiology: Microbiology 02/15/25 21:08 Blood Culture (Wb) #2 - Right Hand Blood Culture - Preliminary No growth in 48 hours. 02/15/25 21:08 Blood Culture (Wb) - Left Hand Blood Culture - Preliminary No growth in 48 hours. 02/15/25 22:55 Urine, Clean Catch Urine Culture - Preliminary Culture exhibits no growth. Radiography Diagnostic Testing: Radiology Impression Abdomen/Pelvis CT 02/17/25 16:32 IMPRESSION: Subcutaneous edema and inflammatory fat stranding/cellulitic changes along the right aspect of the scrotum, similar to prior exam. No drainable fluid collection/abscess. Tiny locule of superficial soft tissue gas at the anteroinferior right aspect probably related to recent I&D procedure. Reading Location: [id number] D/C Instructions DC O2, CPAP, BIPAP Needs Home O2 Discharge instructions: No Meaningful Use Info Meaningful Use Meaningful Use Diagnoses (Choose all that apply): None applicable Discharge Plan Admission Admit Date/Time: 02/15/25 23:40 Attending Provider: Gorge Ricardo Primary Care Provider: Keron Ramos Consulting Providers: Denisse Mak; Jeramie Bennett Discharge Orders/Prescriptions Prescriptions: No Action metformin 500 mg tablet 500 mg PO BID buspirone 5 mg tablet 5 mg PO TID testosterone cypionate 200 mg/mL oil 400 mg IM .COMPLEX Rx Instructions: 400 mg intramuscularly twice a week; L-Carnitine 500 mg capsule 3,000 mg PO DAILY Rx Instructions: must administer with a meal/food glipizide 10 mg tablet extended release 24hr 10 mg PO DAILY paroxetine HCl 30 mg tablet 30 mg PO DAILY Referrals / Follow Up: Keron Ramos MD [Primary Care Provider, Family Practice] Disposition Disposition (needs filled in before D/C Order can be placed): Acute Care Hospital Charges/Coding Visit Charges Inpatient E&M: 66243 Disch Hosp >30min
--- NOTE | 2025-02-17 19:16 | NURSING ---
1845-Call received from [facility], provided information on bed assignment, pt going to [address] Bed 2, Dr. Keron Norris accepting physician. 1900-Call placed to [facility] ambulance to arrange transportation, ETA 1 HR. pt is aware of this arrangement and will notify his family.
== END 2025-02-17 20:25 | disposition short-term general hospital (02) | DRG 728 ==
LOC: ED 23:15 → MS3 23:48
PROVIDERS: Family Medicine; Admitting Provider Student in an Organized Health Care Education/Training Program; Emergency Provider Emergency Medicine; PCP Family Medicine; Visit Provider Internal Medicine
DX: N49.2 Inflammatory disorders of scrotum (principal); L02.214 Cutaneous abscess of groin; Z68.42 Body mass index [BMI] 45.0-49.9, adult; E11.22 Type 2 diabetes mellitus with diabetic chronic kidney disease; E11.65 Type 2 diabetes mellitus with hyperglycemia; D72.829 Elevated white blood cell count, unspecified; E66.813 Obesity, class 3; N18.9 Chronic kidney disease, unspecified; F41.9 Anxiety disorder, unspecified; R11.0 Nausea; Z79.899 Other long term (current) drug therapy; Z79.84 Long term (current) use of oral hypoglycemic drugs
CPT/HCPCS: 36415; 71045; 72193; 74177; 80048; 80053; 81001; 82962; 83036; 83605; 83880; 84443; 84484; 85025; 85610; 85730; 87040; 87070; 87077; 87086; 87186; 87205; 93005; 99285; Q9967; A4216; J2405